=== PATIENT | male | born 1940 | race Caucasian/White ===

== ENCOUNTER 2017-12-07 17:43 | Emergency (ER) | payer MEDICARE, OTHER ==
[2017-12-07 19:16] LABS: Basophils # (Auto) 0.1 K/mm3 (0.0-0.1); Basophils % (Auto) 1.1 % (0.0-1.8); Eosinophils # (Auto) 0.6 K/mm3 (0.0-0.4); Eosinophils % (Auto) 10.5 % (0.0-4.3); Lymphocytes # (Auto) 1.6 K/mm3 (1.2-5.4); Lymphocytes % (Auto) 30.7 % (13.4-35.0); Mean Corpuscular HGB Conc 37 % (32-34); Mean Corpuscular Hemoglobin 34 pg (28-32); Mean Corpuscular Volume 91 fl (84-94); Monocytes # (Auto) 0.4 K/mm3 (0.0-0.8); Monocytes % (Auto) 7.2 % (0.0-7.3); Platelet Count 321 K/mm3 (140-440); Red Blood Count 4.31 M/mm3 (3.65-5.03)
[2017-12-07 19:17] LABS: Hematocrit 39.4 % (35.5-45.6); Hemoglobin 14.4 gm/dl (11.8-15.2)
[2017-12-07 19:41] LABS: Alanine Aminotransferase 30 units/L (7-56); Albumin 4.2 g/dL (3.9-5); BUN/Creatinine Ratio 17; Blood Urea Nitrogen 17 mg/dL (9-20); Calcium 9.9 mg/dL (8.4-10.2); Hemolysis Index 40
[2017-12-07] MEDS ORDERED: NACL 0.9% 1000 ML 1,000 ML IV ONE (23:38)
[2017-12-07] MEDS ORDERED: HumuLIN R IV ONE (23:38)
[2017-12-07] MEDS ORDERED: NACL 0.9% 500 ML 500 ML IV ONE (23:38)
[2017-12-07 23:56] VITALS: BP 136/73
--- NOTE | 2017-12-08 01:13 | Emergency Department Report ---
ED General Adult HPI - General Chief complaint: Hyperglycemia Stated complaint: hyperglycemia Time Seen by Provider: 12/07/17 23:38 Source: patient, family, EMS, utility teller Mode of arrival: Wheelchair Limitations: Language Barrier - History of Present Illness Initial comments: Pt sent in by PCP. He was there for a routine check up and his blood sugar was 500. So, his pcp sent into the ER for recheck. Pt says that he has been taking his meds as prescribed. ~1 week ago, pt feel out of a hammock onto his right hip. Has had pain ever since. Still able to walk. Not on ATC. Didn't hit his head. History obtained through translation by family members. Severity scale (0 -10): 0 - Related Data Allergies Allergy/AdvReac Type Severity Reaction Status Date / Time No Known Allergies Allergy Verified 12/07/17 18:36 ED Review of Systems ROS: Stated complaint: HYPERTENSION Other details as noted in HPI Comment: All other systems reviewed and negative Musculoskeletal: arthralgia, myalgia ED Past Medical Hx - Past Medical History Previous Medical History?: Yes Hx Diabetes: Yes - Surgical History Past Surgical History?: Yes Additional Surgical History: hernia repair - Social History Smoking Status: Never Smoker Substance Use Type: None ED Physical Exam - General Limitations: Language Barrier General appearance: alert, in no apparent distress - Head Head exam: Present: atraumatic, normocephalic - Eye Eye exam: Present: normal appearance - ENT ENT exam: Present: mucous membranes moist - Neck Neck exam: Present: normal inspection - Respiratory Respiratory exam: Present: normal lung sounds bilaterally. Absent: respiratory distress - Cardiovascular Cardiovascular Exam: Present: regular rate, normal rhythm. Absent: systolic murmur, diastolic murmur, rubs, gallop - GI/Abdominal GI/Abdominal exam: Present: soft, normal bowel sounds. Absent: distended, tenderness, guarding, rebound - Rectal Rectal exam: Present: deferred - Extremities Exam Extremities exam: Present: normal inspection - Expanded Lower Extremity Exam Right Hip exam: Present: full ROM, tenderness (lateral hip tenderness. RLE with NROM. Rt foot is neurovasc intact). Absent: swelling, abrasion, laceration - Back Exam Back exam: Present: normal inspection - Neurological Exam Neurological exam: Present: alert, oriented X3 - Psychiatric Psychiatric exam: Present: normal affect, normal mood - Skin Skin exam: Present: warm, dry, intact, normal color. Absent: rash ED Course Vital Signs 12/07/17 12/07/17 12/07/17 18:38 23:18 23:26 Temperature 97.3 F L 98.0 F 98 F Pulse Rate 60 58 L 57 L Respiratory 20 12 16 Rate Blood Pressure 155/73 154/69 Blood Pressure 154/69 [Left] O2 Sat by Pulse 99 99 100 Oximetry 12/07/17 12/07/17 23:31 23:45 Temperature Pulse Rate 59 L 53 L Respiratory 12 20 Rate Blood Pressure 136/73 136/73 Blood Pressure [Left] O2 Sat by Pulse 100 99 Oximetry ED Medical Decision Making - Lab Data Result diagrams: 12/07/17 19:01 12/07/17 19:01 - Medical Decision Making 77 yo male with past medical history diabetes on Lantus that presents to the ER with hyperglycemia. Vital signs are stable. Patient's well-appearing. Lab work shows elevated glucose of 480. No evidence of anion gap. Venous blood gas is unremarkable. Patient has been given IV fluids and 10 units IV insulin. This lowered his glucose. I obtained a CT of his right hip secondary to patient's complaint of pain and recent fall. I suspect likely patient has a right hip contusion. Imaging is read as unremarkable, patient should be discharged to follow-up with his family doctor for his right hip pain and his glucose. Pt has been signed out to Dr. Mahoney - Differential Diagnosis dka, hyperglycemia, dehydration, electrolyte abnormality Critical care attestation.: If time is entered above; I have spent that time in minutes in the direct care of this critically ill patient, excluding procedure time. ED Disposition Clinical Impression: Contusion of right hip, Hyperglycemia Is pt being admited?: No Does the pt Need Aspirin: No Condition: Stable Instructions: Contusion in Adults (ED), Diabetic Hyperglycemia (ED) Additional Instructions: You can take 975 mg Tylenol every 6 hours as needed for pain relief. Follow-up with your family doctor in 2-3 days for recheck of your right hip pain and blood sugar. Referrals: PRIMARY CARE, [Primary Care Provider] - 3-5 Days
--- NOTE | 2017-12-08 02:36 | Cat Scan Report ---
FINAL REPORT EXAM: CT LOWER EXTREMITY RT WO CON HISTORY: right hip pain, h/o fall x 3 months ago TECHNIQUE: Spiral CT scanning of the right hip. No IV contrast administered. Multiplanar reformations. PRIORS: None. FINDINGS: Generalized osteopenia and degenerative change. No acute fracture, dislocation or obvious osseous destruction. Postsurgical changes of probable hernia repair in the right inguinal region. Remainder of surrounding soft tissues grossly unremarkable. IMPRESSION: 1. No acute osseous abnormality. 2. Postsurgical and degenerative change.
== END 2017-12-08 03:44 ==
LOC: ED 17:43
DX: S70.01XA Contusion of right hip, initial encounter (principal); E11.65 Type 2 diabetes mellitus with hyperglycemia; X58.XXXA Exposure to other specified factors, initial encounter; Y93.89 Activity, other specified; Y92.89 Other specified places as the place of occurrence of the external cause; Y99.8 Other external cause status
CPT/HCPCS: 36415; 73700; 80053; 82805; 82962; 85025; 93005; 93010; 96361; 96374; 99285; J7030; J1815

== ENCOUNTER 2018-06-29 10:08 | Emergency (ER) | payer MEDICARE, OTHER, SELFPAY ==
[2018-06-29 10:40] LABS: Basophils % (Auto) 0.7 % (0.0-1.8); Eosinophils # (Auto) 0.6 K/mm3 (0.0-0.4); Eosinophils % (Auto) 9.1 % (0.0-4.3); Hematocrit 40.3 % (35.5-45.6); Lymphocytes # (Auto) 1.6 K/mm3 (1.2-5.4); Lymphocytes % (Auto) 26.4 % (13.4-35.0); Mean Corpuscular HGB Conc 35 % (32-34); Mean Corpuscular Volume 89 fl (84-94); Monocytes # (Auto) 0.4 K/mm3 (0.0-0.8); Monocytes % (Auto) 7.2 % (0.0-7.3); Platelet Count 316 K/mm3 (140-440); Red Blood Count 4.53 M/mm3 (3.65-5.03); Red Cell Distribution Width 13.1 % (13.2-15.2)
[2018-06-29] MEDS ORDERED: QUELICIN ONE (10:47)
[2018-06-29] MEDS ORDERED: SUBLIMAZE ONE (10:47)
[2018-06-29] MEDS ORDERED: DIPRIVAN 10 MG/ML IV ONE (10:48)
[2018-06-29] MEDS ORDERED: NACL 0.9% 1000 ML 1,000 ML IV ONE (11:05)
[2018-06-29] MEDS ORDERED: HumuLIN R IV ONE (11:06)
--- NOTE | 2018-06-29 11:08 | Emergency Department Report ---
ED General Adult HPI - General Chief complaint: Hyperglycemia Stated complaint: HIGH GLUCOSE Time Seen by Provider: 06/29/18 11:02 Source: patient Mode of arrival: Ambulatory Limitations: No Limitations - History of Present Illness Initial comments: Mr. Jones is an 78-year-old Malay speaking gentleman who presents with elevated blood sugar and abdominal pain. He ran out of metformin medication. He now has generalized abdominal pain and vomiting. Moderate severe pain in the abdomen began 2 days ago. Denies fever. Has mild headache. Positive lightheadedness. No diarrhea. PCP Dr. Otis Fountain Further history obtained by daughter at the bedside including Malay interpretation -: Gradual, days(s) (2) Location: head, abdomen Radiation: non-radiation Quality: aching Consistency: intermittent Improves with: none Worsens with: none Associated Symptoms: malaise, nausea/vomiting - Related Data Previous Rx's Medication Instructions Recorded Last Taken Type Docusate Sodium [Colace] 100 mg PO BID 7 Days #14 capsule 06/29/18 Unknown Rx metFORMIN [Glucophage] 500 mg PO BID 30 Days #60 tablet 06/29/18 Unknown Rx Allergies Allergy/AdvReac Type Severity Reaction Status Date / Time No Known Allergies Allergy Verified 06/29/18 10:14 ED Review of Systems ROS: Stated complaint: HIGH GLUCOSE Other details as noted in HPI Comment: All other systems reviewed and negative Constitutional: denies: fever Respiratory: denies: cough Cardiovascular: denies: chest pain ED Past Medical Hx - Past Medical History Previous Medical History?: Yes Hx Diabetes: Yes - Surgical History Additional Surgical History: hernia repair - Social History Smoking Status: Never Smoker Substance Use Type: None - Medications Home Medications: Home Medications Medication Instructions Recorded Confirmed Last Taken Type Docusate Sodium [Colace] 100 mg PO BID 7 Days #14 capsule 06/29/18 Unknown Rx metFORMIN [Glucophage] 500 mg PO BID 30 Days #60 tablet 06/29/18 Unknown Rx ED Physical Exam - General Limitations: No Limitations General appearance: alert, in no apparent distress, other (appears well, appears well hydrated) - Head Head exam: Present: atraumatic, normocephalic - Eye Eye exam: Present: normal appearance - ENT ENT exam: Present: mucous membranes moist - Neck Neck exam: Present: normal inspection, full ROM. Absent: tenderness, meningismus - Respiratory Respiratory exam: Present: normal lung sounds bilaterally. Absent: respiratory distress, wheezes, rales, rhonchi - Cardiovascular Cardiovascular Exam: Present: regular rate, normal rhythm, normal heart sounds. Absent: systolic murmur, diastolic murmur, rubs, gallop - GI/Abdominal GI/Abdominal exam: Present: soft, normal bowel sounds. Absent: distended, tenderness, guarding, rebound - Rectal Rectal exam: Present: deferred - Extremities Exam Extremities exam: Present: normal inspection - Back Exam Back exam: Present: normal inspection - Neurological Exam Neurological exam: Present: alert, oriented X3 - Psychiatric Psychiatric exam: Present: normal affect, normal mood - Skin Skin exam: Present: warm, dry, intact, normal color. Absent: rash ED Course Vital Signs 06/29/18 06/29/18 06/29/18 10:14 11:15 14:15 Temperature 97.5 F L 98 F Pulse Rate 78 69 61 Respiratory 16 17 18 Rate Blood Pressure 134/80 Blood Pressure 132/72 137/72 [Right] O2 Sat by Pulse 99 98 99 Oximetry 06/29/18 15:59 Temperature 98.3 F Pulse Rate 64 Respiratory 20 Rate Blood Pressure Blood Pressure 128/66 [Right] O2 Sat by Pulse 99 Oximetry ED Medical Decision Making - Lab Data Result diagrams: 06/29/18 10:24 06/29/18 10:24 - Radiology Data Radiology results: report reviewed No acute process on CT scan, constipation present - Medical Decision Making Mr. Jones presents with hyperglycemia and abdominal pain. Blood glucose improved after IV fluid and IV regular insulin. CT abdomen and pelvis revealed constipation likely due to rebound from lack of metformin medication. I have prescribed metformin and Colace. Discharged home in stable condition. Critical care attestation.: If time is entered above; I have spent that time in minutes in the direct care of this critically ill patient, excluding procedure time. ED Disposition Clinical Impression: Hyperglycemia, Constipation, Abdominal pain Disposition: DC-01 TO HOME OR SELFCARE Is pt being admited?: No Does the pt Need Aspirin: No Condition: Stable Instructions: Constipation (ED), Diabetic Hyperglycemia (ED) Prescriptions: Docusate Sodium [Colace] 100 mg PO BID 7 Days #14 capsule metFORMIN [Glucophage] 500 mg PO BID 30 Days #60 tablet Referrals: OTIS FOUNTAIN MD [Staff Physician] - 3-5 Days
[2018-06-29 12:36] LABS: Calcium 10.2 mg/dL (8.4-10.2)
[2018-06-29 16:00] VITALS: BP 128/66
--- NOTE | 2018-06-29 17:43 | Cat Scan Report ---
FINAL REPORT EXAM: CT ABDOMEN PELVIS W CON HISTORY: abdominal pain COMPARISON: None. TECHNIQUE: Multiple contiguous axial images were obtained from the lung bases to the pubic symphysis after administration of IV contrast. Reformatted sagittal and coronal images were available for revi ew. FINDINGS: Lung bases: Normal. Visualized heart and mediastinum: Normal heart size. Moderate to severe coronary artery calcification s. Liver: Normal. Spleen: Normal. Pancreas: Mild fatty atrophy. Gallbladder and Biliary Tree: No calcified gallstones. No biliary ductal dilatation. Adrenal glands: Normal. Kidneys: Symmetric enhancement to both kidneys. No hydronephrosis. Bladder: Normal. Pelvic organs: Normal prostate gland and seminal vesicles. Bowel: No focal wall thickening. No evidence of obstruction. The appendix is not clearly identified, but there are no pericecal inflammatory changes. Large amount of stool throughout the colon. Peritoneum: No significant mesenteric adenopathy. No free air or free fluid. Vasculature: Abdominal aorta is normal in caliber without evidence of aneurysm. Scattered atheroscler otic calcifications. Normal appearance of the portal venous system and the inferior vena cava. Bones and soft tissues: No suspicious osseous lesions. No acute fracture or dislocation. Grade 1 ante rolisthesis of L4 on L5. Multilevel degenerative changes of the lumbar spine. Postsurgical changes fr om ventral hernia repair with mesh placement. IMPRESSION: No acute intra-abdominal pathology. Large amount of stool throughout the entire colon concerning for constipation.
== END 2018-06-29 17:21 | disposition home or self-care (01) ==
LOC: ED 10:08
DX: E11.65 Type 2 diabetes mellitus with hyperglycemia (principal); R10.84 Generalized abdominal pain; R11.2 Nausea with vomiting, unspecified; Z79.4 Long term (current) use of insulin
CPT/HCPCS: 36415; 74177; 80048; 82805; 82947; 82962; 85025; 96361; 96374; 99284; J0330; J2704; J3010; J7030; Q9967; J1815

== ENCOUNTER 2018-11-19 08:28 | Inpatient (IN) | payer MEDICARE ==
[2018-11-19] MEDS ORDERED: NACL 0.9% 1000 ML IV ONE (08:47)
--- NOTE | 2018-11-19 08:50 | Emergency Department Report ---
ED General Adult HPI - General Chief complaint: Weakness Stated complaint: HYPERGLYCEMIA Time Seen by Provider: 11/19/18 08:30 Source: patient, family, EMS (ems notes not available at time of chart dictation), RN notes reviewed, old records reviewed Mode of arrival: Stretcher Limitations: Language Barrier, Altered Mental Status, Physical Limitation - History of Present Illness Initial comments: This is an 78-year-old gentleman. The patient is altered and nonverbal currently, and not provide any history. History is entirely obtained from his granddaughter, Miss Theo Jones; [phone] Patient has a history of diabetes, the family does not know the name of his primary care doctor. Family brings the patient into the ER today for weakness and lethargy. Last known well time is sometime yesterday. Family not exactly sure 1. He apparently fell, we are not sure if this is witnessed. Apparently, after he fell, he was brought back to bed by family. The patient has high blood sugar, and the family does not know what medications he takes, if his medications haven't changed or adjusted. Typically, patient able to complete most activities of daily living, with some assistance. However, the patient is now moaning in bed listlessly, moving 4 extremities, and not at his baseline, as per the granddaughter. There is no documented fever, syncope, nausea, vomiting, or urinary frequency. Patient himself is altered, and therefore, not able to describe qualitative nature of his symptoms, exacerbating or relieving factors, or radiation. Family is trying to get a list of medications. -: unknown Radiation: other Quality: other Consistency: other Improves with: other Worsens with: other Associated Symptoms: weakness - Related Data Previous Rx's Medication Instructions Recorded Last Taken Type Docusate Sodium [Colace] 100 mg PO BID 7 Days #14 capsule 06/29/18 Unknown Rx metFORMIN [Glucophage] 500 mg PO BID 30 Days #60 tablet 06/29/18 Unknown Rx Allergies Allergy/AdvReac Type Severity Reaction Status Date / Time No Known Allergies Allergy Verified 06/29/18 10:14 ED Review of Systems ROS: Stated complaint: HYPERGLYCEMIA Other details as noted in HPI Comment: Unobtainable due to pts medical conditions (review of systems as per family) Constitutional: malaise Respiratory: denies: cough Cardiovascular: denies: syncope Genitourinary: denies: frequency Neurological: weakness ED Past Medical Hx - Past Medical History Previous Medical History?: Yes Hx Diabetes: Yes - Surgical History Past Surgical History?: Yes Additional Surgical History: hernia repair - Social History Smoking Status: Never Smoker Substance Use Type: None - Medications Home Medications: Home Medications Medication Instructions Recorded Confirmed Last Taken Type Docusate Sodium [Colace] 100 mg PO BID 7 Days #14 capsule 06/29/18 Unknown Rx metFORMIN [Glucophage] 500 mg PO BID 30 Days #60 tablet 06/29/18 Unknown Rx ED Physical Exam - General Limitations: Language Barrier General appearance: lethargic, cachectic - Head Head exam: Present: atraumatic, normocephalic - Eye Eye exam: Present: normal appearance - ENT ENT exam: Present: mucous membranes dry, normal external ear exam - Neck Neck exam: Present: normal inspection, full ROM. Absent: tenderness - Respiratory Respiratory exam: Present: normal lung sounds bilaterally. Absent: respiratory distress - Cardiovascular Cardiovascular Exam: Present: normal rhythm, tachycardia, normal heart sounds. Absent: systolic murmur, diastolic murmur, rubs, gallop - GI/Abdominal GI/Abdominal exam: Present: soft, other (scaphoid abdomen. Patient appears cachectic and wasted.). Absent: distended, tenderness, guarding, rebound, rigid, pulsatile mass - Rectal Rectal exam: Present: normal inspection, other (chaperoned by nurse Ariel House) - Extremities Exam Extremities exam: Present: normal inspection, other (2+ pulses noted in the bilateral upper, lower extremities. Compartments soft. No long bony tenderness. The pelvis is stable.). Absent: pedal edema, calf tenderness - Back Exam Back exam: Present: normal inspection. Absent: tenderness, CVA tenderness (R), CVA tenderness (L), paraspinal tenderness, vertebral tenderness - Neurological Exam Neurological exam: Present: altered, other (the patient moves 4 extremities spontaneously. Opens eyes spontaneously. Not speaking sensibly. a detailed neurologic examination is not possible secondary to the patient's inability to participate. Withdraws 4 extremities to pinch.) - Psychiatric Psychiatric exam: Present: other (patient is nonverbal) - Skin Skin exam: Present: warm, dry, intact, normal color. Absent: rash ED Course Vital Signs 11/19/18 11/19/18 11/19/18 08:37 08:42 08:45 Temperature 96.2 F L Pulse Rate 106 H 105 H 105 H Respiratory 20 20 24 Rate Blood Pressure 120/49 120/49 O2 Sat by Pulse 99 99 98 Oximetry 11/19/18 11/19/18 11/19/18 08:50 08:52 09:00 Temperature Pulse Rate 109 H 105 H Respiratory 22 20 Rate Blood Pressure 117/59 O2 Sat by Pulse 99 Oximetry 11/19/18 11/19/18 11/19/18 09:15 09:30 10:01 Temperature Pulse Rate 108 H 101 H 101 H Respiratory 19 22 Rate Blood Pressure 123/67 123/67 123/67 O2 Sat by Pulse 98 100 79 L Oximetry 11/19/18 11/19/18 10:30 11:36 Temperature Pulse Rate 102 H 85 Respiratory 25 H 15 Rate Blood Pressure 111/58 O2 Sat by Pulse 97 97 Oximetry - Reevaluation(s) Reevaluation #1: 11/19/18 09:28 Differential diagnosis, including not limited to: Toxic encephalopathy, metabolic encephalopathy, pneumonia, urinary tract infection, dehydration, electrolyte derangements Assessment and plan: 78-year-old gentleman with weakness, tachycardia, Accu-Chek greater than 500, suspect diabetic ketoacidosis versus hyperosmolar state. He is afebrile. He is protecting his airway at this time. Appropriate laboratory studies ordered, x-ray of the chest ordered, CT scan of the brain, cervical spine ordered given history of possible fall, patient to be admitted to the medical service once initial diagnostics have resulted. Chief medical diagnosis is most likely metabolic encephalopathy, likely secondary to hyperglycemia. Reevaluation #2: 11/19/18 11:23 Laboratory studies demonstrate diabetic ketoacidosis, acute renal insufficiency, additional IV fluids ordered. DKA medications and protocol ordered. While in the ER, Patient developed SVT. He is treated according to the algorithm, received adenosine 6 mg, then 12 mg, and then 12 mg. Each time, he slowed down, and subsequently sped back up to SVT. He was given a dose of diltiazem, 10 mg, slowed down, and then sped back up. At this point time, the patient's blood p ressure was in the 70s/80s. He is still awake, and mentating protecting his airway. He is placed on a lifepak device and shocked at 100 j, slowed down, sped back up again, shocked at 150 J, slowed down, sped back up again, and centrally shocked at 200 J, where he was successfully converted into a sinus rhythm. Each time, he is premedicated with fentanyl, please see nursing medication records. Given unstable narrow complex tachyarrhythmia, and need for emergent cardioversion, the patient is emergently and administratively consented by myself in these procedures. At this point in time, blood pressure is in the mid 90s, patient awake, Hospital physician is paged to arrange admission, critical care physician is paged to arrange admission to the intensive care unit, discussed with cardiology on-call, Dr. Guillaume, who agreed to follow in consultation. 11/19/18 11:25 Reevaluation #3: 11/19/18 11:36 Dr Garcia agrees with placement into the intensive care unit. The Hospital physician was paged to arrange admission. Reevaluation #4: 11/19/18 11:54 Dr Rodriguez to admit Reevaluation #5: 11/19/18 12:11 CT scan of the brain and cervical spine negative for acute traumatic findings. Incidental nonemergent findings noted. These may be followed up on the inpatient side of things, or electively as an outpatient. ED Medical Decision Making - Lab Data Result diagrams: 11/19/18 10:07 11/19/18 11:29 Vital Signs 11/19/18 11/19/18 11/19/18 08:37 08:42 08:45 Temperature 96.2 F L Pulse Rate 106 H 105 H 105 H Respiratory 20 20 24 Rate Blood Pressure 120/49 120/49 O2 Sat by Pulse 99 99 98 Oximetry 11/19/18 11/19/18 11/19/18 08:50 08:52 09:00 Temperature Pulse Rate 109 H 105 H Respiratory 22 20 Rate Blood Pressure 117/59 O2 Sat by Pulse 99 Oximetry 11/19/18 09:15 Temperature Pulse Rate 108 H Respiratory Rate Blood Pressure 123/67 O2 Sat by Pulse 98 Oximetry - EKG Data -: EKG Interpreted by [place] EKG shows normal: sinus rhythm Rate: tachycardia - EKG Data 11/19/18 09:30 EKG is limited by motion artifact. This is a sinus rhythm, tachycardic, 106 bpm, normal axis, QTC prolonged, poor R progression, atrial enlargement, there is a nonspecific repolarization abnormality, there is no endorsement of chest pain, the EKG is abnormal, it is not consistent with ST elevation myocardial infarction. - Radiology Data Radiology results: pending Critical Care Time: Yes Critical care time in (mins) excluding proc time.: 120 Critical care attestation.: If time is entered above; I have spent that time in minutes in the direct care of this critically ill patient, excluding procedure time. ED Disposition Clinical Impression: DKA (diabetic ketoacidoses), MEETA (acute kidney injury), SVT (supraventricular tachycardia) Disposition: 09 OP ADMIT IP TO THIS HOSP Is pt being admited?: Yes Condition: Critical
[2018-11-19 09:41] LABS: Bilirubin,Urine NEG (Negative); Blood,Urine NEG (Negative); Color,Urine Yellow (Yellow); Mucus,Urine FEW /HPF; Protein,Urine <15 mg/dL mg/dL (Negative); Urobilinogen,Urine < 2.0 mg/dL (<2.0); WBC,Urine < 1.0 /HPF (0.0-6.0)
--- NOTE | 2018-11-19 09:42 | XRay Report ---
CHEST 1 VIEW INDICATION / CLINICAL INFORMATION: dka sepsis. COMPARISON: None available. FINDINGS: SUPPORT DEVICES: None. HEART / MEDIASTINUM: No significant abnormality. LUNGS / PLEURA: No significant pulmonary or pleural abnormality. No pneumothorax. ADDITIONAL FINDINGS: No significant additional findings. IMPRESSION: 1. No acute findings. Signer Name: Colby Wilson MD Signed: 11/19/2018 9:38 AM Workstation Name: [id number]
[2018-11-19 10:44] LABS: Partial Thromboplastin Time 26.3 Sec. (24.2-36.6)
[2018-11-19 10:49] LABS: Basophils % (Auto) 0.1 % (0.0-1.8); Eosinophils % (Auto) 0.5 % (0.0-4.3); Hematocrit 55.2 % (35.5-45.6); Hemoglobin 17.7 gm/dl (11.8-15.2); Lymphocytes # (Auto) 0.3 K/mm3 (1.2-5.4); Lymphocytes % (Auto) 4.2 % (13.4-35.0); Mean Corpuscular HGB Conc 32 % (32-34); Mean Corpuscular Volume 98 fl (84-94); Monocytes # (Auto) 0.5 K/mm3 (0.0-0.8); Monocytes % (Auto) 5.9 % (0.0-7.3); Platelet Count 193 K/mm3 (140-440); Red Blood Count 5.66 M/mm3 (3.65-5.03); Red Cell Distribution Width 15.3 % (13.2-15.2)
[2018-11-19 10:50] LABS: Albumin 3.6 g/dL (3.9-5); Calcium 9.9 mg/dL (8.4-10.2)
[2018-11-19] MEDS ORDERED: NACL 0.9% 1000 ML 2,000 ML IV ONE (10:55)
[2018-11-19] MEDS ORDERED: SODIUM BICARBONATE PEDIATRIC ONE (10:56)
[2018-11-19] MEDS ORDERED: SUBLIMAZE ONE ×3 (10:56→11:15)
[2018-11-19] MEDS ORDERED: NACL 0.9% 1000 ML 2,000 ML ONE (10:59)
[2018-11-19] MEDS ORDERED: CARDIZEM ONE (11:01)
[2018-11-19] MEDS ORDERED: D50W (25GM) Syringe IV PRN ×2 (11:21→17:29)
[2018-11-19] MEDS ORDERED: HumuLIN R IV ONE (11:23)
--- NOTE | 2018-11-19 11:55 | Cat Scan Report ---
CT head/brain wo con INDICATION: fall weak ams, TECHNIQUE: Routine CT head without contrast. Limited CT scan. Images are obtained and therefore sagit denise image helical scan of the brain limited abilities. Sagittal and coronal reformatted images were o btained. All CT scans at this location are performed using CT dose reduction for ALARA by means of au tomated exposure control. COMPARISON: None. FINDINGS: BRAIN / INTRACRANIAL CONTENTS: I do not see intracranial sequela from the trauma. I do not see subdur al or epidural or intracerebral hematoma. I do not see CT findings to suggest posttraumatic subarachn oid hemorrhage. In these images, I do not see scalp swelling. I do not see fluid accumulation in the visualized portions of the paranasal sinuses. No acute hemorrhage, mass effect, midline shift, hydrocephalus, or acute, large territorial infarct. Moderate cortical involution and deep central involutions are seen. Moderate volume loss is seen in t he hippocampi bilaterally. Periventricular low density areas are seen due to microvascular faint nico opathy. CRANIOCERVICAL JUNCTION: No significant abnormality. ORBITS: No significant abnormality of visualized orbits. SINUSES / MASTOIDS: Mucosal thickening is seen in the right anterior ethmoid air cell and right front al sinus. Impression: I do not see sequela from the trauma in the brain: I do not see an acute parenchymal lesi on. Cortical involution Signer Name: Tamika Cruz MD Signed: 11/19/2018 11:51 AM Workstation Name: [id number]
[2018-11-19] MEDS ORDERED: SUBLIMAZE IV ONE (12:00)
[2018-11-19] MEDS ORDERED: SODIUM CHLORIDE FLUSH SYRINGE 10 ML IV SCH (12:00)
[2018-11-19] MEDS ORDERED: SODIUM BICARBONATE PEDIATRIC IV ONE (12:00)
[2018-11-19] MEDS ORDERED: CARDIZEM IV ONE (12:00)
--- NOTE | 2018-11-19 12:00 | Cat Scan Report ---
Exam: CT cervical spine History: fall; weakness; ams Technique: Contiguous thin cut axial images obtained through the cervical spine. Sagittal and muhammad l reconstructions performed by the technologist. All CT scans at this location are performed using CT dose reduction for ALARA by means of automated exposure control. Please note these images are obtain ed in the [address] scanner in this limited. Findings: No priors. There is no evidence of fracture or traumatic subluxation. At C5-C6 and C6-C7 disc levels, loss of disc height is seen. At C5-C6 disc level, large extradural le bryan is seen centering in significant bony canal stenoses. Since disc height is relatively well prese rved, one possibility is ossification of posterior longitudinal ligament. Other possibility is disc protrusion with densely calcified annulus. Both neuroforamina are narrowed. At C6-C7 disc level, sh allow disc protrusion is seen. C4-C5 disc space, bulging disc is seen. Right neuroforamen is narrowed. Intervertebral disc spaces are well-maintained. No significant degenerative change seen in the uncinate or facet joints. No significant canal stenosi s or osseous foraminal narrowing. Surrounding soft tissues are grossly normal. Impression: No signs of acute bony trauma to the cervical spine. Large extradural lesion bilaterally more to the right side at C5-C6 disc level resulting in bony viviana l stenoses and foraminal stenoses more on the right side Signer Name: Tamika Cruz MD Signed: 11/19/2018 11:56 AM Workstation Name: [id number]
[2018-11-19 12:08] LABS: Calcium 9.1 mg/dL (8.4-10.2)
[2018-11-19] MEDS ORDERED: HumuLIN R 100 UNITS in NACL 0.9% 99 ML IV SCH ×2 (13:00→18:00)
[2018-11-19 13:47] LABS: Calcium 8.8 mg/dL (8.4-10.2)
[2018-11-19] MEDS: D5W/0.45% NACL/KCL 20 MEQ 20 MEQ/1,000 ML BAG IV SCH ×2 (14:00→21:39)
[2018-11-19] MEDS ORDERED: REGLAN IV PRN (17:17)
[2018-11-19] MEDS ORDERED: TYLENOL PO PRN (17:17)
[2018-11-19] MEDS ORDERED: SODIUM CHLORIDE FLUSH SYRINGE 10 ML IV PRN (17:17)
[2018-11-19] MEDS: DILAUDID IV PRN (17:52)
[2018-11-19 17:55] LABS: Calcium 9.1 mg/dL (8.4-10.2)
[2018-11-19] MEDS: KCL 10MEQ/100ML 10 MEQ/100 ML BAG IV SCH ×6 (18:21→23:58)
--- NOTE | 2018-11-19 20:24 | History and Physical Report ---
History of Present Illness Date of examination: 11/19/18 Date of admission: 11/19/18 11:54 Chief complaint: Altered mental status for 2 days History of present illness: 78-year-old Citizen Of [place] male with past medical history significant for type 2 diabetes on metformin only comes to the emergency room for weakness and being lethargic and altered sensorium. No fever or chills. As for the family the patient has a high blood sugar. Patient is confused and nonverbal at this point. In the emergency room his blood sugar was in the 740s. As per the daughter patient has been lethargic for the last couple days. Has increased urination. Patient has been compliant with his metformin twice a day. No other medical problems. Past Medical History Previous Medical History?: Yes Diabetes on metformin only Surgical History Past Surgical History?: Yes Additional Surgical History: hernia repair Social History Smoking Status: Never Smoker Substance Use Type: None Family history Diabetes -Medications Home Medications: Home Medications Medication Instructions Recorded Confirmed Last Taken Type Docusate Sodium [Colace] 100 mg PO BID 7 Days #14 capsule 06/29/18 Unknown Rx metFORMIN [Glucophage] 500 mg PO BID 30 Days #60 tablet 06/29/18 Unknown Rx Review of Systems ROS: Stated complaint: HYPERGLYCEMIA Other details as noted in HPI Comment: Unobtainable due to pts medical conditions (review of systems as per family) Constitutional: malaise Respiratory: denies: cough Cardiovascular: denies: syncope Genitourinary: denies: frequency Neurological: weakness 14 point review of systems done with the help of daughter--- other than altered sensorium and lethargy--review of systems negative Medications and Allergies Allergies Allergy/AdvReac Type Severity Reaction Status Date / Time No Known Allergies Allergy Verified 06/29/18 10:14 Home Medications Medication Instructions Recorded Confirmed Last Taken Type Docusate Sodium [Colace] 100 mg PO BID 7 Days #14 capsule 06/29/18 11/19/18 Unknown Rx metFORMIN [Glucophage] 500 mg PO BID 30 Days #60 tablet 06/29/18 11/19/18 Unkn own Rx Active Meds: Active Medications Acetaminophen (Tylenol) 650 mg PO Q4H PRN PRN Reason: Pain MILD(1-3)/Fever >100.5/DEAN Dextrose (D50w (25gm) Syringe) 0 ml IV PRN PRN PRN Reason: Hypoglycemia Dextrose (D50w (25gm) Syringe) 0 ml IV PRN PRN PRN Reason: Hypoglycemia Famotidine (Pepcid) 20 mg IV BID [facility] Heparin Sodium (Porcine) (Heparin) 5,000 unit SUB-Q Q12HR HAMLET Hydromorphone HCl (Dilaudid) 0.5 mg IV Q3H PRN PRN Reason: Pain , Severe (7-10) Last Admin: 11/19/18 17:52 Dose: 0.5 mg Documented by: Insulin Human Regular 100 (units/ Sodium Chloride) 100 mls @ 1 mls/hr IV TITR HAMLET; Protocol Last Titration: 11/19/18 19:00 Dose: 10 units/hr, 10 mls/hr Documented by: Potassium Chloride/Dextrose/Sod Cl (D5w/0.45% Nacl/Kcl 20 Meq) 20 meq in 1,000 mls @ 125 mls/hr IV DIRECT HAMLET Last Admin: 11/19/18 14:00 Dose: 125 mls/hr Documented by: Insulin Human Regular 100 (units/ Sodium Chloride) 100 mls @ 1 mls/hr IV TITR HAMLET; Protocol Potassium Chloride (Kcl 10meq/100ml) 10 meq in 100 mls @ 100 mls/hr IV Q1H HAMLET Stop: 11/19/18 23:59 Last Admin: 11/19/18 19:43 Dose: 100 mls/hr Documented by: Metoclopramide HCl (Reglan) 10 mg IV Q6H PRN PRN Reason: Nausea And Vomiting Ondansetron HCl (Zofran) 4 mg IV Q3H PRN PRN Reason: Nausea And Vomiting Sodium Chloride (Sodium Chloride Flush Syringe 10 Ml) 10 ml IV PRN HAMLET Sodium Chloride (Sodium Chloride Flush Syringe 10 Ml) 10 ml IV BID HAMLET Sodium Chloride (Sodium Chloride Flush Syringe 10 Ml) 10 ml IV PRN PRN PRN Reason: LINE FLUSH Exam - Constitutional Vitals: Temp Pulse Resp BP Pulse Ox 98.2 F 98 H 16 126/61 96 11/19/18 19:39 11/19/18 18:00 11/19/18 12:36 11/19/18 12:36 11/19/18 18:00 General appearance: Present: no acute distress, well-nourished - EENT Eyes: Present: PERRL ENT: hearing intact, clear oral mucosa - Neck Neck: Present: supple, normal ROM - Respiratory Respiratory effort: normal Respiratory: bilateral: CTA - Cardiovascular Heart rate: 98 Rhythm: regular Heart Sounds: Present: S1 & S2. Absent: rub, click - Extremities Extremities: no ischemia, pulses intact, pulses symmetrical, No edema Peripheral Pulses: within normal limits - Abdominal General gastrointestinal: Present: soft, non-tender, non-distended, normal bowel sounds Male genitourinary: Present: normal - Rectal Rectal Exam: deferred - Integumentary Integumentary: Present: clear, warm, dry - Musculoskeletal Musculoskeletal: gait normal, strength equal bilaterally - Psychiatric Psychiatric: other (patient is lethargic, and decreased responsiveness) - Neurologic Neurologic: CNII-XII intact, moves all extremities - Allied Health Allied health notes reviewed: nursing, case management Results - Labs CBC & Chem 7: 11/19/18 10:07 11/19/18 19:14 Labs: Laboratory Last Values WBC 7.7 K/mm3 (4.5-11.0) 11/19/18 10:07 RBC 5.66 M/mm3 (3.65-5.03) H 11/19/18 10:07 Hgb 17.7 gm/dl (11.8-15.2) H 11/19/18 10:07 Hct 55.2 % (35.5-45.6) H 11/19/18 10:07 MCV 98 fl (84-94) H 11/19/18 10:07 MCH 31 pg (28-32) 11/19/18 10:07 MCHC 32 % (32-34) 11/19/18 10:07 RDW 15.3 % (13.2-15.2) H 11/19/18 10:07 Plt Count 193 K/mm3 (140-440) 11/19/18 10:07 Lymph % (Auto) 4.2 % (13.4-35.0) L 11/19/18 10:07 [place] % (Auto) 5.9 % (0.0-7.3) 11/19/18 10:07 Eos % (Auto) 0.5 % (0.0-4.3) 11/19/18 10:07 Baso % (Auto) 0.1 % (0.0-1.8) 11/19/18 10:07 Lymph # 0.3 K/mm3 (1.2-5.4) L 11/19/18 10:07 [place] # 0.5 K/mm3 (0.0-0.8) 11/19/18 10:07 Eos # 0.0 K/mm3 (0.0-0.4) 11/19/18 10:07 Baso # 0.0 K/mm3 (0.0-0.1) 11/19/18 10:07 Seg Neutrophils % 89.3 % (40.0-70.0) H 11/19/18 10:07 Seg Neutrophils # 6.9 K/mm3 (1.8-7.7) 11/19/18 10:07 PT 12.9 Sec. (12.2-14.9) 11/19/18 10:07 INR 1.00 (0.87-1.13) 11/19/18 10:07 APTT 26.3 Sec. (24.2-36.6) 11/19/18 10:07 VBG pH 7.162 (7.320-7.420) L* 11/19/18 10:07 Sodium 163 mmol/L (137-145) H* 11/19/18 17:10 Potassium 3.6 mmol/L (3.6-5.0) 11/19/18 19:14 Chloride 122.7 mmol/L (98-107) H 11/19/18 19:14 Carbon Dioxide 22 mmol/L (22-30) 11/19/18 19:14 23 mmol/L 11/19/18 19:14 BUN 43 mg/dL (9-20) H 11/19/18 19:14 1.6 mg/dL (0.8-1.5) H 11/19/18 19:14 Estimated GFR 42 ml/min 11/19/18 19:14 27 % 11/19/18 19:14 Glucose 240 mg/dL (75-100) H 11/19/18 19:14 POC Glucose 270 (70-105) H 11/19/18 18:26 16.9 % (4-6) H 11/19/18 19:14 Lactic Acid 3.30 mmol/L (0.7-2.0) H* 11/19/18 17:10 Calcium 9.0 mg/dL (8.4-10.2) 11/19/18 19:14 Phosphorus 6.90 mg/dL (2.5-4.5) H 11/19/18 11:29 Magnesium 2.40 mg/dL (1.7-2.3) H 11/19/18 19:14 0.20 mg/dL (0.1-1.2) 11/19/18 10:07 AST 26 units/L (5-40) 11/19/18 10:07 ALT 24 units/L (7-56) 11/19/18 10:07 101 units/L (35-129) 11/19/18 10:07 690 units/L (55-170) H 11/19/18 10:07 0.016 ng/mL (0.00-0.029) 11/19/18 10:07 6.4 g/dL (6.3-8.2) 11/19/18 10:07 3.6 g/dL (3.9-5) L 11/19/18 10:07 1.3 % 11/19/18 10:07 Yellow (Yellow) 11/19/18 09:17 Clear (Clear) 11/19/18 09:17 5.0 (5.0-7.0) 11/19/18 09:17 Ur Specific [place] 1.027 (1.003-1.030) 11/19/18 09:17 <15 mg/dl mg/dL (Negative) 11/19/18 09:17 >=500 mg/dL (Negative) 11/19/18 09:17 80 mg/dL (Negative) 11/19/18 09:17 Neg (Negative) 11/19/18 09:17 Neg (Negative) 11/19/18 09:17 Neg (Negative) 11/19/18 09:17 < 2.0 mg/dL (<2.0) 11/19/18 09:17 Ur Leukocyte Esterase Neg (Negative) 11/19/18 09:17 < 1.0 /HPF (0.0-6.0) 11/19/18 09:17 2.0 /HPF (0.0-6.0) 11/19/18 09:17 Few /HPF 11/19/18 09:17 Short CBC 11/19/18 Range/Units 10:07 WBC 7.7 (4.5-11.0) K/mm3 Hgb 17.7 H (11.8-15.2) gm/dl Hct 55.2 H (35.5-45.6) % Plt Count 193 (140-440) K/mm3 BMP 11/19/18 11/19/18 11/19/18 10:07 11:29 13:20 Sodium 152 H 151 H 161 H* D Potassium 4.6 4.5 4.2 Chloride 101.5 105.7 111.0 H Carbon Dioxide 7 L* 7 L* 12 L BUN 61 H 60 H 54 H Creatinine 2.1 H 1.9 H 2.0 H Glucose 878 H* 793 H* 596 H* Calcium 9.9 9.1 8.8 11/19/18 11/19/18 11/19/18 15:06 17:10 19:14 Sodium 160 H 163 H* 164 H* Potassium 3.9 3.3 L 3.6 Chloride 113.7 H 119.9 H 122.7 H Carbon Dioxide 14 L 17 L 22 BUN 52 H 49 H 43 H Creatinine 1.9 H 1.7 H 1.6 H Glucose 496 H 350 H 240 H Calcium 9.0 9.1 9.0 Cardiac Enzymes 11/19/18 Range/Units 10:07 Total Creatine Kinase 690 H (55-170) units/L Troponin T 0.016 (0.00-0.029) ng/mL Liver Function 11/19/18 Range/Units 10:07 Total Bilirubin 0.20 (0.1-1.2) mg/dL AST 26 (5-40) units/L ALT 24 (7-56) units/L Alkaline Phosphatase 101 (35-129) units/L Albumin 3.6 L (3.9-5) g/dL Urine 11/19/18 Range/Units 09:17 Urine Color Yellow (Yellow) Urine pH 5.0 (5.0-7.0) Ur Specific [place] 1.027 (1.003-1.030) Urine Protein <15 mg/dl (Negative) mg/dL Urine Glucose (UA) >=500 (Negative) mg/dL - Imaging and Cardiology EKG: report reviewed (sinus rhythm 80 for permanent no acute ST-T wave changes) Chest x-ray: report reviewed (no acute findings) Imaging and Cardiology: First EKG SVT Second EKG Sinus rhythm Head CT No acute hemorrhage, mass effect, midline shift, hydrocephalus, or acute, large territorial infarct. Moderate cortical involution and deep central involutions are seen. Moderate volume loss is seen in the hippocampi bilaterally. Periventricular low density areas are seen due to microvascular faint angiopathy. C-spine CT Impression: No signs of acute bony trauma to the cervical spine. Large extradural lesion bilaterally more to the right side at C5-C6 disc level resulting in bony canal stenoses and foraminal stenoses more on the right side Assessment and Plan Assessment and plan: Critical care statement The high probability of a clinically significant, sudden or life-threatening deterioration of the pulmonary cardiac renal systems required by full and direct attention, intervention and personal management. The aggravated critical care time was 40 minutes. This time is in addition to times when performing reported procedures but includes the following Data review and interpretation Patient assessment and monitoring of vital signs Documentation Medication orders and management Advance Directives: Yes (full code) VTE prophylaxis?: Chemical Plan of care discussed with patient/family: Yes - Patient Problems (1) DKA (diabetic ketoacidoses) Current Visit: Yes Status: Acute Qualifiers: Diabetes mellitus type: type 2 Plan to address problem: DKA protocol initiated Venous pH was 7.162 Patient on IV insulin and IV fluids Patient also started on Novolin 70/30 50 units twice a day which has to be adjusted at the time of discharge depending on his response to the insulin Patient is to be on insulin after discharge (2) SVT (supraventricular tachycardia) Current Visit: Yes Status: Acute Plan to address problem: Patient was given Adenosine 6 mg 12 mg and 12 mg with no response. Then patient was cardioverted in sequence of 100 joules, with no response then 150 J with transient response and then 200 J with complete response. Patient reverted back to sinus rhythm and remained in sinus rhythm. Patient initiated on amiodarone Cardiology consult requested (3) Acute hypernatremia Current Visit: Yes Status: Acute Plan to address problem: D5W to half normal saline for correction of sodium Serum sodium osmolality ordered (4) Metabolic acidosis Current Visit: Yes Status: Acute Plan to address problem: Severe Bicarbonate given (5) Hyperphosphatemia Current Visit: Yes Status: Acute Plan to address problem: Should correct with IV fluids and correction of blood glucose (6) MEETA (acute kidney injury) Current Visit: Yes Status: Acute Plan to address problem: Secondary to ATN IV fluids for now (7) DVT prophylaxis Current Visit: Yes Status: Acute Plan to address problem: On low heparin 5000 every 12 and GI prophylaxis
[2018-11-19] MEDS: PEPCID IV SCH (21:24)
[2018-11-19] MEDS: HEPARIN SUB-Q SCH (21:24)
[2018-11-19] MEDS: MAXIPIME/NS 1 GM/100 ML 1 GM/100 ML BAG IV SCH (21:47)
[2018-11-19] MEDS: SODIUM CHLORIDE FLUSH SYRINGE 10 ML IV SCH (21:48)
[2018-11-19] MEDS ORDERED: MAXIPIME/NS 2 GM/100 ML 2 GM/100 ML BAG IV SCH (22:00)
[2018-11-19 23:30] LABS: Calcium 8.6 mg/dL (8.4-10.2)
[2018-11-20] MEDS ORDERED: D50W (25GM) Syringe IV PRN (02:26)
[2018-11-20] MEDS ORDERED: KPHOS 30 MMOL in NACL 0.9% 500 ML 500 ML IV ONE (02:57)
[2018-11-20] MEDS ORDERED: VANCOMYCIN/NS 1 GM/250 ML 1 GM/250 ML BAG IV ONE (02:58)
[2018-11-20] MEDS ORDERED: INTROPIN DRIP 800 MG/D5W 250 ML 800 MG/250 ML BAG IV SCH (03:00)
[2018-11-20] MEDS: HumaLOG SUB-Q SCH ×4 (03:00→21:24)
[2018-11-20] MEDS ORDERED: TYLENOL PR PRN (03:04)
[2018-11-20] MEDS: D5W 1,000 ML IV SCH ×2 (03:08→11:10)
[2018-11-20] MEDS: ZOFRAN IV PRN (03:13)
--- NOTE | 2018-11-20 03:44 | Event Note ---
Date: 11/20/18 Received notification from nurse that pt is hypotensive with BP 74/38, hypernatremic with Na 165, and hypophosphatemic at 1.0. Pt also had moderate amount of emesis x1. Pt did not have a central line, so he was started on dopamine gtt 2mcg to try and maintain SBP of 90 until central line could be placed. On dopamine gtt there was no improvement in BP, SBP remained in mid to high 70's. Central line was placed and he was started on Levophed gtt and is responsive. SBP currently in 90's. Empiric Vancomycin 1gm was ordered. IV K-Phos 30mmol was ordered. NGT inserted, CPT and prn albuterol ordered as well. Changed IVF to D5W.
[2018-11-20] MEDS ORDERED: LEVOPHED DRIP 4 MG/NS 250 ML 4 MG/250 ML BAG IV SCH (04:00)
[2018-11-20 04:03] LABS: Calcium 8.5 mg/dL (8.4-10.2)
[2018-11-20] MEDS ORDERED: PROVENTIL IH PRN (04:27)
[2018-11-20] MEDS ORDERED: ROBITUSSIN PO PRN (04:28)
--- NOTE | 2018-11-20 05:09 | XRay Report ---
ABDOMEN 1 VIEW INDICATION / CLINICAL INFORMATION: NG Tube placement verification. COMPARISON: None available. FINDINGS: TUBES / LINES: An NG tube terminates over the gastric fundus. BOWEL GAS PATTERN: No significant abnormality. FREE AIR / EXTRALUMINAL GAS: None seen. ADDITIONAL FINDINGS: No significant additional findings. IMPRESSION: Satisfactory positioning of the NG tube. No acute findings. Signer Name: Jj Goncalves MD Signed: 11/20/2018 5:05 AM Workstation Name: [facility]
[2018-11-20 05:43] LABS: Hematocrit 35.2 % (35.5-45.6); Hemoglobin 12.4 gm/dl (11.8-15.2); Mean Corpuscular HGB Conc 35 % (32-34); Mean Corpuscular Volume 89 fl (84-94); Platelet Count 230 K/mm3 (140-440); Red Blood Count 3.95 M/mm3 (3.65-5.03); Red Cell Distribution Width 13.8 % (13.2-15.2)
[2018-11-20] MEDS ORDERED: HumaLOG SUB-Q SCH (07:30)
[2018-11-20 07:37] LABS: Band Neutrophils # (Manual) 0.3 K/mm3; Basophils % (Manual) 0 % (0.0-1.8); Eosinophils % (Manual) 0 % (0.0-4.3); Myelocytes # (Manual) 0.1 K/mm3; Platelet Estimate Consistent w Auto; RBC Morphology Normal; Total Cells Counted 100
[2018-11-20 07:43] LABS: Calcium 8.4 mg/dL (8.4-10.2)
--- NOTE | 2018-11-20 08:01 | Progress Note ---
Assessment and Plan Assessment and plan: Diabetic ketoacidosisKA Was on Insulin drip, now discontinued Continue Insulin subcut Diabetes mellitus type 2 Fingerstick q 4h SVT Given multiple doses Adenosine in ED, then shocked cardiology consulted Fever of 100.9 yesterday. SIRS vs Sepsis Blood cultures drawn Empiric Cefepime started Consult ID Hypernatremia Started on D5W Consult Nephrology Hypotension/shock On levophed, iv fluids MEETA due to vasomotor nephropathy Improving Cr now 1.3, was 2.1 on admission Hypophosphatemia Replace and recheck Full code status Discussed with daughter at bedside The high probability of a clinically significant, sudden or life threatening deterioration of the [4] system(s) required my full and direct attention, intervention and personal management. The aggregate critical care time was [36] minutes. This time is in addition to time spent performing reported procedures but includes the following: [x] Data Review and interpretation [x] Patient assessment and monitoring of vital signs [x] Documentation [x] Medication orders and management History Interval history: Altered mental status vomiting Hospitalist Physical - Physical exam Narrative exam: Gen: Not in acute distress, ill looking, malnourished HEENT: Normocephalic, atraumatic Neck: supple, no JVD Heart: S1 and S2 reg, no murmurs, rubs or gallop Lungs: Clear, no crackles or wheeze Abd: soft, non tender, non distended, normal BS, Ext: No edema, no clubbing, no cyanosis Neuro: Lethargic - Constitutional Vitals: Temp Pulse Resp BP Pulse Ox 99.8 F H 90 20 105/53 99 11/20/18 04:00 11/20/18 07:21 11/20/18 07:21 11/20/18 07:21 11/20/18 07:21 General appearance: Present: no acute distress, well-nourished Results - Labs CBC & Chem 7: 11/20/18 04:32 11/20/18 07:14 Labs: Laboratory Last Values WBC 1.5 K/mm3 (4.5-11.0) L* 11/20/18 04:32 RBC 3.95 M/mm3 (3.65-5.03) 11/20/18 04:32 Hgb 12.4 gm/dl (11.8-15.2) D 11/20/18 04:32 Hct 35.2 % (35.5-45.6) L D 11/20/18 04:32 MCV 89 fl (84-94) 11/20/18 04:32 MCH 32 pg (28-32) 11/20/18 04:32 MCHC 35 % (32-34) H 11/20/18 04:32 RDW 13.8 % (13.2-15.2) 11/20/18 04:32 Plt Count 230 K/mm3 (140-440) 11/20/18 04:32 Lymph % (Auto) 4.2 % (13.4-35.0) L 11/19/18 10:07 [place] % (Auto) 5.9 % (0.0-7.3) 11/19/18 10:07 Eos % (Auto) 0.5 % (0.0-4.3) 11/19/18 10:07 Baso % (Auto) 0.1 % (0.0-1.8) 11/19/18 10:07 Lymph # 0.3 K/mm3 (1.2-5.4) L 11/19/18 10:07 [place] # 0.5 K/mm3 (0.0-0.8) 11/19/18 10:07 Eos # 0.0 K/mm3 (0.0-0.4) 11/19/18 10:07 Baso # 0.0 K/mm3 (0.0-0.1) 11/19/18 10:07 Add Manual Diff Complete 11/20/18 04:32 Total Counted 100 11/20/18 04:32 Seg Neutrophils % 89.3 % (40.0-70.0) H 11/19/18 10:07 Seg Neuts % (Manual) 30.0 % (40.0-70.0) L 11/20/18 04:32 22.0 % 11/20/18 04:32 23.0 % (13.4-35.0) 11/20/18 04:32 Reactive Lymphs % (Man) 1.0 % 11/20/18 04:32 10.0 % (0.0-7.3) H 11/20/18 04:32 0 % (0.0-4.3) 11/20/18 04:32 0 % (0.0-1.8) 11/20/18 04:32 7.0 % 11/20/18 04:32 7.0 % 11/20/18 04:32 0 % 11/20/18 04:32 0 % 11/20/18 04:32 Nucleated RBC % Not Reportable 11/20/18 04:32 Seg Neutrophils # 6.9 K/mm3 (1.8-7.7) 11/19/18 10:07 Seg Neutrophils # Man 0.5 K/mm3 (1.8-7.7) L 11/20/18 04:32 Band Neutrophils # 0.3 K/mm3 11/20/18 04:32 0.3 K/mm3 (1.2-5.4) L 11/20/18 04:32 Abs React Lymphs (Man) 0.0 K/mm3 11/20/18 04:32 0.2 K/mm3 (0.0-0.8) 11/20/18 04:32 0.0 K/mm3 (0.0-0.4) 11/20/18 04:32 0.0 K/mm3 (0.0-0.1) 11/20/18 04:32 0.1 K/mm3 11/20/18 04:32 0.1 K/mm3 11/20/18 04:32 0.0 K/mm3 11/20/18 04:32 Blast Cells # 0.0 K/mm3 11/20/18 04:32 WBC Morphology Not Reportable 11/20/18 04:32 Hypersegmented Neuts Not Reportable 11/20/18 04:32 Hyposegmented Neuts Not Reportable 11/20/18 04:32 Hypogranular Neuts Not Reportable 11/20/18 04:32 Not Reportable 11/20/18 04:32 Not Reportable 11/20/18 04:32 Not Reportable 11/20/18 04:32 Not Reportable 11/20/18 04:32 Not Reportable 11/20/18 04:32 Not Reportable 11/20/18 04:32 Consistent w auto 11/20/18 04:32 Not Reportable 11/20/18 04:32 Plt Clumps, EDTA Not Reportable 11/20/18 04:32 Not Reportable 11/20/18 04:32 Not Reportable 11/20/18 04:32 Not Reportable 11/20/18 04:32 Plt Morphology Comment Not Reportable 11/20/18 04:32 RBC Morphology Normal 11/20/18 04:32 Dimorphic RBCs Not Reportable 11/20/18 04:32 Not Reportable 11/20/18 04:32 Not Reportable 11/20/18 04:32 Not Reportable 11/20/18 04:32 Not Reportable 11/20/18 04:32 Not Reportable 11/20/18 04:32 Not Reportable 11/20/18 04:32 Not Reportable 11/20/18 04:32 Not Reportable 11/20/18 04:32 Not Reportable 11/20/18 04:32 Not Reportable 11/20/18 04:32 Not Reportable 11/20/18 04:32 Not Reportable 11/20/18 04:32 Not Reportable 11/20/18 04:32 Not Reportable 11/20/18 04:32 Not Reportable 11/20/18 04:32 Not Reportable 11/20/18 04:32 Not Reportable 11/20/18 04:32 Not Reportable 11/20/18 04:32 Not Reportable 11/20/18 04:32 Acanthocytes (Spur) Not Reportable 11/20/18 04:32 Rouleaux Not Reportable 11/20/18 04:32 Not Reportable 11/20/18 04:32 Not Reportable 11/20/18 04:32 Not Reportable 11/20/18 04:32 Not Reportable 11/20/18 04:32 Hem Pathologist Commnt No 11/20/18 04:32 PT 12.9 Sec. (12.2-14.9) 11/19/18 10:07 INR 1.00 (0.87-1.13) 11/19/18 10:07 APTT 26.3 Sec. (24.2-36.6) 11/19/18 10:07 VBG pH 7.162 (7.320-7.420) L* 11/19/18 10:07 Sodium 161 mmol/L (137-145) H* 11/20/18 07:14 Potassium 4.3 mmol/L (3.6-5.0) 11/20/18 07:14 Chloride 122.7 mmol/L (98-107) H 11/20/18 07:14 Carbon Dioxide 25 mmol/L (22-30) 11/20/18 07:14 18 mmol/L 11/20/18 07:14 BUN 36 mg/dL (9-20) H 11/20/18 07:14 1.3 mg/dL (0.8-1.5) 11/20/18 07:14 Estimated GFR 53 ml/min 11/20/18 07:14 28 % 11/20/18 07:14 Glucose 252 mg/dL (75-100) H 11/20/18 07:14 POC Glucose 236 (70-105) H 11/20/18 06:41 16.9 % (4-6) H 11/19/18 19:14 Lactic Acid 2.00 mmol/L (0.7-2.0) 11/20/18 04:50 Calcium 8.4 mg/dL (8.4-10.2) 11/20/18 07:14 Phosphorus 2.30 mg/dL (2.5-4.5) L D 11/20/18 07:14 Magnesium 1.90 mg/dL (1.7-2.3) 11/20/18 07:14 0.20 mg/dL (0.1-1.2) 11/19/18 10:07 AST 26 units/L (5-40) 11/19/18 10:07 ALT 24 units/L (7-56) 11/19/18 10:07 101 units/L (35-129) 11/19/18 10:07 690 units/L (55-170) H 11/19/18 10:07 0.016 ng/mL (0.00-0.029) 11/19/18 10:07 6.4 g/dL (6.3-8.2) 11/19/18 10:07 3.6 g/dL (3.9-5) L 11/19/18 10:07 1.3 % 11/19/18 10:07 Yellow (Yellow) 11/19/18 09:17 Clear (Clear) 11/19/18 09:17 5.0 (5.0-7.0) 11/19/18 09:17 Ur Specific [place] 1.027 (1.003-1.030) 11/19/18 09:17 <15 mg/dl mg/dL (Negative) 11/19/18 09:17 >=500 mg/dL (Negative) 11/19/18 09:17 80 mg/dL (Negative) 11/19/18 09:17 Neg (Negative) 11/19/18 09:17 Neg (Negative) 11/19/18 09:17 Neg (Negative) 11/19/18 09:17 < 2.0 mg/dL (<2.0) 11/19/18 09:17 Ur Leukocyte Esterase Neg (Negative) 11/19/18 09:17 < 1.0 /HPF (0.0-6.0) 11/19/18 09:17 2.0 /HPF (0.0-6.0) 11/19/18 09:17 Few /HPF 11/19/18 09:17 Active Medications - Current Medications Current Medications: Generic Name Dose Route Start Last Admin Trade Name Freq PRN Reason Stop Dose Admin Acetaminophen 650 mg 11/20/18 03:04 11/20/18 03:17 Tylenol [place] 650 mg Q4H PRN Administration Pain, Mild (1-3), Fever> 100.4 Albuterol 2.5 mg 11/20/18 04:27 Proventil IH Q4HRT PRN Shortness Of Breath Dextrose 50 ml 11/20/18 02:26 D50w (25gm) Syringe IV PRN PRN Hypoglycemia Famotidine 20 mg 11/19/18 22:00 11/19/18 21:24 Pepcid IV 20 mg BID HAMLET Administration Guaifenesin 200 mg 11/20/18 04:28 Robitussin PO Q4H PRN Cough Heparin Sodium (Porcine) 5,000 unit 11/19/18 22:00 11/19/18 21:24 Heparin SUB-Q 5,000 unit Q12HR HAMLET Administration Hydromorphone HCl 0.5 mg 11/19/18 17:17 11/19/18 17:52 Dilaudid IV 0.5 mg Q3H PRN Administration Pain , Severe (7-10) Cefepime HCl 1 gm in 100 mls @ 200 mls/hr 11/19/18 22:00 11/19/18 22:17 Maxipime/Ns 1 Gm/100 Ml IV Infused Q12H HAMLET Infusion Protocol Dextrose 1,000 mls @ 125 mls/hr 11/20/18 03:00 11/20/18 03:08 D5w IV 125 mls/hr DIRECT HAMLET Administration Potassium Phosphate 30 mmol/ 510 mls @ 85 mls/hr 11/20/18 02:57 11/20/18 03:25 Sodium Chloride IV 11/20/18 08:56 85 mls/hr ONCE ONE Administration Norepinephrine 4 mg in 250 mls @ 7.5 mls/hr 11/20/18 04:00 11/20/18 05:00 Levophed Drip 4 Mg/Ns 250 Ml IV 6 mcg/min TITR HAMLET 22.5 mls/hr Titration Protocol 2 MCG/MIN Insulin Glargine 10 units 11/20/18 22:00 Lantus SUB-Q QHS HAMLET Insulin Human Isoph/Insulin Regular 15 unit 11/20/18 08:00 Humulin 70/30 SUB-Q BIDDIAB HAMLET Insulin Human Lispro 0 unit 11/20/18 03:00 11/20/18 03:00 Humalog SUB-Q Not Given Q6H COUNT INCLUDES THE [facility] Protocol Metoclopramide HCl 10 mg 11/19/18 17:17 Reglan IV Q6H PRN Nausea And Vomiting Ondansetron HCl 4 mg 11/19/18 17:17 11/20/18 03:13 Zofran IV 4 mg Q3H PRN Administration Nausea And Vomiting Sodium Chloride 10 ml 11/19/18 22:00 11/19/18 21:48 Sodium Chloride Flush Syringe 10 Ml IV 10 ml BID HAMLET Administration Sodium Chloride 10 ml 11/19/18 17:17 Sodium Chloride Flush Syringe 10 Ml IV PRN PRN LINE FLUSH
[2018-11-20] MEDS: HEPARIN SUB-Q SCH ×2 (09:16→21:23)
[2018-11-20] MEDS: PEPCID IV SCH ×2 (09:16→21:24)
[2018-11-20] MEDS: SODIUM CHLORIDE FLUSH SYRINGE 10 ML IV SCH ×2 (09:17→21:25)
[2018-11-20] MEDS: MAXIPIME/NS 1 GM/100 ML 1 GM/100 ML BAG IV SCH ×2 (09:22→21:23)
--- NOTE | 2018-11-20 11:45 | Consultation ---
History of Present Illness - Reason for Consult Consult date: 11/20/18 DKA Requesting physician: BRENDA GARIBAY - History of Present Illness 78 y/o Vietanamese speaking only male admitted with DKA. Started on Insulin drip an IVF's in the ED and then transitioned to ICU. Was found to be hypernatremic as well. Throughout the night, patient became hypotensive. This was right around the time his Blood sugar was 118 and 127. Patient was likely not hydrated well enough and this is what caused his hypotension as glucose was corrected and being moved back into cells. He was given empiric abx and started on pressors. After more volume, pressors have been removed and currently the insulin drip has been stopped but BS was 379. Last Anion Gap was 14. Patient has now been placed on neutropenic precautions based on WBC count this am but this was not repeated and was normal on yesterday admission CBC. Past History Past Medical History: other (unable to obtain) Past Surgical History: Other (unable to obtain) Social history: other (unable to obtain) Family history: other (unable to obtain) Medications and Allergies Allergies Allergy/AdvReac Type Severity Reaction Status Date / Time No Known Allergies Allergy Verified 06/29/18 10:14 Home Medications Medication Instructions Recorded Confirmed Last Taken Type Docusate Sodium [Colace] 100 mg PO BID 7 Days #14 capsule 06/29/18 11/19/18 Unknown Rx metFORMIN [Glucophage] 500 mg PO BID 30 Days #60 tablet 06/29/18 11/19/18 Unknown Rx Active Meds: Active Medications Acetaminophen (Tylenol) 650 mg [place] Q4H PRN PRN Reason: Pain, Mild (1-3), Fever> 100.4 Last Admin: 11/20/18 03:17 Dose: 650 mg Documented by: Albuterol (Proventil) 2.5 mg IH Q4HRT PRN PRN Reason: Shortness Of Breath Dextrose (D50w (25gm) Syringe) 50 ml IV PRN PRN PRN Reason: Hypoglycemia Famotidine (Pepcid) 20 mg IV BID [facility] Last Admin: 11/20/18 09:16 Dose: 20 mg Documented by: Guaifenesin (Robitussin) 200 mg PO Q4H PRN PRN Reason: Cough Heparin Sodium (Porcine) (Heparin) 5,000 unit SUB-Q Q12HR [facility] Last Admin: 11/20/18 09:16 Dose: 5,000 unit Documented by: Hydromorphone HCl (Dilaudid) 0.5 mg IV Q3H PRN PRN Reason: Pain , Severe (7-10) Last Admin: 11/19/18 17:52 Dose: 0.5 mg Documented by: Cefepime HCl (Maxipime/Ns 1 Gm/100 Ml) 1 gm in 100 mls @ 200 mls/hr IV Q12H [facility]; Protocol Last Infusion: 11/20/18 10:00 Dose: Infused Documented by: Dextrose (D5w) 1,000 mls @ 125 mls/hr IV DIRECT [facility] Last Admin: 11/20/18 03:08 Dose: 125 mls/hr Documented by: Norepinephrine (Levophed Drip 4 Mg/Ns 250 Ml) 4 mg in 250 mls @ 7.5 mls/hr IV TITR [facility]; Protocol Last Titration: 11/20/18 05:00 Dose: 6 mcg/min, 22.5 mls/hr Documented by: Sodium Chloride (Nacl 0.9% 1000 Ml) 1,000 mls @ 0 mls/hr IV ONCE [facility] Stop: 11/21/18 12:01 Insulin Glargine (Lantus) 10 units SUB-Q QHS [facility] Insulin Human Isoph/Insulin Regular (Humulin 70/30) 15 unit SUB-Q BIDDIAB [facility] Last Admin: 11/20/18 08:00 Dose: 15 unit Documented by: Insulin Human Lispro (Humalog) 0 unit SUB-Q Q6H [facility]; Protocol Last Admin: 11/20/18 09:00 Dose: 8 unit Documented by: Metoclopramide HCl (Reglan) 10 mg IV Q6H PRN PRN Reason: Nausea And Vomiting Ondansetron HCl (Zofran) 4 mg IV Q3H PRN PRN Reason: Nausea And Vomiting Last Admin: 11/20/18 03:13 Dose: 4 mg Documented by: Sodium Chloride (Sodium Chloride Flush Syringe 10 Ml) 10 ml IV BID [facility] Last Admin: 11/20/18 09:17 Dose: 10 ml Documented by: Sodium Chloride (Sodium Chloride Flush Syringe 10 Ml) 10 ml IV PRN PRN PRN Reason: LINE FLUSH Review of Systems All systems: negative Exam - Constitutional Vitals: Temp Pulse Resp BP Pulse Ox 97.7 F 99 H 24 108/64 95 11/20/18 08:00 11/20/18 11:11 11/20/18 11:11 11/20/18 11:11 11/20/18 11:11 General appearance: Present: no acute distress, cachectic - EENT Eyes: Present: PERRL, EOM intact ENT: hearing intact - Neck Neck: Present: supple, normal ROM - Respiratory Respiratory effort: normal Respiratory: bilateral: CTA - Cardiovascular Rhythm: regular Heart Sounds: Present: S1 & S2 - Extremities Extremities: no ischemia, pulses intact - Abdominal General gastrointestinal: Present: soft Male genitourinary: Present: deferred - Rectal Rectal Exam: deferred Results - Labs CBC & Chem 7: 11/20/18 04:32 11/20/18 07:14 Labs: Abnormal lab results 11/19/18 11/19/18 11/19/18 Range/Units 11:29 11:29 11:29 WBC (4.5-11.0) K/mm3 Hct (35.5-45.6) % MCHC (32-34) % Seg Neuts % (Manual) (40.0-70.0) % Monocytes % (Manual) (0.0-7.3) % Seg Neutrophils # Man (1.8-7.7) K/mm3 Lymphocytes # (Manual) (1.2-5.4) K/mm3 Sodium 151 H (137-145) mmol/L Potassium (3.6-5.0) mmol/L Chloride (98-107) mmol/L Carbon Dioxide 7 L* (22-30) mmol/L BUN 60 H (9-20) mg/dL Creatinine 1.9 H (0.8-1.5) mg/dL Glucose 793 H* (75-100) mg/dL POC Glucose (70-105) Hemoglobin A1c (4-6) % Lactic Acid 2.30 H* (0.7-2.0) mmol/L Phosphorus 6.90 H (2.5-4.5) mg/dL Magnesium 2.80 H (1.7-2.3) mg/dL 11/19/18 11/19/18 11/19/18 Range/Units 13:20 14:56 15:06 WBC (4.5-11.0) K/mm3 Hct (35.5-45.6) % MCHC (32-34) % Seg Neuts % (Manual) (40.0-70.0) % Monocytes % (Manual) (0.0-7.3) % Seg Neutrophils # Man (1.8-7.7) K/mm3 Lymphocytes # (Manual) (1.2-5.4) K/mm3 Sodium 161 H* D 160 H (137-145) mmol/L Potassium (3.6-5.0) mmol/L Chloride 111.0 H 113.7 H (98-107) mmol/L Carbon Dioxide 12 L 14 L (22-30) mmol/L BUN 54 H 52 H (9-20) mg/dL Creatinine 2.0 H 1.9 H (0.8-1.5) mg/dL Glucose 596 H* 496 H (75-100) mg/dL POC Glucose 442 H (70-105) Hemoglobin A1c (4-6) % Lactic Acid (0.7-2.0) mmol/L Phosphorus (2.5-4.5) mg/dL Magnesium (1.7-2.3) mg/dL 11/19/18 11/19/18 11/19/18 Range/Units 15:06 16:07 17:10 WBC (4.5-11.0) K/mm3 Hct (35.5-45.6) % MCHC (32-34) % Seg Neuts % (Manual) (40.0-70.0) % Monocytes % (Manual) (0.0-7.3) % Seg Neutrophils # Man (1.8-7.7) K/mm3 Lymphocytes # (Manual) (1.2-5.4) K/mm3 Sodium 163 H* (137-145) mmol/L Potassium 3.3 L (3.6-5.0) mmol/L Chloride 119.9 H (98-107) mmol/L Carbon Dioxide 17 L (22-30) mmol/L BUN 49 H (9-20) mg/dL Creatinine 1.7 H (0.8-1.5) mg/dL Glucose 350 H (75-100) mg/dL POC Glucose 475 H (70-105) Hemoglobin A1c (4-6) % Lactic Acid 3.30 H* (0.7-2.0) mmol/L Phosphorus (2.5-4.5) mg/dL Magnesium (1.7-2.3) mg/dL 11/19/18 11/19/18 11/19/18 Range/Units 17:10 17:27 18:26 WBC (4.5-11.0) K/mm3 Hct (35.5-45.6) % MCHC (32-34) % Seg Neuts % (Manual) (40.0-70.0) % Monocytes % (Manual) (0.0-7.3) % Seg Neutrophils # Man (1.8-7.7) K/mm3 Lymphocytes # (Manual) (1.2-5.4) K/mm3 Sodium (137-145) mmol/L Potassium (3.6-5.0) mmol/L Chloride (98-107) mmol/L Carbon Dioxide (22-30) mmol/L BUN (9-20) mg/dL Creatinine (0.8-1.5) mg/dL Glucose (75-100) mg/dL POC Glucose 368 H 270 H (70-105) Hemoglobin A1c (4-6) % Lactic Acid 3.30 H* (0.7-2.0) mmol/L Phosphorus (2.5-4.5) mg/dL Magnesium (1.7-2.3) mg/dL 11/19/18 11/19/18 11/19/18 Range/Units 19:14 19:14 19:14 WBC (4.5-11.0) K/mm3 Hct (35.5-45.6) % MCHC (32-34) % Seg Neuts % (Manual) (40.0-70.0) % Monocytes % (Manual) (0.0-7.3) % Seg Neutrophils # Man (1.8-7.7) K/mm3 Lymphocytes # (Manual) (1.2-5.4) K/mm3 Sodium 164 H* (137-145) mmol/L Potassium (3.6-5.0) mmol/L Chloride 122.7 H (98-107) mmol/L Carbon Dioxide (22-30) mmol/L BUN 43 H (9-20) mg/dL Creatinine 1.6 H (0.8-1.5) mg/dL Glucose 240 H (75-100) mg/dL POC Glucose (70-105) Hemoglobin A1c 16.9 H (4-6) % Lactic Acid (0.7-2.0) mmol/L Phosphorus 1.00 L D (2.5-4.5) mg/dL Magnesium 2.40 H (1.7-2.3) mg/dL 11/19/18 11/19/18 11/19/18 Range/Units 19:14 19:18 20:10 WBC (4.5-11.0) K/mm3 Hct (35.5-45.6) % MCHC (32-34) % Seg Neuts % (Manual) (40.0-70.0) % Monocytes % (Manual) (0.0-7.3) % Seg Neutrophils # Man (1.8-7.7) K/mm3 Lymphocytes # (Manual) (1.2-5.4) K/mm3 Sodium (137-145) mmol/L Potassium (3.6-5.0) mmol/L Chloride (98-107) mmol/L Carbon Dioxide (22-30) mmol/L BUN (9-20) mg/dL Creatinine (0.8-1.5) mg/dL Glucose (75-100) mg/dL POC Glucose 307 H 232 H (70-105) Hemoglobin A1c (4-6) % Lactic Acid 3.70 H* (0.7-2.0) mmol/L Phosphorus (2.5-4.5) mg/dL Magnesium (1.7-2.3) mg/dL 11/19/18 11/19/18 11/19/18 Range/Units 21:59 22:55 22:55 WBC (4.5-11.0) K/mm3 Hct (35.5-45.6) % MCHC (32-34) % Seg Neuts % (Manual) (40.0-70.0) % Monocytes % (Manual) (0.0-7.3) % Seg Neutrophils # Man (1.8-7.7) K/mm3 Lymphocytes # (Manual) (1.2-5.4) K/mm3 Sodium 165 H* (137-145) mmol/L Potassium (3.6-5.0) mmol/L Chloride 124.9 H (98-107) mmol/L Carbon Dioxide (22-30) mmol/L BUN 39 H (9-20) mg/dL Creatinine (0.8-1.5) mg/dL Glucose 111 H (75-100) mg/dL POC Glucose 151 H (70-105) Hemoglobin A1c (4-6) % Lactic Acid 3.20 H* (0.7-2.0) mmol/L Phosphorus (2.5-4.5) mg/dL Magnesium (1.7-2.3) mg/dL 11/20/18 11/20/18 11/20/18 Range/Units 00:55 03:34 03:34 WBC (4.5-11.0) K/mm3 Hct (35.5-45.6) % MCHC (32-34) % Seg Neuts % (Manual) (40.0-70.0) % Monocytes % (Manual) (0.0-7.3) % Seg Neutrophils # Man (1.8-7.7) K/mm3 Lymphocytes # (Manual) (1.2-5.4) K/mm3 Sodium 165 H* (137-145) mmol/L Potassium (3.6-5.0) mmol/L Chloride 126.2 H (98-107) mmol/L Carbon Dioxide (22-30) mmol/L BUN 35 H (9-20) mg/dL Creatinine (0.8-1.5) mg/dL Glucose 124 H (75-100) mg/dL POC Glucose 118 H (70-105) Hemoglobin A1c (4-6) % Lactic Acid (0.7-2.0) mmol/L Phosphorus 0.80 L* (2.5-4.5) mg/dL Magnesium (1.7-2.3) mg/dL 11/20/18 11/20/18 11/20/18 Range/Units 03:44 04:32 04:34 WBC 1.5 L* (4.5-11.0) K/mm3 Hct 35.2 L D (35.5-45.6) % MCHC 35 H (32-34) % Seg Neuts % (Manual) 30.0 L (40.0-70.0) % Monocytes % (Manual) 10.0 H (0.0-7.3) % Seg Neutrophils # Man 0.5 L (1.8-7.7) K/mm3 Lymphocytes # (Manual) 0.3 L (1.2-5.4) K/mm3 Sodium (137-145) mmol/L Potassium (3.6-5.0) mmol/L Chloride (98-107) mmol/L Carbon Dioxide (22-30) mmol/L BUN (9-20) mg/dL Creatinine (0.8-1.5) mg/dL Glucose (75-100) mg/dL POC Glucose 127 H 168 H (70-105) Hemoglobin A1c (4-6) % Lactic Acid (0.7-2.0) mmol/L Phosphorus (2.5-4.5) mg/dL Magnesium (1.7-2.3) mg/dL 11/20/18 11/20/18 11/20/18 Range/Units 06:41 07:14 08:40 WBC (4.5-11.0) K/mm3 Hct (35.5-45.6) % MCHC (32-34) % Seg Neuts % (Manual) (40.0-70.0) % Monocytes % (Manual) (0.0-7.3) % Seg Neutrophils # Man (1.8-7.7) K/mm3 Lymphocytes # (Manual) (1.2-5.4) K/mm3 Sodium 161 H* (137-145) mmol/L Potassium (3.6-5.0) mmol/L Chloride 122.7 H (98-107) mmol/L Carbon Dioxide (22-30) mmol/L BUN 36 H (9-20) mg/dL Creatinine (0.8-1.5) mg/dL Glucose 252 H (75-100) mg/dL POC Glucose 236 H 379 H (70-105) Hemoglobin A1c (4-6) % Lactic Acid (0.7-2.0) mmol/L Phosphorus 2.30 L D (2.5-4.5) mg/dL Magnesium (1.7-2.3) mg/dL - Imaging and Cardiology Chest x-ray: image reviewed (appears to be hyperinflated, consistent with air trapping and some form of obstructive lung disease) Assessment and Plan 78 y/o male with DKA, likely hypovolemic hypernatremia, and hypovolemia. 1. Will order a 2 liter bolus of normal saline now. Pt's bp dropped last night when blood sugar normalized and he was not adequately hydrated. 2. Insulin drip is now off given normalization of anion gap but concerned that his current insulin dosing may not be enough. Insulin drip numbers stop showing up in computer at 20:00 yesterday. Not sure what time drip was stopped. Suggest high dose sliding scale and continue to hold metformin. Feed patient as well. 3. Suggest repeating CBC today. Unsure why his WBC count would drop from 7 to 1.5 in such a short period of time with no real acute changes clinically with the exception of the above explained night time hypotension. 4. If off insulin drip, and tolerating PO should be transitioned out of unit. Will stop following once transferred. CCT 31 minutes.
--- NOTE | 2018-11-20 11:50 | Consultation ---
History of Present Illness - Reason for Consult Consult date: 11/20/18 hypernatremia - History of Present Illness Mr Jones is a 78 year old M with a PMH of DM2 who has been admitted to the [facility] with AMS and found to have DKA, hypernatremia and MEETA. Per daughter, patient has been lethargic since last 2 days. He is currently on levophed drip for low BP. He is making some urine. Pt's corrected Na on admission was around 162 (when corrected for glucose) ROS: Unable to obtain as patient confused Past History Past Medical History: diabetes, other (unable to obtain) Past Surgical History: hernia repair, Other (unable to obtain) Social history: other (unable to obtain) Family history: other (unable to obtain) Medications and Allergies Allergies Allergy/AdvReac Type Severity Reaction Status Date / Time No Known Allergies Allergy Verified 06/29/18 10:14 Home Medications Medication Instructions Recorded Confirmed Last Taken Type Docusate Sodium [Colace] 100 mg PO BID 7 Days #14 capsule 06/29/18 11/19/18 Unknown Rx metFORMIN [Glucophage] 500 mg PO BID 30 Days #60 tablet 06/29/18 11/19/18 Unknown Rx Active Meds: Active Medications Acetaminophen (Tylenol) 650 mg [place] Q4H PRN PRN Reason: Pain, Mild (1-3), Fever> 100.4 Last Admin: 11/20/18 03:17 Dose: 650 mg Documented by: Albuterol (Proventil) 2.5 mg IH Q4HRT PRN PRN Reason: Shortness Of Breath Dextrose (D50w (25gm) Syringe) 50 ml IV PRN PRN PRN Reason: Hypoglycemia Famotidine (Pepcid) 20 mg IV BID [facility] Last Admin: 11/20/18 09:16 Dose: 20 mg Documented by: Guaifenesin (Robitussin) 200 mg PO Q4H PRN PRN Reason: Cough Heparin Sodium (Porcine) (Heparin) 5,000 unit SUB-Q Q12HR [facility] Last Admin: 11/20/18 09:16 Dose: 5,000 unit Documented by: Hydromorphone HCl (Dilaudid) 0.5 mg IV Q3H PRN PRN Reason: Pain , Severe (7-10) Last Admin: 11/19/18 17:52 Dose: 0.5 mg Documented by: Cefepime HCl (Maxipime/Ns 1 Gm/100 Ml) 1 gm in 100 mls @ 200 mls/hr IV Q12H [facility]; Protocol Last Infusion: 11/20/18 10:00 Dose: Infused Documented by: Norepinephrine (Levophed Drip 4 Mg/Ns 250 Ml) 4 mg in 250 mls @ 7.5 mls/hr IV TITR [facility]; Protocol Last Titration: 11/20/18 05:00 Dose: 6 mcg/min, 22.5 mls/hr Documented by: Sodium Chloride (Nacl 0.9% 1000 Ml) 1,000 mls @ 0 mls/hr IV ONCE [facility] Stop: 11/21/18 12:01 Dextrose/Sodium Chloride (D5/0.45ns) 1,000 mls @ 125 mls/hr IV DIRECT [facility] Insulin Glargine (Lantus) 10 units SUB-Q QHS [facility] Insulin Human Isoph/Insulin Regular (Humulin 70/30) 15 unit SUB-Q BIDDIAB [facility] Last Admin: 11/20/18 08:00 Dose: 15 unit Documented by: Insulin Human Lispro (Humalog) 0 unit SUB-Q Q6H [facility]; Protocol Last Admin: 11/20/18 09:00 Dose: 8 unit Documented by: Metoclopramide HCl (Reglan) 10 mg IV Q6H PRN PRN Reason: Nausea And Vomiting Ondansetron HCl (Zofran) 4 mg IV Q3H PRN PRN Reason: Nausea And Vomiting Last Admin: 11/20/18 03:13 Dose: 4 mg Documented by: Sodium Chloride (Sodium Chloride Flush Syringe 10 Ml) 10 ml IV BID [facility] Last Admin: 11/20/18 09:17 Dose: 10 ml Documented by: Sodium Chloride (Sodium Chloride Flush Syringe 10 Ml) 10 ml IV PRN PRN PRN Reason: LINE FLUSH Exam - Vital Signs Vital signs: Vital Signs Temp Pulse Resp BP Pulse Ox 96.2 F L 106 H 20 120/49 99 11/19/18 08:37 11/19/18 08:37 11/19/18 08:37 11/19/18 08:37 11/19/18 08:37 - Physical Exam Narrative exam: GE: Confused HEENT:Normocephalic Neck:Supple Chest:Coarse BS BL CVS:RRR Abd:Soft/BS+ Ext:No cce UG:Condom catheter Results - Lab Results 11/20/18 04:32 11/20/18 07:14 Most recent lab results Calcium 8.4 mg/dL (8.4-10.2) 11/20/18 07:14 Phosphorus 2.30 mg/dL (2.5-4.5) L D 11/20/18 07:14 Magnesium 1.90 mg/dL (1.7-2.3) 11/20/18 07:14 Assessment and Plan Acute Kidney injury likely pre-renal/ATN from dehydration: Hypernatremia, hypertonic: Diabetic ketoacidosis: Hypophosphatemia: Neutropenia: Afib: -hydrate with D5 1/2 NS at 125 mls/hr -On admission corrected Na was around 162 when corrected for high glucose -Target Na drop <10 meq/24 hours to prevent cerebral edema since chronicity of hypernatremia is unknown -On ABx for possible Sepsis -Cards on board for afib -Cr trending down -Renally dose all meds -Avoid Nephortoxic meds -Strict I/Os Ben Ellis MD [phone]
[2018-11-20] MEDS: NACL 0.9% 1000 ML 1,000 ML IV SCH ×2 (12:07→13:10)
[2018-11-20] MEDS: D5/0.45NS 1,000 ML IV SCH ×2 (12:11→20:15)
[2018-11-20] MEDS: DILAUDID IV PRN ×2 (12:48→15:30)
--- NOTE | 2018-11-20 12:48 | Consultation ---
History of Present Illness Consult date: 11/20/18 Requesting physician: [facility] Consult reason: arrhythmia History of present illness: The history was obtained partly from a review of the medical chart and partly from the patient's daughter. He was brought to the ER due to progressive lethargy and fever. In the ER, he was noted to be hyperglycemic with DKA and MEETA . During ER evaluation, he went into rapid supraventricular arrhythmia. He was apparently given adenosine and diltiazem for presumed SVT by the ER MD. Upon development of hypotension, he was electrically cardioverted to SR. Upon reviewe of ECG today, it appears that he was in rapid AF. He is currently in SR. Compared to the initial ECG in SR, post conversion ECG showed ischemic ST and T wave abnormalities. Past History Past Medical History: diabetes Past Surgical History: No surgical history Social history: denies: smoking, alcohol abuse Family history: no significant family history Medications and Allergies Allergies Allergy/AdvReac Type Severity Reaction Status Date / Time No Known Allergies Allergy Verified 06/29/18 10:14 Home Medications Medication Instructions Recorded Confirmed Last Taken Type Docusate Sodium [Colace] 100 mg PO BID 7 Days #14 capsule 06/29/18 11/19/18 Unknown Rx metFORMIN [Glucophage] 500 mg PO BID 30 Days #60 tablet 06/29/18 11/19/18 Unknown Rx Active Meds: Active Medications Acetaminophen (Tylenol) 650 mg [place] Q4H PRN PRN Reason: Pain, Mild (1-3), Fever> 100.4 Last Admin: 11/20/18 03:17 Dose: 650 mg Documented by: Albuterol (Proventil) 2.5 mg IH Q4HRT PRN PRN Reason: Shortness Of Breath Dextrose (D50w (25gm) Syringe) 50 ml IV PRN PRN PRN Reason: Hypoglycemia Famotidine (Pepcid) 20 mg IV BID [facility] Last Admin: 11/20/18 09:16 Dose: 20 mg Documented by: Guaifenesin (Robitussin) 200 mg PO Q4H PRN PRN Reason: Cough Heparin Sodium (Porcine) (Heparin) 5,000 unit SUB-Q Q12HR [facility] Last Admin: 11/20/18 09:16 Dose: 5,000 unit Documented by: Hydromorphone HCl (Dilaudid) 0.5 mg IV Q3H PRN PRN Reason: Pain , Severe (7-10) Last Admin: 11/19/18 17:52 Dose: 0.5 mg Documented by: Cefepime HCl (Maxipime/Ns 1 Gm/100 Ml) 1 gm in 100 mls @ 200 mls/hr IV Q12H [facility]; Protocol Last Infusion: 11/20/18 10:00 Dose: Infused Documented by: Norepinephrine (Levophed Drip 4 Mg/Ns 250 Ml) 4 mg in 250 mls @ 7.5 mls/hr IV TITR [facility]; Protocol Last Titration: 11/20/18 09:30 Dose: 0 mcg/min, 0 mls/hr Documented by: Sodium Chloride (Nacl 0.9% 1000 Ml) 1,000 mls @ 999 mls/hr IV ONCE [facility] Stop: 11/21/18 13:01 Last Admin: 11/20/18 12:07 Dose: 999 mls/hr Documented by: Dextrose/Sodium Chloride (D5/0.45ns) 1,000 mls @ 125 mls/hr IV [facility] Last Admin: 11/20/18 12:11 Dose: 125 mls/hr Documented by: Insulin Glargine (Lantus) 10 units SUB-Q QHS [facility] Insulin Human Isoph/Insulin Regular (Humulin 70/30) 15 unit SUB-Q BIDDIAB [facility] Last Admin: 11/20/18 08:00 Dose: 15 unit Documented by: Insulin Human Lispro (Humalog) 0 unit SUB-Q Q6H [facility]; Protocol Last Admin: 11/20/18 09:00 Dose: 8 unit Documented by: Metoclopramide HCl (Reglan) 10 mg IV Q6H PRN PRN Reason: Nausea And Vomiting Ondansetron HCl (Zofran) 4 mg IV Q3H PRN PRN Reason: Nausea And Vomiting Last Admin: 11/20/18 03:13 Dose: 4 mg Documented by: Sodium Chloride (Sodium Chloride Flush Syringe 10 Ml) 10 ml IV BID [facility] Last Admin: 11/20/18 09:17 Dose: 10 ml Documented by: Sodium Chloride (Sodium Chloride Flush Syringe 10 Ml) 10 ml IV PRN PRN PRN Reason: LINE FLUSH Review of Systems ROS unobtainable: due to mental status Physical Examination Vital Signs Last Vital Signs Temp 97.7 F 11/20/18 08:00 Pulse 99 H 11/20/18 11:11 Resp 24 11/20/18 11:11 BP 108/64 11/20/18 11:11 Pulse Ox 95 11/20/18 11:11 General appearance: no acute distress HEENT: Positive: Normocephaly, Mucus Membranes Moist Neck: Positive: neck supple, trachea midline Cardiac: Positive: Reg Rate and Rhythm, S1/S2 Lungs: Positive: clear to auscultation Neuro: Positive: Other (Grimaces to painful stimuli) Abdomen: Positive: Soft, Active Bowel Sounds. Negative: Tender Skin: Positive: Clear. Negative: Rash Musculoskeletal: Normal Range of Motion Extremities: Present: normal. Absent: edema Results 11/20/18 04:32 11/20/18 07:14 CBC 11/20/18 Range/Units 04:32 WBC 1.5 L* (4.5-11.0) K/mm3 RBC 3.95 (3.65-5.03) M/mm3 Hgb 12.4 D (11.8-15.2) gm/dl Hct 35.2 L D (35.5-45.6) % Plt Count 230 (140-440) K/mm3 Comprehensive Metabolic Panel 11/19/18 11/19/18 11/19/18 Range/Units 13:20 15:06 17:10 Sodium 161 H* D 160 H 163 H* (137-145) mmol/L Potassium 4.2 3.9 3.3 L (3.6-5.0) mmol/L Chloride 111.0 H 113.7 H 119.9 H (98-107) mmol/L Carbon Dioxide 12 L 14 L 17 L (22-30) mmol/L BUN 54 H 52 H 49 H (9-20) mg/dL Creatinine 2.0 H 1.9 H 1.7 H (0.8-1.5) mg/dL Glucose 596 H* 496 H 350 H (75-100) mg/dL Calcium 8.8 9.0 9.1 (8.4-10.2) mg/dL 11/19/18 11/19/18 11/20/18 Range/Units 19:14 22:55 03:34 Sodium 164 H* 165 H* 165 H* (137-145) mmol/L Potassium 3.6 4.0 4.1 (3.6-5.0) mmol/L Chloride 122.7 H 124.9 H 126.2 H (98-107) mmol/L Carbon Dioxide 22 29 D 29 (22-30) mmol/L BUN 43 H 39 H 35 H (9-20) mg/dL Creatinine 1.6 H 1.4 1.3 (0.8-1.5) mg/dL Glucose 240 H 111 H 124 H (75-100) mg/dL Calcium 9.0 8.6 8.5 (8.4-10.2) mg/dL 11/20/18 Range/Units 07:14 Sodium 161 H* (137-145) mmol/L Potassium 4.3 (3.6-5.0) mmol/L Chloride 122.7 H (98-107) mmol/L Carbon Dioxide 25 (22-30) mmol/L BUN 36 H (9-20) mg/dL Creatinine 1.3 (0.8-1.5) mg/dL Glucose 252 H (75-100) mg/dL Calcium 8.4 (8.4-10.2) mg/dL - Imaging and Cardiology EKG: image reviewed EKG interpretations - Telemetry EKG Rhythm: Sinus Rhythm - EKG Sinus rhythms and dysrhythmias: sinus rhythm Repolarization changes or abnormalities: ST or T wave suggestive of ischemia Assessment and Plan Obtain Echo. Add Digoxin since low BP precludes the use of other AV blocking agents. Lexiscan stress MPI when more stable. - Patient Problems (1) Atrial fibrillation with RVR Current Visit: Yes Status: Acute (2) Abnormal ECG Current Visit: Yes Status: Acute (3) DKA (diabetic ketoacidoses) Current Visit: Yes Status: Acute Qualifiers: Diabetes mellitus type: type 2 (4) Altered mental status Current Visit: Yes Status: Acute (5) MEETA (acute kidney injury) Current Visit: Yes Status: Acute (6) Acute hypernatremia Current Visit: Yes Status: Acute (7) Leucopenia Current Visit: Yes Status: Acute
[2018-11-20] MEDS: LANOXIN IV SCH (13:33)
--- NOTE | 2018-11-20 14:26 | Consultation ---
History of Present Illness - Reason for Consult Consult date: 11/20/18 fever, hypotension Requesting physician: BRENDA SOUZA - History of Present Illness 78 y/o male with history of diabetes brought by family due to 2-day history of generalized weakness and lethargy. Per daughter, no recent cold, cough, SOB, N/V/D. Denies fever at home. Patient is unable to provide a history, he is non verbal currently. Per daughter he ahs been c/o abdominal pain. In the ED, temp 96-->100.9, HR 106, R20, BP120/49. WBC 7.7. Hg 17. Plat 193. Creat 2.1. Glucose 878. UA neg. Blood cultures 11/19/2018 no growth. Urine culture 11/19/[address] negative [address]R negative. CT head negative. In the ED he SVT received adenosine, then diltiazem, then emergent cardioversion, placed transiently on pressors. Review of Systems: unable to obtain Past History Past Medical History: diabetes, other (unable to obtain) Past Surgical History: hernia repair, Other (unable to obtain) Social history: other (unable to obtain) Family history: other (unable to obtain) Medications and Allergies Allergies Allergy/AdvReac Type Severity Reaction Status Date / Time No Known Allergies Allergy Verified 06/29/18 10:14 Home Medications Medication Instructions Recorded Confirmed Last Taken Type Docusate Sodium [Colace] 100 mg PO BID 7 Days #14 capsule 06/29/18 11/19/18 Unknown Rx metFORMIN [Glucophage] 500 mg PO BID 30 Days #60 tablet 06/29/18 11/19/18 Unknown Rx Active Meds: Active Medications Acetaminophen (Tylenol) 650 mg SD Q4H PRN PRN Reason: Pain, Mild (1-3), Fever> 100.4 Last Admin: 11/20/18 03:17 Dose: 650 mg Documented by: Albuterol (Proventil) 2.5 mg IH Q4HRT PRN PRN Reason: Shortness Of Breath Dextrose (D50w (25gm) Syringe) 50 ml IV PRN PRN PRN Reason: Hypoglycemia Digoxin (Lanoxin) 0.25 mg IV Q12H HAMLET Stop: 11/21/18 01:01 Last Admin: 11/20/18 13:33 Dose: 0.25 mg Documented by: Digoxin (Lanoxin) 0.125 mg PO Q48H HAMLET Famotidine (Pepcid) 20 mg IV BID HAMLET Last Admin: 11/20/18 09:16 Dose: 20 mg Documented by: Guaifenesin (Robitussin) 200 mg PO Q4H PRN PRN Reason: Cough Heparin Sodium (Porcine) (Heparin) 5,000 unit SUB-Q Q12HR HAMLET Last Admin: 11/20/18 09:16 Dose: 5,000 unit Documented by: Hydromorphone HCl (Dilaudid) 0.5 mg IV Q3H PRN PRN Reason: Pain , Severe (7-10) Last Admin: 11/20/18 12:48 Dose: 0.5 mg Documented by: Cefepime HCl (Maxipime/Ns 1 Gm/100 Ml) 1 gm in 100 mls @ 200 mls/hr IV Q12H HAMLET; Protocol Last Infusion: 11/20/18 10:00 Dose: Infused Documented by: Norepinephrine (Levophed Drip 4 Mg/Ns 250 Ml) 4 mg in 250 mls @ 7.5 mls/hr IV TITR [facility]; Protocol Last Titration: 11/20/18 09:30 Dose: 0 mcg/min, 0 mls/hr Documented by: Sodium Chloride (Nacl 0.9% 1000 Ml) 1,000 mls @ 999 mls/hr IV ONCE HAMLET Stop: 11/21/18 13:01 Last Admin: 11/20/18 13:10 Dose: 999 mls/hr Documented by: Dextrose/Sodium Chloride (D5/0.45ns) 1,000 mls @ 125 mls/hr IV DIRECT HAMLET Last Admin: 11/20/18 12:11 Dose: 125 mls/hr Documented by: Insulin Glargine (Lantus) 10 units SUB-Q QHS HAMLET Insulin Human Isoph/Insulin Regular (Humulin 70/30) 15 unit SUB-Q BIDDIAB [facility] Last Admin: 11/20/18 08:00 Dose: 15 unit Documented by: Insulin Human Lispro (Humalog) 0 unit SUB-Q Q6H [facility]; Protocol Last Admin: 11/20/18 09:00 Dose: 8 unit Documented by: Metoclopramide HCl (Reglan) 10 mg IV Q6H PRN PRN Reason: Nausea And Vomiting Ondansetron HCl (Zofran) 4 mg IV Q3H PRN PRN Reason: Nausea And Vomiting Last Admin: 11/20/18 03:13 Dose: 4 mg Documented by: Sodium Chloride (Sodium Chloride Flush Syringe 10 Ml) 10 ml IV BID HAMLET Last Admin: 11/20/18 09:17 Dose: 10 ml Documented by: Sodium Chloride (Sodium Chloride Flush Syringe 10 Ml) 10 ml IV PRN PRN PRN Reason: LINE FLUSH Physical Examination - Physical Exam Narrative exam: General appearance: somnolent in NAD Eyes: anicteric sclerae, moist conjunctivae; no lid-lag; PERRLA HENT: Atraumatic; oropharynx limited Neck: Trachea midline; supple, no thyromegaly or lymphadenopathy Lungs: CTA, with normal respiratory effort and no intercostal retractions CV: RRR no murmur Abdomen: Soft, tender diffusely Extremities: no edema, cyanosis Skin: Normal temperature, turgor and texture; no rash, ulcers or subcutaneous nodules Psych: no agitated Neuro: somnolent non verbal - Constitutional Vitals: Vital Signs Temp Pulse Resp BP Pulse Ox 97.1 F L 87 16 107/60 94 11/20/18 12:00 11/20/18 13:51 11/20/18 13:51 11/20/18 13:51 11/20/18 13:51 Temperature -Last 24 Hours Temperature 97.1 F Temperature 97.7 F Temperature 99.8 F Temperature 98.8 F Temperature 100.9 F Temperature 98.5 F Temperature 98.2 F Results - Labs CBC & Chem 7: 11/20/18 04:32 11/20/18 14:47 Labs: Abnormal lab results 11/19/18 11/19/18 11/19/18 Range/Units 14:56 15:06 15:06 WBC (4.5-11.0) K/mm3 Hct (35.5-45.6) % MCHC (32-34) % Seg Neuts % (Manual) (40.0-70.0) % Monocytes % (Manual) (0.0-7.3) % Seg Neutrophils # Man (1.8-7.7) K/mm3 Lymphocytes # (Manual) (1.2-5.4) K/mm3 Sodium 160 H (137-145) mmol/L Potassium (3.6-5.0) mmol/L Chloride 113.7 H (98-107) mmol/L Carbon Dioxide 14 L (22-30) mmol/L BUN 52 H (9-20) mg/dL Creatinine 1.9 H (0.8-1.5) mg/dL Glucose 496 H (75-100) mg/dL POC Glucose 442 H (70-105) Hemoglobin A1c (4-6) % Lactic Acid 3.30 H* (0.7-2.0) mmol/L Phosphorus (2.5-4.5) mg/dL Magnesium (1.7-2.3) mg/dL 11/19/18 11/19/18 11/19/18 Range/Units 16:07 17:10 17:10 WBC (4.5-11.0) K/mm3 Hct (35.5-45.6) % MCHC (32-34) % Seg Neuts % (Manual) (40.0-70.0) % Monocytes % (Manual) (0.0-7.3) % Seg Neutrophils # Man (1.8-7.7) K/mm3 Lymphocytes # (Manual) (1.2-5.4) K/mm3 Sodium 163 H* (137-145) mmol/L Potassium 3.3 L (3.6-5.0) mmol/L Chloride 119.9 H (98-107) mmol/L Carbon Dioxide 17 L (22-30) mmol/L BUN 49 H (9-20) mg/dL Creatinine 1.7 H (0.8-1.5) mg/dL Glucose 350 H (75-100) mg/dL POC Glucose 475 H (70-105) Hemoglobin A1c (4-6) % Lactic Acid 3.30 H* (0.7-2.0) mmol/L Phosphorus (2.5-4.5) mg/dL Magnesium (1.7-2.3) mg/dL 11/19/18 11/19/18 11/19/18 Range/Units 17:27 18:26 19:14 WBC (4.5-11.0) K/mm3 Hct (35.5-45.6) % MCHC (32-34) % Seg Neuts % (Manual) (40.0-70.0) % Monocytes % (Manual) (0.0-7.3) % Seg Neutrophils # Man (1.8-7.7) K/mm3 Lymphocytes # (Manual) (1.2-5.4) K/mm3 Sodium (137-145) mmol/L Potassium (3.6-5.0) mmol/L Chloride (98-107) mmol/L Carbon Dioxide (22-30) mmol/L BUN (9-20) mg/dL Creatinine (0.8-1.5) mg/dL Glucose (75-100) mg/dL POC Glucose 368 H 270 H (70-105) Hemoglobin A1c 16.9 H (4-6) % Lactic Acid (0.7-2.0) mmol/L Phosphorus (2.5-4.5) mg/dL Magnesium (1.7-2.3) mg/dL 11/19/18 11/19/18 11/19/18 Range/Units 19:14 19:14 19:14 WBC (4.5-11.0) K/mm3 Hct (35.5-45.6) % MCHC (32-34) % Seg Neuts % (Manual) (40.0-70.0) % Monocytes % (Manual) (0.0-7.3) % Seg Neutrophils # Man (1.8-7.7) K/mm3 Lymphocytes # (Manual) (1.2-5.4) K/mm3 Sodium 164 H* (137-145) mmol/L Potassium (3.6-5.0) mmol/L Chloride 122.7 H (98-107) mmol/L Carbon Dioxide (22-30) mmol/L BUN 43 H (9-20) mg/dL Creatinine 1.6 H (0.8-1.5) mg/dL Glucose 240 H (75-100) mg/dL POC Glucose (70-105) Hemoglobin A1c (4-6) % Lactic Acid 3.70 H* (0.7-2.0) mmol/L Phosphorus 1.00 L D (2.5-4.5) mg/dL Magnesium 2.40 H (1.7-2.3) mg/dL 11/19/18 11/19/18 11/19/18 Range/Units 19:18 20:10 21:59 WBC (4.5-11.0) K/mm3 Hct (35.5-45.6) % MCHC (32-34) % Seg Neuts % (Manual) (40.0-70.0) % Monocytes % (Manual) (0.0-7.3) % Seg Neutrophils # Man (1.8-7.7) K/mm3 Lymphocytes # (Manual) (1.2-5.4) K/mm3 Sodium (137-145) mmol/L Potassium (3.6-5.0) mmol/L Chloride (98-107) mmol/L Carbon Dioxide (22-30) mmol/L BUN (9-20) mg/dL Creatinine (0.8-1.5) mg/dL Glucose (75-100) mg/dL POC Glucose 307 H 232 H 151 H (70-105) Hemoglobin A1c (4-6) % Lactic Acid (0.7-2.0) mmol/L Phosphorus (2.5-4.5) mg/dL Magnesium (1.7-2.3) mg/dL 11/19/18 11/19/18 11/20/18 Range/Units 22:55 22:55 00:55 WBC (4.5-11.0) K/mm3 Hct (35.5-45.6) % MCHC (32-34) % Seg Neuts % (Manual) (40.0-70.0) % Monocytes % (Manual) (0.0-7.3) % Seg Neutrophils # Man (1.8-7.7) K/mm3 Lymphocytes # (Manual) (1.2-5.4) K/mm3 Sodium 165 H* (137-145) mmol/L Potassium (3.6-5.0) mmol/L Chloride 124.9 H (98-107) mmol/L Carbon Dioxide (22-30) mmol/L BUN 39 H (9-20) mg/dL Creatinine (0.8-1.5) mg/dL Glucose 111 H (75-100) mg/dL POC Glucose 118 H (70-105) Hemoglobin A1c (4-6) % Lactic Acid 3.20 H* (0.7-2.0) mmol/L Phosphorus (2.5-4.5) mg/dL Magnesium (1.7-2.3) mg/dL 11/20/18 11/20/18 11/20/18 Range/Units 03:34 03:34 03:44 WBC (4.5-11.0) K/mm3 Hct (35.5-45.6) % MCHC (32-34) % Seg Neuts % (Manual) (40.0-70.0) % Monocytes % (Manual) (0.0-7.3) % Seg Neutrophils # Man (1.8-7.7) K/mm3 Lymphocytes # (Manual) (1.2-5.4) K/mm3 Sodium 165 H* (137-145) mmol/L Potassium (3.6-5.0) mmol/L Chloride 126.2 H (98-107) mmol/L Carbon Dioxide (22-30) mmol/L BUN 35 H (9-20) mg/dL Creatinine (0.8-1.5) mg/dL Glucose 124 H (75-100) mg/dL POC Glucose 127 H (70-105) Hemoglobin A1c (4-6) % Lactic Acid (0.7-2.0) mmol/L Phosphorus 0.80 L* (2.5-4.5) mg/dL Magnesium (1.7-2.3) mg/dL 11/20/18 11/20/18 11/20/18 Range/Units 04:32 04:34 06:41 WBC 1.5 L* (4.5-11.0) K/mm3 Hct 35.2 L D (35.5-45.6) % MCHC 35 H (32-34) % Seg Neuts % (Manual) 30.0 L (40.0-70.0) % Monocytes % (Manual) 10.0 H (0.0-7.3) % Seg Neutrophils # Man 0.5 L (1.8-7.7) K/mm3 Lymphocytes # (Manual) 0.3 L (1.2-5.4) K/mm3 Sodium (137-145) mmol/L Potassium (3.6-5.0) mmol/L Chloride (98-107) mmol/L Carbon Dioxide (22-30) mmol/L BUN (9-20) mg/dL Creatinine (0.8-1.5) mg/dL Glucose (75-100) mg/dL POC Glucose 168 H 236 H (70-105) Hemoglobin A1c (4-6) % Lactic Acid (0.7-2.0) mmol/L Phosphorus (2.5-4.5) mg/dL Magnesium (1.7-2.3) mg/dL 11/20/18 11/20/18 Range/Units 07:14 08:40 WBC (4.5-11.0) K/mm3 Hct (35.5-45.6) % MCHC (32-34) % Seg Neuts % (Manual) (40.0-70.0) % Monocytes % (Manual) (0.0-7.3) % Seg Neutrophils # Man (1.8-7.7) K/mm3 Lymphocytes # (Manual) (1.2-5.4) K/mm3 Sodium 161 H* (137-145) mmol/L Potassium (3.6-5.0) mmol/L Chloride 122.7 H (98-107) mmol/L Carbon Dioxide (22-30) mmol/L BUN 36 H (9-20) mg/dL Creatinine (0.8-1.5) mg/dL Glucose 252 H (75-100) mg/dL POC Glucose 379 H (70-105) Hemoglobin A1c (4-6) % Lactic Acid (0.7-2.0) mmol/L Phosphorus 2.30 L D (2.5-4.5) mg/dL Magnesium (1.7-2.3) mg/dL Assessment and Plan Cultures: Blood cultures 11/19/2018 no growth. Urine culture 11/19/2018 negative Assessment: 78 y/o male with history of diabetes brought by family due to 2-day history of generalized weakness and lethargy: 1) SIRS v/s sepsis: Present on admission, manifested by fever, tachycardia. Etiology most likely DKA +/- SVT s/p CV. Transiently on pressors. ? underlying sepsis is possible but blood culture so far negative, UA negative, CXR negative. 2) Acute encephaloapthy: from DKA / electrolyte imbalance 3) SVT s/p CV 4) DM uncontrolled DKA 5) MEETA Recommendations: follow-up blood cultures, urine culture continue cefepime renally adjusted abdominal CT when stable as daughter reports he has been c/o abdominal pain repeat CXR Will follow. Lorraine Romo MD Infectious Diseases [employer] [facility] ([facility] M [phone] O [phone]
[2018-11-20 15:12] LABS: BUN/Creatinine Ratio 24; Blood Urea Nitrogen 26 mg/dL (9-20); Calcium 7.6 mg/dL (8.4-10.2); Hemolysis Index 4
[2018-11-20 18:37] LABS: BUN/Creatinine Ratio 25; Blood Urea Nitrogen 25 mg/dL (9-20); Calcium 7.8 mg/dL (8.4-10.2); Hemolysis Index 15
[2018-11-20] MEDS ORDERED: LANTUS SUB-Q SCH (22:00)
[2018-11-21 00:09] LABS: BUN/Creatinine Ratio 23; Blood Urea Nitrogen 23 mg/dL (9-20); Calcium 7.6 mg/dL (8.4-10.2); Hemolysis Index 17
[2018-11-21] MEDS: LANOXIN IV SCH (02:05)
[2018-11-21] MEDS: HumaLOG SUB-Q SCH ×4 (02:10→21:00)
[2018-11-21] MEDS: DILAUDID IV PRN ×2 (03:03→07:54)
[2018-11-21 03:09] LABS: BUN/Creatinine Ratio 21; Blood Urea Nitrogen 21 mg/dL (9-20); Calcium 7.7 mg/dL (8.4-10.2); Hemolysis Index 12
[2018-11-21] MEDS: D5/0.45NS 1,000 ML IV SCH ×3 (04:20→23:15)
[2018-11-21 05:02] LABS: Hematocrit 34.4 % (35.5-45.6); Hemoglobin 12.1 gm/dl (11.8-15.2); Mean Corpuscular HGB Conc 35 % (32-34); Mean Corpuscular Volume 91 fl (84-94); Platelet Count 192 K/mm3 (140-440); Red Cell Distribution Width 14.4 % (13.2-15.2)
--- NOTE | 2018-11-21 08:18 | Progress Note ---
Assessment and Plan Assessment and plan: 78-year-old [place] male with past medical history significant for type 2 diabetes on metformin, presented to the emergency room for weakness and being lethargic and altered mental status. As per the family the patient has a high blood sugar. Patient is confused and nonverbal at this point. In the emergency room his blood sugar was in the 740s. As per the daughter patient has been lethargic for the last couple days. Has increased urination. Patient has been compliant with his metformin twice a day. He was diagnosed with DKA, started Insulin drip. patient had SVT in Ed, given Adenosine, shocked, converted to NSR.He also has severe hypernatremia iv fluids. was also hypotensive in Ed, started on levophed, iv Antibiotics and admitted. Blood glucose improved, off Insulin drip. Diabetic ketoacidosisKA Was on Insulin drip, now discontinued Continue Insulin subcut Diabetes mellitus type 2 Fingerstick q 4h SVT Given multiple doses Adenosine in ED, then shocked cardiology following Fever of 100.9 on 11/20. SIRS vs Sepsis Blood cultures drawn Empiric Cefepime started Consulted ID, following Hypernatremia Started on ivf Improving Na 153 Nephrology following Hypotension/shock resolved Off levophed, MEETA due to vasomotor nephropathy Improving Cr now 1.3, was 2.1 on admission Hypophosphatemia Replace and recheck Full code status Discussed with daughter at bedside The high probability of a clinically significant, sudden or life threatening deterioration of the [4] system(s) required my full and direct attention, intervention and personal management. The aggregate critical care time was [32] minutes. This time is in addition to time spent performing reported procedures but includes the following: [x] Data Review and interpretation [x] Patient assessment and monitoring of vital signs [x] Documentation [x] Medication orders and management History Interval history: Altered mental status improving vomiting Pulled out NG tube last night Hospitalist Physical - Physical exam Narrative exam: Gen: Not in acute distress, ill looking, malnourished HEENT: Normocephalic, atraumatic Neck: supple, no JVD Heart: S1 and S2 reg, no murmurs, rubs or gallop Lungs: Clear, no crackles or wheeze Abd: soft, non tender, non distended, normal BS, Ext: No edema, no clubbing, no cyanosis Neuro: Lethargic, opens eyes, does not follow commands - Constitutional Vitals: Temp Pulse Resp BP Pulse Ox 98.9 F 97 H 21 103/57 96 11/21/18 03:54 11/21/18 07:11 11/21/18 07:11 11/21/18 07:11 11/21/18 07:11 General appearance: Present: no acute distress Results - Labs CBC & Chem 7: 11/21/18 04:25 11/21/18 11:01 Labs: Laboratory Last Values WBC 10.4 K/mm3 (4.5-11.0) 11/21/18 04:25 RBC 3.80 M/mm3 (3.65-5.03) 11/21/18 04:25 Hgb 12.1 gm/dl (11.8-15.2) 11/21/18 04:25 Hct 34.4 % (35.5-45.6) L 11/21/18 04:25 MCV 91 fl (84-94) 11/21/18 04:25 MCH 32 pg (28-32) 11/21/18 04:25 MCHC 35 % (32-34) H 11/21/18 04:25 RDW 14.4 % (13.2-15.2) 11/21/18 04:25 Plt Count 192 K/mm3 (140-440) 11/21/18 04:25 Lymph % (Auto) 4.2 % (13.4-35.0) L 11/19/18 10:07 [place] % (Auto) 5.9 % (0.0-7.3) 11/19/18 10:07 Eos % (Auto) 0.5 % (0.0-4.3) 11/19/18 10:07 Baso % (Auto) 0.1 % (0.0-1.8) 11/19/18 10:07 Lymph # 0.3 K/mm3 (1.2-5.4) L 11/19/18 10:07 [place] # 0.5 K/mm3 (0.0-0.8) 11/19/18 10:07 Eos # 0.0 K/mm3 (0.0-0.4) 11/19/18 10:07 Baso # 0.0 K/mm3 (0.0-0.1) 11/19/18 10:07 Add Manual Diff Complete 11/20/18 04:32 Total Counted 100 11/20/18 04:32 Seg Neutrophils % 89.3 % (40.0-70.0) H 11/19/18 10:07 Seg Neuts % (Manual) 30.0 % (40.0-70.0) L 11/20/18 04:32 22.0 % 11/20/18 04:32 23.0 % (13.4-35.0) 11/20/18 04:32 Reactive Lymphs % (Man) 1.0 % 11/20/18 04:32 10.0 % (0.0-7.3) H 11/20/18 04:32 0 % (0.0-4.3) 11/20/18 04:32 0 % (0.0-1.8) 11/20/18 04:32 7.0 % 11/20/18 04:32 7.0 % 11/20/18 04:32 0 % 11/20/18 04:32 0 % 11/20/18 04:32 Nucleated RBC % Not Reportable 11/20/18 04:32 Seg Neutrophils # 6.9 K/mm3 (1.8-7.7) 11/19/18 10:07 Seg Neutrophils # Man 0.5 K/mm3 (1.8-7.7) L 11/20/18 04:32 Band Neutrophils # 0.3 K/mm3 11/20/18 04:32 0.3 K/mm3 (1.2-5.4) L 11/20/18 04:32 Abs React Lymphs (Man) 0.0 K/mm3 11/20/18 04:32 0.2 K/mm3 (0.0-0.8) 11/20/18 04:32 0.0 K/mm3 (0.0-0.4) 11/20/18 04:32 0.0 K/mm3 (0.0-0.1) 11/20/18 04:32 0.1 K/mm3 11/20/18 04:32 0.1 K/mm3 11/20/18 04:32 0.0 K/mm3 11/20/18 04:32 Blast Cells # 0.0 K/mm3 11/20/18 04:32 WBC Morphology Not Reportable 11/20/18 04:32 Hypersegmented Neuts Not Reportable 11/20/18 04:32 Hyposegmented Neuts Not Reportable 11/20/18 04:32 Hypogranular Neuts Not Reportable 11/20/18 04:32 Not Reportable 11/20/18 04:32 Not Reportable 11/20/18 04:32 Not Reportable 11/20/18 04:32 Not Reportable 11/20/18 04:32 Not Reportable 11/20/18 04:32 Not Reportable 11/20/18 04:32 Consistent w auto 11/20/18 04:32 Not Reportable 11/20/18 04:32 Plt Clumps, EDTA Not Reportable 11/20/18 04:32 Not Reportable 11/20/18 04:32 Not Reportable 11/20/18 04:32 Not Reportable 11/20/18 04:32 Plt Morphology Comment Not Reportable 11/20/18 04:32 RBC Morphology Normal 11/20/18 04:32 Dimorphic RBCs Not Reportable 11/20/18 04:32 Not Reportable 11/20/18 04:32 Not Reportable 11/20/18 04:32 Not Reportable 11/20/18 04:32 Not Reportable 11/20/18 04:32 Not Reportable 11/20/18 04:32 Not Reportable 11/20/18 04:32 Not Reportable 11/20/18 04:32 Not Reportable 11/20/18 04:32 Not Reportable 11/20/18 04:32 Not Reportable 11/20/18 04:32 Not Reportable 11/20/18 04:32 Not Reportable 11/20/18 04:32 Not Reportable 11/20/18 04:32 Not Reportable 11/20/18 04:32 Not Reportable 11/20/18 04:32 Not Reportable 11/20/18 04:32 Not Reportable 11/20/18 04:32 Not Reportable 11/20/18 04:32 Not Reportable 11/20/18 04:32 Acanthocytes (Spur) Not Reportable 11/20/18 04:32 Rouleaux Not Reportable 11/20/18 04:32 Not Reportable 11/20/18 04:32 Not Reportable 11/20/18 04:32 Not Reportable 11/20/18 04:32 Not Reportable 11/20/18 04:32 Hem Pathologist Commnt No 11/20/18 04:32 PT 12.9 Sec. (12.2-14.9) 11/19/18 10:07 INR 1.00 (0.87-1.13) 11/19/18 10:07 APTT 26.3 Sec. (24.2-36.6) 11/19/18 10:07 VBG pH 7.162 (7.320-7.420) L* 11/19/18 10:07 Sodium 155 mmol/L (137-145) H 11/21/18 02:20 Potassium 3.5 mmol/L (3.6-5.0) L 11/21/18 02:20 Chloride 119.4 mmol/L (98-107) H 11/21/18 02:20 Carbon Dioxide 26 mmol/L (22-30) 11/21/18 02:20 13 mmol/L 11/21/18 02:20 BUN 21 mg/dL (9-20) H 11/21/18 02:20 1.0 mg/dL (0.8-1.5) 11/21/18 02:20 Estimated GFR > 60 ml/min 11/21/18 02:20 21 % 11/21/18 02:20 Glucose 105 mg/dL (75-100) H 11/21/18 02:20 POC Glucose 79 (70-105) 11/20/18 23:34 16.9 % (4-6) H 11/19/18 19:14 Lactic Acid 2.00 mmol/L (0.7-2.0) 11/20/18 04:50 Calcium 7.7 mg/dL (8.4-10.2) L 11/21/18 02:20 Phosphorus 2.30 mg/dL (2.5-4.5) L D 11/20/18 07:14 Magnesium 1.90 mg/dL (1.7-2.3) 11/20/18 07:14 0.20 mg/dL (0.1-1.2) 11/19/18 10:07 AST 26 units/L (5-40) 11/19/18 10:07 ALT 24 units/L (7-56) 11/19/18 10:07 101 units/L (35-129) 11/19/18 10:07 690 units/L (55-170) H 11/19/18 10:07 0.016 ng/mL (0.00-0.029) 11/19/18 10:07 6.4 g/dL (6.3-8.2) 11/19/18 10:07 3.6 g/dL (3.9-5) L 11/19/18 10:07 1.3 % 11/19/18 10:07 Yellow (Yellow) 11/19/18 09:17 Clear (Clear) 11/19/18 09:17 5.0 (5.0-7.0) 11/19/18 09:17 Ur Specific [place] 1.027 (1.003-1.030) 11/19/18 09:17 <15 mg/dl mg/dL (Negative) 11/19/18 09:17 >=500 mg/dL (Negative) 11/19/18 09:17 80 mg/dL (Negative) 11/19/18 09:17 Neg (Negative) 11/19/18 09:17 Neg (Negative) 11/19/18 09:17 Neg (Negative) 11/19/18 09:17 < 2.0 mg/dL (<2.0) 11/19/18 09:17 Ur Leukocyte Esterase Neg (Negative) 11/19/18 09:17 < 1.0 /HPF (0.0-6.0) 11/19/18 09:17 2.0 /HPF (0.0-6.0) 11/19/18 09:17 Few /HPF 11/19/18 09:17 Active Medications - Current Medications Current Medications: Generic Name Dose Route Start Last Admin Trade Name Freq PRN Reason Stop Dose Admin Acetaminophen 650 mg 11/20/18 03:04 11/20/18 03:17 Tylenol [place] 650 mg Q4H PRN Administration Pain, Mild (1-3), Fever> 100.4 Albuterol 2.5 mg 11/20/18 04:27 Proventil IH Q4HRT PRN Shortness Of Breath Dextrose 50 ml 11/20/18 02:26 D50w (25gm) Syringe IV PRN PRN Hypoglycemia Digoxin 0.125 mg 11/21/18 10:00 Lanoxin PO Q48H HAMLET Famotidine 20 mg 11/19/18 22:00 11/20/18 21:24 Pepcid IV 20 mg BID HAMLET Administration Guaifenesin 200 mg 11/20/18 04:28 Robitussin PO Q4H PRN Cough Heparin Sodium (Porcine) 5,000 unit 11/19/18 22:00 11/20/18 21:23 Heparin SUB-Q 5,000 unit Q12HR HAMLET Administration Hydromorphone HCl 0.5 mg 11/19/18 17:17 11/21/18 07:54 Dilaudid IV 0.5 mg Q3H PRN Administration Pain , Severe (7-10) Cefepime HCl 1 gm in 100 mls @ 200 mls/hr 11/19/18 22:00 11/20/18 21:23 Maxipime/Ns 1 Gm/100 Ml IV 200 mls/hr Q12H HAMLET Administration Protocol Norepinephrine 4 mg in 250 mls @ 7.5 mls/hr 11/20/18 04:00 11/20/18 09:30 Levophed Drip 4 Mg/Ns 250 Ml IV 0 mcg/min TITR HAMLET 0 mls/hr Titration Protocol 2 MCG/MIN Sodium Chloride 1,000 mls @ 999 mls/hr 11/20/18 12:00 11/20/18 14:11 Nacl 0.9% 1000 Ml IV 11/21/18 13:01 Infused ONCE [facility] Infusion As Directed Dextrose/Sodium Chloride 1,000 mls @ 125 mls/hr 11/20/18 12:00 11/21/18 04:20 D5/0.45ns IV 125 mls/hr DIRECT [facility] Administration Insulin Glargine 10 units 11/20/18 22:00 11/20/18 21:24 Lantus SUB-Q Not Given QHS [facility] Insulin Human Isoph/Insulin Regular 15 unit 11/20/18 08:00 11/20/18 16:23 Humulin 70/30 SUB-Q 15 unit BIDDIAB [facility] Administration Insulin Human Lispro 0 unit 11/20/18 03:00 11/21/18 02:10 Humalog SUB-Q Not Given Q6H [facility] Protocol Metoclopramide HCl 10 mg 11/19/18 17:17 Reglan IV Q6H PRN Nausea And Vomiting Ondansetron HCl 4 mg 11/19/18 17:17 11/20/18 03:13 Zofran IV 4 mg Q3H PRN Administration Nausea And Vomiting Sodium Chloride 10 ml 11/19/18 22:00 11/20/18 21:25 Sodium Chloride Flush Syringe 10 Ml IV 10 ml BID [facility] Administration Sodium Chloride 10 ml 11/19/18 17:17 Sodium Chloride Flush Syringe 10 Ml IV PRN PRN LINE FLUSH Nutrition/Malnutrition Assess - Dietary Evaluation Nutrition/Malnutrition Findings: Nutrition Notes Start: 11/20/18 08:55 Freq: Status: Active Protocol: Document 11/20/18 08:55 LP (Rec: 11/20/18 09:02 LP [id number]) Nutrition Notes Need for Assessment generated from: MD Order Initial or Follow up Assessment Current Diagnosis Acute Kidney Injury,Diabetes Other Pertinent Diagnosis DKA Current Diet NPO Labs/Tests Na 161 BUN 36 BG 252 Phos 2.3 A1c 16.9 Pertinent Medications Reviewed Height 5 ft 10 in Weight 53.8 kg [place] Body Weight (kg) 75.45 BMI 17.0 Subjective/Other Information Consult for diet education. Pt not appropriate for diet education at this time. Pt has dobhoff placed, pt continues on insulin drip. Burn Absent Trauma Absent #1 Nutrition Diagnosis Malnutrition Etiology Advanced age/DKA As Evidenced by Signs and Symptoms Pt has muscle mass and body fat loss Is patient on ventilator? No Is Patient Ambulatory and/or Out of Bed No REE-([facility]-confined to bed) 1512.132 Kcal/Kg value to use for calculation 35 Approximate Energy Requirements Using 1883 kcal/Kg Calculation Used for Recommendations [facility] Additional Notes Protein needs are 54-65g (1-1. 2g/kg) Fluid needs are 1ml/kcal Nutrition Intervention Change Diet Order: TF once consulted Nutrition Support: Glucerna 1.2 at 65ml/hr Flush with 200ml q4h for hypernatremia and 100ml q4h once resolved. Kcal 1,872 Protein (gm) 94 Fluid (mL) 1,260 Goal #1 TF consult Goal #2 Wt gain/maintenance Anticipated Discharge Needs: Unable to determine at this time Follow-Up By: 11/22/18 Additional Comments Follow for TF consult
--- NOTE | 2018-11-21 08:28 | Progress Note ---
Assessment and Plan Cultures: Blood cultures 11/19/2018 no growth. Urine culture 11/19/2018 negative Assessment: 78 y/o male with history of diabetes brought by family due to 2-day history of generalized weakness and lethargy: 1) SIRS v/s sepsis: improving. Etiology most likely DKA +/- SVT s/p CV. Transiently on pressors. ? underlying sepsis is possible but blood culture so far negative, UA negative, CXR negative. 2) Acute encephaloapthy: from DKA / electrolyte imbalance 3) SVT s/p CV 4) DM uncontrolled DKA 5) MEETA: better Recommendations: follow-up blood cultures, urine culture continue cefepime renally adjusted D3 abdominal CT today repeat CXR today Will follow. Lorraine Romo MD Infectious Diseases Strategic Debriefing Specialist [facility] M [phone] O [phone] Subjective Date of service: 11/21/18 Principal diagnosis: SIRS Interval history: Mare alert, communicating, no fever. Objective - Exam Narrative Exam: General appearance: alert in NAD Eyes: anicteric sclerae, moist conjunctivae; no lid-lag; PERRLA HENT: Atraumatic; oropharynx limited Neck: Trachea midline; supple, no thyromegaly or lymphadenopathy Lungs: CTA, with normal respiratory effort and no intercostal retractions CV: RRR Abdomen: Soft, tender diffusely Extremities: no edema, cyanosis Skin: Normal temperature, turgor and texture; no rash, ulcers or subcutaneous nodules Psych: no agitated Neuro: alert talking to daughter - Constitutional Vitals: Vital Signs Temp Pulse Resp BP Pulse Ox 98.9 F 97 H 21 103/57 96 11/21/18 03:54 11/21/18 07:11 11/21/18 07:11 11/21/18 07:11 11/21/18 07:11 Temperature -Last 24 Hours Temperature 98.9 F Temperature 99.5 F Temperature 99.7 F Temperature 97.1 F Temperature 97.1 F - Labs CBC & Chem 7: 11/21/18 04:25 11/21/18 02:20 Labs: Abnormal lab results 11/20/18 11/20/18 11/20/18 Range/Units 08:40 14:47 14:51 Hct (35.5-45.6) % MCHC (32-34) % Sodium 158 H (137-145) mmol/L Potassium (3.6-5.0) mmol/L Chloride 123.8 H (98-107) mmol/L BUN 26 H (9-20) mg/dL Glucose 127 H (75-100) mg/dL POC Glucose 379 H 151 H (70-105) Calcium 7.6 L (8.4-10.2) mg/dL 11/20/18 11/20/18 11/21/18 Range/Units 18:05 23:29 02:20 Hct (35.5-45.6) % MCHC (32-34) % Sodium 156 H 157 H 155 H (137-145) mmol/L Potassium 3.5 L (3.6-5.0) mmol/L Chloride 121.5 H 122.0 H 119.4 H (98-107) mmol/L BUN 25 H 23 H 21 H (9-20) mg/dL Glucose 69 L 74 L 105 H (75-100) mg/dL POC Glucose (70-105) Calcium 7.8 L 7.6 L 7.7 L (8.4-10.2) mg/dL 11/21/18 Range/Units 04:25 Hct 34.4 L (35.5-45.6) % MCHC 35 H (32-34) % Sodium (137-145) mmol/L Potassium (3.6-5.0) mmol/L Chloride (98-107) mmol/L BUN (9-20) mg/dL Glucose (75-100) mg/dL POC Glucose (70-105) Calcium (8.4-10.2) mg/dL
[2018-11-21 09:19] LABS: BUN/Creatinine Ratio 23; Blood Urea Nitrogen 23 mg/dL (9-20); Calcium 7.8 mg/dL (8.4-10.2); Hemolysis Index 9
[2018-11-21] MEDS: MAXIPIME/NS 1 GM/100 ML 1 GM/100 ML BAG IV SCH ×2 (09:32→22:40)
[2018-11-21] MEDS: HEPARIN SUB-Q SCH (09:32)
[2018-11-21] MEDS: PEPCID IV SCH ×2 (09:33→22:40)
--- NOTE | 2018-11-21 10:44 | Progress Note ---
Assessment and Plan Echo reviewed - EF 50-55%, mild TR, impaired relaxation. Cont Digoxin since low BP precludes the use of other AV blocking agents. Lexiscan stress MPI when more stable. Pt was noted to have a bout of AFib with RVR on admission, currently in SR. He would benefit from systemic AC in setting of elevated CHADS. Initiate Eliquis 2.5mg BID in setting of age and weight. The patient has been seen in conjunction with Dr. Clay who agrees with the assessment and plan of care. - Patient Problems (1) Atrial fibrillation with RVR Current Visit: Yes Status: Acute (2) Abnormal ECG Current Visit: Yes Status: Acute (3) DKA (diabetic ketoacidoses) Current Visit: Yes Status: Acute Qualifiers: Diabetes mellitus type: type 2 (4) Altered mental status Current Visit: Yes Status: Acute (5) MEETA (acute kidney injury) Current Visit: Yes Status: Acute (6) Acute hypernatremia Current Visit: Yes Status: Acute (7) Leucopenia Current Visit: Yes Status: Acute Subjective Date of service: 11/21/18 Principal diagnosis: DKA Interval history: pt resting in bed, confused, family member at bedside. in SR on tele. Objective Last Vital Signs Temp 97.9 F 11/21/18 08:00 Pulse 97 H 11/21/18 07:11 Resp 21 11/21/18 07:11 BP 103/57 11/21/18 07:11 Pulse Ox 96 11/21/18 07:11 - Physical Examination General: No Apparent Distress HEENT: Positive: Normocephaly, Mucus Membranes Moist Neck: Positive: neck supple, trachea midline Cardiac: Positive: Reg Rate and Rhythm, S1/S2 Lungs: Positive: Decreased Breath Sounds Neuro: Positive: Other (confused) Abdomen: Positive: Soft, Active Bowel Sounds. Negative: Tender Skin: Positive: Clear. Negative: Rash Musculoskeletal: Normal Range of Motion Extremities: Present: normal. Absent: edema - Labs and Meds CBC 11/21/18 Range/Units 04:25 WBC 10.4 (4.5-11.0) K/mm3 RBC 3.80 (3.65-5.03) M/mm3 Hgb 12.1 (11.8-15.2) gm/dl Hct 34.4 L (35.5-45.6) % Plt Count 192 (140-440) K/mm3 Comprehensive Metabolic Panel 11/20/18 11/20/18 11/20/18 Range/Units 14:47 18:05 23:29 Sodium 158 H 156 H 157 H (137-145) mmol/L Potassium 4.1 3.7 3.6 (3.6-5.0) mmol/L Chloride 123.8 H 121.5 H 122.0 H (98-107) mmol/L Carbon Dioxide 24 25 26 (22-30) mmol/L BUN 26 H 25 H 23 H (9-20) mg/dL Creatinine 1.1 1.0 1.0 (0.8-1.5) mg/dL Glucose 127 H 69 L 74 L (75-100) mg/dL Calcium 7.6 L 7.8 L 7.6 L (8.4-10.2) mg/dL 11/21/18 11/21/18 Range/Units 02:20 08:13 Sodium 155 H 153 H (137-145) mmol/L Potassium 3.5 L 3.9 (3.6-5.0) mmol/L Chloride 119.4 H 117.9 H (98-107) mmol/L Carbon Dioxide 26 22 (22-30) mmol/L BUN 21 H 23 H (9-20) mg/dL Creatinine 1.0 1.0 (0.8-1.5) mg/dL Glucose 105 H 260 H (75-100) mg/dL Calcium 7.7 L 7.8 L (8.4-10.2) mg/dL - Imaging and Cardiology EKG: image reviewed - Telemetry EKG Rhythm: Sinus Rhythm - EKG Sinus rhythms and dysrhythmias: sinus rhythm Repolarization changes or abnormalities: ST or T wave suggestive of ischemia
[2018-11-21] MEDS: SODIUM CHLORIDE FLUSH SYRINGE 10 ML IV SCH ×2 (10:45→22:40)
[2018-11-21] MEDS: LANOXIN PO SCH (10:45)
[2018-11-21 11:39] LABS: BUN/Creatinine Ratio 23; Blood Urea Nitrogen 25 mg/dL (9-20); Calcium 7.9 mg/dL (8.4-10.2); Hemolysis Index 6
--- NOTE | 2018-11-21 12:08 | XRay Report ---
CHEST 1 VIEW 11/21/2018 11:48 AM INDICATION / CLINICAL INFORMATION: eval for pneumonia. COMPARISON: Chest x-ray on 11/19/2018. FINDINGS: SUPPORT DEVICES: Feeding tube is seen extending below the diaphragm. HEART / MEDIASTINUM: No significant abnormality. LUNGS / PLEURA: Interval development of right lower lung parenchymal opacification. No pneumothorax. ADDITIONAL FINDINGS: No significant additional findings. IMPRESSION: 1. Interval development of right lower lung parenchymal opacification that could indicate aspiration and/or developing pneumonia. Signer Name: Jose Roberto Grady MD Signed: 11/21/2018 12:03 PM Workstation Name: [id number]
--- NOTE | 2018-11-21 13:35 | XRay Report ---
XR abdomen 1V ap INDICATION: Dobhoff Placement. COMPARISON: X-ray on 11/20/2018 FINDINGS: The tip of the feeding tube projects over the proximal stomach. The imaged bowel gas pattern appears unremarkable. Right lower lobe parenchymal opacity appears similar to the recent chest x-ray. Signer Name: Jose Roberto Grady MD Signed: 11/21/2018 1:31 PM Workstation Name: [id number]
--- NOTE | 2018-11-21 14:28 | Progress Note ---
Assessment and Plan Assessment: Acute Kidney injury likely prerenal/ATN from dehydration: Hypernatremia, hypertonic: Diabetic ketoacidosis: Hypophosphatemia: Neutropenia: Afib: Plan: -Labs reviewed, most recent serum sodium level was 154 today, yesterday's serum sodium level was between 157-165 -Renal function stable with SCr level of 1.1 today, peak SCr level of 2.1 on 11/19/18 -On D5 0.45% NS infusion at 125 ml/hr -On admission corrected sodium was around 162 when corrected for high glucose -Target sodium drop <10 mEq/24 hrs to minimize risk of cerebral edema since chronicity of hypernatremia is unknown -ID on board, on Abx for possible sepsis, recommended removal of femoral TLC -Will need to start free water flushes via Dobhoff tube once able to use -Cardiology on board for Afib -Renally dose all meds -Avoid Nephortoxic meds -Strict I/Os -Renal plan d/w Dr Lara Subjective Date of service: 11/21/18 Principal diagnosis: DKA Interval history: Pt seen in bed, lethargic, family member at bedside, doesn't speak Bengali. Nurse states pt pulled out dobhoff tube earlier, new dobhoff tube placed. Objective - Vital Signs Vital signs: Vital Signs - 12hr 11/21/18 11/21/18 11/21/18 02:30 02:41 02:51 Temperature Pulse Rate 90 94 H 95 H Pulse Rate [ From Monitor] Respiratory 25 H 24 19 Rate Blood Pressure 127/61 127/61 127/61 O2 Sat by Pulse 95 94 94 Oximetry 11/21/18 11/21/18 11/21/18 03:00 03:11 03:21 Temperature Pulse Rate 95 H 91 H 133 H Pulse Rate [ From Monitor] Respiratory 22 17 15 Rate Blood Pressure 142/63 142/63 142/63 O2 Sat by Pulse 93 93 92 Oximetry 11/21/18 11/21/18 11/21/18 03:30 03:41 03:51 Temperature Pulse Rate 90 89 87 Pulse Rate [ From Monitor] Respiratory 11 L 12 11 L Rate Blood Pressure 130/67 130/67 130/67 O2 Sat by Pulse 99 100 100 Oximetry 11/21/18 11/21/18 11/21/18 03:54 04:00 04:11 Temperature 98.9 F Pulse Rate 87 88 Pulse Rate [ 78 From Monitor] Respiratory 12 10 L Rate Blood Pressure 106/59 106/59 O2 Sat by Pulse 100 100 Oximetry 11/21/18 11/21/18 11/21/18 04:21 04:30 04:41 Temperature Pulse Rate 92 H 87 90 Pulse Rate [ From Monitor] Respiratory 16 12 16 Rate Blood Pressure 106/59 106/55 106/59 O2 Sat by Pulse 99 98 99 Oximetry 11/21/18 11/21/18 11/21/18 04:51 05:00 05:11 Temperature Pulse Rate 88 90 88 Pulse Rate [ From Monitor] Respiratory 12 11 L 10 L Rate Blood Pressure 106/59 105/58 106/55 O2 Sat by Pulse 100 99 98 Oximetry 11/21/18 11/21/18 11/21/18 05:21 05:31 05:41 Temperature Pulse Rate 89 91 H 90 Pulse Rate [ From Monitor] Respiratory 11 L 17 11 L Rate Blood Pressure 106/55 106/55 105/58 O2 Sat by Pulse 98 99 100 Oximetry 11/21/18 11/21/18 11/21/18 05:51 06:00 06:01 Temperature Pulse Rate 88 91 H Pulse Rate [ 78 From Monitor] Respiratory 13 18 Rate Blood Pressure 105/58 105/58 O2 Sat by Pulse 96 97 97 Oximetry 11/21/18 11/21/18 11/21/18 06:11 06:21 06:31 Temperature Pulse Rate 90 100 H 97 H Pulse Rate [ From Monitor] Respiratory 11 L 18 19 Rate Blood Pressure 105/58 105/58 105/58 O2 Sat by Pulse 99 100 97 Oximetry 11/21/18 11/21/18 11/21/18 06:41 06:51 07:00 Temperature Pulse Rate 90 90 89 Pulse Rate [ From Monitor] Respiratory 14 12 12 Rate Blood Pressure 145/64 145/64 103/57 O2 Sat by Pulse 100 98 100 Oximetry 11/21/18 11/21/18 11/21/18 07:11 07:20 07:30 Temperature Pulse Rate 97 H 93 H 92 H Pulse Rate [ From Monitor] Respiratory 21 13 11 L Rate Blood Pressure 103/57 103/57 142/68 O2 Sat by Pulse 96 89 99 Oximetry 11/21/18 11/21/18 11/21/18 07:41 07:51 08:00 Temperature 97.9 F Pulse Rate 90 96 H 87 Pulse Rate [ From Monitor] Respiratory 13 22 22 Rate Blood Pressure 103/57 103/57 123/64 O2 Sat by Pulse 100 100 96 Oximetry 11/21/18 11/21/18 11/21/18 08:11 08:21 08:30 Temperature Pulse Rate 88 94 H 90 Pulse Rate [ From Monitor] Respiratory 13 17 12 Rate Blood Pressure 142/68 142/68 116/66 O2 Sat by Pulse 96 96 93 Oximetry 11/21/18 11/21/18 11/21/18 08:41 08:50 09:00 Temperature Pulse Rate 95 H 90 91 H Pulse Rate [ From Monitor] Respiratory 15 13 12 Rate Blood Pressure 116/66 142/68 116/66 O2 Sat by Pulse 96 95 93 Oximetry 11/21/18 11/21/18 11/21/18 09:11 09:21 09:30 Temperature Pulse Rate 90 89 88 Pulse Rate [ From Monitor] Respiratory 16 12 14 Rate Blood Pressure 116/66 116/66 102/60 O2 Sat by Pulse 95 99 93 Oximetry 11/21/18 11/21/18 11/21/18 09:41 09:51 10:00 Temperature Pulse Rate 87 93 H 89 Pulse Rate [ From Monitor] Respiratory 12 15 13 Rate Blood Pressure 102/60 102/60 118/63 O2 Sat by Pulse 96 99 100 Oximetry 11/21/18 11/21/18 11/21/18 10:11 10:21 10:30 Temperature Pulse Rate 90 88 89 Pulse Rate [ From Monitor] Respiratory 11 L 10 L 10 L Rate Blood Pressure 102/60 102/60 106/58 O2 Sat by Pulse 96 98 97 Oximetry 11/21/18 11/21/18 11/21/18 10:41 10:51 11:00 Temperature Pulse Rate 86 94 H 92 H Pulse Rate [ From Monitor] Respiratory 13 21 12 Rate Blood Pressure 118/63 118/63 105/66 O2 Sat by Pulse 91 95 99 Oximetry 11/21/18 11/21/18 11/21/18 11:11 11:21 11:30 Temperature Pulse Rate 89 96 H 92 H Pulse Rate [ From Monitor] Respiratory 11 L 23 12 Rate Blood Pressure 106/58 106/58 117/67 O2 Sat by Pulse 100 91 98 Oximetry 11/21/18 11/21/18 11/21/18 12:04 12:10 12:21 Temperature Pulse Rate 102 H 93 H 92 H Pulse Rate [ From Monitor] Respiratory 25 H 13 14 Rate Blood Pressure 117/67 113/58 113/58 O2 Sat by Pulse 91 91 Oximetry 11/21/18 11/21/18 11/21/18 12:30 12:41 12:51 Temperature Pulse Rate 88 96 H 87 Pulse Rate [ From Monitor] Respiratory 15 22 11 L Rate Blood Pressure 118/57 118/57 118/57 O2 Sat by Pulse 93 92 90 Oximetry - General Appearance General appearance: frail EENT: ATNC Neck: no JVD Respiratory: Present: Decreased Breath Sounds Cardiology: S1S2 Gastrointestinal: normoactive bowel sounds (dobhoff tube in place) Integumentary: warm and dry Neurologic: other (lethargic, doesn't speak Bengali) Musculoskeletal: other (no edema to BLE) Psychiatric: other (unable to obtain) - Lab 11/21/18 04:25 11/21/18 11:01 Most recent lab results Calcium 7.9 mg/dL (8.4-10.2) L 11/21/18 11:01 Phosphorus 2.30 mg/dL (2.5-4.5) L D 11/20/18 07:14 Magnesium 1.90 mg/dL (1.7-2.3) 11/20/18 07:14 Medications & Allergies - Medications Allergies/Adverse Reactions: Allergies No Known Allergies Allergy (Verified 06/29/18 10:14) Home Medications: Home Medications Medication Instructions Recorded Confirmed Last Taken Type Docusate Sodium [Colace] 100 mg PO BID 7 Days #14 capsule 06/29/18 11/19/18 Unknown Rx metFORMIN [Glucophage] 500 mg PO BID 30 Days #60 tablet 06/29/18 11/19/18 Unknown Rx Active Medications: Generic Name Dose Route Start Last Admin Trade Name Freq PRN Reason Stop Dose Admin Acetaminophen 650 mg 11/20/18 03:04 11/20/18 03:17 Tylenol RI 650 mg Q4H PRN Administration Pain, Mild (1-3), Fever> 100.4 Albuterol 2.5 mg 11/20/18 04:27 Proventil IH Q4HRT PRN Shortness Of Breath Apixaban 2.5 mg 11/21/18 11:00 Eliquis PO Q12HR [facility] Protocol Dextrose 50 ml 11/20/18 02:26 D50w (25gm) Syringe IV PRN PRN Hypoglycemia Digoxin 0.125 mg 11/21/18 10:00 11/21/18 10:45 Lanoxin PO 0.125 mg Q48H [facility] Administration Famotidine 20 mg 11/19/18 22:00 11/21/18 09:33 Pepcid IV 20 mg BID [facility] Administration Guaifenesin 200 mg 11/20/18 04:28 Robitussin PO Q4H PRN Cough Hydromorphone HCl 0.5 mg 11/19/18 17:17 11/21/18 07:54 Dilaudid IV 0.5 mg Q3H PRN Administration Pain , Severe (7-10) Cefepime HCl 1 gm in 100 mls @ 200 mls/hr 11/19/18 22:00 11/21/18 09:32 Maxipime/Ns 1 Gm/100 Ml IV 200 mls/hr Q12H [facility] Administration Protocol Norepinephrine 4 mg in 250 mls @ 7.5 mls/hr 11/20/18 04:00 11/20/18 09:30 Levophed Drip 4 Mg/Ns 250 Ml IV 0 mcg/min TITR [facility] 0 mls/hr Titration Protocol 2 MCG/MIN Dextrose/Sodium Chloride 1,000 mls @ 125 mls/hr 11/20/18 12:00 11/21/18 04:20 D5/0.45ns IV 125 mls/hr DIRECT [facility] Administration Insulin Human Isoph/Insulin Regular 15 unit 11/20/18 08:00 11/21/18 09:20 Humulin 70/30 SUB-Q 15 unit BIDDIAB [facility] Administration Insulin Human Lispro 0 unit 11/20/18 03:00 11/21/18 09:45 Humalog SUB-Q Not Given Q6H [facility] Protocol Metoclopramide HCl 10 mg 11/19/18 17:17 Reglan IV Q6H PRN Nausea And Vomiting Ondansetron HCl 4 mg 11/19/18 17:17 11/20/18 03:13 Zofran IV 4 mg Q3H PRN Administration Nausea And Vomiting Sodium Chloride 10 ml 11/19/18 22:00 11/21/18 10:45 Sodium Chloride Flush Syringe 10 Ml IV 10 ml BID [facility] Administration Sodium Chloride 10 ml 11/19/18 17:17 Sodium Chloride Flush Syringe 10 Ml IV PRN PRN LINE FLUSH
[2018-11-21] MEDS ORDERED: PANCREAZE DR 10,500 UNIT FEEDTUBE PRN (15:26)
[2018-11-21] MEDS ORDERED: SIMPLE SYRUP FEEDTUBE PRN ×2 (15:26)
[2018-11-21] MEDS ORDERED: SODIUM BICARBONATE FEEDTUBE PRN (15:26)
--- NOTE | 2018-11-21 15:42 | Progress Note ---
Assessment and Plan 11/21 DKA resolving continue support Monitor bp, chemistries etc tube feed for now unable to safely feed Subjective Date of service: 11/21/18 Principal diagnosis: DKA Interval history: 11/21 off insulin drip blood sugars still variable still lethargic no resp issues stable vs Objective - Constitutional Vitals: Vital Signs - 12hr 11/21/18 11/21/18 11/21/18 03:41 03:51 03:54 Temperature 98.9 F Pulse Rate 89 87 Pulse Rate [ From Monitor] Respiratory 12 11 L Rate Blood Pressure 130/67 130/67 O2 Sat by Pulse 100 100 Oximetry 11/21/18 11/21/18 11/21/18 04:00 04:11 04:21 Temperature Pulse Rate 87 88 92 H Pulse Rate [ 78 From Monitor] Respiratory 12 10 L 16 Rate Blood Pressure 106/59 106/59 106/59 O2 Sat by Pulse 100 100 99 Oximetry 11/21/18 11/21/18 11/21/18 04:30 04:41 04:51 Temperature Pulse Rate 87 90 88 Pulse Rate [ From Monitor] Respiratory 12 16 12 Rate Blood Pressure 106/55 106/59 106/59 O2 Sat by Pulse 98 99 100 Oximetry 11/21/18 11/21/18 11/21/18 05:00 05:11 05:21 Temperature Pulse Rate 90 88 89 Pulse Rate [ From Monitor] Respiratory 11 L 10 L 11 L Rate Blood Pressure 105/58 106/55 106/55 O2 Sat by Pulse 99 98 98 Oximetry 11/21/18 11/21/18 11/21/18 05:31 05:41 05:51 Temperature Pulse Rate 91 H 90 88 Pulse Rate [ From Monitor] Respiratory 17 11 L 13 Rate Blood Pressure 106/55 105/58 105/58 O2 Sat by Pulse 99 100 96 Oximetry 11/21/18 11/21/18 11/21/18 06:00 06:01 06:11 Temperature Pulse Rate 91 H 90 Pulse Rate [ 78 From Monitor] Respiratory 18 11 L Rate Blood Pressure 105/58 105/58 O2 Sat by Pulse 97 97 99 Oximetry 11/21/18 11/21/18 11/21/18 06:21 06:31 06:41 Temperature Pulse Rate 100 H 97 H 90 Pulse Rate [ From Monitor] Respiratory 18 19 14 Rate Blood Pressure 105/58 105/58 145/64 O2 Sat by Pulse 100 97 100 Oximetry 11/21/18 11/21/18 11/21/18 06:51 07:00 07:11 Temperature Pulse Rate 90 89 97 H Pulse Rate [ From Monitor] Respiratory 12 12 21 Rate Blood Pressure 145/64 103/57 103/57 O2 Sat by Pulse 98 100 96 Oximetry 11/21/18 11/21/18 11/21/18 07:20 07:30 07:41 Temperature Pulse Rate 93 H 92 H 90 Pulse Rate [ From Monitor] Respiratory 13 11 L 13 Rate Blood Pressure 103/57 142/68 103/57 O2 Sat by Pulse 89 99 100 Oximetry 11/21/18 11/21/18 11/21/18 07:51 08:00 08:11 Temperature 97.9 F Pulse Rate 96 H 87 88 Pulse Rate [ From Monitor] Respiratory 22 13 Rate Blood Pressure 103/57 123/64 142/68 O2 Sat by Pulse 100 96 96 Oximetry 11/21/18 11/21/18 11/21/18 08:21 08:30 08:41 Temperature Pulse Rate 94 H 90 95 H Pulse Rate [ From Monitor] Respiratory 17 12 15 Rate Blood Pressure 142/68 116/66 116/66 O2 Sat by Pulse 96 93 96 Oximetry 11/21/18 11/21/18 11/21/18 08:50 09:00 09:11 Temperature Pulse Rate 90 91 H 90 Pulse Rate [ From Monitor] Respiratory 13 12 16 Rate Blood Pressure 142/68 116/66 116/66 O2 Sat by Pulse 95 93 95 Oximetry 11/21/18 11/21/18 11/21/18 09:21 09:30 09:41 Temperature Pulse Rate 89 88 87 Pulse Rate [ From Monitor] Respiratory 12 14 12 Rate Blood Pressure 116/66 102/60 102/60 O2 Sat by Pulse 99 93 96 Oximetry 11/21/18 11/21/18 11/21/18 09:51 10:00 10:11 Temperature Pulse Rate 93 H 89 90 Pulse Rate [ From Monitor] Respiratory 15 13 11 L Rate Blood Pressure 102/60 118/63 102/60 O2 Sat by Pulse 99 100 96 Oximetry 11/21/18 11/21/18 11/21/18 10:21 10:30 10:41 Temperature Pulse Rate 88 89 86 Pulse Rate [ From Monitor] Respiratory 10 L 10 L 13 Rate Blood Pressure 102/60 106/58 118/63 O2 Sat by Pulse 98 97 91 Oximetry 11/21/18 11/21/18 11/21/18 10:51 11:00 11:11 Temperature Pulse Rate 94 H 92 H 89 Pulse Rate [ From Monitor] Respiratory 21 12 11 L Rate Blood Pressure 118/63 105/66 106/58 O2 Sat by Pulse 95 99 100 Oximetry 11/21/18 11/21/18 11/21/18 11:21 11:30 12:04 Temperature Pulse Rate 96 H 92 H 102 H Pulse Rate [ From Monitor] Respiratory 23 12 25 H Rate Blood Pressure 106/58 117/67 117/67 O2 Sat by Pulse 91 98 Oximetry 11/21/18 11/21/18 11/21/18 12:10 12:21 12:30 Temperature Pulse Rate 93 H 92 H 88 Pulse Rate [ From Monitor] Respiratory 13 14 15 Rate Blood Pressure 113/58 113/58 118/57 O2 Sat by Pulse 91 91 93 Oximetry 11/21/18 11/21/18 12:41 12:51 Temperature Pulse Rate 96 H 87 Pulse Rate [ From Monitor] Respiratory 22 11 L Rate Blood Pressure 118/57 118/57 O2 Sat by Pulse 92 90 Oximetry General appearance: Present: no acute distress - Respiratory Respiratory: bilateral: diminished - Cardiovascular Heart rate: 100 Rhythm: regular - Gastrointestinal General gastrointestinal: Present: soft - Labs CBC & Chem 7: 11/21/18 04:25 11/21/18 11:01 Labs: Abnormal lab results 11/20/18 11/20/18 11/21/18 Range/Units 18:05 23:29 02:17 Hct (35.5-45.6) % MCHC (32-34) % Sodium 156 H 157 H (137-145) mmol/L Potassium (3.6-5.0) mmol/L Chloride 121.5 H 122.0 H (98-107) mmol/L Carbon Dioxide (22-30) mmol/L BUN 25 H 23 H (9-20) mg/dL Glucose 69 L 74 L (75-100) mg/dL POC Glucose 115 H (70-105) Calcium 7.8 L 7.6 L (8.4-10.2) mg/dL Digoxin (0.9-2.0) ng/mL 11/21/18 11/21/18 11/21/18 Range/Units 02:20 04:25 08:13 Hct 34.4 L (35.5-45.6) % MCHC 35 H (32-34) % Sodium 155 H (137-145) mmol/L Potassium 3.5 L (3.6-5.0) mmol/L Chloride 119.4 H (98-107) mmol/L Carbon Dioxide (22-30) mmol/L BUN 21 H (9-20) mg/dL Glucose 105 H (75-100) mg/dL POC Glucose (70-105) Calcium 7.7 L (8.4-10.2) mg/dL Digoxin 0.8 L (0.9-2.0) ng/mL 11/21/18 11/21/18 Range/Units 08:13 11:01 Hct (35.5-45.6) % MCHC (32-34) % Sodium 153 H 154 H (137-145) mmol/L Potassium (3.6-5.0) mmol/L Chloride 117.9 H 119.6 H (98-107) mmol/L Carbon Dioxide 20 L (22-30) mmol/L BUN 23 H 25 H (9-20) mg/dL Glucose 260 H 275 H (75-100) mg/dL POC Glucose (70-105) Calcium 7.8 L 7.9 L (8.4-10.2) mg/dL Digoxin (0.9-2.0) ng/mL Medications & Allergies - Medications Allergies/Adverse Reactions: Allergies No Known Allergies Allergy (Verified 06/29/18 10:14) Home Medications: Home Medications Medication Instructions Recorded Confirmed Last Taken Type Docusate Sodium [Colace] 100 mg PO BID 7 Days #14 capsule 06/29/18 11/19/18 Unknown Rx metFORMIN [Glucophage] 500 mg PO BID 30 Days #60 tablet 06/29/18 11/19/18 Unknown Rx Active Medications: Generic Name Dose Route Start Last Admin Trade Name Freq PRN Reason Stop Dose Admin Acetaminophen 650 mg 11/20/18 03:04 11/20/18 03:17 Tylenol HI 650 mg Q4H PRN Administration Pain, Mild (1-3), Fever> 100.4 Albuterol 2.5 mg 11/20/18 04:27 Proventil IH Q4HRT PRN Shortness Of Breath Lipase/Protease/Amylase 1 each 11/21/18 15:[address] 10,500 Unit FEEDTUBE PRN PRN For Clogged Feeding Tube Apixaban 2.5 mg 11/21/18 11:00 Eliquis PO Q12HR [facility] Protocol Dextrose 50 ml 11/20/18 02:26 D50w (25gm) Syringe IV PRN PRN Hypoglycemia Digoxin 0.125 mg 11/21/18 10:00 11/21/18 10:45 Lanoxin PO 0.125 mg Q48H [facility] Administration Famotidine 20 mg 11/19/18 22:00 11/21/18 09:33 Pepcid IV 20 mg BID [facility] Administration Guaifenesin 200 mg 11/20/18 04:28 Robitussin PO Q4H PRN Cough Hydromorphone HCl 0.5 mg 11/19/18 17:17 11/21/18 07:54 Dilaudid IV 0.5 mg Q3H PRN Administration Pain , Severe (7-10) Cefepime HCl 1 gm in 100 mls @ 200 mls/hr 11/19/18 22:00 11/21/18 09:32 Maxipime/Ns 1 Gm/100 Ml IV 200 mls/hr Q12H [facility] Administration Protocol Norepinephrine 4 mg in 250 mls @ 7.5 mls/hr 11/20/18 04:00 11/20/18 09:30 Levophed Drip 4 Mg/Ns 250 Ml IV 0 mcg/min TITR [facility] 0 mls/hr Titration Protocol 2 MCG/MIN Dextrose/Sodium Chloride 1,000 mls @ 125 mls/hr 11/20/18 12:00 11/21/18 04:20 D5/0.45ns IV 125 mls/hr DIRECT [facility] Administration Insulin Human Isoph/Insulin Regular 15 unit 11/20/18 08:00 11/21/18 09:20 Humulin 70/30 SUB-Q 15 unit BIDDIAB [facility] Administration Insulin Human Lispro 0 unit 11/20/18 03:00 11/21/18 09:45 Humalog SUB-Q Not Given Q6H [facility] Protocol Metoclopramide HCl 10 mg 11/19/18 17:17 Reglan IV Q6H PRN Nausea And Vomiting Ondansetron HCl 4 mg 11/19/18 17:17 11/20/18 03:13 Zofran IV 4 mg Q3H PRN Administration Nausea And Vomiting Simple Syrup 15 ml 11/21/18 15:26 Simple Syrup FEEDTUBE PRN PRN Hypoglycemia Simple Syrup 30 ml 11/21/18 15:26 Simple Syrup FEEDTUBE PRN PRN Hypoglycemia Sodium Bicarbonate 325 mg 11/21/18 15:26 Sodium Bicarbonate FEEDTUBE PRN PRN For Clogged Feeding Tube Sodium Chloride 10 ml 11/19/18 22:00 11/21/18 10:45 Sodium Chloride Flush Syringe 10 Ml IV 10 ml BID [facility] Administration Sodium Chloride 10 ml 11/19/18 17:17 Sodium Chloride Flush Syringe 10 Ml IV PRN PRN LINE FLUSH
[2018-11-21] MEDS: ELIQUIS PO SCH ×2 (17:19→22:40)
[2018-11-21 18:43] LABS: BUN/Creatinine Ratio 23; Blood Urea Nitrogen 23 mg/dL (9-20); Calcium 8.3 mg/dL (8.4-10.2); Hemolysis Index 17
[2018-11-22 00:34] LABS: BUN/Creatinine Ratio 17; Blood Urea Nitrogen 17 mg/dL (9-20); Calcium 8.2 mg/dL (8.4-10.2); Hemolysis Index 2
[2018-11-22] MEDS: HumaLOG SUB-Q SCH ×4 (03:15→21:13)
[2018-11-22 06:33] LABS: Hematocrit 33.7 % (35.5-45.6); Hemoglobin 11.5 gm/dl (11.8-15.2); Mean Corpuscular HGB Conc 34 % (32-34); Mean Corpuscular Volume 91 fl (84-94); Platelet Count 191 K/mm3 (140-440); Red Blood Count 3.72 M/mm3 (3.65-5.03); Red Cell Distribution Width 13.9 % (13.2-15.2)
[2018-11-22 06:49] LABS: BUN/Creatinine Ratio 20; Blood Urea Nitrogen 18 mg/dL (9-20); Calcium 8.1 mg/dL (8.4-10.2); Hemolysis Index 23
--- NOTE | 2018-11-22 09:30 | Cat Scan Report ---
CT ABDOMEN AND PELVIS WITHOUT CONTRAST INDICATION: severe sepsis, c/o abdominal pain, eval for GI source CONTRAST: Without IV COMPARISON: 06/29/[address] scans at this location are performed using CT dose reduction for ALARA by means of automated e xposure control. Note: Moderate artifact is seen in the upper abdominal region due to the patient's arm. FINDINGS: Old right rib fractures noted. Moderate thoracolumbar degenerative and arthritic changes ar e seen. Moderate left sacroiliac arthritic changes are noted. Small bilateral pleural effusions are seen. Prominent right lower lobe pneumonic type alveolar infilt rate is seen. Atelectatic changes are seen in the left lower lobe in conjunction with pleural effusio n. Small pericardial effusion is noted. A feeding tube extends into the occipital stomach. The density of the tip causes prominent artifact i n this region. Calcifications in the right adrenal gland probably are due to old hemorrhage. No adren al masses are obvious. No masses are seen. No urinary tract calculi or evidence of obstruction are no vickie. The urinary bladder is mildly distended without wall thickening. Prostate is mildly prominent. G allbladder appears within normal limits. No biliary dilatation is seen. No free fluid is noted. Abdom inal wall surgical changes are seen. No abdominal wall hernia is identified. Appendix is not identifi ed. Mild diffuse edema is seen in the abdomen and mild subcutaneous edema is noted. Aorta and branches sh ow atherosclerotic changes but no aneurysmal dilatation. I do not see evidence of bowel obstruction. Some loops of small bowel are distended with fluid with air-fluid levels but not truly dilated. There may be mild small bowel wall thickening in some areas though this is somewhat difficult to assess in this patient. No organized fluid collections are seen to suggest an abscess. The lower rectal area shows possible mild diffuse wall thickening. IMPRESSION: 1. Prominent infiltrate is seen in the right lower lobe consistent with pneumonitis. Atelectasis is s een in the left base but mild pneumonitis could also be present. Small bilateral pleural effusions ar e seen. 2. Bowel gas pattern is nonspecific without strong evidence for mechanical obstruction. However, the pattern could be consistent with enteritis. 3. Evidence of mild anasarca 4. Possible lower rectal wall thickening. Clinical correlation is suggested. Signer Name: Jacob Esqueda MD Signed: 11/22/2018 9:25 AM Workstation Name: [id number]
--- NOTE | 2018-11-22 09:55 | Progress Note ---
Assessment and Plan Cultures: Blood cultures 11/19/2018 no growth. Urine culture 11/19/2018 negative Assessment: 78 y/o male with history of diabetes brought by family due to 2-day history of generalized weakness and lethargy: 1) SIRS v/s sepsis: improving. Etiology most likely DKA +/- SVT s/p CV. Transiently on pressors. ? underlying sepsis is possible but blood culture so far negative, UA negative, CXR negative.Abdominal CT shows prominent infiltrate is seen in the right lower lobe consistent with pneumonitis. Small bilateral pleural effusions are seen. Rpt CXR shows right lower lung parenchymal opacifi cation that could indicate aspiration and/or developing pneumonia. 2) Acute encephaloapthy: from DKA / electrolyte imbalance 3) SVT s/p CV 4) DM uncontrolled DKA 5) MEETA: better Recommendations: follow-up blood cultures, urine culture continue cefepime renally adjusted D4 Add Flagyl 500 mg IV every 8 hours to cover aspiration pneumonia Swallow evaluation ordered [facility] M: [phone] O:[phone] Subjective Date of service: 11/22/18 Principal diagnosis: DKA Interval history: Patient seen and examined. Non-verbal with agitation. Does not follow simple commands. daughter at bedside. No fevers. Objective - Exam Narrative Exam: General appearance: Awake. some agitation Eyes: anicteric sclerae, moist conjunctivae; no lid-lag; PERRLA HENT: Atraumatic; oropharynx limited Neck: Trachea midline; supple, no thyromegaly or lymphadenopathy Lungs: CTA, with normal respiratory effort and no intercostal retractions CV: RRR no murmur Abdomen: Soft, tender diffusely Extremities: no edema, cyanosis Skin: Normal temperature, turgor and texture; no rash, ulcers or subcutaneous nodules Psych: some agitation Neuro: Nonverbal, no following commands - Constitutional Vitals: Vital Signs Temp Pulse Resp BP Pulse Ox 98.3 F 79 18 145/46 92 11/22/18 07:27 11/22/18 07:27 11/22/18 07:27 11/22/18 07:27 11/22/18 07:27 Temperature -Last 24 Hours Temperature 98.3 F Temperature 98.1 F Temperature 98.0 F Temperature 98.0 F Temperature 97.4 F - Labs CBC & Chem 7: 11/22/18 05:56 11/22/18 10:20 Labs: Abnormal lab results 11/21/18 11/21/18 11/21/18 Range/Units 02:17 08:13 11:01 WBC (4.5-11.0) K/mm3 Hgb (11.8-15.2) gm/dl Hct (35.5-45.6) % Sodium 154 H (137-145) mmol/L Potassium (3.6-5.0) mmol/L Chloride 119.6 H (98-107) mmol/L Carbon Dioxide 20 L (22-30) mmol/L BUN 25 H (9-20) mg/dL Glucose 275 H (75-100) mg/dL POC Glucose 115 H (70-105) Calcium 7.9 L (8.4-10.2) mg/dL Digoxin 0.8 L (0.9-2.0) ng/mL 11/21/18 11/21/18 11/21/18 Range/Units 17:38 20:55 22:33 WBC (4.5-11.0) K/mm3 Hgb (11.8-15.2) gm/dl Hct (35.5-45.6) % Sodium 155 H 155 H (137-145) mmol/L Potassium 3.3 L (3.6-5.0) mmol/L Chloride 119.7 H 117.8 H (98-107) mmol/L Carbon Dioxide (22-30) mmol/L BUN 23 H (9-20) mg/dL Glucose 202 H 57 L (75-100) mg/dL POC Glucose 134 H (70-105) Calcium 8.3 L 8.2 L (8.4-10.2) mg/dL Digoxin (0.9-2.0) ng/mL 11/22/18 11/22/18 11/22/18 Range/Units 05:56 05:56 07:34 WBC 11.1 H (4.5-11.0) K/mm3 Hgb 11.5 L (11.8-15.2) gm/dl Hct 33.7 L (35.5-45.6) % Sodium 155 H (137-145) mmol/L Potassium 3.1 L (3.6-5.0) mmol/L Chloride 120.8 H (98-107) mmol/L Carbon Dioxide (22-30) mmol/L BUN (9-20) mg/dL Glucose (75-100) mg/dL POC Glucose 145 H (70-105) Calcium 8.1 L (8.4-10.2) mg/dL Digoxin (0.9-2.0) ng/mL
[2018-11-22] MEDS: PEPCID IV SCH ×2 (09:57→21:31)
[2018-11-22] MEDS: ELIQUIS PO SCH ×2 (09:57→22:35)
[2018-11-22] MEDS: SODIUM CHLORIDE FLUSH SYRINGE 10 ML IV SCH ×2 (09:58→21:30)
[2018-11-22] MEDS: MAXIPIME/NS 1 GM/100 ML 1 GM/100 ML BAG IV SCH (10:10)
[2018-11-22 11:33] LABS: BUN/Creatinine Ratio 24; Blood Urea Nitrogen 19 mg/dL (9-20); Calcium 8.1 mg/dL (8.4-10.2); Hemolysis Index 5
--- NOTE | 2018-11-22 11:39 | Progress Note ---
Assessment and Plan Acute Kidney injury likely prerenal/ATN from dehydration: Hypernatremia, hypertonic: Diabetic ketoacidosis: Hypophosphatemia: Neutropenia: Afib: Plan: -will switch IVF to D5W 75 cc/h -Target sodium drop <10 mEq/24 hrs to minimize risk of cerebral edema since chronicity of hypernatremia is unknown -ID on board, on Abx for possible sepsis, recommended removal of femoral TLC -Will need to start free water flushes via Dobhoff tube once able to use -Cardiology on board for Afib -Renally dose all meds -Avoid Nephortoxic meds -Strict I/Os Subjective Date of service: 11/22/18 Principal diagnosis: DKA Interval history: follows simple commands, daughter at bedside, all questions answered Objective - Vital Signs Vital signs: Vital Signs - 12hr 11/22/18 11/22/18 11/22/18 00:13 01:56 04:40 Temperature 98.0 F Pulse Rate 86 Pulse Rate [ 90 From Monitor] Respiratory 18 Rate Blood Pressure 113/57 O2 Sat by Pulse 95 Oximetry 11/22/18 11/22/18 05:10 07:27 Temperature 98.1 F 98.3 F Pulse Rate 79 Pulse Rate [ From Monitor] Respiratory 18 18 Rate Blood Pressure 114/55 145/46 O2 Sat by Pulse 92 Oximetry - General Appearance General appearance: well-developed, cachectic EENT: ATNC, PERRL, mucous membranes dry Neck: no JVD, no carotid bruit Respiratory: Present: Clear to Ascultation Cardiology: regular, S1S2 Gastrointestinal: normoactive bowel sounds, no tenderness, no distended Integumentary: no rash, warm and dry Neurologic: no focal deficit, no asterixis Musculoskeletal: other (no edema in BLE) Psychiatric: cooperative - Lab 11/22/18 05:56 11/22/18 10:20 Most recent lab results Calcium 8.1 mg/dL (8.4-10.2) L 11/22/18 10:20 Phosphorus 2.30 mg/dL (2.5-4.5) L D 11/20/18 07:14 Magnesium 1.90 mg/dL (1.7-2.3) 11/20/18 07:14 Medications & Allergies - Medications Allergies/Adverse Reactions: Allergies No Known Allergies Allergy (Verified 06/29/18 10:14) Home Medications: Home Medications Medication Instructions Recorded Confirmed Last Taken Type Docusate Sodium [Colace] 100 mg PO BID 7 Days #14 capsule 06/29/18 11/19/18 Unknown Rx metFORMIN [Glucophage] 500 mg PO BID 30 Days #60 tablet 06/29/18 11/19/18 Unknown Rx Active Medications: Generic Name Dose Route Start Last Admin Trade Name Freq PRN Reason Stop Dose Admin Acetaminophen 650 mg 11/20/18 03:04 11/20/18 03:17 Tylenol DE 650 mg Q4H PRN Administration Pain, Mild (1-3), Fever> 100.4 Albuterol 2.5 mg 11/20/18 04:27 Proventil IH Q4HRT PRN Shortness Of Breath Lipase/Protease/Amylase 1 each 11/21/18 15:[address] 10,500 Unit FEEDTUBE PRN PRN For Clogged Feeding Tube Apixaban 2.5 mg 11/21/18 11:00 11/22/18 09:57 Eliquis PO 2.5 mg Q12HR HAMLET Administration Protocol Dextrose 50 ml 11/20/18 02:26 D50w (25gm) Syringe IV PRN PRN Hypoglycemia Digoxin 0.125 mg 11/21/18 10:00 11/21/18 10:45 Lanoxin PO 0.125 mg Q48H HAMLET Administration Diltiazem HCl 5 mg 11/19/18 11:02 Cardizem IV 11/19/18 11:03 ONCE ONE Famotidine 20 mg 11/19/18 22:00 11/22/18 09:57 Pepcid IV 20 mg BID HAMLET Administration Fentanyl 50 mcg 11/19/18 10:54 Sublimaze IV 11/19/18 10:55 ONCE ONE Guaifenesin 200 mg 11/20/18 04:28 Robitussin PO Q4H PRN Cough Hydromorphone HCl 0.5 mg 11/19/18 17:17 11/21/18 07:54 Dilaudid IV 0.5 mg Q3H PRN Administration Pain , Severe (7-10) Cefepime HCl 1 gm in 100 mls @ 200 mls/hr 11/19/18 22:00 11/22/18 11:16 Maxipime/Ns 1 Gm/100 Ml IV Infused Q12H HAMLET Infusion Protocol Dextrose/Sodium Chloride 1,000 mls @ 125 mls/hr 11/20/18 12:00 11/21/18 23:15 D5/0.45ns IV 125 mls/hr DIRECT HAMLET Administration Insulin Human Isoph/Insulin Regular 15 unit 11/20/18 08:00 11/22/18 10:10 Humulin 70/30 SUB-Q 15 unit BIDDIAB HAMLET Administration Insulin Human Lispro 0 unit 11/20/18 03:00 11/22/18 08:20 Humalog SUB-Q Not Given Q6H [facility] Protocol Metoclopramide HCl 10 mg 11/19/18 17:17 Reglan IV Q6H PRN Nausea And Vomiting Ondansetron HCl 4 mg 11/19/18 17:17 11/20/18 03:13 Zofran IV 4 mg Q3H PRN Administration Nausea And Vomiting Simple Syrup 15 ml 11/21/18 15:26 Simple Syrup FEEDTUBE PRN PRN Hypoglycemia Simple Syrup 30 ml 11/21/18 15:26 Simple Syrup FEEDTUBE PRN PRN Hypoglycemia Sodium Bicarbonate 325 mg 11/21/18 15:26 Sodium Bicarbonate FEEDTUBE PRN PRN For Clogged Feeding Tube Sodium Chloride 10 ml 11/19/18 22:00 11/22/18 09:58 Sodium Chloride Flush Syringe 10 Ml IV 10 ml BID HAMLET Administration Sodium Chloride 10 ml 11/19/18 17:17 Sodium Chloride Flush Syringe 10 Ml IV PRN PRN LINE FLUSH
--- NOTE | 2018-11-22 11:59 | Progress Note ---
Assessment and Plan Pt remains in SR. Cont Digoxin since low BP precludes the use of other AV blocking agents. Cont Eliquis. Lexiscan stress MPI when more stable. The patient has been seen in conjunction with Dr. Clay who agrees with the assessment and plan of care. - Patient Problems (1) Atrial fibrillation with RVR Current Visit: Yes Status: Acute (2) Abnormal ECG Current Visit: Yes Status: Acute (3) DKA (diabetic ketoacidoses) Current Visit: Yes Status: Acute Qualifiers: Diabetes mellitus type: type 2 (4) Altered mental status Current Visit: Yes Status: Acute (5) MEETA (acute kidney injury) Current Visit: Yes Status: Acute (6) Acute hypernatremia Current Visit: Yes Status: Acute (7) Leucopenia Current Visit: Yes Status: Acute Subjective Date of service: 11/22/18 Principal diagnosis: DKA Interval history: pt resting in bed, confused, family member at bedside. in SR on tele. Objective Last Vital Signs Temp 98.3 F 11/22/18 07:27 Pulse 79 11/22/18 07:27 Resp 18 11/22/18 07:27 BP 145/46 11/22/18 07:27 Pulse Ox 92 11/22/18 07:27 - Physical Examination General: No Apparent Distress HEENT: Positive: Normocephaly, Mucus Membranes Moist Neck: Positive: neck supple, trachea midline Cardiac: Positive: Reg Rate and Rhythm, S1/S2 Lungs: Positive: Decreased Breath Sounds Neuro: Positive: Other (confused) Abdomen: Positive: Soft, Active Bowel Sounds. Negative: Tender Skin: Positive: Clear. Negative: Rash Musculoskeletal: Normal Range of Motion Extremities: Present: normal. Absent: edema - Labs and Meds CBC 11/22/18 Range/Units 05:56 WBC 11.1 H (4.5-11.0) K/mm3 RBC 3.72 (3.65-5.03) M/mm3 Hgb 11.5 L (11.8-15.2) gm/dl Hct 33.7 L (35.5-45.6) % Plt Count 191 (140-440) K/mm3 Comprehensive Metabolic Panel 11/21/18 11/21/18 11/22/18 Range/Units 17:38 22:33 05:56 Sodium 155 H 155 H 155 H (137-145) mmol/L Potassium 3.8 3.3 L 3.1 L (3.6-5.0) mmol/L Chloride 119.7 H 117.8 H 120.8 H (98-107) mmol/L Carbon Dioxide 24 28 24 (22-30) mmol/L BUN 23 H 17 18 (9-20) mg/dL Creatinine 1.0 1.0 0.9 (0.8-1.5) mg/dL Glucose 202 H 57 L 85 (75-100) mg/dL Calcium 8.3 L 8.2 L 8.1 L (8.4-10.2) mg/dL 11/22/18 Range/Units 10:20 Sodium 153 H (137-145) mmol/L Potassium 3.1 L (3.6-5.0) mmol/L Chloride 117.9 H (98-107) mmol/L Carbon Dioxide 26 (22-30) mmol/L BUN 19 (9-20) mg/dL Creatinine 0.8 (0.8-1.5) mg/dL Glucose 171 H (75-100) mg/dL Calcium 8.1 L (8.4-10.2) mg/dL - Imaging and Cardiology EKG: image reviewed Echo: report reviewed (EF 50-55%, mild TR, impaired relaxation. ) - Telemetry EKG Rhythm: Sinus Rhythm - EKG Sinus rhythms and dysrhythmias: sinus rhythm Repolarization changes or abnormalities: ST or T wave suggestive of ischemia
[2018-11-22] MEDS ORDERED: D5W 1,000 ML IV SCH (12:00)
--- NOTE | 2018-11-22 13:47 | Progress Note ---
Assessment and Plan - Patient Problems (1) Hypernatremia Current Visit: Yes Status: Acute Plan to address problem: Patient appears to have euvolemic hyponatremia. At present may play some role in patient's mental status changes. Currently receiving D5w as 75. Patient also receiving free water. Has pulled NG tube out. I will place back I think is important to restart free water at this time. (2) MEETA (acute kidney injury) Current Visit: Yes Status: Acute Plan to address problem: Renal function has returned to normal. (3) Abnormal ECG Current Visit: Yes Status: Acute (4) Acute hypernatremia Current Visit: Yes Status: Acute (5) Altered mental status Current Visit: Yes Status: Acute Plan to address problem: Most likely secondary to metabolic encephalopathy. Multifactorial including #1 DKA #2 hypernatremia #3 sepsis. Continue to treat underlying etiology of the above. Blood sugar much better control. Hypernatremia improving at adequate rate 10 mEq for 24 hour period to prevent cerebral edema. And empiric antibiotic coverage with Flagyl and cefepime continue supportive care and follow electrolytes follow blood culture results. ID following. (6) Atrial fibrillation with RVR Current Visit: Yes Status: Acute Plan to address problem: Only uses digoxin at this particular time secondary to hypotension. Cardiology following with initiate AV meena blocking agents one plausible. (7) DKA (diabetic ketoacidoses) Current Visit: Yes Status: Resolved Qualifiers: Diabetes mellitus type: type 2 (8) Pneumonia Current Visit: Yes Status: Acute Plan to address problem: Chest x-ray consistent with pneumonia pneumonitis. Patient also has increased risk because of dysphagia. Patient did not pass swallowing eval. Could be aspiration. Appropriate antibiotic coverage. History Interval history: Patient today remains lethargic and encephalopathic but has improved. Patient h ospital course complicated by pulling out NG tube and IV lines. Patient was able to recognize the daughter today by name. Yesterday he was not able to do that. Hospitalist Physical - Constitutional Vitals: Temp Pulse Resp BP Pulse Ox 97.6 F 75 18 97/48 96 11/22/18 12:25 11/22/18 12:25 11/22/18 12:25 11/22/18 12:25 11/22/18 12:25 General appearance: Present: mild distress - EENT Eyes: Present: PERRL, EOM intact ENT: hearing intact, poor dentition, no oropharyngeal erythema, no thrush - Neck Neck: Present: supple, normal ROM - Respiratory Respiratory effort: normal Respiratory: bilateral: CTA - Cardiovascular Rhythm: irregularly irregular - Extremities Extremities: no ischemia, pulses intact, normal temperature, normal color, Full ROM Extremity abnormal: edema Peripheral Pulses: within normal limits - Abdominal General gastrointestinal: soft, non-tender, non-distended, hypoactive bowel sounds, other (patient is without flank pain no rebound or guarding.), no hepatomegaly, no splenomegaly, no mass, no hernia - Integumentary Integumentary: Present: clear, warm, dry - Psychiatric Psychiatric: other (H and is often agitated and lethargic and appropriate mood.) - Neurologic Neurologic: moves all extremities Results - Labs CBC & Chem 7: 11/22/18 05:56 11/22/18 10:20 Labs: Laboratory Last Values WBC 11.1 K/mm3 (4.5-11.0) H 11/22/18 05:56 RBC 3.72 M/mm3 (3.65-5.03) 11/22/18 05:56 Hgb 11.5 gm/dl (11.8-15.2) L 11/22/18 05:56 Hct 33.7 % (35.5-45.6) L 11/22/18 05:56 MCV 91 fl (84-94) 11/22/18 05:56 MCH 31 pg (28-32) 11/22/18 05:56 MCHC 34 % (32-34) 11/22/18 05:56 RDW 13.9 % (13.2-15.2) 11/22/18 05:56 Plt Count 191 K/mm3 (140-440) 11/22/18 05:56 Lymph % (Auto) 4.2 % (13.4-35.0) L 11/19/18 10:07 Peach % (Auto) 5.9 % (0.0-7.3) 11/19/18 10:07 Eos % (Auto) 0.5 % (0.0-4.3) 11/19/18 10:07 Baso % (Auto) 0.1 % (0.0-1.8) 11/19/18 10:07 Lymph # 0.3 K/mm3 (1.2-5.4) L 11/19/18 10:07 Peach # 0.5 K/mm3 (0.0-0.8) 11/19/18 10:07 Eos # 0.0 K/mm3 (0.0-0.4) 11/19/18 10:07 Baso # 0.0 K/mm3 (0.0-0.1) 11/19/18 10:07 Add Manual Diff Complete 11/20/18 04:32 Total Counted 100 11/20/18 04:32 Seg Neutrophils % 89.3 % (40.0-70.0) H 11/19/18 10:07 Seg Neuts % (Manual) 30.0 % (40.0-70.0) L 11/20/18 04:32 22.0 % 11/20/18 04:32 23.0 % (13.4-35.0) 11/20/18 04:32 Reactive Lymphs % (Man) 1.0 % 11/20/18 04:32 10.0 % (0.0-7.3) H 11/20/18 04:32 0 % (0.0-4.3) 11/20/18 04:32 0 % (0.0-1.8) 11/20/18 04:32 7.0 % 11/20/18 04:32 7.0 % 11/20/18 04:32 0 % 11/20/18 04:32 0 % 11/20/18 04:32 Nucleated RBC % Not Reportable 11/20/18 04:32 Seg Neutrophils # 6.9 K/mm3 (1.8-7.7) 11/19/18 10:07 Seg Neutrophils # Man 0.5 K/mm3 (1.8-7.7) L 11/20/18 04:32 Band Neutrophils # 0.3 K/mm3 11/20/18 04:32 0.3 K/mm3 (1.2-5.4) L 11/20/18 04:32 Abs React Lymphs (Man) 0.0 K/mm3 11/20/18 04:32 0.2 K/mm3 (0.0-0.8) 11/20/18 04:32 0.0 K/mm3 (0.0-0.4) 11/20/18 04:32 0.0 K/mm3 (0.0-0.1) 11/20/18 04:32 0.1 K/mm3 11/20/18 04:32 0.1 K/mm3 11/20/18 04:32 0.0 K/mm3 11/20/18 04:32 Blast Cells # 0.0 K/mm3 11/20/18 04:32 WBC Morphology Not Reportable 11/20/18 04:32 Hypersegmented Neuts Not Reportable 11/20/18 04:32 Hyposegmented Neuts Not Reportable 11/20/18 04:32 Hypogranular Neuts Not Reportable 11/20/18 04:32 Not Reportable 11/20/18 04:32 Not Reportable 11/20/18 04:32 Not Reportable 11/20/18 04:32 Not Reportable 11/20/18 04:32 Not Reportable 11/20/18 04:32 Not Reportable 11/20/18 04:32 Consistent w auto 11/20/18 04:32 Not Reportable 11/20/18 04:32 Plt Clumps, EDTA Not Reportable 11/20/18 04:32 Not Reportable 11/20/18 04:32 Not Reportable 11/20/18 04:32 Not Reportable 11/20/18 04:32 Plt Morphology Comment Not Reportable 11/20/18 04:32 RBC Morphology Normal 11/20/18 04:32 Dimorphic RBCs Not Reportable 11/20/18 04:32 Not Reportable 11/20/18 04:32 Not Reportable 11/20/18 04:32 Not Reportable 11/20/18 04:32 Not Reportable 11/20/18 04:32 Not Reportable 11/20/18 04:32 Not Reportable 11/20/18 04:32 Not Reportable 11/20/18 04:32 Not Reportable 11/20/18 04:32 Not Reportable 11/20/18 04:32 Not Reportable 11/20/18 04:32 Not Reportable 11/20/18 04:32 Not Reportable 11/20/18 04:32 Not Reportable 11/20/18 04:32 Not Reportable 11/20/18 04:32 Not Reportable 11/20/18 04:32 Not Reportable 11/20/18 04:32 Not Reportable 11/20/18 04:32 Not Reportable 11/20/18 04:32 Not Reportable 11/20/18 04:32 Acanthocytes (Spur) Not Reportable 11/20/18 04:32 Rouleaux Not Reportable 11/20/18 04:32 Not Reportable 11/20/18 04:32 Not Reportable 11/20/18 04:32 Not Reportable 11/20/18 04:32 Not Reportable 11/20/18 04:32 Hem Pathologist Commnt No 11/20/18 04:32 PT 12.9 Sec. (12.2-14.9) 11/19/18 10:07 INR 1.00 (0.87-1.13) 11/19/18 10:07 APTT 26.3 Sec. (24.2-36.6) 11/19/18 10:07 VBG pH 7.162 (7.320-7.420) L* 11/19/18 10:07 Sodium 153 mmol/L (137-145) H 11/22/18 10:20 Potassium 3.1 mmol/L (3.6-5.0) L 11/22/18 10:20 Chloride 117.9 mmol/L (98-107) H 11/22/18 10:20 Carbon Dioxide 26 mmol/L (22-30) 11/22/18 10:20 12 mmol/L 11/22/18 10:20 BUN 19 mg/dL (9-20) 11/22/18 10:20 0.8 mg/dL (0.8-1.5) 11/22/18 10:20 Estimated GFR > 60 ml/min 11/22/18 10:20 24 % 11/22/18 10:20 Glucose 171 mg/dL (75-100) H 11/22/18 10:20 POC Glucose 79 (70-105) 11/22/18 12:30 16.9 % (4-6) H 11/19/18 19:14 Lactic Acid 2.00 mmol/L (0.7-2.0) 11/20/18 04:50 Calcium 8.1 mg/dL (8.4-10.2) L 11/22/18 10:20 Phosphorus 2.30 mg/dL (2.5-4.5) L D 11/20/18 07:14 Magnesium 1.90 mg/dL (1.7-2.3) 11/20/18 07:14 0.20 mg/dL (0.1-1.2) 11/19/18 10:07 AST 26 units/L (5-40) 11/19/18 10:07 ALT 24 units/L (7-56) 11/19/18 10:07 101 units/L (35-129) 11/19/18 10:07 690 units/L (55-170) H 11/19/18 10:07 0.016 ng/mL (0.00-0.029) 11/19/18 10:07 6.4 g/dL (6.3-8.2) 11/19/18 10:07 3.6 g/dL (3.9-5) L 11/19/18 10:07 1.3 % 11/19/18 10:07 Yellow (Yellow) 11/19/18 09:17 Clear (Clear) 11/19/18 09:17 5.0 (5.0-7.0) 11/19/18 09:17 Ur Specific Olmitz 1.027 (1.003-1.030) 11/19/18 09:17 <15 mg/dl mg/dL (Negative) 11/19/18 09:17 >=500 mg/dL (Negative) 11/19/18 09:17 80 mg/dL (Negative) 11/19/18 09:17 Neg (Negative) 11/19/18 09:17 Neg (Negative) 11/19/18 09:17 Neg (Negative) 11/19/18 09:17 < 2.0 mg/dL (<2.0) 11/19/18 09:17 Ur Leukocyte Esterase Neg (Negative) 11/19/18 09:17 < 1.0 /HPF (0.0-6.0) 11/19/18 09:17 2.0 /HPF (0.0-6.0) 11/19/18 09:17 Few /HPF 11/19/18 09:17 Digoxin 0.8 ng/mL (0.9-2.0) L 11/21/18 08:13 - Imaging and Cardiology EKG: report reviewed, image reviewed Chest x-ray: report reviewed, image reviewed CT scan - chest: report reviewed Active Medications - Current Medications Current Medications: Generic Name Dose Route Start Last Admin Trade Name Freq PRN Reason Stop Dose Admin Acetaminophen 650 mg 11/20/18 03:04 11/20/18 03:[address] 650 mg Q4H PRN Administration Pain, Mild (1-3), Fever> 100.4 Albuterol 2.5 mg 11/20/18 04:27 Proventil IH Q4HRT PRN Shortness Of Breath Lipase/Protease/Amylase 1 each 11/21/18 15:26 Pancreaze 10,500 Unit FEEDTUBE PRN PRN For Clogged Feeding Tube Apixaban 2.5 mg 11/21/18 11:00 11/22/18 09:57 Eliquis PO 2.5 mg Q12HR [facility] Administration Protocol Dextrose 50 ml 11/20/18 02:26 D50w (25gm) Syringe IV PRN PRN Hypoglycemia Digoxin 0.125 mg 11/21/18 10:00 11/21/18 10:45 Lanoxin PO 0.125 mg Q48H [facility] Administration Famotidine 20 mg 11/19/18 22:00 11/22/18 09:57 Pepcid IV 20 mg BID [facility] Administration Guaifenesin 200 mg 11/20/18 04:28 Robitussin PO Q4H PRN Cough Hydromorphone HCl 0.5 mg 11/19/18 17:17 11/21/18 07:54 Dilaudid IV 0.5 mg Q3H PRN Administration Pain , Severe (7-10) Cefepime HCl 1 gm in 100 mls @ 200 mls/hr 11/19/18 22:00 11/22/18 11:16 Maxipime/Ns 1 Gm/100 Ml IV Infused Q12H [facility] Infusion Protocol Dextrose 1,000 mls @ 75 mls/hr 11/22/18 12:00 D5w IV DIRECT [facility] Insulin Human Isoph/Insulin Regular 15 unit 11/20/18 08:00 11/22/18 10:10 Humulin 70/30 SUB-Q 15 unit BIDDIAB [facility] Administration Insulin Human Lispro 0 unit 11/20/18 03:00 11/22/18 08:20 Humalog SUB-Q Not Given Q6H [facility] Protocol Metoclopramide HCl 10 mg 11/19/18 17:17 Reglan IV Q6H PRN Nausea And Vomiting Ondansetron HCl 4 mg 11/19/18 17:17 11/20/18 03:13 Zofran IV 4 mg Q3H PRN Administration Nausea And Vomiting Simple Syrup 15 ml 11/21/18 15:26 Simple Syrup FEEDTUBE PRN PRN Hypoglycemia Simple Syrup 30 ml 11/21/18 15:26 Simple Syrup FEEDTUBE PRN PRN Hypoglycemia Sodium Bicarbonate 325 mg 11/21/18 15:26 Sodium Bicarbonate FEEDTUBE PRN PRN For Clogged Feeding Tube Sodium Chloride 10 ml 11/19/18 22:00 11/22/18 09:58 Sodium Chloride Flush Syringe 10 Ml IV 10 ml BID [facility]LET Administration Sodium Chloride 10 ml 11/19/18 17:17 Sodium Chloride Flush Syringe 10 Ml IV PRN PRN LINE FLUSH Nutrition/Malnutrition Assess - Dietary Evaluation Nutrition/Malnutrition Findings: Nutrition Notes Start: 11/20/18 08:55 Freq: Status: Active Protocol: Document 11/21/18 15:18 RM (Rec: 11/21/18 15:25 RM [id number]) Nutrition Notes Initial or Follow up Reassessment Current Diagnosis Acute Kidney Injury,Diabetes Other Pertinent Diagnosis DKA, AMS Current Diet NPO Labs/Tests Na 154 Pertinent Medications Reviewed Height 5 ft 10 in Weight 53.8 kg Craig Body Weight (kg) 75.45 BMI 17.0 Subjective/Other Information Consulted for TF recommendation. During rounds nurse stated that pt failed swallow evaluation. Per nurse pt pulled previous dobhoff but another is planned to be placed. Burn Absent Trauma Absent #1 Nutrition Diagnosis Malnutrition Diagnosis Progress(for reassessment Continues documentation) Is patient on ventilator? No Is Patient Ambulatory and/or Out of Bed No REE-([facility]-confined to bed) 1512.132 Kcal/Kg value to use for calculation 35 Approximate Energy Requirements Using 1883 kcal/Kg Calculation Used for Recommendations [facility] Additional Notes Protein needs are 54-65g (1-1. 2g/kg) Fluid needs are 1ml/kcal Nutrition Intervention Nutrition Support: Glucerna 1.2 at 65ml/hr Flush with 200ml q4h for hypernatremia and 100ml q4h once resolved. Kcal 1,872 Protein (gm) 94 Fluid (mL) 1,260 Goal #1 TF tolerance Goal #2 Wt gain/maintenance Anticipated Discharge Needs: Unable to determine at this time Follow-Up By: 11/23/18 Additional Comments Follow for new TF
[2018-11-22] MEDS ORDERED: NACL 0.45% 500 ML IV ONE (14:28)
--- NOTE | 2018-11-22 14:36 | Event Note ---
Date: 11/22/18 78-year-old male recent history of DKA weakness encephalopathy presented with an acute episode of hypoxemia. Patient sets were in the 90 on room air. And now requiring 8 L to prevent hypoxemia. Patient also became more unresponsive than previously this morning. Patient is also hypotensive 80/40. Very difficult to benefit from fluid boluses secondary to respiratory distress. We'll transfer to ICU for observation. Patient for critical because have a recent history of intubation. Hypoxemia could be secondary to his underlying pneumonia. We'll recommend observation ICU for 24 hours.
--- NOTE | 2018-11-22 15:15 | XRay Report ---
CHEST 1 VIEW 2:46 PM INDICATION / CLINICAL INFORMATION: NG tube placement. COMPARISON: Yesterday. FINDINGS: SUPPORT DEVICES: There is a weighted enteric feeding tube with the tip overlying the proximal stomach . The tube has been advanced slightly. HEART / MEDIASTINUM: Unchanged. LUNGS / PLEURA: Pleuroparenchymal disease in the right mid to lower hemithorax is again identified, w ith minimal improvement. The left lung is clear. No pneumothorax. ADDITIONAL FINDINGS: No significant additional findings. IMPRESSION: The tip of the feeding tube overlies the proximal stomach. Signer Name: Cholo Muhammad MD Signed: 11/22/2018 3:10 PM Workstation Name: [id number]
[2018-11-22 15:27] LABS: BUN/Creatinine Ratio 23; Blood Urea Nitrogen 18 mg/dL (9-20); Calcium 8.1 mg/dL (8.4-10.2); Hemolysis Index 25
--- NOTE | 2018-11-22 16:14 | Progress Note ---
Assessment and Plan 11/21 DKA resolving continue support Monitor bp, chemistries etc tube feed for now unable to safely feed 11/22 suspect asp pneu w poor airway clearance Poorly controlled DM etc cont Abx 02 monitor tube feed npo f/up cxr in am Subjective Principal diagnosis: DKA Interval history: 11/21 off insulin drip blood sugars still variable still lethargic no resp issues stable vs 11/22 Transferred to floor late 11/21 had some incr hypoxia and low bs sent to imcu for monitoring ?aspiration/ pneu noted on 11/[address] Objective - Constitutional Vitals: Vital Signs - 12hr 11/22/18 11/22/18 11/22/18 04:40 05:10 07:27 Temperature 98.1 F 98.3 F Pulse Rate 86 79 Pulse Rate [ From Monitor] Respiratory 18 18 Rate Blood Pressure 114/55 145/46 O2 Sat by Pulse 92 Oximetry 11/22/18 11/22/18 11/22/18 08:00 10:00 12:00 Temperature Pulse Rate 74 74 Pulse Rate [ 74 From Monitor] Respiratory Rate Blood Pressure O2 Sat by Pulse 95 Oximetry 11/22/18 12:25 Temperature 97.6 F Pulse Rate 75 Pulse Rate [ From Monitor] Respiratory 18 Rate Blood Pressure 97/48 O2 Sat by Pulse 96 Oximetry General appearance: Present: other (sl lethargic ) - Respiratory Respiratory effort: other (poor effort ) Respiratory: right: rales, bilateral: diminished, negative: other (poor cough ?incr secreetions ) - Cardiovascular Heart rate: 90 Rhythm: regular Heart Sounds: Present: S1 & S2 - Musculoskeletal Musculoskeletal: generalized weakness - Neurologic Neurologic: other (non focal) - Labs CBC & Chem 7: 11/22/18 05:56 11/22/18 14:54 Labs: Abnormal lab results 11/21/18 11/21/18 11/21/18 Range/Units 16:46 17:38 20:55 WBC (4.5-11.0) K/mm3 Hgb (11.8-15.2) gm/dl Hct (35.5-45.6) % Sodium 155 H (137-145) mmol/L Potassium (3.6-5.0) mmol/L Chloride 119.7 H (98-107) mmol/L BUN 23 H (9-20) mg/dL Glucose 202 H (75-100) mg/dL POC Glucose 188 H 134 H (70-105) Calcium 8.3 L (8.4-10.2) mg/dL 11/21/18 11/22/18 11/22/18 Range/Units 22:33 05:56 05:56 WBC 11.1 H (4.5-11.0) K/mm3 Hgb 11.5 L (11.8-15.2) gm/dl Hct 33.7 L (35.5-45.6) % Sodium 155 H 155 H (137-145) mmol/L Potassium 3.3 L 3.1 L (3.6-5.0) mmol/L Chloride 117.8 H 120.8 H (98-107) mmol/L BUN (9-20) mg/dL Glucose 57 L (75-100) mg/dL POC Glucose (70-105) Calcium 8.2 L 8.1 L (8.4-10.2) mg/dL 11/22/18 11/22/18 11/22/18 Range/Units 07:34 10:20 14:35 WBC (4.5-11.0) K/mm3 Hgb (11.8-15.2) gm/dl Hct (35.5-45.6) % Sodium 153 H (137-145) mmol/L Potassium 3.1 L (3.6-5.0) mmol/L Chloride 117.9 H (98-107) mmol/L BUN (9-20) mg/dL Glucose 171 H (75-100) mg/dL POC Glucose 145 H 51 L (70-105) Calcium 8.1 L (8.4-10.2) mg/dL 11/22/18 11/22/18 Range/Units 14:54 14:58 WBC (4.5-11.0) K/mm3 Hgb (11.8-15.2) gm/dl Hct (35.5-45.6) % Sodium 151 H (137-145) mmol/L Potassium 2.9 L* (3.6-5.0) mmol/L Chloride 116.2 H (98-107) mmol/L BUN (9-20) mg/dL Glucose 320 H (75-100) mg/dL POC Glucose 159 H (70-105) Calcium 8.1 L (8.4-10.2) mg/dL - Imaging and cardiology Chest x-ray: image reviewed (RLL infilt patchy ) CT scan - abdomen: image reviewed (see report RLL infilt ) Medications & Allergies - Medications Allergies/Adverse Reactions: Allergies No Known Allergies Allergy (Verified 06/29/18 10:14) Home Medications: Home Medications Medication Instructions Recorded Confirmed Last Taken Type Docusate Sodium [Colace] 100 mg PO BID 7 Days #14 capsule 06/29/18 11/19/18 Unknown Rx metFORMIN [Glucophage] 500 mg PO BID 30 Days #60 tablet 06/29/18 11/19/18 Unknown Rx Active Medications: Generic Name Dose Route Start Last Admin Trade Name Freq PRN Reason Stop Dose Admin Acetaminophen 650 mg 11/20/18 03:04 11/20/18 03:17 Tylenol SD 650 mg Q4H PRN Administration Pain, Mild (1-3), Fever> 100.4 Albuterol 2.5 mg 11/20/18 04:27 Proventil IH Q4HRT PRN Shortness Of Breath Lipase/Protease/Amylase 1 each 11/21/18 15:[address] 10,500 Unit FEEDTUBE PRN PRN For Clogged Feeding Tube Apixaban 2.5 mg 11/21/18 11:00 11/22/18 09:57 Eliquis PO 2.5 mg Q12HR [facility] Administration Protocol Dextrose 50 ml 11/20/18 02:26 11/22/18 15:05 D50w (25gm) Syringe IV 50 ml PRN PRN Administration Hypoglycemia Digoxin 0.125 mg 11/21/18 10:00 11/21/18 10:45 Lanoxin PO 0.125 mg Q48H [facility] Administration Famotidine 20 mg 11/19/18 22:00 11/22/18 09:57 Pepcid IV 20 mg BID [facility] Administration Guaifenesin 200 mg 11/20/18 04:28 Robitussin PO Q4H PRN Cough Hydromorphone HCl 0.5 mg 11/19/18 17:17 11/21/18 07:54 Dilaudid IV 0.5 mg Q3H PRN Administration Pain , Severe (7-10) Cefepime HCl 1 gm in 100 mls @ 200 mls/hr 11/19/18 22:00 11/22/18 11:16 Maxipime/Ns 1 Gm/100 Ml IV Infused Q12H [facility] Infusion Protocol Dextrose 1,000 mls @ 75 mls/hr 11/22/18 12:00 D5w IV DIRECT [facility]LET Metronidazole 500 mg in 100 mls @ 100 mls/hr 11/22/18 22:00 Flagyl 500 Mg/100 Ml IV Q8HR [facility] Protocol Insulin Human Isoph/Insulin Regular 10 unit 11/22/18 17:00 Humulin 70/30 SUB-Q BIDDIAB [facility] Insulin Human Lispro 0 unit 11/20/18 03:00 11/22/18 08:20 Humalog SUB-Q Not Given Q6H [facility] Protocol Metoclopramide HCl 10 mg 11/19/18 17:17 Reglan IV Q6H PRN Nausea And Vomiting Ondansetron HCl 4 mg 11/19/18 17:17 11/20/18 03:13 Zofran IV 4 mg Q3H PRN Administration Nausea And Vomiting Simple Syrup 15 ml 11/21/18 15:26 Simple Syrup FEEDTUBE PRN PRN Hypoglycemia Simple Syrup 30 ml 11/21/18 15:26 Simple Syrup FEEDTUBE PRN PRN Hypoglycemia Sodium Bicarbonate 325 mg 11/21/18 15:26 Sodium Bicarbonate FEEDTUBE PRN PRN For Clogged Feeding Tube Sodium Chloride 10 ml 11/19/18 22:00 11/22/18 09:58 Sodium Chloride Flush Syringe 10 Ml IV 10 ml BID HAMLET Administration Sodium Chloride 10 ml 11/19/18 17:17 Sodium Chloride Flush Syringe 10 Ml IV PRN PRN LINE FLUSH
[2018-11-22] MEDS ORDERED: POTASSIUM CHLORIDE FEEDTUBE ONE (17:35)
[2018-11-22] MEDS: KCL 10MEQ/100ML 10 MEQ/100 ML BAG IV SCH ×2 (17:56→20:36)
--- NOTE | 2018-11-22 18:47 | XRay Report ---
CHEST 1 VIEW 11/22/2018 3:30 PM INDICATION / CLINICAL INFORMATION: shortness of breath. COMPARISON: This study at 5:51 PM was compared to earlier study at 2:46 PM same day. FINDINGS: SUPPORT DEVICES: Dobbhoff feeding tube again has tip in proximal stomach. HEART / MEDIASTINUM: No significant abnormality. LUNGS / PLEURA: Right-sided parenchymal disease, unchanged characteristic for pneumonia. Left lung re genevieve clear. No pneumothorax. ADDITIONAL FINDINGS: No significant additional findings. IMPRESSION: 1. Right-sided bronchopneumonia, unchanged. Signer Name: Ignacio Garcia MD Signed: 11/22/2018 6:43 PM Workstation Name: [id number]
[2018-11-22 21:15] LABS: BUN/Creatinine Ratio 20; Blood Urea Nitrogen 18 mg/dL (9-20); Calcium 8.5 mg/dL (8.4-10.2); Hemolysis Index 8
[2018-11-22] MEDS: FLAGYL 500 MG/100 ML 500 MG/100 ML BAG IV SCH (21:29)
[2018-11-22] MEDS ORDERED: TYLENOL ONE (23:50)
[2018-11-23] MEDS: HumaLOG SUB-Q SCH ×4 (03:14→18:39)
[2018-11-23] MEDS: MAXIPIME/NS 1 GM/100 ML 1 GM/100 ML BAG IV SCH ×3 (04:37→22:10)
[2018-11-23 06:03] LABS: BUN/Creatinine Ratio 20; Blood Urea Nitrogen 18 mg/dL (9-20); Calcium 8.2 mg/dL (8.4-10.2); Hemolysis Index 13
[2018-11-23 08:00] LABS: Hematocrit 27.7 % (35.5-45.6); Hemoglobin 9.7 gm/dl (11.8-15.2); Mean Corpuscular HGB Conc 35 % (32-34); Mean Corpuscular Volume 90 fl (84-94); Platelet Count 243 K/mm3 (140-440); Red Blood Count 3.09 M/mm3 (3.65-5.03); Red Cell Distribution Width 13.5 % (13.2-15.2)
[2018-11-23 08:24] LABS: BUN/Creatinine Ratio 21; Blood Urea Nitrogen 17 mg/dL (9-20); Calcium 8.5 mg/dL (8.4-10.2); Hemolysis Index 15
[2018-11-23 10:03] LABS: Total Cells Counted 100
[2018-11-23 10:04] LABS: Basophils % (Manual) 0 % (0.0-1.8)
[2018-11-23 10:05] LABS: Anisocytosis Few; Large Platelets Rare; Ovalocytes Rare; Platelet Estimate Consistent w Auto
--- NOTE | 2018-11-23 11:40 | Progress Note ---
Assessment and Plan Cultures: Blood cultures 11/19/2018 no growth. Urine culture 11/19/2018 negative Assessment: 78 y/o male with history of diabetes brought by family due to 2-day history of generalized weakness and lethargy: 1) SIRS v/s sepsis: Resolved. Etiology most likely DKA +/- SVT s/p CV. Transiently on pressors. ? underlying sepsis is possible but blood culture so far negative, UA negative, CXR negative.Abdominal CT shows prominent infiltrate is seen in the right lower lobe consistent with pneumonitis. Small bilateral pleural effusions are seen. Rpt CXR shows right lower lung parenchymal opacific ation that could indicate aspiration and/or developing pneumonia. 2) Acute encephaloapthy: from DKA / electrolyte imbalance 3) SVT s/p CV 4) DM uncontrolled DKA 5) MEETA: better 6) Acute Hypoxemia: improved on 4L NC Recommendations: follow-up blood cultures, urine culture continue cefepime renally adjusted D4 continue Flagyl 500 mg IV every 8 hours to cover aspiration pneumonia [facility] M: [phone] O:[phone] Subjective Date of service: 11/23/18 Principal diagnosis: DKA Interval history: Patient seen and examined. Non-verbal, calm. Does not follow simple commands. Son at bedside. No fevers. Objective - Exam Narrative Exam: General appearance: Awake. nonverbal. No acute distress observed Eyes: anicteric sclerae, moist conjunctivae; no lid-lag; PERRLA HENT: Atraumatic; oropharynx limited Neck: Trachea midline; supple, no thyromegaly or lymphadenopathy Lungs: CTA, with normal respiratory effort and no intercostal retractions CV: RRR no murmur Abdomen: Soft, tender diffusely Extremities: no edema, cyanosis Skin: Normal temperature, turgor and texture; no rash, ulcers or subcutaneous n odules Psych: calm Neuro: Nonverbal, not following commands - Constitutional Vitals: Vital Signs Temp Pulse Resp BP Pulse Ox 97.9 F 86 18 97/48 99 11/23/18 04:00 11/23/18 00:00 11/22/18 12:25 11/22/18 12:25 11/22/18 22:00 Temperature -Last 24 Hours Temperature 97.9 F Temperature 98.2 F Temperature 98.0 F Temperature 97.6 F - Labs CBC & Chem 7: 11/23/18 07:18 11/23/18 11:00 Labs: Abnormal lab results 11/21/18 11/22/18 11/22/18 Range/Units 16:46 14:35 14:54 RBC (3.65-5.03) M/mm3 Hgb (11.8-15.2) gm/dl Hct (35.5-45.6) % MCHC (32-34) % Seg Neuts % (Manual) (40.0-70.0) % Lymphocytes % (Manual) (13.4-35.0) % Monocytes % (Manual) (0.0-7.3) % Lymphocytes # (Manual) (1.2-5.4) K/mm3 Sodium 151 H (137-145) mmol/L Potassium 2.9 L* (3.6-5.0) mmol/L Chloride 116.2 H (98-107) mmol/L Glucose 320 H (75-100) mg/dL POC Glucose 188 H 51 L (70-105) Calcium 8.1 L (8.4-10.2) mg/dL 11/22/18 11/22/18 11/22/18 Range/Units 14:58 16:35 20:25 RBC (3.65-5.03) M/mm3 Hgb (11.8-15.2) gm/dl Hct (35.5-45.6) % MCHC (32-34) % Seg Neuts % (Manual) (40.0-70.0) % Lymphocytes % (Manual) (13.4-35.0) % Monocytes % (Manual) (0.0-7.3) % Lymphocytes # (Manual) (1.2-5.4) K/mm3 Sodium 153 H (137-145) mmol/L Potassium 3.4 L (3.6-5.0) mmol/L Chloride 114.5 H (98-107) mmol/L Glucose 74 L (75-100) mg/dL POC Glucose 159 H 137 H (70-105) Calcium (8.4-10.2) mg/dL 11/22/18 11/23/18 11/23/18 Range/Units 21:17 02:49 04:59 RBC (3.65-5.03) M/mm3 Hgb (11.8-15.2) gm/dl Hct (35.5-45.6) % MCHC (32-34) % Seg Neuts % (Manual) (40.0-70.0) % Lymphocytes % (Manual) (13.4-35.0) % Monocytes % (Manual) (0.0-7.3) % Lymphocytes # (Manual) (1.2-5.4) K/mm3 Sodium 149 H (137-145) mmol/L Potassium 3.2 L (3.6-5.0) mmol/L Chloride 111.5 H (98-107) mmol/L Glucose 176 H (75-100) mg/dL POC Glucose 198 H 169 H (70-105) Calcium 8.2 L (8.4-10.2) mg/dL 11/23/18 11/23/18 Range/Units 07:18 07:18 RBC 3.09 L (3.65-5.03) M/mm3 Hgb 9.7 L (11.8-15.2) gm/dl Hct 27.7 L D (35.5-45.6) % MCHC 35 H (32-34) % Seg Neuts % (Manual) 84.0 H (40.0-70.0) % Lymphocytes % (Manual) 7.0 L (13.4-35.0) % Monocytes % (Manual) 8.0 H (0.0-7.3) % Lymphocytes # (Manual) 0.6 L (1.2-5.4) K/mm3 Sodium (137-145) mmol/L Potassium 3.2 L (3.6-5.0) mmol/L Chloride 108.7 H (98-107) mmol/L Glucose 180 H (75-100) mg/dL POC Glucose (70-105) Calcium (8.4-10.2) mg/dL
--- NOTE | 2018-11-23 12:00 | Progress Note ---
Assessment and Plan Assessment: Acute Kidney injury likely prerenal/ATN from dehydration: Hypernatremia, hypertonic: Diabetic ketoacidosis: Hypophosphatemia: Neutropenia: Afib: Plan: -Serum creatinine trend down to 0.8 today from 0.9 yesterday -On D5W at 75 ml/hr -Sodium level 145 today -On *IV Cefepime and Flagyl, ID on board -Cardiology on board for Afib -Renally dose all medications -Avoid Nephortoxic meds -Strict I/Os monitoring -Continue to monitor Subjective Date of service: 11/23/18 Principal diagnosis: DKA Interval history: Patient seen lying in bed. Does not speak Korean. Objective - Vital Signs Vital signs: Vital Signs - 12hr 11/23/18 11/23/18 00:00 04:00 Temperature 98.2 F 97.9 F Pulse Rate 86 - General Appearance General appearance: well-developed, appears stated age, fatigue EENT: ATNC, PERRL Neck: no JVD, supple Respiratory: Present: Decreased Breath Sounds Cardiology: S1S2 Gastrointestinal: normoactive bowel sounds Integumentary: warm and dry Neurologic: other (Awake and alert) Musculoskeletal: other (No edema) Psychiatric: mood/affect appropriate - Lab 11/23/18 07:18 11/23/18 11:00 Most recent lab results Calcium 8.5 mg/dL (8.4-10.2) 11/23/18 07:18 Phosphorus 2.30 mg/dL (2.5-4.5) L D 11/20/18 07:14 Magnesium 1.90 mg/dL (1.7-2.3) 11/20/18 07:14 Medications & Allergies - Medications Allergies/Adverse Reactions: Allergies No Known Allergies Allergy (Verified 06/29/18 10:14) Home Medications: Home Medications Medication Instructions Recorded Confirmed Last Taken Type Docusate Sodium [Colace] 100 mg PO BID 7 Days #14 capsule 06/29/18 11/19/18 Unknown Rx metFORMIN [Glucophage] 500 mg PO BID 30 Days #60 tablet 06/29/18 11/19/18 Unknown Rx Active Medications: Generic Name Dose Route Start Last Admin Trade Name Freq PRN Reason Stop Dose Admin Acetaminophen 650 mg 11/23/18 00:13 Tylenol PO Q4H PRN Pain, Mild (1-3), fever > 101 Albuterol 2.5 mg 11/20/18 04:27 Proventil IH Q4HRT PRN Shortness Of Breath Lipase/Protease/Amylase 1 each 11/21/18 15:26 Pancresepideh [place] 10,500 Unit FEEDTUBE PRN PRN For Clogged Feeding Tube Apixaban 2.5 mg 11/21/18 11:00 11/22/18 22:35 Eliquis PO 2.5 mg Q12HR HAMLET Administration Protocol Dextrose 50 ml 11/20/18 02:26 11/22/18 15:05 D50w (25gm) Syringe IV 50 ml PRN PRN Administration Hypoglycemia Digoxin 0.125 mg 11/21/18 10:00 11/21/18 10:45 Lanoxin PO 0.125 mg Q48H HAMLET Administration Famotidine 20 mg 11/19/18 22:00 11/22/18 21:31 Pepcid IV 20 mg BID HAMLET Administration Guaifenesin 200 mg 11/20/18 04:28 Robitussin PO Q4H PRN Cough Hydromorphone HCl 0.5 mg 11/19/18 17:17 11/21/18 07:54 Dilaudid IV 0.5 mg Q3H PRN Administration Pain , Severe (7-10) Cefepime HCl 1 gm in 100 mls @ 200 mls/hr 11/19/18 22:00 11/23/18 04:37 Maxipime/Ns 1 Gm/100 Ml IV 100 mls/hr Q12H HAMLET Administration Protocol Dextrose 1,000 mls @ 75 mls/hr 11/22/18 12:00 11/22/18 17:56 D5w IV 75 mls/hr DIRECT HAMLET Administration Metronidazole 500 mg in 100 mls @ 100 mls/hr 11/22/18 22:00 11/22/18 21:29 Flagyl 500 Mg/100 Ml IV 100 mls/hr Q8HR HAMLET Administration Protocol Insulin Human Isoph/Insulin Regular 10 unit 11/22/18 17:00 11/22/18 18:26 Humulin 70/30 SUB-Q 10 unit BIDDIAB HAMLET Administration Insulin Human Lispro 0 unit 11/23/18 12:00 Humalog SUB-Q Q6HR HAMLET Protocol Metoclopramide HCl 10 mg 11/19/18 17:17 Reglan IV Q6H PRN Nausea And Vomiting Ondansetron HCl 4 mg 11/19/18 17:17 11/20/18 03:13 Zofran IV 4 mg Q3H PRN Administration Nausea And Vomiting Simple Syrup 15 ml 11/21/18 15:26 Simple Syrup FEEDTUBE PRN PRN Hypoglycemia Simple Syrup 30 ml 11/21/18 15:26 Simple Syrup FEEDTUBE PRN PRN Hypoglycemia Sodium Bicarbonate 325 mg 11/21/18 15:26 Sodium Bicarbonate FEEDTUBE PRN PRN For Clogged Feeding Tube Sodium Chloride 10 ml 11/19/18 22:00 11/22/18 21:30 Sodium Chloride Flush Syringe 10 Ml IV 10 ml BID HAMLET Administration Sodium Chloride 10 ml 11/19/18 17:17 Sodium Chloride Flush Syringe 10 Ml IV PRN PRN LINE FLUSH
[2018-11-23 12:15] LABS: BUN/Creatinine Ratio 20; Blood Urea Nitrogen 18 mg/dL (9-20); Calcium 8.7 mg/dL (8.4-10.2); Hemolysis Index 243
--- NOTE | 2018-11-23 12:20 | Progress Note ---
Assessment and Plan 11/21 DKA resolving continue support Monitor bp, chemistries etc tube feed for now unable to safely feed 11/22 suspect asp pneu w poor airway clearance Poorly controlled DM etc cont Abx 02 monitor tube feed npo f/up cxr in am 11/23 On abx for asp pneu stable pulm gastelum Hi risk aspiration Will prob need to replace feed tube and ultimately PEG Apparenly failed swallow test Suspect underlying dementia Subjective Date of service: 11/23/18 Principal diagnosis: asp pneu dka Interval history: 11/21 off insulin drip blood sugars still variable still lethargic no resp issues stable vs 11/22 Transferred to floor late 11/21 had some incr hypoxia and low bs sent to imcu for monitoring ?aspiration/ pneu noted on 11/[address] 11/23 Stable vs AF controlledd no resp distress pulled out feed tube Objective - Constitutional Vitals: Vital Signs - 12hr 11/23/18 04:00 Temperature 97.9 F General appearance: Present: no acute distress, cachectic - Neck Neck: supple - Respiratory Respiratory: bilateral: diminished, rales (scatt poor cough) - Cardiovascular Heart rate: 100 Rhythm: irregularly irregular Extremities: No edema - Neurologic Neurologic: moves all extremities - Labs CBC & Chem 7: 11/23/18 07:18 11/23/18 11:00 Labs: Abnormal lab results 11/21/18 11/22/18 11/22/18 Range/Units 16:46 14:35 14:54 RBC (3.65-5.03) M/mm3 Hgb (11.8-15.2) gm/dl Hct (35.5-45.6) % MCHC (32-34) % Seg Neuts % (Manual) (40.0-70.0) % Lymphocytes % (Manual) (13.4-35.0) % Monocytes % (Manual) (0.0-7.3) % Lymphocytes # (Manual) (1.2-5.4) K/mm3 Sodium 151 H (137-145) mmol/L Potassium 2.9 L* (3.6-5.0) mmol/L Chloride 116.2 H (98-107) mmol/L Carbon Dioxide (22-30) mmol/L Glucose 320 H (75-100) mg/dL POC Glucose 188 H 51 L (70-105) Calcium 8.1 L (8.4-10.2) mg/dL 11/22/18 11/22/18 11/22/18 Range/Units 14:58 16:35 20:25 RBC (3.65-5.03) M/mm3 Hgb (11.8-15.2) gm/dl Hct (35.5-45.6) % MCHC (32-34) % Seg Neuts % (Manual) (40.0-70.0) % Lymphocytes % (Manual) (13.4-35.0) % Monocytes % (Manual) (0.0-7.3) % Lymphocytes # (Manual) (1.2-5.4) K/mm3 Sodium 153 H (137-145) mmol/L Potassium 3.4 L (3.6-5.0) mmol/L Chloride 114.5 H (98-107) mmol/L Carbon Dioxide (22-30) mmol/L Glucose 74 L (75-100) mg/dL POC Glucose 159 H 137 H (70-105) Calcium (8.4-10.2) mg/dL 11/22/18 11/23/18 11/23/18 Range/Units 21:17 02:49 04:59 RBC (3.65-5.03) M/mm3 Hgb (11.8-15.2) gm/dl Hct (35.5-45.6) % MCHC (32-34) % Seg Neuts % (Manual) (40.0-70.0) % Lymphocytes % (Manual) (13.4-35.0) % Monocytes % (Manual) (0.0-7.3) % Lymphocytes # (Manual) (1.2-5.4) K/mm3 Sodium 149 H (137-145) mmol/L Potassium 3.2 L (3.6-5.0) mmol/L Chloride 111.5 H (98-107) mmol/L Carbon Dioxide (22-30) mmol/L Glucose 176 H (75-100) mg/dL POC Glucose 198 H 169 H (70-105) Calcium 8.2 L (8.4-10.2) mg/dL 11/23/18 11/23/18 11/23/18 Range/Units 07:18 07:18 11:00 RBC 3.09 L (3.65-5.03) M/mm3 Hgb 9.7 L (11.8-15.2) gm/dl Hct 27.7 L D (35.5-45.6) % MCHC 35 H (32-34) % Seg Neuts % (Manual) 84.0 H (40.0-70.0) % Lymphocytes % (Manual) 7.0 L (13.4-35.0) % Monocytes % (Manual) 8.0 H (0.0-7.3) % Lymphocytes # (Manual) 0.6 L (1.2-5.4) K/mm3 Sodium 146 H (137-145) mmol/L Potassium 3.2 L (3.6-5.0) mmol/L Chloride 108.7 H 109.6 H (98-107) mmol/L Carbon Dioxide 17 L (22-30) mmol/L Glucose 180 H 330 H (75-100) mg/dL POC Glucose (70-105) Calcium (8.4-10.2) mg/dL 11/23/18 Range/Units 11:56 RBC (3.65-5.03) M/mm3 Hgb (11.8-15.2) gm/dl Hct (35.5-45.6) % MCHC (32-34) % Seg Neuts % (Manual) (40.0-70.0) % Lymphocytes % (Manual) (13.4-35.0) % Monocytes % (Manual) (0.0-7.3) % Lymphocytes # (Manual) (1.2-5.4) K/mm3 Sodium (137-145) mmol/L Potassium (3.6-5.0) mmol/L Chloride (98-107) mmol/L Carbon Dioxide (22-30) mmol/L Glucose (75-100) mg/dL POC Glucose 323 H (70-105) Calcium (8.4-10.2) mg/dL - Imaging and cardiology Chest x-ray: image reviewed (R infilt 11/22) Medications & Allergies - Medications Allergies/Adverse Reactions: Allergies No Known Allergies Allergy (Verified 06/29/18 10:14) Home Medications: Home Medications Medication Instructions Recorded Confirmed Last Taken Type Docusate Sodium [Colace] 100 mg PO BID 7 Days #14 capsule 06/29/18 11/19/18 Unknown Rx metFORMIN [Glucophage] 500 mg PO BID 30 Days #60 tablet 06/29/18 11/19/18 Unknown Rx Active Medications: Generic Name Dose Route Start Last Admin Trade Name Freq PRN Reason Stop Dose Admin Acetaminophen 650 mg 11/23/18 00:13 Tylenol PO Q4H PRN Pain, Mild (1-3), fever > 101 Albuterol 2.5 mg 11/20/18 04:27 Proventil IH Q4HRT PRN Shortness Of Breath Lipase/Protease/Amylase 1 each 11/21/18 15:26 Pancreaze 10,500 Unit FEEDTUBE PRN PRN For Clogged Feeding Tube Apixaban 2.5 mg 11/21/18 11:00 11/22/18 22:35 Eliquis PO 2.5 mg Q12HR HAMLET Administration Protocol Dextrose 50 ml 11/20/18 02:26 11/22/18 15:05 D50w (25gm) Syringe IV 50 ml PRN PRN Administration Hypoglycemia Digoxin 0.125 mg 11/21/18 10:00 11/21/18 10:45 Lanoxin PO 0.125 mg Q48H HAMLET Administration Famotidine 20 mg 11/19/18 22:00 11/22/18 21:31 Pepcid IV 20 mg BID HAMLET Administration Guaifenesin 200 mg 11/20/18 04:28 Robitussin PO Q4H PRN Cough Hydromorphone HCl 0.5 mg 11/19/18 17:17 11/21/18 07:54 Dilaudid IV 0.5 mg Q3H PRN Administration Pain , Severe (7-10) Cefepime HCl 1 gm in 100 mls @ 200 mls/hr 11/19/18 22:00 11/23/18 04:37 Maxipime/Ns 1 Gm/100 Ml IV 100 mls/hr Q12H HAMLET Administration Protocol Dextrose 1,000 mls @ 75 mls/hr 11/22/18 12:00 11/22/18 17:56 D5w IV 75 mls/hr DIRECT HAMLET Administration Metronidazole 500 mg in 100 mls @ 100 mls/hr 11/22/18 22:00 11/22/18 21:29 Flagyl 500 Mg/100 Ml IV 100 mls/hr Q8HR HAMLET Administration Protocol Insulin Human Isoph/Insulin Regular 10 unit 11/22/18 17:00 11/22/18 18:26 Humulin 70/30 SUB-Q 10 unit BIDDIAB HAMLET Administration Insulin Human Lispro 0 unit 11/23/18 12:00 Humalog SUB-Q Q6HR HAMLET Protocol Metoclopramide HCl 10 mg 11/19/18 17:17 Reglan IV Q6H PRN Nausea And Vomiting Ondansetron HCl 4 mg 11/19/18 17:17 11/20/18 03:13 Zofran IV 4 mg Q3H PRN Administration Nausea And Vomiting Simple Syrup 15 ml 11/21/18 15:26 Simple Syrup FEEDTUBE PRN PRN Hypoglycemia Simple Syrup 30 ml 11/21/18 15:26 Simple Syrup FEEDTUBE PRN PRN Hypoglycemia Sodium Bicarbonate 325 mg 11/21/18 15:26 Sodium Bicarbonate FEEDTUBE PRN PRN For Clogged Feeding Tube Sodium Chloride 10 ml 11/19/18 22:00 11/22/18 21:30 Sodium Chloride Flush Syringe 10 Ml IV 10 ml BID HAMLET Administration Sodium Chloride 10 ml 11/19/18 17:17 Sodium Chloride Flush Syringe 10 Ml IV PRN PRN LINE FLUSH
[2018-11-23] MEDS: FLAGYL 500 MG/100 ML 500 MG/100 ML BAG IV SCH ×3 (12:25→22:20)
[2018-11-23] MEDS: LANOXIN PO SCH ×2 (12:25→14:23)
[2018-11-23] MEDS: PEPCID IV SCH ×2 (12:25→22:10)
[2018-11-23] MEDS: SODIUM CHLORIDE FLUSH SYRINGE 10 ML IV SCH ×2 (12:27→22:03)
--- NOTE | 2018-11-23 13:25 | Progress Note ---
Assessment and Plan pt tx back to IMCU overnight due to respiratory distress and suspected aspiration PNA. Pt remains in SR. Cont present cardiac management. The patient has been seen in conjunction with Dr. Clay who agrees with the assessment and plan of care. - Patient Problems (1) Atrial fibrillation with RVR Current Visit: Yes Status: Acute (2) Abnormal ECG Current Visit: Yes Status: Acute (3) DKA (diabetic ketoacidoses) Current Visit: Yes Status: Acute Qualifiers: Diabetes mellitus type: type 2 (4) Altered mental status Current Visit: Yes Status: Acute (5) MEETA (acute kidney injury) Current Visit: Yes Status: Acute (6) Acute hypernatremia Current Visit: Yes Status: Acute (7) Leucopenia Current Visit: Yes Status: Acute Subjective Date of service: 11/23/18 Principal diagnosis: DKA Interval history: pt resting in bed, lethargic, family member at bedside. in SR on tele. pt tx back to IMCU overnight due to respiratory distress and suspected aspiration PNA. Objective Last Vital Signs Temp 97.5 F L 11/23/18 12:00 Pulse 86 11/23/18 00:00 Resp 18 11/22/18 12:25 BP 97/48 11/22/18 12:25 Pulse Ox 99 11/22/18 22:00 - Physical Examination General: No Apparent Distress HEENT: Positive: Normocephaly, Mucus Membranes Moist Neck: Positive: neck supple, trachea midline Cardiac: Positive: Reg Rate and Rhythm, S1/S2 Lungs: Positive: Decreased Breath Sounds Neuro: Positive: Other (confused) Abdomen: Positive: Soft, Active Bowel Sounds. Negative: Tender Skin: Positive: Clear. Negative: Rash Musculoskeletal: Normal Range of Motion Extremities: Present: normal. Absent: edema - Labs and Meds CBC 11/23/18 Range/Units 07:18 WBC 9.2 (4.5-11.0) K/mm3 RBC 3.09 L (3.65-5.03) M/mm3 Hgb 9.7 L (11.8-15.2) gm/dl Hct 27.7 L D (35.5-45.6) % Plt Count 243 (140-440) K/mm3 Comprehensive Metabolic Panel 11/22/18 11/22/18 11/23/18 Range/Units 14:54 20:25 04:59 Sodium 151 H 153 H 149 H (137-145) mmol/L Potassium 2.9 L* 3.4 L 3.2 L (3.6-5.0) mmol/L Chloride 116.2 H 114.5 H 111.5 H (98-107) mmol/L Carbon Dioxide 24 27 24 (22-30) mmol/L BUN 18 18 18 (9-20) mg/dL Creatinine 0.8 0.9 0.9 (0.8-1.5) mg/dL Glucose 320 H 74 L 176 H (75-100) mg/dL Calcium 8.1 L 8.5 8.2 L (8.4-10.2) mg/dL 11/23/18 11/23/18 Range/Units 07:18 11:00 Sodium 145 146 H (137-145) mmol/L Potassium 3.2 L 5.1 H D (3.6-5.0) mmol/L Chloride 108.7 H 109.6 H (98-107) mmol/L Carbon Dioxide 23 17 L (22-30) mmol/L BUN 17 18 (9-20) mg/dL Creatinine 0.8 0.9 (0.8-1.5) mg/dL Glucose 180 H 330 H (75-100) mg/dL Calcium 8.5 8.7 (8.4-10.2) mg/dL - Imaging and Cardiology EKG: report reviewed, image reviewed Echo: report reviewed (EF 50-55%, mild TR, impaired relaxation. ) - EKG Sinus rhythms and dysrhythmias: sinus rhythm Repolarization changes or abnormalities: ST or T wave suggestive of ischemia
--- NOTE | 2018-11-23 14:06 | XRay Report ---
ABDOMEN 1 VIEW(S) INDICATION / CLINICAL INFORMATION: DHT placement. COMPARISON: 11/21/2018. FINDINGS: TUBES / LINES: The tip of the feeding tube projects over the proximal stomach. BOWEL GAS PATTERN/EXTRALUMINAL GAS: No significant abnormality. No pneumatosis or secondary signs of free air. ADDITIONAL FINDINGS: No significant additional findings. IMPRESSION: 1. Feeding tube tip projects over the proximal stomach. Signer Name: Jose Roberto Grady MD Signed: 11/23/2018 2:02 PM Workstation Name: [id number]
[2018-11-23] MEDS: ELIQUIS PO SCH (14:23)
--- NOTE | 2018-11-23 15:39 | Event Note ---
Date: 11/23/18 Physician Attestation: I have personally seen and examined patient. I personally discussed and directed assessment and management with TUBE WASHER Christiane. Lorraine Romo MD Infectious Diseases Industrial [employer] [facility] [phone]
[2018-11-23 16:57] LABS: BUN/Creatinine Ratio 21; Blood Urea Nitrogen 19 mg/dL (9-20); Calcium 8.5 mg/dL (8.4-10.2); Hemolysis Index 3
--- NOTE | 2018-11-23 18:21 | Progress Note ---
Assessment and Plan - Patient Problems (1) Hypernatremia Current Visit: Yes Status: Acute Plan to address problem: Patient appears to have euvolemic hyponatremia. At present may play some role in patient's mental status changes. Continue free water has had significant improvement. Sodium is down to 148. Follow electrolytes in a.m.. . (2) MEETA (acute kidney injury) Current Visit: Yes Status: Resolved Plan to address problem: Resolved. Most likely prerenal azotemia with initial episode of DKA. (3) Abnormal ECG Current Visit: Yes Status: Acute Plan to address problem: A. fib currently on elaquis was and digoxin (4) Acute hypernatremia Current Visit: Yes Status: Acute (5) Altered mental status Current Visit: Yes Status: Acute Plan to address problem: Most likely secondary to metabolic encephalopathy. Multifactorial including #1 DKA #2 hypernatremia #3 sepsis. Continue to treat underlying etiology of the above. Last episode of worsening encephalopathy was secondary to hypoglycemia. Now much improved.. Hypernatremia improving at adequate rate 10 mEq for 24 hour period to prevent cerebral edema. And empiric antibiotic coverage with Flagyl and cefepime continue supportive care and follow electrolytes follow blood culture results. ID following. At some point patient has ng tube feeding has failed swallow eval will need to discuss with family about alternative means of feeding. May give another trial with swallowing eval speech and may need to progress with feeding tube. Discussion with family patient did not understand much K[place] therefore we'll wait for daughter in a.m. (6) Atrial fibrillation with RVR Current Visit: Yes Status: Acute Plan to address problem: Only uses digoxin at this particular time secondary to hypotension. Cardiology following with initiate AV meena blocking agents one plausible. (7) DKA (diabetic ketoacidoses) Current Visit: Yes Status: Resolved Qualifiers: Diabetes mellitus type: type 2 Plan to address problem: EKG resolved. Patient's blood sugars have began increasing again secondary to tube feeds plus D5. Would discontinue IV fluids. Continue to cover with sliding-scale insulin. (8) Pneumonia Current Visit: Yes Status: Acute Plan to address problem: Chest x-ray consistent with pneumonia pneumonitis. Patient also has increased risk because of dysphagia. Patient did not pass swallowing eval. Could be aspiration. Appropriate antibiotic coverage. History Interval history: A de [place] cruz oxygenating much better today. Patient is calm. No further episodes of hypoglycemia. Accu-Cheks actually starting to run high again. Patient oxygen saturations are stable and has been we able to wean O2. Hospitalist Physical - Constitutional Vitals: Temp Pulse Resp BP Pulse Ox 97.4 F L 69 18 114/56 100 11/23/18 16:00 11/23/18 18:00 11/23/18 18:00 11/23/18 18:00 11/23/18 18:00 General appearance: Present: no acute distress, cachectic - EENT Eyes: Present: PERRL, EOM intact - Neck Neck: Present: supple, normal ROM - Respiratory Respiratory: bilateral: rales, rhonchi (specially at bases no improvement from yesterday.) - Cardiovascular Rhythm: irregularly irregular - Extremities Extremities: no ischemia, pulses intact, pulses symmetrical Peripheral Pulses: within normal limits - Abdominal General gastrointestinal: soft, non-tender, hypoactive bowel sounds, other (NG tube) - Integumentary Integumentary: Present: clear, warm, dry - Psychiatric Psychiatric: other (appears to have impaired cognition.) - Neurologic Neurologic: CNII-XII intact, moves all extremities Results - Labs CBC & Chem 7: 11/23/18 07:18 11/23/18 16:16 Labs: Laboratory Last Values WBC 9.2 K/mm3 (4.5-11.0) 11/23/18 07:18 RBC 3.09 M/mm3 (3.65-5.03) L 11/23/18 07:18 Hgb 9.7 gm/dl (11.8-15.2) L 11/23/18 07:18 Hct 27.7 % (35.5-45.6) L D 11/23/18 07:18 MCV 90 fl (84-94) 11/23/18 07:18 MCH 31 pg (28-32) 11/23/18 07:18 MCHC 35 % (32-34) H 11/23/18 07:18 RDW 13.5 % (13.2-15.2) 11/23/18 07:18 Plt Count 243 K/mm3 (140-440) 11/23/18 07:18 Lymph % (Auto) 4.2 % (13.4-35.0) L 11/19/18 10:07 [place] % (Auto) 5.9 % (0.0-7.3) 11/19/18 10:07 Eos % (Auto) 0.5 % (0.0-4.3) 11/19/18 10:07 Baso % (Auto) 0.1 % (0.0-1.8) 11/19/18 10:07 Lymph # 0.3 K/mm3 (1.2-5.4) L 11/19/18 10:07 [place] # 0.5 K/mm3 (0.0-0.8) 11/19/18 10:07 Eos # 0.0 K/mm3 (0.0-0.4) 11/19/18 10:07 Baso # 0.0 K/mm3 (0.0-0.1) 11/19/18 10:07 Add Manual Diff Complete 11/23/18 07:18 Total Counted 100 11/23/18 07:18 Seg Neutrophils % 89.3 % (40.0-70.0) H 11/19/18 10:07 Seg Neuts % (Manual) 84.0 % (40.0-70.0) H 11/23/18 07:18 0 % 11/23/18 07:18 7.0 % (13.4-35.0) L 11/23/18 07:18 Reactive Lymphs % (Man) 0 % 11/23/18 07:18 8.0 % (0.0-7.3) H 11/23/18 07:18 1.0 % (0.0-4.3) 11/23/18 07:18 0 % (0.0-1.8) 11/23/18 07:18 0 % 11/23/18 07:18 0 % 11/23/18 07:18 0 % 11/23/18 07:18 0 % 11/23/18 07:18 Nucleated RBC % Not Reportable 11/23/18 07:18 Seg Neutrophils # 6.9 K/mm3 (1.8-7.7) 11/19/18 10:07 Seg Neutrophils # Man 7.7 K/mm3 (1.8-7.7) 11/23/18 07:18 Band Neutrophils # 0.0 K/mm3 11/23/18 07:18 0.6 K/mm3 (1.2-5.4) L 11/23/18 07:18 Abs React Lymphs (Man) 0.0 K/mm3 11/23/18 07:18 0.7 K/mm3 (0.0-0.8) 11/23/18 07:18 0.1 K/mm3 (0.0-0.4) 11/23/18 07:18 0.0 K/mm3 (0.0-0.1) 11/23/18 07:18 0.0 K/mm3 11/23/18 07:18 0.0 K/mm3 11/23/18 07:18 0.0 K/mm3 11/23/18 07:18 Blast Cells # 0.0 K/mm3 11/23/18 07:18 WBC Morphology Not Reportable 11/23/18 07:18 Hypersegmented Neuts Not Reportable 11/23/18 07:18 Hyposegmented Neuts Not Reportable 11/23/18 07:18 Hypogranular Neuts Not Reportable 11/23/18 07:18 Not Reportable 11/23/18 07:18 Not Reportable 11/23/18 07:18 Not Reportable 11/23/18 07:18 Not Reportable 11/23/18 07:18 Not Reportable 11/23/18 07:18 Not Reportable 11/23/18 07:18 Consistent w auto 11/23/18 07:18 Not Reportable 11/23/18 07:18 Plt Clumps, EDTA Not Reportable 11/23/18 07:18 Rare 11/23/18 07:18 Not Reportable 11/23/18 07:18 Not Reportable 11/23/18 07:18 Plt Morphology Comment Not Reportable 11/23/18 07:18 RBC Morphology Not Reportable 11/23/18 07:18 Dimorphic RBCs Not Reportable 11/23/18 07:18 Not Reportable 11/23/18 07:18 Not Reportable 11/23/18 07:18 Not Reportable 11/23/18 07:18 Few 11/23/18 07:18 Not Reportable 11/23/18 07:18 Not Reportable 11/23/18 07:18 Not Reportable 11/23/18 07:18 Not Reportable 11/23/18 07:18 Not Reportable 11/23/18 07:18 Not Reportable 11/23/18 07:18 Not Reportable 11/23/18 07:18 Rare 11/23/18 07:18 Not Reportable 11/23/18 07:18 Not Reportable 11/23/18 07:18 Not Reportable 11/23/18 07:18 Not Reportable 11/23/18 07:18 Not Reportable 11/23/18 07:18 Not Reportable 11/23/18 07:18 Not Reportable 11/23/18 07:18 Acanthocytes (Spur) Not Reportable 11/23/18 07:18 Rouleaux Not Reportable 11/23/18 07:18 Not Reportable 11/23/18 07:18 Not Reportable 11/23/18 07:18 Not Reportable 11/23/18 07:18 Not Reportable 11/23/18 07:18 Hem Pathologist Commnt No 11/23/18 07:18 PT 12.9 Sec. (12.2-14.9) 11/19/18 10:07 INR 1.00 (0.87-1.13) 11/19/18 10:07 APTT 26.3 Sec. (24.2-36.6) 11/19/18 10:07 VBG pH 7.162 (7.320-7.420) L* 11/19/18 10:07 Sodium 148 mmol/L (137-145) H 11/23/18 16:16 Potassium 3.4 mmol/L (3.6-5.0) L D 11/23/18 16:16 Chloride 109.7 mmol/L (98-107) H 11/23/18 16:16 Carbon Dioxide 26 mmol/L (22-30) D 11/23/18 16:16 16 mmol/L 11/23/18 16:16 BUN 19 mg/dL (9-20) 11/23/18 16:16 0.9 mg/dL (0.8-1.5) 11/23/18 16:16 Estimated GFR > 60 ml/min 11/23/18 16:16 21 % 11/23/18 16:16 Glucose 194 mg/dL (75-100) H 11/23/18 16:16 POC Glucose 186 (70-105) H 11/23/18 18:00 16.9 % (4-6) H 11/19/18 19:14 Lactic Acid 2.00 mmol/L (0.7-2.0) 11/20/18 04:50 Calcium 8.5 mg/dL (8.4-10.2) 11/23/18 16:16 Phosphorus 2.30 mg/dL (2.5-4.5) L D 11/20/18 07:14 Magnesium 1.90 mg/dL (1.7-2.3) 11/20/18 07:14 0.20 mg/dL (0.1-1.2) 11/19/18 10:07 AST 26 units/L (5-40) 11/19/18 10:07 ALT 24 units/L (7-56) 11/19/18 10:07 101 units/L (35-129) 11/19/18 10:07 690 units/L (55-170) H 11/19/18 10:07 0.016 ng/mL (0.00-0.029) 11/19/18 10:07 6.4 g/dL (6.3-8.2) 11/19/18 10:07 3.6 g/dL (3.9-5) L 11/19/18 10:07 1.3 % 11/19/18 10:07 Yellow (Yellow) 11/19/18 09:17 Clear (Clear) 11/19/18 09:17 5.0 (5.0-7.0) 11/19/18 09:17 Ur Specific [place] 1.027 (1.003-1.030) 11/19/18 09:17 <15 mg/dl mg/dL (Negative) 11/19/18 09:17 >=500 mg/dL (Negative) 11/19/18 09:17 80 mg/dL (Negative) 11/19/18 09:17 Neg (Negative) 11/19/18 09:17 Neg (Negative) 11/19/18 09:17 Neg (Negative) 11/19/18 09:17 < 2.0 mg/dL (<2.0) 11/19/18 09:17 Ur Leukocyte Esterase Neg (Negative) 11/19/18 09:17 < 1.0 /HPF (0.0-6.0) 11/19/18 09:17 2.0 /HPF (0.0-6.0) 11/19/18 09:17 Few /HPF 11/19/18 09:17 Digoxin 0.8 ng/mL (0.9-2.0) L 11/21/18 08:13 - Imaging and Cardiology Chest x-ray: report reviewed, image reviewed Active Medications - Current Medications Current Medications: Generic Name Dose Route Start Last Admin Trade Name Freq PRN Reason Stop Dose Admin Acetaminophen 650 mg 11/23/18 00:13 Tylenol PO Q4H PRN Pain, Mild (1-3), fever > 101 Albuterol 2.5 mg 11/20/18 04:27 Proventil IH Q4HRT PRN Shortness Of Breath Lipase/Protease/Amylase 1 each 11/21/18 15:[address] 10,500 Unit FEEDTUBE PRN PRN For Clogged Feeding Tube Apixaban 2.5 mg 11/21/18 11:00 11/23/18 14:23 Eliquis PO 2.5 mg Q12HR HAMLET Administration Protocol Digoxin 0.125 mg 11/21/18 10:00 11/23/18 14:23 Lanoxin PO 0.125 mg Q48H HAMLET Administration Famotidine 20 mg 11/19/18 22:00 11/23/18 12:25 Pepcid IV 20 mg BID HAMLET Administration Guaifenesin 200 mg 11/20/18 04:28 Robitussin PO Q4H PRN Cough Hydromorphone HCl 0.5 mg 11/19/18 17:17 11/21/18 07:54 Dilaudid IV 0.5 mg Q3H PRN Administration Pain , Severe (7-10) Cefepime HCl 1 gm in 100 mls @ 200 mls/hr 11/19/18 22:00 11/23/18 14:23 Maxipime/Ns 1 Gm/100 Ml IV 100 mls/hr Q12H HAMLET Administration Protocol Metronidazole 500 mg in 100 mls @ 100 mls/hr 11/22/18 22:00 11/23/18 14:23 Flagyl 500 Mg/100 Ml IV 100 mls/hr Q8HR H[facility]LET Administration Protocol Insulin Human Isoph/Insulin Regular 10 unit 11/22/18 17:00 11/23/18 12:25 Humulin 70/30 SUB-Q 10 unit BIDDIAB [facility] Administration Insulin Human Lispro 0 unit 11/23/18 12:00 11/23/18 12:31 Humalog SUB-Q 6 unit Q6HR HAMLET Administration Protocol Metoclopramide HCl 10 mg 11/19/18 17:17 Reglan IV Q6H PRN Nausea And Vomiting Ondansetron HCl 4 mg 11/19/18 17:17 11/20/18 03:13 Zofran IV 4 mg Q3H PRN Administration Nausea And Vomiting Simple Syrup 15 ml 11/21/18 15:26 Simple Syrup FEEDTUBE PRN PRN Hypoglycemia Simple Syrup 30 ml 11/21/18 15:26 Simple Syrup FEEDTUBE PRN PRN Hypoglycemia Sodium Bicarbonate 325 mg 11/21/18 15:26 Sodium Bicarbonate FEEDTUBE PRN PRN For Clogged Feeding Tube Sodium Chloride 10 ml 11/19/18 22:00 11/23/18 12:27 Sodium Chloride Flush Syringe 10 Ml IV 10 ml BID HAMLET Administration Sodium Chloride 10 ml 11/19/18 17:17 Sodium Chloride Flush Syringe 10 Ml IV PRN PRN LINE FLUSH Nutrition/Malnutrition Assess - Dietary Evaluation Nutrition/Malnutrition Findings: Nutrition Notes Start: 11/20/18 08:55 Freq: Status: Active Protocol: Document 11/23/18 17:03 RM (Rec: 11/23/18 17:08 [email or web address]) Nutrition Notes Initial or Follow up Reassessment Current Diagnosis Acute Kidney Injury,Diabetes Other Pertinent Diagnosis DKA, AMS Current Diet Glucerna 1.2 at 65 ml/hr Labs/Tests Na 145 Pertinent Medications Reviewed Height 5 ft 10 in Weight 53.8 kg [place] Body Weight (kg) 75.45 BMI 17.0 Subjective/Other Information Per nurse pt pulled out tube prior to her shift but nurse plans to replace it d/t suspected aspiration pneu. Unsure of what rate TF was infusing. Burn Absent Trauma Absent #1 Nutrition Diagnosis Malnutrition Diagnosis Progress(for reassessment Continues documentation) Is patient on ventilator? No Is Patient Ambulatory and/or Out of Bed No REE-([facility]-confined to bed) 1512.132 Kcal/Kg value to use for calculation 35 Approximate Energy Requirements Using 1883 kcal/Kg Calculation Used for Recommendations [facility] Additional Notes Protein needs are 54-65g (1-1. 2g/kg) Fluid needs are 1ml/kcal Nutrition Intervention Nutrition Support: Glucerna 1.2 at 65ml/hr Flush with 200ml q4h for hypernatremia and 100ml q4h once resolved. Kcal 1,872 Protein (gm) 94 Fluid (mL) 1,260 Goal #1 TF tolerance Goal #2 Wt gain/maintenance Anticipated Discharge Needs: Unable to determine at this time Follow-Up By: 11/25/18 Additional Comments Follow for new TF
[2018-11-23 22:12] LABS: BUN/Creatinine Ratio 21; Blood Urea Nitrogen 19 mg/dL (9-20); Calcium 8.6 mg/dL (8.4-10.2); Hemolysis Index 8
[2018-11-23 23:25] LABS: BUN/Creatinine Ratio 22; Blood Urea Nitrogen 20 mg/dL (9-20); Calcium 8.5 mg/dL (8.4-10.2); Hemolysis Index 4
[2018-11-23] MEDS ORDERED: POTASSIUM CHLORIDE FEEDTUBE ONE (23:58)
[2018-11-24] MEDS: HumaLOG SUB-Q SCH ×3 (00:08→17:39)
[2018-11-24] MEDS ORDERED: D50W (25GM) Syringe IV ONE (00:30)
--- NOTE | 2018-11-24 00:59 | XRay Report ---
ABDOMEN 1 VIEW INDICATION / CLINICAL INFORMATION: Evaluate position of Dobbhoff tube. COMPARISON: KUB from 11/23/2018. FINDINGS: TUBES / LINES: The Dobbhoff tube has slightly retracted with the tip projecting over the gastric fund us. BOWEL GAS PATTERN: No significant abnormality. FREE AIR / EXTRALUMINAL GAS: None seen. ADDITIONAL FINDINGS: No significant additional findings. IMPRESSION: Slight retraction of the Dobbhoff tube. No acute findings. Signer Name: Jj Goncalves MD Signed: 11/24/2018 12:55 AM Workstation Name: [employer]
[2018-11-24 05:11] LABS: BUN/Creatinine Ratio 23; Blood Urea Nitrogen 18 mg/dL (9-20); Calcium 8.5 mg/dL (8.4-10.2); Hemolysis Index 41
[2018-11-24] MEDS: ELIQUIS PO SCH ×3 (05:12→21:56)
[2018-11-24 07:49] LABS: Hematocrit 34.4 % (35.5-45.6); Hemoglobin 12.2 gm/dl (11.8-15.2); Mean Corpuscular HGB Conc 35 % (32-34); Mean Corpuscular Volume 88 fl (84-94); Platelet Count 239 K/mm3 (140-440); Red Cell Distribution Width 13.7 % (13.2-15.2)
[2018-11-24 08:15] LABS: BUN/Creatinine Ratio 21; Blood Urea Nitrogen 17 mg/dL (9-20); Calcium 8.4 mg/dL (8.4-10.2); Hemolysis Index 7
--- NOTE | 2018-11-24 10:12 | Progress Note ---
Assessment and Plan 11/21 DKA resolving continue support Monitor bp, chemistries etc tube feed for now unable to safely feed 11/22 suspect asp pneu w poor airway clearance Poorly controlled DM etc cont Abx 02 monitor tube feed npo f/up cxr in am 11/23 On abx for asp pneu stable pulm gastelum Hi risk aspiration Will prob need to replace feed tube and ultimately PEG Apparenly failed swallow test Suspect underlying dementia 11/24 Stable cont tube feed and abx OK to go to floor Subjective Date of service: 11/24/18 Principal diagnosis: dka, asp pneu dementia Interval history: 11/21 off insulin drip blood sugars still variable still lethargic no resp issues stable vs 11/22 Transferred to floor late 11/21 had some incr hypoxia and low bs sent to imcu for monitoring ?aspiration/ pneu noted on 11/[address] 11/23 Stable vs AF controlledd no resp distress pulled out feed tube 11/24 Replaced feed tube more alert no resp distress stable vs Objective - Constitutional Vitals: Vital Signs - 12hr 11/24/18 11/24/18 11/24/18 00:00 03:50 08:00 Temperature 97.7 F 98.0 F 98.4 F General appearance: Present: no acute distress (alert follows commands) - Respiratory Respiratory effort: normal Respiratory: bilateral: diminished (grossly clear no wheeze ), negative: other (fair cough) - Cardiovascular Rhythm: regular - Gastrointestinal General gastrointestinal: Present: soft, hypoactive bowel sounds - Labs CBC & Chem 7: 11/24/18 07:32 11/24/18 07:32 Labs: Abnormal lab results 11/23/18 11/23/18 11/23/18 Range/Units 11:00 11:56 16:16 Hct (35.5-45.6) % MCHC (32-34) % Sodium 146 H 148 H (137-145) mmol/L Potassium 5.1 H D 3.4 L D (3.6-5.0) mmol/L Chloride 109.6 H 109.7 H (98-107) mmol/L Carbon Dioxide 17 L (22-30) mmol/L Glucose 330 H 194 H (75-100) mg/dL POC Glucose 323 H (70-105) 11/23/18 11/23/18 11/23/18 Range/Units 18:00 21:18 22:48 Hct (35.5-45.6) % MCHC (32-34) % Sodium 149 H 149 H (137-145) mmol/L Potassium 2.8 L* 2.7 L* (3.6-5.0) mmol/L Chloride 109.7 H 111.6 H (98-107) mmol/L Carbon Dioxide (22-30) mmol/L Glucose 66 L 56 L (75-100) mg/dL POC Glucose 186 H (70-105) 11/23/18 11/24/18 11/24/18 Range/Units 23:32 00:55 04:29 Hct (35.5-45.6) % MCHC (32-34) % Sodium 146 H (137-145) mmol/L Potassium (3.6-5.0) mmol/L Chloride 113.0 H (98-107) mmol/L Carbon Dioxide (22-30) mmol/L Glucose 138 H (75-100) mg/dL POC Glucose 56 L 209 H (70-105) 11/24/18 11/24/18 11/24/18 Range/Units 06:03 07:32 07:32 Hct 34.4 L D (35.5-45.6) % MCHC 35 H (32-34) % Sodium 146 H (137-145) mmol/L Potassium (3.6-5.0) mmol/L Chloride 109.5 H (98-107) mmol/L Carbon Dioxide (22-30) mmol/L Glucose 236 H (75-100) mg/dL POC Glucose 174 H (70-105) - Imaging and cardiology Abdominal x-ray: image reviewed (11/23 n/g in place R infilt unch ) Medications & Allergies - Medications Allergies/Adverse Reactions: Allergies No Known Allergies Allergy (Verified 06/29/18 10:14) Home Medications: Home Medications Medication Instructions Recorded Confirmed Last Taken Type Docusate Sodium [Colace] 100 mg PO BID 7 Days #14 capsule 06/29/18 11/19/18 Unknown Rx metFORMIN [Glucophage] 500 mg PO BID 30 Days #60 tablet 06/29/18 11/19/18 Unknown Rx Active Medications: Generic Name Dose Route Start Last Admin Trade Name Freq PRN Reason Stop Dose Admin Acetaminophen 650 mg 11/23/18 00:13 Tylenol PO Q4H PRN Pain, Mild (1-3), fever > 101 Albuterol 2.5 mg 11/20/18 04:27 Proventil IH Q4HRT PRN Shortness Of Breath Lipase/Protease/Amylase 1 each 11/21/18 15:26 Pancreaze 10,500 Unit FEEDTUBE PRN PRN For Clogged Feeding Tube Apixaban 2.5 mg 11/21/18 11:00 11/24/18 05:12 Eliquis PO 2.5 mg Q12HR HAMLET Administration Protocol Digoxin 0.125 mg 11/21/18 10:00 11/23/18 14:23 Lanoxin PO 0.125 mg Q48H HAMLET Administration Famotidine 20 mg 11/19/18 22:00 11/23/18 22:10 Pepcid IV 20 mg BID HAMLET Administration Guaifenesin 200 mg 11/20/18 04:28 Robitussin PO Q4H PRN Cough Hydromorphone HCl 0.5 mg 11/19/18 17:17 11/21/18 07:54 Dilaudid IV 0.5 mg Q3H PRN Administration Pain , Severe (7-10) Cefepime HCl 1 gm in 100 mls @ 200 mls/hr 11/19/18 22:00 11/23/18 22:10 Maxipime/Ns 1 Gm/100 Ml IV 100 mls/hr Q12H HAMLET Administration Protocol Metronidazole 500 mg in 100 mls @ 100 mls/hr 11/22/18 22:00 11/23/18 22:20 Flagyl 500 Mg/100 Ml IV 100 mls/hr Q8HR [facility] Administration Protocol Insulin Human Isoph/Insulin Regular 10 unit 11/22/18 17:00 11/24/18 08:32 Humulin 70/30 SUB-Q 10 unit BIDDIAB HAMLET Administration Insulin Human Lispro 0 unit 11/23/18 12:00 11/24/18 00:08 Humalog SUB-Q Not Given Q6HR [facility] Protocol Metoclopramide HCl 10 mg 11/19/18 17:17 Reglan IV Q6H PRN Nausea And Vomiting Ondansetron HCl 4 mg 11/19/18 17:17 11/20/18 03:13 Zofran IV 4 mg Q3H PRN Administration Nausea And Vomiting Simple Syrup 15 ml 11/21/18 15:26 Simple Syrup FEEDTUBE PRN PRN Hypoglycemia Simple Syrup 30 ml 11/21/18 15:26 Simple Syrup FEEDTUBE PRN PRN Hypoglycemia Sodium Bicarbonate 325 mg 11/21/18 15:26 Sodium Bicarbonate FEEDTUBE PRN PRN For Clogged Feeding Tube Sodium Chloride 10 ml 11/19/18 22:00 11/23/18 22:03 Sodium Chloride Flush Syringe 10 Ml IV 10 ml BID HAMLET Administration Sodium Chloride 10 ml 11/19/18 17:17 Sodium Chloride Flush Syringe 10 Ml IV PRN PRN LINE FLUSH
--- NOTE | 2018-11-24 10:19 | Progress Note ---
Assessment and Plan Pt remains in SR. Cont present cardiac management. F/u BMP, Mg and digoxin level in AM. The patient has been seen in conjunction with Dr. Clay who agrees with the assessment and plan of care. - Patient Problems (1) Atrial fibrillation with RVR Current Visit: Yes Status: Acute (2) Abnormal ECG Current Visit: Yes Status: Acute (3) DKA (diabetic ketoacidoses) Current Visit: Yes Status: Acute Qualifiers: Diabetes mellitus type: type 2 (4) Altered mental status Current Visit: Yes Status: Acute (5) MEETA (acute kidney injury) Current Visit: Yes Status: Acute (6) Acute hypernatremia Current Visit: Yes Status: Acute (7) Leucopenia Current Visit: Yes Status: Acute Subjective Date of service: 11/24/18 Principal diagnosis: dka, asp pneu dementia Interval history: pt resting in bed, lethargic, family member at bedside. in SR on tele. Objective Last Vital Signs Temp 98.4 F 11/24/18 08:00 Pulse 84 11/23/18 22:00 Resp 18 11/23/18 18:00 BP 114/56 11/23/18 18:00 Pulse Ox 99 11/23/18 22:00 - Physical Examination General: No Apparent Distress HEENT: Positive: Normocephaly, Mucus Membranes Moist Neck: Positive: neck supple, trachea midline Cardiac: Positive: Reg Rate and Rhythm, S1/S2 Lungs: Positive: Decreased Breath Sounds Neuro: Positive: Other (confused) Abdomen: Positive: Soft, Active Bowel Sounds. Negative: Tender Skin: Positive: Clear. Negative: Rash Musculoskeletal: Normal Range of Motion Extremities: Present: normal. Absent: edema - Labs and Meds CBC 11/24/18 Range/Units 07:32 WBC 6.6 (4.5-11.0) K/mm3 RBC 3.90 (3.65-5.03) M/mm3 Hgb 12.2 (11.8-15.2) gm/dl Hct 34.4 L D (35.5-45.6) % Plt Count 239 (140-440) K/mm3 Comprehensive Metabolic Panel 11/23/18 11/23/18 11/23/18 Range/Units 11:00 16:16 21:18 Sodium 146 H 148 H 149 H (137-145) mmol/L Potassium 5.1 H D 3.4 L D 2.8 L* (3.6-5.0) mmol/L Chloride 109.6 H 109.7 H 109.7 H (98-107) mmol/L Carbon Dioxide 17 L 26 D 28 (22-30) mmol/L BUN 18 19 19 (9-20) mg/dL Creatinine 0.9 0.9 0.9 (0.8-1.5) mg/dL Glucose 330 H 194 H 66 L (75-100) mg/dL Calcium 8.7 8.5 8.6 (8.4-10.2) mg/dL 11/23/18 11/24/18 11/24/18 Range/Units 22:48 04:29 07:32 Sodium 149 H 146 H 146 H (137-145) mmol/L Potassium 2.7 L* 4.1 D 3.8 (3.6-5.0) mmol/L Chloride 111.6 H 113.0 H 109.5 H (98-107) mmol/L Carbon Dioxide 27 23 22 (22-30) mmol/L BUN 20 18 17 (9-20) mg/dL Creatinine 0.9 0.8 0.8 (0.8-1.5) mg/dL Glucose 56 L 138 H 236 H (75-100) mg/dL Calcium 8.5 8.5 8.4 (8.4-10.2) mg/dL - Imaging and Cardiology EKG: report reviewed, image reviewed Echo: report reviewed (EF 50-55%, mild TR, impaired relaxation. ) - EKG Sinus rhythms and dysrhythmias: sinus rhythm Repolarization changes or abnormalities: ST or T wave suggestive of ischemia
--- NOTE | 2018-11-24 10:31 | Progress Note ---
Assessment and Plan Cultures: Blood cultures 11/19/2018 no growth. Urine culture 11/19/2018 negative Assessment: 78 y/o male with history of diabetes brought by family due to 2-day history of generalized weakness and lethargy: 1) SIRS v/s sepsis: Resolved. Etiology most likely DKA +/- SVT s/p CV. Transiently on pressors. ? underlying sepsis is possible but blood culture so far negative, UA negative, CXR negative.Abdominal CT shows prominent infiltrate is seen in the right lower lobe consistent with pneumonitis. Small bilateral pleural effusions are seen. Rpt CXR shows right lower lung parenchymal opacific ation that could indicate aspiration and/or developing pneumonia. 2) Acute encephaloapthy: from DKA / electrolyte imbalance 3) SVT s/p CV 4) DM uncontrolled DKA 5) MEETA: better 6) Acute Hypoxemia: O2 saturation stable. on RA Recommendations: continue cefepime renally adjusted D7 continue Flagyl 500 mg IV every 8 hours to cover aspiration pneumonia, D3 of D5 Candy Grande NP [facility] M: [id number] O:[phone] Subjective Date of service: 11/24/18 Principal diagnosis: dka, asp pneu dementia Interval history: Patient seen and examined. Awake. Alert. Calm. Daughter at bedside. Objective - Exam Narrative Exam: General appearance: Awake. nonverbal. No acute distress observed Eyes: anicteric sclerae, moist conjunctivae; no lid-lag; PERRLA HENT: Atraumatic; oropharynx limited Neck: Trachea midline; supple, no thyromegaly or lymphadenopathy Lungs: CTA, with normal respiratory effort and no intercostal retractions CV: RRR no murmur Abdomen: Soft, tender diffusely Extremities: no edema, cyanosis Skin: Normal temperature, turgor and texture; no rash, ulcers or subcutaneous nodules Psych: calm Neuro: Nonverbal, not following commands - Constitutional Vitals: Vital Signs Temp Pulse Resp BP Pulse Ox 98.4 F 84 18 114/56 99 11/24/18 08:00 11/23/18 22:00 11/23/18 18:00 11/23/18 18:00 11/23/18 22:00 Temperature -Last 24 Hours Temperature 98.4 F Temperature 98.0 F Temperature 97.7 F Temperature 97.8 F Temperature 97.4 F Temperature 97.5 F - Labs CBC & Chem 7: 11/24/18 07:32 11/24/18 12:36 Labs: Abnormal lab results 11/23/18 11/23/18 11/23/18 Range/Units 11:00 11:56 16:16 Hct (35.5-45.6) % MCHC (32-34) % Sodium 146 H 148 H (137-145) mmol/L Potassium 5.1 H D 3.4 L D (3.6-5.0) mmol/L Chloride 109.6 H 109.7 H (98-107) mmol/L Carbon Dioxide 17 L (22-30) mmol/L Glucose 330 H 194 H (75-100) mg/dL POC Glucose 323 H (70-105) 11/23/18 11/23/18 11/23/18 Range/Units 18:00 21:18 22:48 Hct (35.5-45.6) % MCHC (32-34) % Sodium 149 H 149 H (137-145) mmol/L Potassium 2.8 L* 2.7 L* (3.6-5.0) mmol/L Chloride 109.7 H 111.6 H (98-107) mmol/L Carbon Dioxide (22-30) mmol/L Glucose 66 L 56 L (75-100) mg/dL POC Glucose 186 H (70-105) 11/23/18 11/24/18 11/24/18 Range/Units 23:32 00:55 04:29 Hct (35.5-45.6) % MCHC (32-34) % Sodium 146 H (137-145) mmol/L Potassium (3.6-5.0) mmol/L Chloride 113.0 H (98-107) mmol/L Carbon Dioxide (22-30) mmol/L Glucose 138 H (75-100) mg/dL POC Glucose 56 L 209 H (70-105) 11/24/18 11/24/18 11/24/18 Range/Units 06:03 07:32 07:32 Hct 34.4 L D (35.5-45.6) % MCHC 35 H (32-34) % Sodium 146 H (137-145) mmol/L Potassium (3.6-5.0) mmol/L Chloride 109.5 H (98-107) mmol/L Carbon Dioxide (22-30) mmol/L Glucose 236 H (75-100) mg/dL POC Glucose 174 H (70-105)
--- NOTE | 2018-11-24 11:19 | Progress Note ---
Assessment and Plan Assessment: Acute Kidney injury likely prerenal/ATN from dehydration: Hypernatremia, hypertonic: Diabetic ketoacidosis: Hypophosphatemia: Neutropenia: Afib: Plan: -Serum creatinine stable at 0.8 today -On D5W at 75 ml/hr -Sodium level 146 today -Start free water flushes 200 ml/every 6 hours via Dobhoff tube -On IV Cefepime and Flagyl, ID on board -Cardiology on board for Afib -Renally dose all medications -Avoid Nephortoxic meds -Strict I/Os monitoring -Continue to monitor Subjective Date of service: 11/24/18 Principal diagnosis: dka, asp pneu dementia Interval history: Patient seen sitting up in chair at bedside in bed. Does not speak Faroese. Objective - Vital Signs Vital signs: Vital Signs - 12hr 11/24/18 11/24/18 11/24/18 00:00 03:50 08:00 Temperature 97.7 F 98.0 F 98.4 F - General Appearance General appearance: well-developed, fatigue, frail EENT: ATNC, PERRL Neck: no JVD, supple Respiratory: Present: Decreased Breath Sounds Cardiology: S1S2 Gastrointestinal: normoactive bowel sounds, other (Has dobhoff tube feeding) Integumentary: warm and dry Neurologic: other (Awake and alert) Musculoskeletal: other (No edema) Psychiatric: cooperative - Lab 11/24/18 07:32 11/24/18 07:32 Most recent lab results Calcium 8.4 mg/dL (8.4-10.2) 11/24/18 07:32 Phosphorus 2.30 mg/dL (2.5-4.5) L D 11/20/18 07:14 Magnesium 1.90 mg/dL (1.7-2.3) 11/20/18 07:14 Medications & Allergies - Medications Allergies/Adverse Reactions: Allergies No Known Allergies Allergy (Verified 06/29/18 10:14) Home Medications: Home Medications Medication Instructions Recorded Confirmed Last Taken Type Docusate Sodium [Colace] 100 mg PO BID 7 Days #14 capsule 06/29/18 11/19/18 Unknown Rx metFORMIN [Glucophage] 500 mg PO BID 30 Days #60 tablet 06/29/18 11/19/18 Unknown Rx Active Medications: Generic Name Dose Route Start Last Admin Trade Name Freq PRN Reason Stop Dose Admin Acetaminophen 650 mg 11/23/18 00:13 Tylenol PO Q4H PRN Pain, Mild (1-3), fever > 101 Albuterol 2.5 mg 11/20/18 04:27 Proventil IH Q4HRT PRN Shortness Of Breath Lipase/Protease/Amylase 1 each 11/21/18 15:26 Pancreaze 10,500 Unit FEEDTUBE PRN PRN For Clogged Feeding Tube Apixaban 2.5 mg 11/21/18 11:00 11/24/18 05:12 Eliquis PO 2.5 mg Q12HR HAMLET Administration Protocol Digoxin 0.125 mg 11/21/18 10:00 11/23/18 14:23 Lanoxin PO 0.125 mg Q48H HAMLET Administration Famotidine 20 mg 11/19/18 22:00 11/23/18 22:10 Pepcid IV 20 mg BID HAMLET Administration Guaifenesin 200 mg 11/20/18 04:28 Robitussin PO Q4H PRN Cough Hydromorphone HCl 0.5 mg 11/19/18 17:17 11/21/18 07:54 Dilaudid IV 0.5 mg Q3H PRN Administration Pain , Severe (7-10) Cefepime HCl 1 gm in 100 mls @ 200 mls/hr 11/19/18 22:00 11/23/18 22:10 Maxipime/Ns 1 Gm/100 Ml IV 100 mls/hr Q12H HAMLET Administration Protocol Metronidazole 500 mg in 100 mls @ 100 mls/hr 11/22/18 22:00 11/23/18 22:20 Flagyl 500 Mg/100 Ml IV 100 mls/hr Q8HR HAMLET Administration Protocol Insulin Human Isoph/Insulin Regular 10 unit 11/22/18 17:00 11/24/18 08:32 Humulin 70/30 SUB-Q 10 unit BIDDIAB HAMLET Administration Insulin Human Lispro 0 unit 11/23/18 12:00 11/24/18 00:08 Humalog SUB-Q Not Given Q6HR [facility] Protocol Metoclopramide HCl 10 mg 11/19/18 17:17 Reglan IV Q6H PRN Nausea And Vomiting Ondansetron HCl 4 mg 11/19/18 17:17 11/20/18 03:13 Zofran IV 4 mg Q3H PRN Administration Nausea And Vomiting Simple Syrup 15 ml 11/21/18 15:26 Simple Syrup FEEDTUBE PRN PRN Hypoglycemia Simple Syrup 30 ml 11/21/18 15:26 Simple Syrup FEEDTUBE PRN PRN Hypoglycemia Sodium Bicarbonate 325 mg 11/21/18 15:26 Sodium Bicarbonate FEEDTUBE PRN PRN For Clogged Feeding Tube Sodium Chloride 10 ml 11/19/18 22:00 11/23/18 22:03 Sodium Chloride Flush Syringe 10 Ml IV 10 ml BID HALMET Administration Sodium Chloride 10 ml 11/19/18 17:17 Sodium Chloride Flush Syringe 10 Ml IV PRN PRN LINE FLUSH
[2018-11-24 11:33] LABS: Band Neutrophils # (Manual) 0.1 K/mm3; Basophils % (Manual) 0 % (0.0-1.8); Platelet Estimate Consistent w Auto; RBC Morphology Normal; Total Cells Counted 100
[2018-11-24] MEDS: SODIUM CHLORIDE FLUSH SYRINGE 10 ML IV SCH ×2 (11:48→21:56)
[2018-11-24] MEDS: PEPCID IV SCH ×2 (11:48→21:56)
[2018-11-24] MEDS ORDERED: NACL 0.9% 500 ML 500 ML ONE (12:38)
[2018-11-24 13:19] LABS: BUN/Creatinine Ratio 24; Blood Urea Nitrogen 19 mg/dL (9-20); Calcium 8.8 mg/dL (8.4-10.2); Hemolysis Index 5
--- NOTE | 2018-11-24 13:45 | Progress Note ---
Assessment and Plan Assessment and plan: Sepsis. Resolved. Etiology most likely DKA +/- SVT s/p CV. Transiently on pressors. Blood culture so far negative, UA negative, CXR negative. Abdominal CT shows prominent infiltrate is seen in the right lower lobe consistent with pneumonitis. Small bilateral pleural effusions are seen. Aspiration pneumonia. Repeat CXR shows right lower lung parenchymal opacification that could indicate aspiration and/or developing pneumonia. Acute hypoxic respiratory failure. Etiology segment to above. Continue O2 to maintain sats Toxic metabolic encephaloapthy. Etiology from DKA / electrolyte imbalance / Sepsis Atrial fibrillation with RVR. F/u BMP, Mg and digoxin level in AM. Cont digoxin and eliquis DM 2, uncontrolled. Patient with labile blood sugars. We will continue to monitor continue to feedings. MEETA. Improved. History Interval history: No new issues overnight. Hospitalist Physical - Constitutional Vitals: Temp Pulse Resp BP Pulse Ox 97.7 F 84 18 114/56 91 11/24/18 12:00 11/23/18 22:00 11/23/18 18:00 11/23/18 18:00 11/24/18 11:29 General appearance: Present: no acute distress (alert follows commands) - EENT Eyes: Present: PERRL, EOM intact ENT: hearing intact, clear oral mucosa, dentition normal - Neck Neck: Present: supple, normal ROM - Respiratory Respiratory effort: normal Respiratory: bilateral: CTA - Cardiovascular Rhythm: regular Heart Sounds: Present: S1 & S2. Absent: gallop, rub - Extremities Extremities: no ischemia, No edema, Full ROM - Abdominal General gastrointestinal: soft, non-tender, non-distended, normal bowel sounds - Integumentary Integumentary: Present: clear, warm, dry - Neurologic Neurologic: CNII-XII intact, moves all extremities Results - Labs CBC & Chem 7: 11/24/18 07:32 11/24/18 12:36 Labs: Laboratory Last Values WBC 6.6 K/mm3 (4.5-11.0) 11/24/18 07:32 RBC 3.90 M/mm3 (3.65-5.03) 11/24/18 07:32 Hgb 12.2 gm/dl (11.8-15.2) 11/24/18 07:32 Hct 34.4 % (35.5-45.6) L D 11/24/18 07:32 MCV 88 fl (84-94) 11/24/18 07:32 MCH 31 pg (28-32) 11/24/18 07:32 MCHC 35 % (32-34) H 11/24/18 07:32 RDW 13.7 % (13.2-15.2) 11/24/18 07:32 Plt Count 239 K/mm3 (140-440) 11/24/18 07:32 Lymph % (Auto) 4.2 % (13.4-35.0) L 11/19/18 10:07 Bowie % (Auto) [employer] 11/24/18 07:32 Eos % (Auto) 0.5 % (0.0-4.3) 11/19/18 10:07 Baso % (Auto) 0.1 % (0.0-1.8) 11/19/18 10:07 Lymph # 0.3 K/mm3 (1.2-5.4) L 11/19/18 10:07 Bowie # 0.5 K/mm3 (0.0-0.8) 11/19/18 10:07 Eos # 0.0 K/mm3 (0.0-0.4) 11/19/18 10:07 Baso # 0.0 K/mm3 (0.0-0.1) 11/19/18 10:07 Add Manual Diff Complete 11/24/18 07:32 Total Counted 100 11/24/18 07:32 Seg Neutrophils % 89.3 % (40.0-70.0) H 11/19/18 10:07 Seg Neuts % (Manual) 70.0 % (40.0-70.0) 11/24/18 07:32 1.0 % 11/24/18 07:32 10.0 % (13.4-35.0) L 11/24/18 07:32 Reactive Lymphs % (Man) 1.0 % 11/24/18 07:32 12.0 % (0.0-7.3) H 11/24/18 07:32 6.0 % (0.0-4.3) H 11/24/18 07:32 0 % (0.0-1.8) 11/24/18 07:32 0 % 11/24/18 07:32 0 % 11/24/18 07:32 0 % 11/24/18 07:32 0 % 11/24/18 07:32 Nucleated RBC % Not Reportable 11/24/18 07:32 Seg Neutrophils # 6.9 K/mm3 (1.8-7.7) 11/19/18 10:07 Seg Neutrophils # Man 4.6 K/mm3 (1.8-7.7) 11/24/18 07:32 Band Neutrophils # 0.1 K/mm3 11/24/18 07:32 0.7 K/mm3 (1.2-5.4) L 11/24/18 07:32 Abs React Lymphs (Man) 0.1 K/mm3 11/24/18 07:32 0.8 K/mm3 (0.0-0.8) 11/24/18 07:32 0.4 K/mm3 (0.0-0.4) 11/24/18 07:32 0.0 K/mm3 (0.0-0.1) 11/24/18 07:32 0.0 K/mm3 11/24/18 07:32 0.0 K/mm3 11/24/18 07:32 0.0 K/mm3 11/24/18 07:32 Blast Cells # 0.0 K/mm3 11/24/18 07:32 WBC Morphology Not Reportable 11/24/18 07:32 Hypersegmented Neuts Not Reportable 11/24/18 07:32 Hyposegmented Neuts Not Reportable 11/24/18 07:32 Hypogranular Neuts Not Reportable 11/24/18 07:32 Not Reportable 11/24/18 07:32 Not Reportable 11/24/18 07:32 Not Reportable 11/24/18 07:32 Not Reportable 11/24/18 07:32 Not Reportable 11/24/18 07:32 Not Reportable 11/24/18 07:32 Consistent w auto 11/24/18 07:32 Not Reportable 11/24/18 07:32 Plt Clumps, EDTA Not Reportable 11/24/18 07:32 Not Reportable 11/24/18 07:32 Not Reportable 11/24/18 07:32 Not Reportable 11/24/18 07:32 Plt Morphology Comment Not Reportable 11/24/18 07:32 RBC Morphology Normal 07/25/19 07:32 Dimorphic RBCs Not Reportable 11/24/18 07:32 Not Reportable 11/24/18 07:32 Not Reportable 11/24/18 07:32 Not Reportable 11/24/18 07:32 Not Reportable 11/24/18 07:32 Not Reportable 11/24/18 07:32 Not Reportable 11/24/18 07:32 Not Reportable 11/24/18 07:32 Not Reportable 11/24/18 07:32 Not Reportable 11/24/18 07:32 Not Reportable 11/24/18 07:32 Not Reportable 11/24/18 07:32 Not Reportable 11/24/18 07:32 Not Reportable 11/24/18 07:32 Not Reportable 11/24/18 07:32 Not Reportable 11/24/18 07:32 Not Reportable 11/24/18 07:32 Not Reportable 11/24/18 07:32 Not Reportable 11/24/18 07:32 Not Reportable 11/24/18 07:32 Acanthocytes (Spur) Not Reportable 11/24/18 07:32 Rouleaux Not Reportable 11/24/18 07:32 Not Reportable 11/24/18 07:32 Not Reportable 11/24/18 07:32 Not Reportable 11/24/18 07:32 Not Reportable 11/24/18 07:32 Hem Pathologist Commnt No 11/24/18 07:32 PT 12.9 Sec. (12.2-14.9) 11/19/18 10:07 INR 1.00 (0.87-1.13) 11/19/18 10:07 APTT 26.3 Sec. (24.2-36.6) 11/19/18 10:07 VBG pH 7.162 (7.320-7.420) L* 11/19/18 10:07 Sodium 146 mmol/L (137-145) H 11/24/18 12:36 Potassium 3.5 mmol/L (3.6-5.0) L 11/24/18 12:36 Chloride 108.9 mmol/L (98-107) H 11/24/18 12:36 Carbon Dioxide 25 mmol/L (22-30) 11/24/18 12:36 16 mmol/L 11/24/18 12:36 BUN 19 mg/dL (9-20) 11/24/18 12:36 0.8 mg/dL (0.8-1.5) 11/24/18 12:36 Estimated GFR > 60 ml/min 11/24/18 12:36 24 % 11/24/18 12:36 Glucose 246 mg/dL (75-100) H 11/24/18 12:36 POC Glucose 291 (70-105) H 11/24/18 11:32 16.9 % (4-6) H 11/19/18 19:14 Lactic Acid 2.00 mmol/L (0.7-2.0) 11/20/18 04:50 Calcium 8.8 mg/dL (8.4-10.2) 11/24/18 12:36 Phosphorus 2.30 mg/dL (2.5-4.5) L D 11/20/18 07:14 Magnesium 1.90 mg/dL (1.7-2.3) 11/20/18 07:14 0.20 mg/dL (0.1-1.2) 11/19/18 10:07 AST 26 units/L (5-40) 11/19/18 10:07 ALT 24 units/L (7-56) 11/19/18 10:07 101 units/L (35-129) 11/19/18 10:07 690 units/L (55-170) H 11/19/18 10:07 0.016 ng/mL (0.00-0.029) 11/19/18 10:07 6.4 g/dL (6.3-8.2) 11/19/18 10:07 3.6 g/dL (3.9-5) L 11/19/18 10:07 1.3 % 11/19/18 10:07 Yellow (Yellow) 11/19/18 09:17 Clear (Clear) 11/19/18 09:17 5.0 (5.0-7.0) 11/19/18 09:17 Ur Specific [place] 1.027 (1.003-1.030) 11/19/18 09:17 <15 mg/dl mg/dL (Negative) 11/19/18 09:17 >=500 mg/dL (Negative) 11/19/18 09:17 80 mg/dL (Negative) 11/19/18 09:17 Neg (Negative) 11/19/18 09:17 Neg (Negative) 11/19/18 09:17 Neg (Negative) 11/19/18 09:17 < 2.0 mg/dL (<2.0) 11/19/18 09:17 Ur Leukocyte Esterase Neg (Negative) 11/19/18 09:17 < 1.0 /HPF (0.0-6.0) 11/19/18 09:17 2.0 /HPF (0.0-6.0) 11/19/18 09:17 Few /HPF 11/19/18 09:17 Digoxin 0.8 ng/mL (0.9-2.0) L 11/21/18 08:13 Active Medications - Current Medications Current Medications: Generic Name Dose Route Start Last Admin Trade Name Freq PRN Reason Stop Dose Admin Acetaminophen 650 mg 11/23/18 00:13 Tylenol PO Q4H PRN Pain, Mild (1-3), fever > 101 Albuterol 2.5 mg 11/20/18 04:27 Proventil IH Q4HRT PRN Shortness Of Breath Lipase/Protease/Amylase 1 each 11/21/18 15:[address] 10,500 Unit FEEDTUBE PRN PRN For Clogged Feeding Tube Apixaban 2.5 mg 11/21/18 11:00 11/24/18 11:47 Eliquis PO 2.5 mg Q12HR HAMLET Administration Protocol Digoxin 0.125 mg 11/21/18 10:00 11/23/18 14:23 Lanoxin PO 0.125 mg Q48H HAMLET Administration Famotidine 20 mg 11/19/18 22:00 11/24/18 11:48 Pepcid IV 20 mg BID HAMLET Administration Guaifenesin 200 mg 11/20/18 04:28 Robitussin PO Q4H PRN Cough Hydromorphone HCl 0.5 mg 11/19/18 17:17 11/21/18 07:54 Dilaudid IV 0.5 mg Q3H PRN Administration Pain , Severe (7-10) Cefepime HCl 1 gm in 100 mls @ 200 mls/hr 11/19/18 22:00 11/23/18 22:10 Maxipime/Ns 1 Gm/100 Ml IV 100 mls/hr Q12H HAMLET Administration Protocol Metronidazole 500 mg in 100 mls @ 100 mls/hr 11/22/18 22:00 11/23/18 23:20 Flagyl 500 Mg/100 Ml IV Infused Q8HR HAMLET Infusion Protocol Insulin Human Isoph/Insulin Regular 10 unit 11/22/18 17:00 11/24/18 08:32 Humulin 70/30 SUB-Q 10 unit BIDDIAB H[facility]LET Administration Insulin Human Lispro 0 unit 11/23/18 12:00 11/24/18 11:54 Humalog SUB-Q 4 unit Q6HR HAMLET Administration Protocol Metoclopramide HCl 10 mg 11/19/18 17:17 Reglan IV Q6H PRN Nausea And Vomiting Ondansetron HCl 4 mg 11/19/18 17:17 11/20/18 03:13 Zofran IV 4 mg Q3H PRN Administration Nausea And Vomiting Simple Syrup 15 ml 11/21/18 15:26 Simple Syrup FEEDTUBE PRN PRN Hypoglycemia Simple Syrup 30 ml 11/21/18 15:26 Simple Syrup FEEDTUBE PRN PRN Hypoglycemia Sodium Bicarbonate 325 mg 11/21/18 15:26 Sodium Bicarbonate FEEDTUBE PRN PRN For Clogged Feeding Tube Sodium Chloride 10 ml 11/19/18 22:00 11/24/18 11:48 Sodium Chloride Flush Syringe 10 Ml IV 10 ml BID HAMLET Administration Sodium Chloride 10 ml 11/19/18 17:17 Sodium Chloride Flush Syringe 10 Ml IV PRN PRN LINE FLUSH Nutrition/Malnutrition Assess - Dietary Evaluation Nutrition/Malnutrition Findings: Nutrition Notes Start: 11/20/18 08:55 Freq: Status: Active Protocol: Document 11/23/18 17:03 RM (Rec: 11/23/18 17:08 [id number]) Nutrition Notes Initial or Follow up Reassessment Current Diagnosis Acute Kidney Injury,Diabetes Other Pertinent Diagnosis DKA, AMS Current Diet Glucerna 1.2 at 65 ml/hr Labs/Tests Na 145 Pertinent Medications Reviewed Height 5 ft 10 in Weight 53.8 kg [place] Body Weight (kg) 75.45 BMI 17.0 Subjective/Other Information Per nurse pt pulled out tube prior to her shift but nurse plans to replace it d/t suspected aspiration pneu. Unsure of what rate TF was infusing. Burn Absent Trauma Absent #1 Nutrition Diagnosis Malnutrition Diagnosis Progress(for reassessment Continues documentation) Is patient on ventilator? No Is Patient Ambulatory and/or Out of Bed No REE-([facility]-confined to bed) 1512.132 Kcal/Kg value to use for calculation 35 Approximate Energy Requirements Using 1883 kcal/Kg Calculation Used for Recommendations [facility] Additional Notes Protein needs are 54-65g (1-1. 2g/kg) Fluid needs are 1ml/kcal Nutrition Intervention Nutrition Support: Glucerna 1.2 at 65ml/hr Flush with 200ml q4h for hypernatremia and 100ml q4h once resolved. Kcal 1,872 Protein (gm) 94 Fluid (mL) 1,260 Goal #1 TF tolerance Goal #2 Wt gain/maintenance Anticipated Discharge Needs: Unable to determine at this time Follow-Up By: 11/25/18 Additional Comments Follow for new TF
[2018-11-24] MEDS: FLAGYL 500 MG/100 ML 500 MG/100 ML BAG IV SCH ×4 (14:17→22:58)
[2018-11-24] MEDS: MAXIPIME/NS 1 GM/100 ML 1 GM/100 ML BAG IV SCH ×2 (14:25→21:54)
[2018-11-24 15:32] LABS: BUN/Creatinine Ratio 23; Blood Urea Nitrogen 18 mg/dL (9-20); Calcium 8.5 mg/dL (8.4-10.2); Hemolysis Index 57
[2018-11-24] MEDS: TYLENOL PO PRN (21:56)
[2018-11-25] MEDS: HumaLOG SUB-Q SCH ×4 (00:05→13:00)
[2018-11-25] MEDS: FLAGYL 500 MG/100 ML 500 MG/100 ML BAG IV SCH (06:31)
[2018-11-25 07:20] LABS: Mean Corpuscular HGB Conc 36 % (32-34); Mean Corpuscular Volume 87 fl (84-94); Red Blood Count 5.62 M/mm3 (3.65-5.03); Red Cell Distribution Width 13.5 % (13.2-15.2)
[2018-11-25 07:51] LABS: Hematocrit 48.8 % (35.5-45.6); Hemoglobin 17.6 gm/dl (11.8-15.2); Platelet Count 174 K/mm3 (140-440)
--- NOTE | 2018-11-25 09:15 | XRay Report ---
CHEST 1 VIEW INDICATION: f/up pneu. COMPARISON: Previous day. FINDINGS: Support devices: Feeding tube unchanged. Heart: Stable. Lungs/Pleura: Infiltrate remains at the right mid/lower zone without significant change. Negative for pleural fluid. Additional findings: None. IMPRESSION: Persistent right-sided infiltrate. Signer Name: Dany Dunn MD Signed: 11/25/2018 9:10 AM Workstation Name: [id number]
[2018-11-25 10:02] LABS: Total Cells Counted 100
--- NOTE | 2018-11-25 10:02 | Progress Note ---
Assessment and Plan Cultures: Blood cultures 11/19/2018 no growth. Urine culture 11/19/2018 negative Assessment: 78 y/o male with history of diabetes brought by family due to 2-day history of generalized weakness and lethargy: 1) SIRS v/s sepsis: Resolved. Etiology most likely DKA +/- SVT s/p CV. Transiently on pressors. ? underlying sepsis is possible but blood culture so far negative, UA negative, CXR negative.Abdominal CT shows prominent infiltrate is seen in the right lower lobe consistent with pneumonitis. Small bilateral pleural effusions are seen. Rpt CXR shows right lower lung parenchymal opacific ation that could indicate aspiration and/or developing pneumonia. 2) Acute encephaloapthy: from DKA / electrolyte imbalance 3) SVT s/p CV 4) DM uncontrolled DKA 5) MEETA: better 6) Acute Hypoxemia: O2 saturation stable. on RA Recommendations: discontinue cefepime and flagyl, completed antibiotic course monitor off antibiotics Dr. Flanagan will be rounding on Wednesday, please call for questions, . Candy Grande NP [facility] M: [id number] O:[phone] Subjective Date of service: 11/25/18 Principal diagnosis: dka, asp pneu dementia Interval history: Patient seen and examined. Asleep. unable to arouse. Daughter at bedside. Objective - Exam Narrative Exam: General appearance: Asleep. unable to arouse.. No acute distress observed Eyes: anicteric sclerae, moist conjunctivae; no lid-lag; PERRLA HENT: Atraumatic; oropharynx limited Neck: Trachea midline; supple, no thyromegaly or lymphadenopathy Lungs: CTA, with normal respiratory effort and no intercostal retractions CV: RRR no murmur Abdomen: Soft, tender diffusely Extremities: no edema, cyanosis Skin: Normal temperature, turgor and texture; no rash, ulcers or subcutaneous nodules Psych: asleep, unable to arouse. - Constitutional Vitals: Vital Signs Temp Pulse Resp BP Pulse Ox 97.5 F L 63 16 114/56 100 11/25/18 04:09 11/25/18 04:00 11/25/18 04:00 11/23/18 18:00 11/25/18 08:48 Temperature -Last 24 Hours Temperature 97.5 F Temperature 97.8 F Temperature 97.9 F Temperature 97.7 F - Labs CBC & Chem 7: 11/25/18 05:26 11/24/18 14:45 Labs: Abnormal lab results 11/24/18 11/24/18 11/24/18 Range/Units 07:32 08:37 11:32 RBC (3.65-5.03) M/mm3 Hgb (11.8-15.2) gm/dl Hct (35.5-45.6) % MCHC (32-34) % Lymphocytes % (Manual) 10.0 L (13.4-35.0) % Monocytes % (Manual) 12.0 H (0.0-7.3) % Eosinophils % (Manual) 6.0 H (0.0-4.3) % Lymphocytes # (Manual) 0.7 L (1.2-5.4) K/mm3 Sodium (137-145) mmol/L Potassium (3.6-5.0) mmol/L Chloride (98-107) mmol/L Carbon Dioxide (22-30) mmol/L Glucose (75-100) mg/dL POC Glucose 300 H 291 H (70-105) Digoxin (0.9-2.0) ng/mL 11/24/18 11/24/18 11/24/18 Range/Units 12:36 14:45 17:40 RBC (3.65-5.03) M/mm3 Hgb (11.8-15.2) gm/dl Hct (35.5-45.6) % MCHC (32-34) % Lymphocytes % (Manual) (13.4-35.0) % Monocytes % (Manual) (0.0-7.3) % Eosinophils % (Manual) (0.0-4.3) % Lymphocytes # (Manual) (1.2-5.4) K/mm3 Sodium 146 H (137-145) mmol/L Potassium 3.5 L 3.5 L (3.6-5.0) mmol/L Chloride 108.9 H 108.6 H (98-107) mmol/L Carbon Dioxide 20 L (22-30) mmol/L Glucose 246 H 189 H (75-100) mg/dL POC Glucose 231 H (70-105) Digoxin (0.9-2.0) ng/mL 07/26/19 07/26/19 07/26/19 Range/Units 00:06 05:26 05:26 RBC 5.62 H (3.65-5.03) M/mm3 Hgb 17.6 H D (11.8-15.2) gm/dl Hct 48.8 H D (35.5-45.6) % MCHC 36 H (32-34) % Lymphocytes % (Manual) (13.4-35.0) % Monocytes % (Manual) (0.0-7.3) % Eosinophils % (Manual) (0.0-4.3) % Lymphocytes # (Manual) (1.2-5.4) K/mm3 Sodium (137-145) mmol/L Potassium (3.6-5.0) mmol/L Chloride (98-107) mmol/L Carbon Dioxide (22-30) mmol/L Glucose (75-100) mg/dL POC Glucose 106 H (70-105) Digoxin 0.5 L (0.9-2.0) ng/mL 11/25/18 Range/Units 05:53 RBC (3.65-5.03) M/mm3 Hgb (11.8-15.2) gm/dl Hct (35.5-45.6) % MCHC (32-34) % Lymphocytes % (Manual) (13.4-35.0) % Monocytes % (Manual) (0.0-7.3) % Eosinophils % (Manual) (0.0-4.3) % Lymphocytes # (Manual) (1.2-5.4) K/mm3 Sodium (137-145) mmol/L Potassium (3.6-5.0) mmol/L Chloride (98-107) mmol/L Carbon Dioxide (22-30) mmol/L Glucose (75-100) mg/dL POC Glucose 254 H (70-105) Digoxin (0.9-2.0) ng/mL
[2018-11-25 10:03] LABS: Anisocytosis 1+; Poikilocytosis Few
[2018-11-25 10:04] LABS: Platelet Estimate Consistent w Auto
--- NOTE | 2018-11-25 10:39 | Progress Note ---
Assessment and Plan 78 y/o male with DKA, likely hypovolemic hypernatremia, and hypovolemia now with acute respiratory failure, thought secondary to aspiration pneumonia. 1. Wean FiO2 for sats >88% 2. If patient able to ambulate will need walk test prior to discharge 3. If not able to ambulate, can obtain room air abg to see if patient qualifies for home O2 4. Needs labs checked for today. Subjective Date of service: 11/25/18 Principal diagnosis: dka, asp pneu dementia Interval history: No acute events. Currently on 2.5 liters with a sat documented at 100%. yesterday was on room air. Not sure why he was placed on oxygen. Objective Vital Signs - 12hr 11/25/18 11/25/18 11/25/18 00:00 00:05 00:13 Temperature 97.8 F Pulse Rate 90 Pulse Rate [ 63 From Monitor] Respiratory 16 Rate O2 Sat by Pulse 96 Oximetry 11/25/18 11/25/18 11/25/18 04:00 04:09 08:48 Temperature 97.5 F L Pulse Rate 90 Pulse Rate [ 63 From Monitor] Respiratory 16 Rate O2 Sat by Pulse 96 100 Oximetry Constitutional: no acute distress Eyes: non-icteric Ascultation: Right: rales, Bilateral: diminished breath sounds CBC and BMP: 11/25/18 05:26 11/24/18 14:45 ABG, PT/INR, D-dimer: PT/INR, D-dimer PT 12.9 Sec. (12.2-14.9) 11/19/18 10:07 INR 1.00 (0.87-1.13) 11/19/18 10:07 Abnormal lab findings: Abnormal Labs 11/19/18 11/19/18 11/19/18 10:07 10:07 10:07 WBC RBC 5.66 H Hgb 17.7 H Hct 55.2 H MCV 98 H MCHC RDW 15.3 H Lymph % (Auto) 4.2 L Lymph # 0.3 L Seg Neutrophils % 89.3 H Seg Neuts % (Manual) Lymphocytes % (Manual) Monocytes % (Manual) Eosinophils % (Manual) Seg Neutrophils # Man Lymphocytes # (Manual) VBG pH 7.162 L* Sodium Potassium Chloride Carbon Dioxide BUN Creatinine Glucose POC Glucose Hemoglobin A1c Lactic Acid Calcium Phosphorus Magnesium 3.10 H Total Creatine Kinase 690 H Albumin Digoxin 11/19/18 11/19/18 11/19/18 10:07 10:07 10:10 WBC RBC Hgb Hct MCV MCHC RDW Lymph % (Auto) Lymph # Seg Neutrophils % Seg Neuts % (Manual) Lymphocytes % (Manual) Monocytes % (Manual) Eosinophils % (Manual) Seg Neutrophils # Man Lymphocytes # (Manual) VBG pH Sodium 152 H Potassium Chloride Carbon Dioxide 7 L* BUN 61 H Creatinine 2.1 H Glucose 878 H* POC Glucose > 500 H Hemoglobin A1c Lactic Acid 2.20 H* Calcium Phosphorus Magnesium Total Creatine Kinase Albumin 3.6 L Digoxin 11/19/18 11/19/18 11/19/18 11:29 11:29 11:29 WBC RBC Hgb Hct MCV MCHC RDW Lymph % (Auto) Lymph # Seg Neutrophils % Seg Neuts % (Manual) Lymphocytes % (Manual) Monocytes % (Manual) Eosinophils % (Manual) Seg Neutrophils # Man Lymphocytes # (Manual) VBG pH Sodium 151 H Potassium Chloride Carbon Dioxide 7 L* BUN 60 H Creatinine 1.9 H Glucose 793 H* POC Glucose Hemoglobin A1c Lactic Acid 2.30 H* Calcium Phosphorus 6.90 H Magnesium 2.80 H Total Creatine Kinase Albumin Digoxin 11/19/18 11/19/18 11/19/18 13:20 14:56 15:06 WBC RBC Hgb Hct MCV MCHC RDW Lymph % (Auto) Lymph # Seg Neutrophils % Seg Neuts % (Manual) Lymphocytes % (Manual) Monocytes % (Manual) Eosinophils % (Manual) Seg Neutrophils # Man Lymphocytes # (Manual) VBG pH Sodium 161 H* D 160 H Potassium Chloride 111.0 H 113.7 H Carbon Dioxide 12 L 14 L BUN 54 H 52 H Creatinine 2.0 H 1.9 H Glucose 596 H* 496 H POC Glucose 442 H Hemoglobin A1c Lactic Acid Calcium Phosphorus Magnesium Total Creatine Kinase Albumin Digoxin 11/19/18 11/19/18 11/19/18 15:06 16:07 17:10 WBC RBC Hgb Hct MCV MCHC RDW Lymph % (Auto) Lymph # Seg Neutrophils % Seg Neuts % (Manual) Lymphocytes % (Manual) Monocytes % (Manual) Eosinophils % (Manual) Seg Neutrophils # Man Lymphocytes # (Manual) VBG pH Sodium 163 H* Potassium 3.3 L Chloride 119.9 H Carbon Dioxide 17 L BUN 49 H Creatinine 1.7 H Glucose 350 H POC Glucose 475 H Hemoglobin A1c Lactic Acid 3.30 H* Calcium Phosphorus Magnesium Total Creatine Kinase Albumin Digoxin 11/19/18 11/19/18 11/19/18 17:10 17:27 18:26 WBC RBC Hgb Hct MCV MCHC RDW Lymph % (Auto) Lymph # Seg Neutrophils % Seg Neuts % (Manual) Lymphocytes % (Manual) Monocytes % (Manual) Eosinophils % (Manual) Seg Neutrophils # Man Lymphocytes # (Manual) VBG pH Sodium Potassium Chloride Carbon Dioxide BUN Creatinine Glucose POC Glucose 368 H 270 H Hemoglobin A1c Lactic Acid 3.30 H* Calcium Phosphorus Magnesium Total Creatine Kinase Albumin Digoxin 11/19/18 11/19/18 11/19/18 19:14 19:14 19:14 WBC RBC Hgb Hct MCV MCHC RDW Lymph % (Auto) Lymph # Seg Neutrophils % Seg Neuts % (Manual) Lymphocytes % (Manual) Monocytes % (Manual) Eosinophils % (Manual) Seg Neutrophils # Man Lymphocytes # (Manual) VBG pH Sodium 164 H* Potassium Chloride 122.7 H Carbon Dioxide BUN 43 H Creatinine 1.6 H Glucose 240 H POC Glucose Hemoglobin A1c 16.9 H Lactic Acid Calcium Phosphorus 1.00 L D Magnesium 2.40 H Total Creatine Kinase Albumin Digoxin 11/19/18 11/19/18 11/19/18 19:14 19:18 20:10 WBC RBC Hgb Hct MCV MCHC RDW Lymph % (Auto) Lymph # Seg Neutrophils % Seg Neuts % (Manual) Lymphocytes % (Manual) Monocytes % (Manual) Eosinophils % (Manual) Seg Neutrophils # Man Lymphocytes # (Manual) VBG pH Sodium Potassium Chloride Carbon Dioxide BUN Creatinine Glucose POC Glucose 307 H 232 H Hemoglobin A1c Lactic Acid 3.70 H* Calcium Phosphorus Magnesium Total Creatine Kinase Albumin Digoxin 11/19/18 11/19/18 11/19/18 21:59 22:55 22:55 WBC RBC Hgb Hct MCV MCHC RDW Lymph % (Auto) Lymph # Seg Neutrophils % Seg Neuts % (Manual) Lymphocytes % (Manual) Monocytes % (Manual) Eosinophils % (Manual) Seg Neutrophils # Man Lymphocytes # (Manual) VBG pH Sodium 165 H* Potassium Chloride 124.9 H Carbon Dioxide BUN 39 H Creatinine Glucose 111 H POC Glucose 151 H Hemoglobin A1c Lactic Acid 3.20 H* Calcium Phosphorus Magnesium Total Creatine Kinase Albumin Digoxin 11/20/18 11/20/18 11/20/18 00:55 03:34 03:34 WBC RBC Hgb Hct MCV MCHC RDW Lymph % (Auto) Lymph # Seg Neutrophils % Seg Neuts % (Manual) Lymphocytes % (Manual) Monocytes % (Manual) Eosinophils % (Manual) Seg Neutrophils # Man Lymphocytes # (Manual) VBG pH Sodium 165 H* Potassium Chloride 126.2 H Carbon Dioxide BUN 35 H Creatinine Glucose 124 H POC Glucose 118 H Hemoglobin A1c Lactic Acid Calcium Phosphorus 0.80 L* Magnesium Total Creatine Kinase Albumin Digoxin 11/20/18 11/20/18 11/20/18 03:44 04:32 04:34 WBC 1.5 L* RBC Hgb Hct 35.2 L D MCV MCHC 35 H RDW Lymph % (Auto) Lymph # Seg Neutrophils % Seg Neuts % (Manual) 30.0 L Lymphocytes % (Manual) Monocytes % (Manual) 10.0 H Eosinophils % (Manual) Seg Neutrophils # Man 0.5 L Lymphocytes # (Manual) 0.3 L VBG pH Sodium Potassium Chloride Carbon Dioxide BUN Creatinine Glucose POC Glucose 127 H 168 H Hemoglobin A1c Lactic Acid Calcium Phosphorus Magnesium Total Creatine Kinase Albumin Digoxin 11/20/18 11/20/18 11/20/18 06:41 07:14 08:40 WBC RBC Hgb Hct MCV MCHC RDW Lymph % (Auto) Lymph # Seg Neutrophils % Seg Neuts % (Manual) Lymphocytes % (Manual) Monocytes % (Manual) Eosinophils % (Manual) Seg Neutrophils # Man Lymphocytes # (Manual) VBG pH Sodium 161 H* Potassium Chloride 122.7 H Carbon Dioxide BUN 36 H Creatinine Glucose 252 H POC Glucose 236 H 379 H Hemoglobin A1c Lactic Acid Calcium Phosphorus 2.30 L D Magnesium Total Creatine Kinase Albumin Digoxin 11/20/18 11/20/18 11/20/18 14:47 14:51 18:05 WBC RBC Hgb Hct MCV MCHC RDW Lymph % (Auto) Lymph # Seg Neutrophils % Seg Neuts % (Manual) Lymphocytes % (Manual) Monocytes % (Manual) Eosinophils % (Manual) Seg Neutrophils # Man Lymphocytes # (Manual) VBG pH Sodium 158 H 156 H Potassium Chloride 123.8 H 121.5 H Carbon Dioxide BUN 26 H 25 H Creatinine Glucose 127 H 69 L POC Glucose 151 H Hemoglobin A1c Lactic Acid Calcium 7.6 L 7.8 L Phosphorus Magnesium Total Creatine Kinase Albumin Digoxin 11/20/18 11/21/18 11/21/18 23:29 02:17 02:20 WBC RBC Hgb Hct MCV MCHC RDW Lymph % (Auto) Lymph # Seg Neutrophils % Seg Neuts % (Manual) Lymphocytes % (Manual) Monocytes % (Manual) Eosinophils % (Manual) Seg Neutrophils # Man Lymphocytes # (Manual) VBG pH Sodium 157 H 155 H Potassium 3.5 L Chloride 122.0 H 119.4 H Carbon Dioxide BUN 23 H 21 H Creatinine Glucose 74 L 105 H POC Glucose 115 H Hemoglobin A1c Lactic Acid Calcium 7.6 L 7.7 L Phosphorus Magnesium Total Creatine Kinase Albumin Digoxin 11/21/18 11/21/18 11/21/18 04:25 08:13 08:13 WBC RBC Hgb Hct 34.4 L MCV MCHC 35 H RDW Lymph % (Auto) Lymph # Seg Neutrophils % Seg Neuts % (Manual) Lymphocytes % (Manual) Monocytes % (Manual) Eosinophils % (Manual) Seg Neutrophils # Man Lymphocytes # (Manual) VBG pH Sodium 153 H Potassium Chloride 117.9 H Carbon Dioxide BUN 23 H Creatinine Glucose 260 H POC Glucose Hemoglobin A1c Lactic Acid Calcium 7.8 L Phosphorus Magnesium Total Creatine Kinase Albumin Digoxin 0.8 L 11/21/18 11/21/18 11/21/18 11:01 16:46 17:38 WBC RBC Hgb Hct MCV MCHC RDW Lymph % (Auto) Lymph # Seg Neutrophils % Seg Neuts % (Manual) Lymphocytes % (Manual) Monocytes % (Manual) Eosinophils % (Manual) Seg Neutrophils # Man Lymphocytes # (Manual) VBG pH Sodium 154 H 155 H Potassium Chloride 119.6 H 119.7 H Carbon Dioxide 20 L BUN 25 H 23 H Creatinine Glucose 275 H 202 H POC Glucose 188 H Hemoglobin A1c Lactic Acid Calcium 7.9 L 8.3 L Phosphorus Magnesium Total Creatine Kinase Albumin Digoxin 11/21/18 11/21/18 11/22/18 20:55 22:33 05:56 WBC RBC Hgb Hct MCV MCHC RDW Lymph % (Auto) Lymph # Seg Neutrophils % Seg Neuts % (Manual) Lymphocytes % (Manual) Monocytes % (Manual) Eosinophils % (Manual) Seg Neutrophils # Man Lymphocytes # (Manual) VBG pH Sodium 155 H 155 H Potassium 3.3 L 3.1 L Chloride 117.8 H 120.8 H Carbon Dioxide BUN Creatinine Glucose 57 L POC Glucose 134 H Hemoglobin A1c Lactic Acid Calcium 8.2 L 8.1 L Phosphorus Magnesium Total Creatine Kinase Albumin Digoxin 11/22/18 11/22/18 11/22/18 05:56 07:34 10:20 WBC 11.1 H RBC Hgb 11.5 L Hct 33.7 L MCV MCHC RDW Lymph % (Auto) Lymph # Seg Neutrophils % Seg Neuts % (Manual) Lymphocytes % (Manual) Monocytes % (Manual) Eosinophils % (Manual) Seg Neutrophils # Man Lymphocytes # (Manual) VBG pH Sodium 153 H Potassium 3.1 L Chloride 117.9 H Carbon Dioxide BUN Creatinine Glucose 171 H POC Glucose 145 H Hemoglobin A1c Lactic Acid Calcium 8.1 L Phosphorus Magnesium Total Creatine Kinase Albumin Digoxin 11/22/18 11/22/18 11/22/18 14:35 14:54 14:58 WBC RBC Hgb Hct MCV MCHC RDW Lymph % (Auto) Lymph # Seg Neutrophils % Seg Neuts % (Manual) Lymphocytes % (Manual) Monocytes % (Manual) Eosinophils % (Manual) Seg Neutrophils # Man Lymphocytes # (Manual) VBG pH Sodium 151 H Potassium 2.9 L* Chloride 116.2 H Carbon Dioxide BUN Creatinine Glucose 320 H POC Glucose 51 L 159 H Hemoglobin A1c Lactic Acid Calcium 8.1 L Phosphorus Magnesium Total Creatine Kinase Albumin Digoxin 11/22/18 11/22/18 11/22/18 16:35 20:25 21:17 WBC RBC Hgb Hct MCV MCHC RDW Lymph % (Auto) Lymph # Seg Neutrophils % Seg Neuts % (Manual) Lymphocytes % (Manual) Monocytes % (Manual) Eosinophils % (Manual) Seg Neutrophils # Man Lymphocytes # (Manual) VBG pH Sodium 153 H Potassium 3.4 L Chloride 114.5 H Carbon Dioxide BUN Creatinine Glucose 74 L POC Glucose 137 H 198 H Hemoglobin A1c Lactic Acid Calcium Phosphorus Magnesium Total Creatine Kinase Albumin Digoxin 11/23/18 11/23/18 11/23/18 02:49 04:59 07:18 WBC RBC 3.09 L Hgb 9.7 L Hct 27.7 L D MCV MCHC 35 H RDW Lymph % (Auto) Lymph # Seg Neutrophils % Seg Neuts % (Manual) 84.0 H Lymphocytes % (Manual) 7.0 L Monocytes % (Manual) 8.0 H Eosinophils % (Manual) Seg Neutrophils # Man Lymphocytes # (Manual) 0.6 L VBG pH Sodium 149 H Potassium 3.2 L Chloride 111.5 H Carbon Dioxide BUN Creatinine Glucose 176 H POC Glucose 169 H Hemoglobin A1c Lactic Acid Calcium 8.2 L Phosphorus Magnesium Total Creatine Kinase Albumin Digoxin 11/23/18 11/23/18 11/23/18 07:18 11:00 11:56 WBC RBC Hgb Hct MCV MCHC RDW Lymph % (Auto) Lymph # Seg Neutrophils % Seg Neuts % (Manual) Lymphocytes % (Manual) Monocytes % (Manual) Eosinophils % (Manual) Seg Neutrophils # Man Lymphocytes # (Manual) VBG pH Sodium 146 H Potassium 3.2 L 5.1 H D Chloride 108.7 H 109.6 H Carbon Dioxide 17 L BUN Creatinine Glucose 180 H 330 H POC Glucose 323 H Hemoglobin A1c Lactic Acid Calcium Phosphorus Magnesium Total Creatine Kinase Albumin Digoxin 11/23/18 11/23/18 11/23/18 16:16 18:00 21:18 WBC RBC Hgb Hct MCV MCHC RDW Lymph % (Auto) Lymph # Seg Neutrophils % Seg Neuts % (Manual) Lymphocytes % (Manual) Monocytes % (Manual) Eosinophils % (Manual) Seg Neutrophils # Man Lymphocytes # (Manual) VBG pH Sodium 148 H 149 H Potassium 3.4 L D 2.8 L* Chloride 109.7 H 109.7 H Carbon Dioxide BUN Creatinine Glucose 194 H 66 L POC Glucose 186 H Hemoglobin A1c Lactic Acid Calcium Phosphorus Magnesium Total Creatine Kinase Albumin Digoxin 11/23/18 11/23/18 11/24/18 22:48 23:32 00:55 WBC RBC Hgb Hct MCV MCHC RDW Lymph % (Auto) Lymph # Seg Neutrophils % Seg Neuts % (Manual) Lymphocytes % (Manual) Monocytes % (Manual) Eosinophils % (Manual) Seg Neutrophils # Man Lymphocytes # (Manual) VBG pH Sodium 149 H Potassium 2.7 L* Chloride 111.6 H Carbon Dioxide BUN Creatinine Glucose 56 L POC Glucose 56 L 209 H Hemoglobin A1c Lactic Acid Calcium Phosphorus Magnesium Total Creatine Kinase Albumin Digoxin 11/24/18 11/24/18 11/24/18 04:29 06:03 07:32 WBC RBC Hgb Hct 34.4 L D MCV MCHC 35 H RDW Lymph % (Auto) Lymph # Seg Neutrophils % Seg Neuts % (Manual) Lymphocytes % (Manual) 10.0 L Monocytes % (Manual) 12.0 H Eosinophils % (Manual) 6.0 H Seg Neutrophils # Man Lymphocytes # (Manual) 0.7 L VBG pH Sodium 146 H Potassium Chloride 113.0 H Carbon Dioxide BUN Creatinine Glucose 138 H POC Glucose 174 H Hemoglobin A1c Lactic Acid Calcium Phosphorus Magnesium Total Creatine Kinase Albumin Digoxin 11/24/18 11/24/18 11/24/18 07:32 08:37 11:32 WBC RBC Hgb Hct MCV MCHC RDW Lymph % (Auto) Lymph # Seg Neutrophils % Seg Neuts % (Manual) Lymphocytes % (Manual) Monocytes % (Manual) Eosinophils % (Manual) Seg Neutrophils # Man Lymphocytes # (Manual) VBG pH Sodium 146 H Potassium Chloride 109.5 H Carbon Dioxide BUN Creatinine Glucose 236 H POC Glucose 300 H 291 H Hemoglobin A1c Lactic Acid Calcium Phosphorus Magnesium Total Creatine Kinase Albumin Digoxin 11/24/18 11/24/18 11/24/18 12:36 14:45 17:40 WBC RBC Hgb Hct MCV MCHC RDW Lymph % (Auto) Lymph # Seg Neutrophils % Seg Neuts % (Manual) Lymphocytes % (Manual) Monocytes % (Manual) Eosinophils % (Manual) Seg Neutrophils # Man Lymphocytes # (Manual) VBG pH Sodium 146 H Potassium 3.5 L 3.5 L Chloride 108.9 H 108.6 H Carbon Dioxide 20 L BUN Creatinine Glucose 246 H 189 H POC Glucose 231 H Hemoglobin A1c Lactic Acid Calcium Phosphorus Magnesium Total Creatine Kinase Albumin Digoxin 11/25/18 11/25/18 11/25/18 00:06 05:26 05:26 WBC RBC 5.62 H Hgb 17.6 H D Hct 48.8 H D MCV MCHC 36 H RDW Lymph % (Auto) Lymph # Seg Neutrophils % Seg Neuts % (Manual) 73.0 H Lymphocytes % (Manual) 8.0 L Monocytes % (Manual) 14.0 H Eosinophils % (Manual) Seg Neutrophils # Man Lymphocytes # (Manual) 0.4 L VBG pH Sodium Potassium Chloride Carbon Dioxide BUN Creatinine Glucose POC Glucose 106 H Hemoglobin A1c Lactic Acid Calcium Phosphorus Magnesium Total Creatine Kinase Albumin Digoxin 0.5 L 11/25/18 05:53 WBC RBC Hgb Hct MCV MCHC RDW Lymph % (Auto) Lymph # Seg Neutrophils % Seg Neuts % (Manual) Lymphocytes % (Manual) Monocytes % (Manual) Eosinophils % (Manual) Seg Neutrophils # Man Lymphocytes # (Manual) VBG pH Sodium Potassium Chloride Carbon Dioxide BUN Creatinine Glucose POC Glucose 254 H Hemoglobin A1c Lactic Acid Calcium Phosphorus Magnesium Total Creatine Kinase Albumin Digoxin
[2018-11-25] MEDS: LANOXIN PO SCH (11:04)
[2018-11-25] MEDS: ELIQUIS PO SCH ×2 (11:04→21:28)
[2018-11-25] MEDS: PEPCID PO SCH ×2 (11:05→21:38)
[2018-11-25] MEDS: SODIUM CHLORIDE FLUSH SYRINGE 10 ML IV SCH ×2 (11:05→21:38)
--- NOTE | 2018-11-25 11:22 | Progress Note ---
Assessment and Plan Pt remains in SR. Cont present cardiac management. Will follow peripherally over the weekend. The patient has been seen in conjunction with Dr. Clay who agrees with the assessment and plan of care. - Patient Problems (1) Atrial fibrillation with RVR Current Visit: Yes Status: Acute (2) Abnormal ECG Current Visit: Yes Status: Acute (3) DKA (diabetic ketoacidoses) Current Visit: Yes Status: Acute Qualifiers: Diabetes mellitus type: type 2 (4) Altered mental status Current Visit: Yes Status: Acute (5) MEETA (acute kidney injury) Current Visit: Yes Status: Acute (6) Acute hypernatremia Current Visit: Yes Status: Acute (7) Leucopenia Current Visit: Yes Status: Acute Subjective Date of service: 11/25/18 Principal diagnosis: dka, asp pneu dementia Interval history: pt resting in bed, lethargic, family member at bedside. in SR on tele. Objective Last Vital Signs Temp 97.5 F L 11/25/18 04:09 Pulse 63 11/25/18 04:00 Resp 16 11/25/18 04:00 BP 114/56 11/23/18 18:00 Pulse Ox 98 11/25/18 11:06 - Physical Examination General: No Apparent Distress HEENT: Positive: Normocephaly, Mucus Membranes Moist Neck: Positive: neck supple, trachea midline Cardiac: Positive: Reg Rate and Rhythm, S1/S2 Lungs: Positive: Decreased Breath Sounds Neuro: Positive: Other (confused) Abdomen: Positive: Soft, Active Bowel Sounds. Negative: Tender Skin: Positive: Clear. Negative: Rash Musculoskeletal: Normal Range of Motion Extremities: Present: normal. Absent: edema - Labs and Meds CBC 11/25/18 Range/Units 05:26 WBC 5.4 (4.5-11.0) K/mm3 RBC 5.62 H (3.65-5.03) M/mm3 Hgb 17.6 H D (11.8-15.2) gm/dl Hct 48.8 H D (35.5-45.6) % Plt Count 174 (140-440) K/mm3 Comprehensive Metabolic Panel 11/24/18 11/24/18 Range/Units 12:36 14:45 Sodium 146 H 142 (137-145) mmol/L Potassium 3.5 L 3.5 L (3.6-5.0) mmol/L Chloride 108.9 H 108.6 H (98-107) mmol/L Carbon Dioxide 25 20 L (22-30) mmol/L BUN 19 18 (9-20) mg/dL Creatinine 0.8 0.8 (0.8-1.5) mg/dL Glucose 246 H 189 H (75-100) mg/dL Calcium 8.8 8.5 (8.4-10.2) mg/dL - Imaging and Cardiology EKG: report reviewed, image reviewed Echo: report reviewed (EF 50-55%, mild TR, impaired relaxation. ) - EKG Sinus rhythms and dysrhythmias: sinus rhythm Repolarization changes or abnormalities: ST or T wave suggestive of ischemia
--- NOTE | 2018-11-25 12:32 | Progress Note ---
Assessment and Plan Assessment and plan: Sepsis. Resolved. Etiology most likely DKA +/- SVT s/p CV. Blood culture negative, UA negative, CXR negative. Abdominal CT shows prominent infiltrate is seen in the right lower lobe consistent with pneumonitis. Small bilateral pleural effusions are seen. Aspiration pneumonia. Repeat CXR shows right lower lung parenchymal opacification that could indicate aspiration and/or developing pneumonia. Acute hypoxic respiratory failure. Etiology segment to above. Continue O2 to maintain sats Toxic metabolic encephaloapthy. Etiology from DKA / electrolyte imbalance / Sepsis Atrial fibrillation with RVR. F/u BMP, Mg and digoxin level in AM. Cont digoxin and eliquis DM 2, uncontrolled. Patient with labile blood sugars. We will continue to monitor continue to feedings. MEETA. Improved. oropharyngeal dysphagia. Speech reassessed the patient's swallowing function to determine the patient's ability to safely tolerate po. Patient continues to demonstrate poor swallowing function with noted multiple swallows and an audible wet vocal quality. Overt signs of aspiration were noted with an inability to clear secretions from the pharynx. Consult GI for potential PEG placement. Discussed with family who are in agreement. History Interval history: No new issues overnight. Hospitalist Physical - Constitutional Vitals: Temp Pulse Resp BP Pulse Ox 97.7 F 65 16 111/45 95 11/25/18 08:00 11/25/18 11:04 11/25/18 04:00 11/25/18 11:04 11/25/18 11:26 General appearance: Present: no acute distress (alert follows commands) - EENT Eyes: Present: PERRL, EOM intact ENT: hearing intact, clear oral mucosa, dentition normal - Neck Neck: Present: supple, normal ROM - Respiratory Respiratory effort: normal Respiratory: bilateral: CTA - Cardiovascular Rhythm: regular Heart Sounds: Present: S1 & S2. Absent: gallop, rub - Extremities Extremities: no ischemia, No edema, Full ROM - Abdominal General gastrointestinal: soft, non-tender, non-distended, normal bowel sounds - Integumentary Integumentary: Present: clear, warm, dry - Neurologic Neurologic: CNII-XII intact, moves all extremities Results - Labs CBC & Chem 7: 11/25/18 05:26 11/24/18 14:45 Labs: Laboratory Last Values WBC 5.4 K/mm3 (4.5-11.0) 11/25/18 05:26 RBC 5.62 M/mm3 (3.65-5.03) H 11/25/18 05:26 Hgb 17.6 gm/dl (11.8-15.2) H D 11/25/18 05:26 Hct 48.8 % (35.5-45.6) H D 11/25/18 05:26 MCV 87 fl (84-94) 11/25/18 05:26 MCH 31 pg (28-32) 11/25/18 05:26 MCHC 36 % (32-34) H 11/25/18 05:26 RDW 13.5 % (13.2-15.2) 11/25/18 05:26 Plt Count 174 K/mm3 (140-440) 11/25/18 05:26 Lymph % (Auto) 4.2 % (13.4-35.0) L 11/19/18 10:07 [place] % (Auto) Card Mounter 11/24/18 07:32 Eos % (Auto) 0.5 % (0.0-4.3) 11/19/18 10:07 Baso % (Auto) 0.1 % (0.0-1.8) 11/19/18 10:07 Lymph # 0.3 K/mm3 (1.2-5.4) L 11/19/18 10:07 [place] # 0.5 K/mm3 (0.0-0.8) 11/19/18 10:07 Eos # 0.0 K/mm3 (0.0-0.4) 11/19/18 10:07 Baso # 0.0 K/mm3 (0.0-0.1) 11/19/18 10:07 Add Manual Diff Complete 11/25/18 05:26 Total Counted 100 11/25/18 05:26 Seg Neutrophils % 89.3 % (40.0-70.0) H 11/19/18 10:07 Seg Neuts % (Manual) 73.0 % (40.0-70.0) H 11/25/18 05:26 0 % 11/25/18 05:26 8.0 % (13.4-35.0) L 11/25/18 05:26 Reactive Lymphs % (Man) 0 % 11/25/18 05:26 14.0 % (0.0-7.3) H 11/25/18 05:26 4.0 % (0.0-4.3) 11/25/18 05:26 1.0 % (0.0-1.8) 11/25/18 05:26 0 % 11/25/18 05:26 0 % 11/25/18 05:26 0 % 11/25/18 05:26 0 % 11/25/18 05:26 Nucleated RBC % Not Reportable 11/25/18 05:26 Seg Neutrophils # 6.9 K/mm3 (1.8-7.7) 11/19/18 10:07 Seg Neutrophils # Man 3.9 K/mm3 (1.8-7.7) 11/25/18 05:26 Band Neutrophils # 0.0 K/mm3 11/25/18 05:26 0.4 K/mm3 (1.2-5.4) L 11/25/18 05:26 Abs React Lymphs (Man) 0.0 K/mm3 11/25/18 05:26 0.8 K/mm3 (0.0-0.8) 11/25/18 05:26 0.2 K/mm3 (0.0-0.4) 11/25/18 05:26 0.1 K/mm3 (0.0-0.1) 11/25/18 05:26 0.0 K/mm3 11/25/18 05:26 0.0 K/mm3 11/25/18 05:26 0.0 K/mm3 11/25/18 05:26 Blast Cells # 0.0 K/mm3 11/25/18 05:26 WBC Morphology Not Reportable 11/25/18 05:26 Hypersegmented Neuts Not Reportable 11/25/18 05:26 Hyposegmented Neuts Not Reportable 11/25/18 05:26 Hypogranular Neuts Not Reportable 11/25/18 05:26 Not Reportable 11/25/18 05:26 Not Reportable 11/25/18 05:26 Not Reportable 11/25/18 05:26 Not Reportable 11/25/18 05:26 Not Reportable 11/25/18 05:26 Not Reportable 11/25/18 05:26 Consistent w auto 11/25/18 05:26 Not Reportable 11/25/18 05:26 Plt Clumps, EDTA Not Reportable 11/25/18 05:26 Not Reportable 11/25/18 05:26 Not Reportable 11/25/18 05:26 Not Reportable 11/25/18 05:26 Plt Morphology Comment Not Reportable 11/25/18 05:26 RBC Morphology Not Reportable 11/25/18 05:26 Dimorphic RBCs Not Reportable 11/25/18 05:26 Not Reportable 11/25/18 05:26 Not Reportable 11/25/18 05:26 Few 11/25/18 05:26 1+ 11/25/18 05:26 Not Reportable 11/25/18 05:26 Not Reportable 11/25/18 05:26 Not Reportable 11/25/18 05:26 Not Reportable 11/25/18 05:26 Not Reportable 11/25/18 05:26 Not Reportable 11/25/18 05:26 Not Reportable 11/25/18 05:26 Not Reportable 11/25/18 05:26 Not Reportable 11/25/18 05:26 Not Reportable 11/25/18 05:26 Not Reportable 11/25/18 05:26 Not Reportable 11/25/18 05:26 Not Reportable 11/25/18 05:26 Not Reportable 11/25/18 05:26 Not Reportable 11/25/18 05:26 Acanthocytes (Spur) Not Reportable 11/25/18 05:26 Rouleaux Not Reportable 11/25/18 05:26 Not Reportable 11/25/18 05:26 Not Reportable 11/25/18 05:26 Not Reportable 11/25/18 05:26 Not Reportable 11/25/18 05:26 Hem Pathologist Commnt No 11/25/18 05:26 PT 12.9 Sec. (12.2-14.9) 11/19/18 10:07 INR 1.00 (0.87-1.13) 11/19/18 10:07 APTT 26.3 Sec. (24.2-36.6) 11/19/18 10:07 VBG pH 7.162 (7.320-7.420) L* 11/19/18 10:07 Sodium 142 mmol/L (137-145) 11/24/18 14:45 Potassium 3.5 mmol/L (3.6-5.0) L 11/24/18 14:45 Chloride 108.6 mmol/L (98-107) H 11/24/18 14:45 Carbon Dioxide 20 mmol/L (22-30) L 11/24/18 14:45 17 mmol/L 11/24/18 14:45 BUN 18 mg/dL (9-20) 11/24/18 14:45 0.8 mg/dL (0.8-1.5) 11/24/18 14:45 Estimated GFR > 60 ml/min 11/24/18 14:45 23 % 11/24/18 14:45 Glucose 189 mg/dL (75-100) H 11/24/18 14:45 POC Glucose 254 (70-105) H 11/25/18 05:53 16.9 % (4-6) H 11/19/18 19:14 Lactic Acid 2.00 mmol/L (0.7-2.0) 11/20/18 04:50 Calcium 8.5 mg/dL (8.4-10.2) 11/24/18 14:45 Phosphorus 2.30 mg/dL (2.5-4.5) L D 11/20/18 07:14 Magnesium 1.90 mg/dL (1.7-2.3) 11/25/18 05:26 0.20 mg/dL (0.1-1.2) 11/19/18 10:07 AST 26 units/L (5-40) 11/19/18 10:07 ALT 24 units/L (7-56) 11/19/18 10:07 101 units/L (35-129) 11/19/18 10:07 690 units/L (55-170) H 11/19/18 10:07 0.016 ng/mL (0.00-0.029) 11/19/18 10:07 6.4 g/dL (6.3-8.2) 11/19/18 10:07 3.6 g/dL (3.9-5) L 11/19/18 10:07 1.3 % 11/19/18 10:07 Yellow (Yellow) 11/19/18 09:17 Clear (Clear) 11/19/18 09:17 5.0 (5.0-7.0) 11/19/18 09:17 Ur Specific [place] 1.027 (1.003-1.030) 11/19/18 09:17 <15 mg/dl mg/dL (Negative) 11/19/18 09:17 >=500 mg/dL (Negative) 11/19/18 09:17 80 mg/dL (Negative) 11/19/18 09:17 Neg (Negative) 11/19/18 09:17 Neg (Negative) 11/19/18 09:17 Neg (Negative) 11/19/18 09:17 < 2.0 mg/dL (<2.0) 11/19/18 09:17 Ur Leukocyte Esterase Neg (Negative) 11/19/18 09:17 < 1.0 /HPF (0.0-6.0) 11/19/18 09:17 2.0 /HPF (0.0-6.0) 11/19/18 09:17 Few /HPF 11/19/18 09:17 Digoxin 0.5 ng/mL (0.9-2.0) L 11/25/18 05:26 Active Medications - Current Medications Current Medications: Generic Name Dose Route Start Last Admin Trade Name Freq PRN Reason Stop Dose Admin Acetaminophen 650 mg 11/23/18 00:13 11/24/18 21:56 Tylenol PO 650 mg Q4H PRN Administration Pain, Mild (1-3), fever > 101 Albuterol 2.5 mg 11/20/18 04:27 Proventil IH Q4HRT PRN Shortness Of Breath Lipase/Protease/Amylase 1 each 11/21/18 15:26 Pancreaze 10,500 Unit FEEDTUBE PRN PRN For Clogged Feeding Tube Apixaban 2.5 mg 11/21/18 11:00 11/25/18 11:04 Eliquis PO 2.5 mg Q12HR HAMLET Administration Protocol Digoxin 0.125 mg 11/21/18 10:00 11/25/18 11:04 Lanoxin PO 0.125 mg Q48H HAMLET Administration Famotidine 20 mg 11/25/18 10:00 11/25/18 11:05 Pepcid PO 20 mg BID HAMLET Administration Guaifenesin 200 mg 11/20/18 04:28 Robitussin PO Q4H PRN Cough Hydromorphone HCl 0.5 mg 11/19/18 17:17 11/21/18 07:54 Dilaudid IV 0.5 mg Q3H PRN Administration Pain , Severe (7-10) Metronidazole 500 mg in 100 mls @ 100 mls/hr 11/22/18 22:00 11/25/18 06:31 Flagyl 500 Mg/100 Ml IV 100 mls/hr Q8HR HAMLET Administration Protocol Insulin Human Isoph/Insulin Regular 10 unit 11/22/18 17:00 11/25/18 08:50 Humulin 70/30 SUB-Q 10 unit BIDDIAB HAMLET Administration Insulin Human Lispro 0 unit 11/23/18 12:00 11/25/18 06:33 Humalog SUB-Q 4 unit Q6HR HAMLET Administration Protocol Metoclopramide HCl 10 mg 11/19/18 17:17 Reglan IV Q6H PRN Nausea And Vomiting Ondansetron HCl 4 mg 11/19/18 17:17 11/20/18 03:13 Zofran IV 4 mg Q3H PRN Administration Nausea And Vomiting Simple Syrup 15 ml 11/21/18 15:26 Simple Syrup FEEDTUBE PRN PRN Hypoglycemia Simple Syrup 30 ml 11/21/18 15:26 Simple Syrup FEEDTUBE PRN PRN Hypoglycemia Sodium Bicarbonate 325 mg 11/21/18 15:26 Sodium Bicarbonate FEEDTUBE PRN PRN For Clogged Feeding Tube Sodium Chloride 10 ml 11/19/18 22:00 11/25/18 11:05 Sodium Chloride Flush Syringe 10 Ml IV 10 ml BID HAMLET Administration Sodium Chloride 10 ml 11/19/18 17:17 Sodium Chloride Flush Syringe 10 Ml IV PRN PRN LINE FLUSH Nutrition/Malnutrition Assess - Dietary Evaluation Nutrition/Malnutrition Findings: Nutrition Notes Start: 11/20/18 08:55 Freq: Status: Active Protocol: Document 11/23/18 17:03 RM (Rec: 11/23/18 17:08 RM [id number]) Nutrition Notes Initial or Follow up Reassessment Current Diagnosis Acute Kidney Injury,Diabetes Other Pertinent Diagnosis DKA, AMS Current Diet Glucerna 1.2 at 65 ml/hr Labs/Tests Na 145 Pertinent Medications Reviewed Height 5 ft 10 in Weight 53.8 kg Martin Body Weight (kg) 75.45 BMI 17.0 Subjective/Other Information Per nurse pt pulled out tube prior to her shift but nurse plans to replace it d/t suspected aspiration pneu. Unsure of what rate TF was infusing. Burn Absent Trauma Absent #1 Nutrition Diagnosis Malnutrition Diagnosis Progress(for reassessment Continues documentation) Is patient on ventilator? No Is Patient Ambulatory and/or Out of Bed No REE-([facility]-confined to bed) 1512.132 Kcal/Kg value to use for calculation 35 Approximate Energy Requirements Using 1883 kcal/Kg Calculation Used for Recommendations [facility] Additional Notes Protein needs are 54-65g (1-1. 2g/kg) Fluid needs are 1ml/kcal Nutrition Intervention Nutrition Support: Glucerna 1.2 at 65ml/hr Flush with 200ml q4h for hypernatremia and 100ml q4h once resolved. Kcal 1,872 Protein (gm) 94 Fluid (mL) 1,260 Goal #1 TF tolerance Goal #2 Wt gain/maintenance Anticipated Discharge Needs: Unable to determine at this time Follow-Up By: 11/25/18 Additional Comments Follow for new TF
[2018-11-25] MEDS ORDERED: SODIUM BICARBONATE FEEDTUBE PRN (12:42)
[2018-11-25] MEDS ORDERED: SIMPLE SYRUP FEEDTUBE PRN (12:42)
[2018-11-25] MEDS ORDERED: PANCREAZE DR 10,500 UNIT FEEDTUBE PRN (12:42)
--- NOTE | 2018-11-25 12:46 | Progress Note ---
Assessment and Plan Assessment: Acute Kidney injury likely prerenal/ATN from dehydration: Hypernatremia, hypertonic: Diabetic ketoacidosis: Hypophosphatemia: Neutropenia: Afib: Plan: -Rene resolved - Hypernetremia resolved - will d/c D5W and increase water flushes to 250 cc Q4H, can be adjusted to maintain Na level -Cardiology on board for Afib -Renally dose all medications -Avoid Nephortoxic meds -Strict I/Os monitoring -Continue to monitor Will sign off, please re-consult if needed Francois Lara MD [phone] Subjective Date of service: 11/25/18 Principal diagnosis: dka, asp pneu dementia Interval history: follows simple commands, family at bedside, all questions answered Objective - Vital Signs Vital signs: Vital Signs - 12hr 11/25/18 11/25/18 11/25/18 04:00 04:09 08:00 Temperature 97.5 F L 97.7 F Pulse Rate 90 Pulse Rate [ 63 From Monitor] Respiratory 16 Rate Blood Pressure O2 Sat by Pulse 96 Oximetry 11/25/18 11/25/18 11/25/18 08:48 11:04 11:06 Temperature Pulse Rate 65 Pulse Rate [ From Monitor] Respiratory Rate Blood Pressure 111/45 O2 Sat by Pulse 100 98 Oximetry 11/25/18 11:26 Temperature Pulse Rate Pulse Rate [ From Monitor] Respiratory Rate Blood Pressure O2 Sat by Pulse 95 Oximetry - General Appearance General appearance: cachectic EENT: ATNC, PERRL, mucous membranes dry Neck: no JVD, no carotid bruit Respiratory: Present: Clear to Ascultation. Absent: Rales, Ronchi Cardiology: regular, S1S2 Gastrointestinal: normoactive bowel sounds, no tenderness, no distended Integumentary: no rash, warm and dry Neurologic: other (follos simple commands) Musculoskeletal: other (no edema in BLE) - Lab 11/25/18 05:26 11/24/18 14:45 Most recent lab results Calcium 8.5 mg/dL (8.4-10.2) 11/24/18 14:45 Phosphorus 2.30 mg/dL (2.5-4.5) L D 11/20/18 07:14 Magnesium 1.90 mg/dL (1.7-2.3) 11/25/18 05:26 Medications & Allergies - Medications Allergies/Adverse Reactions: Allergies No Known Allergies Allergy (Verified 06/29/18 10:14) Home Medications: Home Medications Medication Instructions Recorded Confirmed Last Taken Type Docusate Sodium [Colace] 100 mg PO BID 7 Days #14 capsule 06/29/18 11/19/18 Unknown Rx metFORMIN [Glucophage] 500 mg PO BID 30 Days #60 tablet 06/29/18 11/19/18 Unknown Rx Active Medications: Generic Name Dose Route Start Last Admin Trade Name Freq PRN Reason Stop Dose Admin Acetaminophen 650 mg 11/23/18 00:13 11/24/18 21:56 Tylenol PO 650 mg Q4H PRN Administration Pain, Mild (1-3), fever > 101 Albuterol 2.5 mg 11/20/18 04:27 Proventil IH Q4HRT PRN Shortness Of Breath Lipase/Protease/Amylase 1 each 11/21/18 15:26 Adi Hidalgo 10,500 Unit FEEDTUBE PRN PRN For Clogged Feeding Tube Lipase/Protease/Amylase 1 each 11/25/18 12:42 Adi Hidalgo 10,500 Unit FEEDTUBE PRN PRN For Clogged Feeding Tube Apixaban 2.5 mg 11/21/18 11:00 11/25/18 11:04 Eliquis PO 2.5 mg Q12HR HAMLET Administration Protocol Digoxin 0.125 mg 11/21/18 10:00 11/25/18 11:04 Lanoxin PO 0.125 mg Q48H HAMLET Administration Famotidine 20 mg 11/25/18 10:00 11/25/18 11:05 Pepcid PO 20 mg BID HAMLET Administration Guaifenesin 200 mg 11/20/18 04:28 Robitussin PO Q4H PRN Cough Hydromorphone HCl 0.5 mg 11/19/18 17:17 11/21/18 07:54 Dilaudid IV 0.5 mg Q3H PRN Administration Pain , Severe (7-10) Metronidazole 500 mg in 100 mls @ 100 mls/hr 11/22/18 22:00 11/25/18 06:31 Flagyl 500 Mg/100 Ml IV 100 mls/hr Q8HR HAMLET Administration Protocol Insulin Human Isoph/Insulin Regular 10 unit 11/22/18 17:00 11/25/18 08:50 Humulin 70/30 SUB-Q 10 unit BIDDIAB HAMLET Administration Insulin Human Lispro 0 unit 11/23/18 12:00 11/25/18 06:33 Humalog SUB-Q 4 unit Q6HR HAMLET Administration Protocol Metoclopramide HCl 10 mg 11/19/18 17:17 Reglan IV Q6H PRN Nausea And Vomiting Ondansetron HCl 4 mg 11/19/18 17:17 11/20/18 03:13 Zofran IV 4 mg Q3H PRN Administration Nausea And Vomiting Simple Syrup 15 ml 11/21/18 15:26 Simple Syrup FEEDTUBE PRN PRN Hypoglycemia Simple Syrup 30 ml 11/21/18 15:26 Simple Syrup FEEDTUBE PRN PRN Hypoglycemia Simple Syrup 30 ml 11/25/18 12:42 Simple Syrup FEEDTUBE PRN PRN Hypoglycemia Sodium Bicarbonate 325 mg 11/21/18 15:26 Sodium Bicarbonate FEEDTUBE PRN PRN For Clogged Feeding Tube Sodium Bicarbonate 325 mg 11/25/18 12:42 Sodium Bicarbonate FEEDTUBE PRN PRN For Clogged Feeding Tube Sodium Chloride 10 ml 11/19/18 22:00 11/25/18 11:05 Sodium Chloride Flush Syringe 10 Ml IV 10 ml BID HAMLET Administration Sodium Chloride 10 ml 11/19/18 17:17 Sodium Chloride Flush Syringe 10 Ml IV PRN PRN LINE FLUSH
--- NOTE | 2018-11-25 14:59 | Gastroenterology Consultation ---
History of Present Illness - Reason for Consult Consult date: 11/25/18 PEG Requesting physician: AURY JOSHUA - History of Present Illness 78 yo male admitted with sepsis, SVT, AMS. Speech reassessed the patient's swallowing function. Per speech: Patient is at significant risk for aspiration per findings of several swallowing assessments. He is not a candidate for further treatment at this time and has declined in medical stability. Therefore, he will be discharged from our services. Of note, patient on Eliquis home meds updated, obtained, reconciled Past Medical History Previous Medical History?: Yes Diabetes on metformin only Surgical History Past Surgical History?: Yes Additional Surgical History: hernia repair Social History Smoking Status: Never Smoker Substance Use Type: None Family history Diabetes Past History Past Medical History: diabetes, other (unable to obtain) Past Surgical History: hernia repair, Other (unable to obtain) Social history: other (unable to obtain) Family history: other (unable to obtain) Medications and Allergies Allergies Allergy/AdvReac Type Severity Reaction Status Date / Time No Known Allergies Allergy Verified 06/29/18 10:14 Home Medications Medication Instructions Recorded Confirmed Last Taken Type Docusate Sodium [Colace] 100 mg PO BID 7 Days #14 capsule 06/29/18 11/19/18 Unknown Rx metFORMIN [Glucophage] 500 mg PO BID 30 Days #60 tablet 06/29/18 11/19/18 Unknown Rx Active Meds: Active Medications Acetaminophen (Tylenol) 650 mg PO Q4H PRN PRN Reason: Pain, Mild (1-3), fever > 101 Last Admin: 11/24/18 21:56 Dose: 650 mg Documented by: Albuterol (Proventil) 2.5 mg IH Q4HRT PRN PRN Reason: Shortness Of Breath Lipase/Protease/Amylase (Pancreaze Dr 10,500 Unit) 1 each FEEDTUBE PRN PRN PRN Reason: For Clogged Feeding Tube Apixaban (Eliquis) 2.5 mg PO Q12HR [facility]; Protocol Last Admin: 11/25/18 11:04 Dose: 2.5 mg Documented by: Digoxin (Lanoxin) 0.125 mg PO Q48H HAMLET Last Admin: 11/25/18 11:04 Dose: 0.125 mg Documented by: Famotidine (Pepcid) 20 mg PO BID [facility] Last Admin: 11/25/18 11:05 Dose: 20 mg Documented by: Guaifenesin (Robitussin) 200 mg PO Q4H PRN PRN Reason: Cough Hydromorphone HCl (Dilaudid) 0.5 mg IV Q3H PRN PRN Reason: Pain , Severe (7-10) Last Admin: 11/21/18 07:54 Dose: 0.5 mg Documented by: Metronidazole (Flagyl 500 Mg/100 Ml) 500 mg in 100 mls @ 100 mls/hr IV Q8HR [facility]; Protocol Last Admin: 11/25/18 06:31 Dose: 100 mls/hr Documented by: Insulin Human Isoph/Insulin Regular (Humulin 70/30) 10 unit SUB-Q BIDDIAB HAMLET Last Admin: 11/25/18 08:50 Dose: 10 unit Documented by: Insulin Human Lispro (Humalog) 0 unit SUB-Q Q6HR [facility]; Protocol Last Admin: 11/25/18 06:33 Dose: 4 unit Documented by: Metoclopramide HCl (Reglan) 10 mg IV Q6H PRN PRN Reason: Nausea And Vomiting Ondansetron HCl (Zofran) 4 mg IV Q3H PRN PRN Reason: Nausea And Vomiting Last Admin: 11/20/18 03:13 Dose: 4 mg Documented by: Simple Syrup (Simple Syrup) 15 ml FEEDTUBE PRN PRN PRN Reason: Hypoglycemia Simple Syrup (Simple Syrup) 30 ml FEEDTUBE PRN PRN PRN Reason: Hypoglycemia Sodium Bicarbonate (Sodium Bicarbonate) 325 mg FEEDTUBE PRN PRN PRN Reason: For Clogged Feeding Tube Sodium Chloride (Sodium Chloride Flush Syringe 10 Ml) 10 ml IV BID [facility] Last Admin: 11/25/18 11:05 Dose: 10 ml Documented by: Sodium Chloride (Sodium Chloride Flush Syringe 10 Ml) 10 ml IV PRN PRN PRN Reason: LINE FLUSH Review of Systems - Review of Systems ROS unobtainable: due to mental status Exam - Constitutional Vital Signs: Temp Pulse Resp BP Pulse Ox 97.7 F 66 17 111/45 97 11/25/18 08:00 11/25/18 12:00 11/25/18 12:00 11/25/18 11:04 11/25/18 12:00 General appearance: no acute distress - EENT Eyes: other (no icterus) - Respiratory Respiratory effort: normal - Cardiovascular Rhythm: regular - Gastrointestinal General gastrointestinal: Present: soft, other (well healed vertical midline scar mid abd) - Integumentary Integumentary: Present: dry - Labs CBC & Chem 7: 11/25/18 05:26 11/24/18 14:45 Lab Results: Laboratory Results - last 24 hr 11/24/18 11/24/18 11/24/18 08:37 14:45 17:40 WBC RBC Hgb Hct MCV MCH MCHC RDW Plt Count Add Manual Diff Total Counted Seg Neuts % (Manual) Band Neutrophils % Lymphocytes % (Manual) Reactive Lymphs % (Man) Monocytes % (Manual) Eosinophils % (Manual) Basophils % (Manual) Metamyelocytes % Myelocytes % Promyelocytes % Blast Cells % Nucleated RBC % Seg Neutrophils # Man Band Neutrophils # Lymphocytes # (Manual) Abs React Lymphs (Man) Monocytes # (Manual) Eosinophils # (Manual) Basophils # (Manual) Metamyelocytes # Myelocytes # Promyelocytes # Blast Cells # WBC Morphology Hypersegmented Neuts Hyposegmented Neuts Hypogranular Neuts Smudge Cells Toxic Granulation Toxic Vacuolation Dohle Bodies Pelger-Huet Anomaly Ken Rods Platelet Estimate Clumped Platelets Plt Clumps, EDTA Large Platelets Giant Platelets Platelet Satelliting Plt Morphology Comment RBC Morphology Dimorphic RBCs Polychromasia Hypochromasia Poikilocytosis Anisocytosis Microcytosis Macrocytosis Spherocytes Pappenheimer Bodies Sickle Cells Target Cells Tear Drop Cells Ovalocytes Helmet Cells [place] Bodies [place] Rings Siva Cells Bite Cells Crenated Cell Elliptocytes Acanthocytes (Spur) Rouleaux Hemoglobin C Crystals Schistocytes Malaria parasites Arie Bodies Hem Pathologist Commnt Sodium 142 Potassium 3.5 L Chloride 108.6 H Carbon Dioxide 20 L Anion Gap 17 BUN 18 Creatinine 0.8 Estimated GFR > 60 BUN/Creatinine Ratio 23 Glucose 189 H POC Glucose 300 H 231 H Calcium 8.5 Magnesium Digoxin 11/25/18 11/25/18 11/25/18 00:06 05:26 05:26 WBC RBC Hgb Hct MCV MCH MCHC RDW Plt Count Add Manual Diff Total Counted Seg Neuts % (Manual) Band Neutrophils % Lymphocytes % (Manual) Reactive Lymphs % (Man) Monocytes % (Manual) Eosinophils % (Manual) Basophils % (Manual) Metamyelocytes % Myelocytes % Promyelocytes % Blast Cells % Nucleated RBC % Seg Neutrophils # Man Band Neutrophils # Lymphocytes # (Manual) Abs React Lymphs (Man) Monocytes # (Manual) Eosinophils # (Manual) Basophils # (Manual) Metamyelocytes # Myelocytes # Promyelocytes # Blast Cells # WBC Morphology Hypersegmented Neuts Hyposegmented Neuts Hypogranular Neuts Smudge Cells Toxic Granulation Toxic Vacuolation Dohle Bodies Pelger-Huet Anomaly Ken Rods Platelet Estimate Clumped Platelets Plt Clumps, EDTA Large Platelets Giant Platelets Platelet Satelliting Plt Morphology Comment RBC Morphology Dimorphic RBCs Polychromasia Hypochromasia Poikilocytosis Anisocytosis Microcytosis Macrocytosis Spherocytes Pappenheimer Bodies Sickle Cells Target Cells Tear Drop Cells Ovalocytes Helmet Cells [place] Bodies [place] Rings Eek Cells Bite Cells Crenated Cell Elliptocytes Acanthocytes (Spur) Rouleaux Hemoglobin C Crystals Schistocytes Malaria parasites Arie Bodies Hem Pathologist Commnt Sodium Potassium Chloride Carbon Dioxide Anion Gap BUN Creatinine Estimated GFR BUN/Creatinine Ratio Glucose POC Glucose 106 H Calcium Magnesium 1.90 Digoxin 0.5 L 11/25/18 11/25/18 11/25/18 05:26 05:53 12:39 WBC 5.4 RBC 5.62 H Hgb 17.6 H D Hct 48.8 H D MCV 87 MCH 31 MCHC 36 H RDW 13.5 Plt Count 174 Add Manual Diff Complete Total Counted 100 Seg Neuts % (Manual) 73.0 H Band Neutrophils % 0 Lymphocytes % (Manual) 8.0 L Reactive Lymphs % (Man) 0 Monocytes % (Manual) 14.0 H Eosinophils % (Manual) 4.0 Basophils % (Manual) 1.0 Metamyelocytes % 0 Myelocytes % 0 Promyelocytes % 0 Blast Cells % 0 Nucleated RBC % Not Reportable Seg Neutrophils # Man 3.9 Band Neutrophils # 0.0 Lymphocytes # (Manual) 0.4 L Abs React Lymphs (Man) 0.0 Monocytes # (Manual) 0.8 Eosinophils # (Manual) 0.2 Basophils # (Manual) 0.1 Metamyelocytes # 0.0 Myelocytes # 0.0 Promyelocytes # 0.0 Blast Cells # 0.0 WBC Morphology Not Reportable Hypersegmented Neuts Not Reportable Hyposegmented Neuts Not Reportable Hypogranular Neuts Not Reportable Smudge Cells Not Reportable Toxic Granulation Not Reportable Toxic Vacuolation Not Reportable Dohle Bodies Not Reportable Pelger-Huet Anomaly Not Reportable Ken Rods Not Reportable Platelet Estimate Consistent w auto Clumped Platelets Not Reportable Plt Clumps, EDTA Not Reportable Large Platelets Not Reportable Giant Platelets Not Reportable Platelet Satelliting Not Reportable Plt Morphology Comment Not Reportable RBC Morphology Not Reportable Dimorphic RBCs Not Reportable Polychromasia Not Reportable Hypochromasia Not Reportable Poikilocytosis Few Anisocytosis 1+ Microcytosis Not Reportable Macrocytosis Not Reportable Spherocytes Not Reportable Pappenheimer Bodies Not Reportable Sickle Cells Not Reportable Target Cells Not Reportable Tear Drop Cells Not Reportable Ovalocytes Not Reportable Helmet Cells Not Reportable [place] Bodies Not Reportable [place] Rings Not Reportable Siva Cells Not Reportable Bite Cells Not Reportable Crenated Cell Not Reportable Elliptocytes Not Reportable Acanthocytes (Spur) Not Reportable Rouleaux Not Reportable Hemoglobin C Crystals Not Reportable Schistocytes Not Reportable Malaria parasites Not Reportable Arie Bodies Not Reportable Hem Pathologist Commnt No Sodium Potassium Chloride Carbon Dioxide Anion Gap BUN Creatinine Estimated GFR BUN/Creatinine Ratio Glucose POC Glucose 254 H 360 H Calcium Magnesium Digoxin Assessment and Plan Contacted [facility] advanced practitioner, they will provide cards clearance for the PEG and for holding the blood thinner Patient appears to have had patch for perforated gastric ulcer with no known history of gastric resection and CT does not show prior gastric surgery, therefore as long as approved by meri and Rodney held for 48 hours, ok for PEG Wednesday. D/W the patient's son and granddaughter, all questions answered
--- NOTE | 2018-11-25 16:20 | Event Note ---
Date: 11/25/18 Pt tentatively scheduled for PEG placement on Wednesday, 11/28. Currently stable cardiac status. He has maintained NSR. He is currently at low cardiovascular risk for PEG placement. There are no immediate cardiac contraindications to proceeding with PEG placement at this time. May hold Eliquis 48Hr prior to procedure. D/w Dr. Heron SANDRA. Apple GONZALEZ, GIOVANNY / DR. KIM
[2018-11-25] MEDS: DILAUDID IV PRN (21:38)
[2018-11-26] MEDS: HumaLOG SUB-Q SCH ×5 (00:18→20:35)
[2018-11-26] MEDS: PEPCID PO SCH ×2 (09:12→22:34)
[2018-11-26] MEDS: ELIQUIS PO SCH (09:12)
[2018-11-26] MEDS: SODIUM CHLORIDE FLUSH SYRINGE 10 ML IV SCH ×2 (09:13→22:34)
--- NOTE | 2018-11-26 11:00 | Progress Note ---
Assessment and Plan 1. Oropharyngeal dysphagia - will proceed with EGD/PEG attempt on 11/28. Will need to evaluate stomach to see if prior surgery will be a hindrance. Cardiology note appreciated, and Rodney stopped. - discussed with family. Also spoke with granddaughter by phone to ensure adequeate communication. Subjective Date of service: 11/26/18 Principal diagnosis: dka, asp pneu dementia Interval history: Pt lying in bed, comfortable. Dobhoff in place and getting TF. 2 of his children in room. Objective - Constitutional Vitals: Vital Signs - 12hr 11/26/18 11/26/18 11/26/18 00:11 04:00 07:43 Temperature 97.1 F L 97.7 F 98.3 F Pulse Rate 66 68 74 Respiratory 22 14 18 Rate Respiratory Rate [ Generalized] Blood Pressure 127/63 129/63 Blood Pressure 120/53 [Left] O2 Sat by Pulse 90 92 Oximetry 11/26/18 11/26/18 11/26/18 07:44 08:00 08:49 Temperature Pulse Rate 76 Respiratory Rate Respiratory 18 Rate [ Generalized] Blood Pressure Blood Pressure [Left] O2 Sat by Pulse 94 94 Oximetry General appearance: Present: no acute distress - EENT Eyes: PERRL, EOM intact ENT: hearing intact - Respiratory Respiratory effort: normal - Gastrointestinal General gastrointestinal: Present: soft, non-tender, other (well-healed vertical midline incision) - Labs CBC & Chem 7: 11/25/18 05:26 11/24/18 14:45 Labs: Abnormal lab results 11/25/18 11/26/18 11/26/18 Range/Units 12:39 00:16 05:56 POC Glucose 360 H 227 H 278 H (70-105) Medications & Allergies - Medications Allergies/Adverse Reactions: Allergies No Known Allergies Allergy (Verified 06/29/18 10:14) Home Medications: Home Medications Medication Instructions Recorded Confirmed Last Taken Type Docusate Sodium [Colace] 100 mg PO BID 7 Days #14 capsule 06/29/18 11/19/18 Unknown Rx metFORMIN [Glucophage] 500 mg PO BID 30 Days #60 tablet 06/29/18 11/19/18 Unknown Rx Active Medications: Generic Name Dose Route Start Last Admin Trade Name Freq PRN Reason Stop Dose Admin Acetaminophen 650 mg 11/23/18 00:13 11/24/18 21:56 Tylenol PO 650 mg Q4H PRN Administration Pain, Mild (1-3), fever > 101 Albuterol 2.5 mg 11/20/18 04:27 Proventil IH Q4HRT PRN Shortness Of Breath Lipase/Protease/Amylase 1 each 11/21/18 15:26 Pancreaze 10,500 Unit FEEDTUBE PRN PRN For Clogged Feeding Tube Digoxin 0.125 mg 11/21/18 10:00 11/25/18 11:04 Lanoxin PO 0.125 mg Q48H HAMLET Administration Famotidine 20 mg 11/25/18 10:00 11/26/18 09:12 Pepcid PO 20 mg BID HAMLET Administration Guaifenesin 200 mg 11/20/18 04:28 Robitussin PO Q4H PRN Cough Hydromorphone HCl 0.5 mg 11/19/18 17:17 11/25/18 21:38 Dilaudid IV 0.5 mg Q3H PRN Administration Pain , Severe (7-10) Insulin Human Isoph/Insulin Regular 10 unit 11/22/18 17:00 11/26/18 08:45 Humulin 70/30 SUB-Q 10 unit BIDDIAB HAMLET Administration Insulin Human Lispro 0 unit 11/23/18 12:00 11/26/18 06:13 Humalog SUB-Q 4 unit Q6HR HAMLET Administration Protocol Metoclopramide HCl 10 mg 11/19/18 17:17 Reglan IV Q6H PRN Nausea And Vomiting Ondansetron HCl 4 mg 11/19/18 17:17 11/20/18 03:13 Zofran IV 4 mg Q3H PRN Administration Nausea And Vomiting Simple Syrup 15 ml 11/21/18 15:26 Simple Syrup FEEDTUBE PRN PRN Hypoglycemia Simple Syrup 30 ml 11/21/18 15:26 Simple Syrup FEEDTUBE PRN PRN Hypoglycemia Sodium Bicarbonate 325 mg 11/21/18 15:26 Sodium Bicarbonate FEEDTUBE PRN PRN For Clogged Feeding Tube Sodium Chloride 10 ml 11/19/18 22:00 11/26/18 09:13 Sodium Chloride Flush Syringe 10 Ml IV 10 ml BID HAMLET Administration Sodium Chloride 10 ml 11/19/18 17:17 Sodium Chloride Flush Syringe 10 Ml IV PRN PRN LINE FLUSH
--- NOTE | 2018-11-26 11:46 | Progress Note ---
Assessment and Plan Assessment and plan: Sepsis. Resolved. Etiology most likely DKA +/- SVT s/p CV. Blood culture negative, UA negative, CXR negative. Abdominal CT shows prominent infiltrate is seen in the right lower lobe consistent with pneumonitis. Small bilateral pleural effusions are seen. Aspiration pneumonia. Repeat CXR shows right lower lung parenchymal opacification that could indicate aspiration and/or developing pneumonia. Acute hypoxic respiratory failure. Etiology segment to above. Continue O2 to maintain sats Toxic metabolic encephaloapthy. Etiology from DKA / electrolyte imbalance / Sepsis Atrial fibrillation with RVR. F/u BMP, Mg and digoxin level in AM. Cont digoxin and eliquis DM 2, uncontrolled. Patient with labile blood sugars. We will continue to monitor continue to feedings. MEETA. Improved. oropharyngeal dysphagia. will proceed with EGD/PEG attempt on 11/28. Eliquis stopped. History Interval history: No new issues overnight. Hospitalist Physical - Constitutional Vitals: Temp Pulse Resp BP Pulse Ox 98.3 F 76 18 129/63 94 11/26/18 07:43 11/26/18 07:44 11/26/18 08:00 11/26/18 07:43 11/26/18 08:49 General appearance: Present: no acute distress - EENT Eyes: Present: PERRL, EOM intact ENT: hearing intact, clear oral mucosa, dentition normal - Neck Neck: Present: supple, normal ROM - Respiratory Respiratory effort: normal Respiratory: bilateral: CTA - Cardiovascular Rhythm: regular Heart Sounds: Present: S1 & S2. Absent: gallop, rub - Extremities Extremities: no ischemia, No edema, Full ROM - Abdominal General gastrointestinal: soft, non-tender, non-distended, normal bowel sounds - Integumentary Integumentary: Present: clear, warm, dry - Neurologic Neurologic: CNII-XII intact, moves all extremities Results - Labs CBC & Chem 7: 11/25/18 05:26 11/24/18 14:45 Labs: Laboratory Last Values WBC 5.4 K/mm3 (4.5-11.0) 11/25/18 05:26 RBC 5.62 M/mm3 (3.65-5.03) H 11/25/18 05:26 Hgb 17.6 gm/dl (11.8-15.2) H D 11/25/18 05:26 Hct 48.8 % (35.5-45.6) H D 11/25/18 05:26 MCV 87 fl (84-94) 11/25/18 05:26 MCH 31 pg (28-32) 11/25/18 05:26 MCHC 36 % (32-34) H 11/25/18 05:26 RDW 13.5 % (13.2-15.2) 11/25/18 05:26 Plt Count 174 K/mm3 (140-440) 11/25/18 05:26 Lymph % (Auto) 4.2 % (13.4-35.0) L 11/19/18 10:07 [place] % (Auto) Director Of [employer] 11/24/18 07:32 Eos % (Auto) 0.5 % (0.0-4.3) 11/19/18 10:07 Baso % (Auto) 0.1 % (0.0-1.8) 11/19/18 10:07 Lymph # 0.3 K/mm3 (1.2-5.4) L 11/19/18 10:07 [place] # 0.5 K/mm3 (0.0-0.8) 11/19/18 10:07 Eos # 0.0 K/mm3 (0.0-0.4) 11/19/18 10:07 Baso # 0.0 K/mm3 (0.0-0.1) 11/19/18 10:07 Add Manual Diff Complete 11/25/18 05:26 Total Counted 100 11/25/18 05:26 Seg Neutrophils % 89.3 % (40.0-70.0) H 11/19/18 10:07 Seg Neuts % (Manual) 73.0 % (40.0-70.0) H 11/25/18 05:26 0 % 11/25/18 05:26 8.0 % (13.4-35.0) L 11/25/18 05:26 Reactive Lymphs % (Man) 0 % 11/25/18 05:26 14.0 % (0.0-7.3) H 11/25/18 05:26 4.0 % (0.0-4.3) 11/25/18 05:26 1.0 % (0.0-1.8) 11/25/18 05:26 0 % 11/25/18 05:26 0 % 11/25/18 05:26 0 % 11/25/18 05:26 0 % 11/25/18 05:26 Nucleated RBC % Not Reportable 11/25/18 05:26 Seg Neutrophils # 6.9 K/mm3 (1.8-7.7) 11/19/18 10:07 Seg Neutrophils # Man 3.9 K/mm3 (1.8-7.7) 11/25/18 05:26 Band Neutrophils # 0.0 K/mm3 11/25/18 05:26 0.4 K/mm3 (1.2-5.4) L 11/25/18 05:26 Abs React Lymphs (Man) 0.0 K/mm3 11/25/18 05:26 0.8 K/mm3 (0.0-0.8) 11/25/18 05:26 0.2 K/mm3 (0.0-0.4) 11/25/18 05:26 0.1 K/mm3 (0.0-0.1) 11/25/18 05:26 0.0 K/mm3 11/25/18 05:26 0.0 K/mm3 11/25/18 05:26 0.0 K/mm3 11/25/18 05:26 Blast Cells # 0.0 K/mm3 11/25/18 05:26 WBC Morphology Not Reportable 11/25/18 05:26 Hypersegmented Neuts Not Reportable 11/25/18 05:26 Hyposegmented Neuts Not Reportable 11/25/18 05:26 Hypogranular Neuts Not Reportable 11/25/18 05:26 Not Reportable 11/25/18 05:26 Not Reportable 11/25/18 05:26 Not Reportable 11/25/18 05:26 Not Reportable 11/25/18 05:26 Not Reportable 11/25/18 05:26 Not Reportable 11/25/18 05:26 Consistent w auto 11/25/18 05:26 Not Reportable 11/25/18 05:26 Plt Clumps, EDTA Not Reportable 11/25/18 05:26 Not Reportable 11/25/18 05:26 Not Reportable 11/25/18 05:26 Not Reportable 11/25/18 05:26 Plt Morphology Comment Not Reportable 11/25/18 05:26 RBC Morphology Not Reportable 11/25/18 05:26 Dimorphic RBCs Not Reportable 11/25/18 05:26 Not Reportable 11/25/18 05:26 Not Reportable 11/25/18 05:26 Few 11/25/18 05:26 1+ 11/25/18 05:26 Not Reportable 11/25/18 05:26 Not Reportable 11/25/18 05:26 Not Reportable 11/25/18 05:26 Not Reportable 11/25/18 05:26 Not Reportable 11/25/18 05:26 Not Reportable 11/25/18 05:26 Not Reportable 11/25/18 05:26 Not Reportable 11/25/18 05:26 Not Reportable 11/25/18 05:26 Not Reportable 11/25/18 05:26 Not Reportable 11/25/18 05:26 Not Reportable 11/25/18 05:26 Not Reportable 11/25/18 05:26 Not Reportable 11/25/18 05:26 Not Reportable 11/25/18 05:26 Acanthocytes (Spur) Not Reportable 11/25/18 05:26 Rouleaux Not Reportable 11/25/18 05:26 Not Reportable 11/25/18 05:26 Not Reportable 11/25/18 05:26 Not Reportable 11/25/18 05:26 Not Reportable 11/25/18 05:26 Hem Pathologist Commnt No 11/25/18 05:26 PT 12.9 Sec. (12.2-14.9) 11/19/18 10:07 INR 1.00 (0.87-1.13) 11/19/18 10:07 APTT 26.3 Sec. (24.2-36.6) 11/19/18 10:07 VBG pH 7.162 (7.320-7.420) L* 11/19/18 10:07 Sodium 142 mmol/L (137-145) 11/24/18 14:45 Potassium 3.5 mmol/L (3.6-5.0) L 11/24/18 14:45 Chloride 108.6 mmol/L (98-107) H 11/24/18 14:45 Carbon Dioxide 20 mmol/L (22-30) L 11/24/18 14:45 17 mmol/L 11/24/18 14:45 BUN 18 mg/dL (9-20) 11/24/18 14:45 0.8 mg/dL (0.8-1.5) 11/24/18 14:45 Estimated GFR > 60 ml/min 11/24/18 14:45 23 % 11/24/18 14:45 Glucose 189 mg/dL (75-100) H 11/24/18 14:45 POC Glucose 242 (70-105) H 11/26/18 11:21 16.9 % (4-6) H 11/19/18 19:14 Lactic Acid 2.00 mmol/L (0.7-2.0) 11/20/18 04:50 Calcium 8.5 mg/dL (8.4-10.2) 11/24/18 14:45 Phosphorus 2.30 mg/dL (2.5-4.5) L D 11/20/18 07:14 Magnesium 1.90 mg/dL (1.7-2.3) 11/25/18 05:26 0.20 mg/dL (0.1-1.2) 11/19/18 10:07 AST 26 units/L (5-40) 11/19/18 10:07 ALT 24 units/L (7-56) 11/19/18 10:07 101 units/L (35-129) 11/19/18 10:07 690 units/L (55-170) H 11/19/18 10:07 0.016 ng/mL (0.00-0.029) 11/19/18 10:07 6.4 g/dL (6.3-8.2) 11/19/18 10:07 3.6 g/dL (3.9-5) L 11/19/18 10:07 1.3 % 11/19/18 10:07 Yellow (Yellow) 11/19/18 09:17 Clear (Clear) 11/19/18 09:17 5.0 (5.0-7.0) 11/19/18 09:17 Ur Specific [place] 1.027 (1.003-1.030) 11/19/18 09:17 <15 mg/dl mg/dL (Negative) 07/20/19 09:17 >=500 mg/dL (Negative) 11/19/18 09:17 80 mg/dL (Negative) 11/19/18 09:17 Neg (Negative) 11/19/18 09:17 Neg (Negative) 11/19/18 09:17 Neg (Negative) 11/19/18 09:17 < 2.0 mg/dL (<2.0) 11/19/18 09:17 Ur Leukocyte Esterase Neg (Negative) 11/19/18 09:17 < 1.0 /HPF (0.0-6.0) 11/19/18 09:17 2.0 /HPF (0.0-6.0) 11/19/18 09:17 Few /HPF 11/19/18 09:17 Digoxin 0.5 ng/mL (0.9-2.0) L 11/25/18 05:26 Active Medications - Current Medications Current Medications: Generic Name Dose Route Start Last Admin Trade Name Freq PRN Reason Stop Dose Admin Acetaminophen 650 mg 11/23/18 00:13 11/24/18 21:56 Tylenol PO 650 mg Q4H PRN Administration Pain, Mild (1-3), fever > 101 Albuterol 2.5 mg 11/20/18 04:27 Proventil IH Q4HRT PRN Shortness Of Breath Lipase/Protease/Amylase 1 each 11/21/18 15:[address] 10,500 Unit FEEDTUBE PRN PRN For Clogged Feeding Tube Digoxin 0.125 mg 11/21/18 10:00 11/25/18 11:04 Lanoxin PO 0.125 mg Q48H HAMLET Administration Famotidine 20 mg 11/25/18 10:00 11/26/18 09:12 Pepcid PO 20 mg BID HAMLET Administration Guaifenesin 200 mg 11/20/18 04:28 Robitussin PO Q4H PRN Cough Hydromorphone HCl 0.5 mg 11/19/18 17:17 11/25/18 21:38 Dilaudid IV 0.5 mg Q3H PRN Administration Pain , Severe (7-10) Insulin Human Isoph/Insulin Regular 10 unit 11/22/18 17:00 11/26/18 08:45 Humulin 70/30 SUB-Q 10 unit BIDDIAB HAMLET Administration Insulin Human Lispro 0 unit 11/23/18 12:00 11/26/18 06:13 Humalog SUB-Q 4 unit Q6HR HAMLET Administration Protocol Metoclopramide HCl 10 mg 11/19/18 17:17 Reglan IV Q6H PRN Nausea And Vomiting Ondansetron HCl 4 mg 11/19/18 17:17 11/20/18 03:13 Zofran IV 4 mg Q3H PRN Administration Nausea And Vomiting Simple Syrup 15 ml 11/21/18 15:26 Simple Syrup FEEDTUBE PRN PRN Hypoglycemia Simple Syrup 30 ml 11/21/18 15:26 Simple Syrup FEEDTUBE PRN PRN Hypoglycemia Sodium Bicarbonate 325 mg 11/21/18 15:26 Sodium Bicarbonate FEEDTUBE PRN PRN For Clogged Feeding Tube Sodium Chloride 10 ml 11/19/18 22:00 11/26/18 09:13 Sodium Chloride Flush Syringe 10 Ml IV 10 ml BID HAMLET Administration Sodium Chloride 10 ml 11/19/18 17:17 Sodium Chloride Flush Syringe 10 Ml IV PRN PRN LINE FLUSH Nutrition/Malnutrition Assess - Dietary Evaluation Nutrition/Malnutrition Findings: Nutrition Notes Start: 11/20/18 08:55 Freq: Status: Active Protocol: Document 11/25/18 15:10 RM (Rec: 11/25/18 15:15 RM [id number]) Nutrition Notes Initial or Follow up Reassessment Current Diagnosis Acute Kidney Injury,Diabetes Other Pertinent Diagnosis DKA, AMS Current Diet Glucerna 1.2 at 65 ml/hr Labs/Tests A1c 16.9 Pertinent Medications Zofran Height 5 ft 10 in Weight 53.8 kg [place] Body Weight (kg) 75.45 BMI 17.0 Subjective/Other Information Observed Glucerna 1.2 infusing at goal rate. Per nurse pt is tolerating TF. Percent of energy/protein needs met: 99%/100% Burn Absent Trauma Absent #1 Nutrition Diagnosis Malnutrition Diagnosis Progress(for reassessment Continues documentation) Is patient on ventilator? No Is Patient Ambulatory and/or Out of Bed No REE-([facility]-confined to bed) 1512.132 Kcal/Kg value to use for calculation 35 Approximate Energy Requirements Using 1883 kcal/Kg Calculation Used for Recommendations [facility] Additional Notes Protein needs are 54-65g (1-1. 2g/kg) Fluid needs are 1ml/kcal Nutrition Intervention Nutrition Support: Glucerna 1.2 at 65ml/hr Water flush 100ml q4h Kcal 1,872 Protein (gm) 94 Fluid (mL) 1,260 Goal #1 TF tolerance Goal #2 Wt gain/maintenance Goal #3 Continue to meet at least 75% of calorie and protein needs via TF Anticipated Discharge Needs: Unable to determine at this time Follow-Up By: 12/02/18 Additional Comments Follow for TF tolerance
--- NOTE | 2018-11-26 13:33 | Progress Note ---
Assessment and Plan Impression: Aspiration pneumonia right lower lobe Status post DKA Diabetes mellitus. Recommendation: Patient is now off oxygen. Physical therapy and ambulation is recommended. Discharge planning. Subjective Date of service: 11/26/18 Principal diagnosis: dka, asp pneu dementia Interval history: Patient awake and responsive. No obvious shortness of breath. On room air. Has 2 feedings tolerating well. Objective Vital Signs - 12hr 11/26/18 11/26/18 11/26/18 04:00 07:43 07:44 Temperature 97.7 F 98.3 F Pulse Rate 68 74 76 Respiratory 14 18 Rate Respiratory Rate [ Generalized] Blood Pressure 127/63 129/63 O2 Sat by Pulse 90 92 94 Oximetry 11/26/18 11/26/18 08:00 08:49 Temperature Pulse Rate Respiratory Rate Respiratory 18 Rate [ Generalized] Blood Pressure O2 Sat by Pulse 94 Oximetry Constitutional: no acute distress Eyes: non-icteric Ascultation: Right: rales, Bilateral: diminished breath sounds CBC and BMP: 11/25/18 05:26 11/24/18 14:45 ABG, PT/INR, D-dimer: PT/INR, D-dimer PT 12.9 Sec. (12.2-14.9) 11/19/18 10:07 INR 1.00 (0.87-1.13) 11/19/18 10:07 Abnormal lab findings: Abnormal Labs 11/19/18 11/19/18 11/19/18 10:07 10:07 10:07 WBC RBC 5.66 H Hgb 17.7 H Hct 55.2 H MCV 98 H MCHC RDW 15.3 H Lymph % (Auto) 4.2 L Lymph # 0.3 L Seg Neutrophils % 89.3 H Seg Neuts % (Manual) Lymphocytes % (Manual) Monocytes % (Manual) Eosinophils % (Manual) Seg Neutrophils # Man Lymphocytes # (Manual) VBG pH 7.162 L* Sodium Potassium Chloride Carbon Dioxide BUN Creatinine Glucose POC Glucose Hemoglobin A1c Lactic Acid Calcium Phosphorus Magnesium 3.10 H Total Creatine Kinase 690 H Albumin Digoxin 11/19/18 11/19/18 11/19/18 10:07 10:07 10:10 WBC RBC Hgb Hct MCV MCHC RDW Lymph % (Auto) Lymph # Seg Neutrophils % Seg Neuts % (Manual) Lymphocytes % (Manual) Monocytes % (Manual) Eosinophils % (Manual) Seg Neutrophils # Man Lymphocytes # (Manual) VBG pH Sodium 152 H Potassium Chloride Carbon Dioxide 7 L* BUN 61 H Creatinine 2.1 H Glucose 878 H* POC Glucose > 500 H Hemoglobin A1c Lactic Acid 2.20 H* Calcium Phosphorus Magnesium Total Creatine Kinase Albumin 3.6 L Digoxin 11/19/18 11/19/18 11/19/18 11:29 11:29 11:29 WBC RBC Hgb Hct MCV MCHC RDW Lymph % (Auto) Lymph # Seg Neutrophils % Seg Neuts % (Manual) Lymphocytes % (Manual) Monocytes % (Manual) Eosinophils % (Manual) Seg Neutrophils # Man Lymphocytes # (Manual) VBG pH Sodium 151 H Potassium Chloride Carbon Dioxide 7 L* BUN 60 H Creatinine 1.9 H Glucose 793 H* POC Glucose Hemoglobin A1c Lactic Acid 2.30 H* Calcium Phosphorus 6.90 H Magnesium 2.80 H Total Creatine Kinase Albumin Digoxin 11/19/18 11/19/18 11/19/18 13:20 14:56 15:06 WBC RBC Hgb Hct MCV MCHC RDW Lymph % (Auto) Lymph # Seg Neutrophils % Seg Neuts % (Manual) Lymphocytes % (Manual) Monocytes % (Manual) Eosinophils % (Manual) Seg Neutrophils # Man Lymphocytes # (Manual) VBG pH Sodium 161 H* D 160 H Potassium Chloride 111.0 H 113.7 H Carbon Dioxide 12 L 14 L BUN 54 H 52 H Creatinine 2.0 H 1.9 H Glucose 596 H* 496 H POC Glucose 442 H Hemoglobin A1c Lactic Acid Calcium Phosphorus Magnesium Total Creatine Kinase Albumin Digoxin 11/19/18 11/19/18 11/19/18 15:06 16:07 17:10 WBC RBC Hgb Hct MCV MCHC RDW Lymph % (Auto) Lymph # Seg Neutrophils % Seg Neuts % (Manual) Lymphocytes % (Manual) Monocytes % (Manual) Eosinophils % (Manual) Seg Neutrophils # Man Lymphocytes # (Manual) VBG pH Sodium 163 H* Potassium 3.3 L Chloride 119.9 H Carbon Dioxide 17 L BUN 49 H Creatinine 1.7 H Glucose 350 H POC Glucose 475 H Hemoglobin A1c Lactic Acid 3.30 H* Calcium Phosphorus Magnesium Total Creatine Kinase Albumin Digoxin 11/19/18 11/19/18 11/19/18 17:10 17:27 18:26 WBC RBC Hgb Hct MCV MCHC RDW Lymph % (Auto) Lymph # Seg Neutrophils % Seg Neuts % (Manual) Lymphocytes % (Manual) Monocytes % (Manual) Eosinophils % (Manual) Seg Neutrophils # Man Lymphocytes # (Manual) VBG pH Sodium Potassium Chloride Carbon Dioxide BUN Creatinine Glucose POC Glucose 368 H 270 H Hemoglobin A1c Lactic Acid 3.30 H* Calcium Phosphorus Magnesium Total Creatine Kinase Albumin Digoxin 11/19/18 11/19/18 11/19/18 19:14 19:14 19:14 WBC RBC Hgb Hct MCV MCHC RDW Lymph % (Auto) Lymph # Seg Neutrophils % Seg Neuts % (Manual) Lymphocytes % (Manual) Monocytes % (Manual) Eosinophils % (Manual) Seg Neutrophils # Man Lymphocytes # (Manual) VBG pH Sodium 164 H* Potassium Chloride 122.7 H Carbon Dioxide BUN 43 H Creatinine 1.6 H Glucose 240 H POC Glucose Hemoglobin A1c 16.9 H Lactic Acid Calcium Phosphorus 1.00 L D Magnesium 2.40 H Total Creatine Kinase Albumin Digoxin 11/19/18 11/19/18 11/19/18 19:14 19:18 20:10 WBC RBC Hgb Hct MCV MCHC RDW Lymph % (Auto) Lymph # Seg Neutrophils % Seg Neuts % (Manual) Lymphocytes % (Manual) Monocytes % (Manual) Eosinophils % (Manual) Seg Neutrophils # Man Lymphocytes # (Manual) VBG pH Sodium Potassium Chloride Carbon Dioxide BUN Creatinine Glucose POC Glucose 307 H 232 H Hemoglobin A1c Lactic Acid 3.70 H* Calcium Phosphorus Magnesium Total Creatine Kinase Albumin Digoxin 11/19/18 11/19/18 11/19/18 21:59 22:55 22:55 WBC RBC Hgb Hct MCV MCHC RDW Lymph % (Auto) Lymph # Seg Neutrophils % Seg Neuts % (Manual) Lymphocytes % (Manual) Monocytes % (Manual) Eosinophils % (Manual) Seg Neutrophils # Man Lymphocytes # (Manual) VBG pH Sodium 165 H* Potassium Chloride 124.9 H Carbon Dioxide BUN 39 H Creatinine Glucose 111 H POC Glucose 151 H Hemoglobin A1c Lactic Acid 3.20 H* Calcium Phosphorus Magnesium Total Creatine Kinase Albumin Digoxin 11/20/18 11/20/18 11/20/18 00:55 03:34 03:34 WBC RBC Hgb Hct MCV MCHC RDW Lymph % (Auto) Lymph # Seg Neutrophils % Seg Neuts % (Manual) Lymphocytes % (Manual) Monocytes % (Manual) Eosinophils % (Manual) Seg Neutrophils # Man Lymphocytes # (Manual) VBG pH Sodium 165 H* Potassium Chloride 126.2 H Carbon Dioxide BUN 35 H Creatinine Glucose 124 H POC Glucose 118 H Hemoglobin A1c Lactic Acid Calcium Phosphorus 0.80 L* Magnesium Total Creatine Kinase Albumin Digoxin 11/20/18 11/20/18 11/20/18 03:44 04:32 04:34 WBC 1.5 L* RBC Hgb Hct 35.2 L D MCV MCHC 35 H RDW Lymph % (Auto) Lymph # Seg Neutrophils % Seg Neuts % (Manual) 30.0 L Lymphocytes % (Manual) Monocytes % (Manual) 10.0 H Eosinophils % (Manual) Seg Neutrophils # Man 0.5 L Lymphocytes # (Manual) 0.3 L VBG pH Sodium Potassium Chloride Carbon Dioxide BUN Creatinine Glucose POC Glucose 127 H 168 H Hemoglobin A1c Lactic Acid Calcium Phosphorus Magnesium Total Creatine Kinase Albumin Digoxin 11/20/18 11/20/18 11/20/18 06:41 07:14 08:40 WBC RBC Hgb Hct MCV MCHC RDW Lymph % (Auto) Lymph # Seg Neutrophils % Seg Neuts % (Manual) Lymphocytes % (Manual) Monocytes % (Manual) Eosinophils % (Manual) Seg Neutrophils # Man Lymphocytes # (Manual) VBG pH Sodium 161 H* Potassium Chloride 122.7 H Carbon Dioxide BUN 36 H Creatinine Glucose 252 H POC Glucose 236 H 379 H Hemoglobin A1c Lactic Acid Calcium Phosphorus 2.30 L D Magnesium Total Creatine Kinase Albumin Digoxin 11/20/18 11/20/18 11/20/18 14:47 14:51 18:05 WBC RBC Hgb Hct MCV MCHC RDW Lymph % (Auto) Lymph # Seg Neutrophils % Seg Neuts % (Manual) Lymphocytes % (Manual) Monocytes % (Manual) Eosinophils % (Manual) Seg Neutrophils # Man Lymphocytes # (Manual) VBG pH Sodium 158 H 156 H Potassium Chloride 123.8 H 121.5 H Carbon Dioxide BUN 26 H 25 H Creatinine Glucose 127 H 69 L POC Glucose 151 H Hemoglobin A1c Lactic Acid Calcium 7.6 L 7.8 L Phosphorus Magnesium Total Creatine Kinase Albumin Digoxin 11/20/18 11/21/18 11/21/18 23:29 02:17 02:20 WBC RBC Hgb Hct MCV MCHC RDW Lymph % (Auto) Lymph # Seg Neutrophils % Seg Neuts % (Manual) Lymphocytes % (Manual) Monocytes % (Manual) Eosinophils % (Manual) Seg Neutrophils # Man Lymphocytes # (Manual) VBG pH Sodium 157 H 155 H Potassium 3.5 L Chloride 122.0 H 119.4 H Carbon Dioxide BUN 23 H 21 H Creatinine Glucose 74 L 105 H POC Glucose 115 H Hemoglobin A1c Lactic Acid Calcium 7.6 L 7.7 L Phosphorus Magnesium Total Creatine Kinase Albumin Digoxin 11/21/18 11/21/18 11/21/18 04:25 08:13 08:13 WBC RBC Hgb Hct 34.4 L MCV MCHC 35 H RDW Lymph % (Auto) Lymph # Seg Neutrophils % Seg Neuts % (Manual) Lymphocytes % (Manual) Monocytes % (Manual) Eosinophils % (Manual) Seg Neutrophils # Man Lymphocytes # (Manual) VBG pH Sodium 153 H Potassium Chloride 117.9 H Carbon Dioxide BUN 23 H Creatinine Glucose 260 H POC Glucose Hemoglobin A1c Lactic Acid Calcium 7.8 L Phosphorus Magnesium Total Creatine Kinase Albumin Digoxin 0.8 L 11/21/18 11/21/18 11/21/18 11:01 16:46 17:38 WBC RBC Hgb Hct MCV MCHC RDW Lymph % (Auto) Lymph # Seg Neutrophils % Seg Neuts % (Manual) Lymphocytes % (Manual) Monocytes % (Manual) Eosinophils % (Manual) Seg Neutrophils # Man Lymphocytes # (Manual) VBG pH Sodium 154 H 155 H Potassium Chloride 119.6 H 119.7 H Carbon Dioxide 20 L BUN 25 H 23 H Creatinine Glucose 275 H 202 H POC Glucose 188 H Hemoglobin A1c Lactic Acid Calcium 7.9 L 8.3 L Phosphorus Magnesium Total Creatine Kinase Albumin Digoxin 11/21/18 11/21/18 11/22/18 20:55 22:33 05:56 WBC RBC Hgb Hct MCV MCHC RDW Lymph % (Auto) Lymph # Seg Neutrophils % Seg Neuts % (Manual) Lymphocytes % (Manual) Monocytes % (Manual) Eosinophils % (Manual) Seg Neutrophils # Man Lymphocytes # (Manual) VBG pH Sodium 155 H 155 H Potassium 3.3 L 3.1 L Chloride 117.8 H 120.8 H Carbon Dioxide BUN Creatinine Glucose 57 L POC Glucose 134 H Hemoglobin A1c Lactic Acid Calcium 8.2 L 8.1 L Phosphorus Magnesium Total Creatine Kinase Albumin Digoxin 11/22/18 11/22/18 11/22/18 05:56 07:34 10:20 WBC 11.1 H RBC Hgb 11.5 L Hct 33.7 L MCV MCHC RDW Lymph % (Auto) Lymph # Seg Neutrophils % Seg Neuts % (Manual) Lymphocytes % (Manual) Monocytes % (Manual) Eosinophils % (Manual) Seg Neutrophils # Man Lymphocytes # (Manual) VBG pH Sodium 153 H Potassium 3.1 L Chloride 117.9 H Carbon Dioxide BUN Creatinine Glucose 171 H POC Glucose 145 H Hemoglobin A1c Lactic Acid Calcium 8.1 L Phosphorus Magnesium Total Creatine Kinase Albumin Digoxin 11/22/18 11/22/18 11/22/18 14:35 14:54 14:58 WBC RBC Hgb Hct MCV MCHC RDW Lymph % (Auto) Lymph # Seg Neutrophils % Seg Neuts % (Manual) Lymphocytes % (Manual) Monocytes % (Manual) Eosinophils % (Manual) Seg Neutrophils # Man Lymphocytes # (Manual) VBG pH Sodium 151 H Potassium 2.9 L* Chloride 116.2 H Carbon Dioxide BUN Creatinine Glucose 320 H POC Glucose 51 L 159 H Hemoglobin A1c Lactic Acid Calcium 8.1 L Phosphorus Magnesium Total Creatine Kinase Albumin Digoxin 11/22/18 11/22/18 11/22/18 16:35 20:25 21:17 WBC RBC Hgb Hct MCV MCHC RDW Lymph % (Auto) Lymph # Seg Neutrophils % Seg Neuts % (Manual) Lymphocytes % (Manual) Monocytes % (Manual) Eosinophils % (Manual) Seg Neutrophils # Man Lymphocytes # (Manual) VBG pH Sodium 153 H Potassium 3.4 L Chloride 114.5 H Carbon Dioxide BUN Creatinine Glucose 74 L POC Glucose 137 H 198 H Hemoglobin A1c Lactic Acid Calcium Phosphorus Magnesium Total Creatine Kinase Albumin Digoxin 11/23/18 11/23/18 11/23/18 02:49 04:59 07:18 WBC RBC 3.09 L Hgb 9.7 L Hct 27.7 L D MCV MCHC 35 H RDW Lymph % (Auto) Lymph # Seg Neutrophils % Seg Neuts % (Manual) 84.0 H Lymphocytes % (Manual) 7.0 L Monocytes % (Manual) 8.0 H Eosinophils % (Manual) Seg Neutrophils # Man Lymphocytes # (Manual) 0.6 L VBG pH Sodium 149 H Potassium 3.2 L Chloride 111.5 H Carbon Dioxide BUN Creatinine Glucose 176 H POC Glucose 169 H Hemoglobin A1c Lactic Acid Calcium 8.2 L Phosphorus Magnesium Total Creatine Kinase Albumin Digoxin 11/23/18 11/23/18 11/23/18 07:18 11:00 11:56 WBC RBC Hgb Hct MCV MCHC RDW Lymph % (Auto) Lymph # Seg Neutrophils % Seg Neuts % (Manual) Lymphocytes % (Manual) Monocytes % (Manual) Eosinophils % (Manual) Seg Neutrophils # Man Lymphocytes # (Manual) VBG pH Sodium 146 H Potassium 3.2 L 5.1 H D Chloride 108.7 H 109.6 H Carbon Dioxide 17 L BUN Creatinine Glucose 180 H 330 H POC Glucose 323 H Hemoglobin A1c Lactic Acid Calcium Phosphorus Magnesium Total Creatine Kinase Albumin Digoxin 11/23/18 11/23/18 11/23/18 16:16 18:00 21:18 WBC RBC Hgb Hct MCV MCHC RDW Lymph % (Auto) Lymph # Seg Neutrophils % Seg Neuts % (Manual) Lymphocytes % (Manual) Monocytes % (Manual) Eosinophils % (Manual) Seg Neutrophils # Man Lymphocytes # (Manual) VBG pH Sodium 148 H 149 H Potassium 3.4 L D 2.8 L* Chloride 109.7 H 109.7 H Carbon Dioxide BUN Creatinine Glucose 194 H 66 L POC Glucose 186 H Hemoglobin A1c Lactic Acid Calcium Phosphorus Magnesium Total Creatine Kinase Albumin Digoxin 11/23/18 11/23/18 11/24/18 22:48 23:32 00:55 WBC RBC Hgb Hct MCV MCHC RDW Lymph % (Auto) Lymph # Seg Neutrophils % Seg Neuts % (Manual) Lymphocytes % (Manual) Monocytes % (Manual) Eosinophils % (Manual) Seg Neutrophils # Man Lymphocytes # (Manual) VBG pH Sodium 149 H Potassium 2.7 L* Chloride 111.6 H Carbon Dioxide BUN Creatinine Glucose 56 L POC Glucose 56 L 209 H Hemoglobin A1c Lactic Acid Calcium Phosphorus Magnesium Total Creatine Kinase Albumin Digoxin 11/24/18 11/24/18 11/24/18 04:29 06:03 07:32 WBC RBC Hgb Hct 34.4 L D MCV MCHC 35 H RDW Lymph % (Auto) Lymph # Seg Neutrophils % Seg Neuts % (Manual) Lymphocytes % (Manual) 10.0 L Monocytes % (Manual) 12.0 H Eosinophils % (Manual) 6.0 H Seg Neutrophils # Man Lymphocytes # (Manual) 0.7 L VBG pH Sodium 146 H Potassium Chloride 113.0 H Carbon Dioxide BUN Creatinine Glucose 138 H POC Glucose 174 H Hemoglobin A1c Lactic Acid Calcium Phosphorus Magnesium Total Creatine Kinase Albumin Digoxin 11/24/18 11/24/18 11/24/18 07:32 08:37 11:32 WBC RBC Hgb Hct MCV MCHC RDW Lymph % (Auto) Lymph # Seg Neutrophils % Seg Neuts % (Manual) Lymphocytes % (Manual) Monocytes % (Manual) Eosinophils % (Manual) Seg Neutrophils # Man Lymphocytes # (Manual) VBG pH Sodium 146 H Potassium Chloride 109.5 H Carbon Dioxide BUN Creatinine Glucose 236 H POC Glucose 300 H 291 H Hemoglobin A1c Lactic Acid Calcium Phosphorus Magnesium Total Creatine Kinase Albumin Digoxin 11/24/18 11/24/18 11/24/18 12:36 14:45 17:40 WBC RBC Hgb Hct MCV MCHC RDW Lymph % (Auto) Lymph # Seg Neutrophils % Seg Neuts % (Manual) Lymphocytes % (Manual) Monocytes % (Manual) Eosinophils % (Manual) Seg Neutrophils # Man Lymphocytes # (Manual) VBG pH Sodium 146 H Potassium 3.5 L 3.5 L Chloride 108.9 H 108.6 H Carbon Dioxide 20 L BUN Creatinine Glucose 246 H 189 H POC Glucose 231 H Hemoglobin A1c Lactic Acid Calcium Phosphorus Magnesium Total Creatine Kinase Albumin Digoxin 11/25/18 11/25/18 11/25/18 00:06 05:26 05:26 WBC RBC 5.62 H Hgb 17.6 H D Hct 48.8 H D MCV MCHC 36 H RDW Lymph % (Auto) Lymph # Seg Neutrophils % Seg Neuts % (Manual) 73.0 H Lymphocytes % (Manual) 8.0 L Monocytes % (Manual) 14.0 H Eosinophils % (Manual) Seg Neutrophils # Man Lymphocytes # (Manual) 0.4 L VBG pH Sodium Potassium Chloride Carbon Dioxide BUN Creatinine Glucose POC Glucose 106 H Hemoglobin A1c Lactic Acid Calcium Phosphorus Magnesium Total Creatine Kinase Albumin Digoxin 0.5 L 11/25/18 11/25/18 11/26/18 05:53 12:39 00:16 WBC RBC Hgb Hct MCV MCHC RDW Lymph % (Auto) Lymph # Seg Neutrophils % Seg Neuts % (Manual) Lymphocytes % (Manual) Monocytes % (Manual) Eosinophils % (Manual) Seg Neutrophils # Man Lymphocytes # (Manual) VBG pH Sodium Potassium Chloride Carbon Dioxide BUN Creatinine Glucose POC Glucose 254 H 360 H 227 H Hemoglobin A1c Lactic Acid Calcium Phosphorus Magnesium Total Creatine Kinase Albumin Digoxin 11/26/18 11/26/18 05:56 11:21 WBC RBC Hgb Hct MCV MCHC RDW Lymph % (Auto) Lymph # Seg Neutrophils % Seg Neuts % (Manual) Lymphocytes % (Manual) Monocytes % (Manual) Eosinophils % (Manual) Seg Neutrophils # Man Lymphocytes # (Manual) VBG pH Sodium Potassium Chloride Carbon Dioxide BUN Creatinine Glucose POC Glucose 278 H 242 H Hemoglobin A1c Lactic Acid Calcium Phosphorus Magnesium Total Creatine Kinase Albumin Digoxin
[2018-11-26] MEDS: DILAUDID IV PRN (22:33)
[2018-11-26] MEDS: ZOFRAN IV PRN (22:34)
[2018-11-27] MEDS: HumaLOG SUB-Q SCH ×4 (00:26→17:56)
[2018-11-27] MEDS: TYLENOL PO PRN (06:09)
--- NOTE | 2018-11-27 08:45 | Progress Note ---
Assessment and Plan Assessment and plan: Sepsis. Resolved. Etiology most likely DKA +/- SVT s/p CV. Blood culture negative, UA negative, CXR negative. Abdominal CT shows prominent infiltrate is seen in the right lower lobe consistent with pneumonitis. Small bilateral pleural effusions are seen. Aspiration pneumonia. Repeat CXR shows right lower lung parenchymal opacification that could indicate aspiration and/or developing pneumonia. Acute hypoxic respiratory failure. Etiology segment to above. Continue O2 to maintain sats Toxic metabolic encephaloapthy. Etiology from DKA / electrolyte imbalance / Sepsis Atrial fibrillation with RVR. F/u BMP, Mg and digoxin level in AM. Cont digoxin and eliquis DM 2, uncontrolled. Patient with labile blood sugars. We will continue to monitor continue to feedings. MEETA. Improved. oropharyngeal dysphagia. We will proceed with EGD/PEG attempt on 11/28. Eliquis on hold for procedure. History Interval history: No new issues overnight. Hospitalist Physical - Constitutional Vitals: Temp Pulse Resp BP Pulse Ox 97.8 F 70 16 124/55 90 11/27/18 04:55 11/27/18 04:55 11/27/18 04:55 11/27/18 04:55 11/27/18 04:55 General appearance: Present: no acute distress - EENT Eyes: Present: PERRL, EOM intact ENT: hearing intact, clear oral mucosa, dentition normal - Neck Neck: Present: supple, normal ROM - Respiratory Respiratory effort: normal Respiratory: bilateral: CTA - Cardiovascular Rhythm: regular Heart Sounds: Present: S1 & S2. Absent: gallop, rub - Extremities Extremities: no ischemia, No edema, Full ROM - Abdominal General gastrointestinal: soft, non-tender, non-distended, normal bowel sounds - Integumentary Integumentary: Present: clear, warm, dry - Neurologic Neurologic: CNII-XII intact, moves all extremities Results - Labs CBC & Chem 7: 11/25/18 05:26 11/24/18 14:45 Labs: Laboratory Last Values WBC 5.4 K/mm3 (4.5-11.0) 11/25/18 05:26 RBC 5.62 M/mm3 (3.65-5.03) H 11/25/18 05:26 Hgb 17.6 gm/dl (11.8-15.2) H D 11/25/18 05:26 Hct 48.8 % (35.5-45.6) H D 11/25/18 05:26 MCV 87 fl (84-94) 11/25/18 05:26 MCH 31 pg (28-32) 11/25/18 05:26 MCHC 36 % (32-34) H 11/25/18 05:26 RDW 13.5 % (13.2-15.2) 11/25/18 05:26 Plt Count 174 K/mm3 (140-440) 11/25/18 05:26 Lymph % (Auto) 4.2 % (13.4-35.0) L 11/19/18 10:07 [place] % (Auto) Natural Resource Manager 11/24/18 07:32 Eos % (Auto) 0.5 % (0.0-4.3) 11/19/18 10:07 Baso % (Auto) 0.1 % (0.0-1.8) 11/19/18 10:07 Lymph # 0.3 K/mm3 (1.2-5.4) L 11/19/18 10:07 [place] # 0.5 K/mm3 (0.0-0.8) 11/19/18 10:07 Eos # 0.0 K/mm3 (0.0-0.4) 11/19/18 10:07 Baso # 0.0 K/mm3 (0.0-0.1) 11/19/18 10:07 Add Manual Diff Complete 11/25/18 05:26 Total Counted 100 11/25/18 05:26 Seg Neutrophils % 89.3 % (40.0-70.0) H 11/19/18 10:07 Seg Neuts % (Manual) 73.0 % (40.0-70.0) H 11/25/18 05:26 0 % 11/25/18 05:26 8.0 % (13.4-35.0) L 11/25/18 05:26 Reactive Lymphs % (Man) 0 % 11/25/18 05:26 14.0 % (0.0-7.3) H 11/25/18 05:26 4.0 % (0.0-4.3) 11/25/18 05:26 1.0 % (0.0-1.8) 11/25/18 05:26 0 % 11/25/18 05:26 0 % 11/25/18 05:26 0 % 11/25/18 05:26 0 % 11/25/18 05:26 Nucleated RBC % Not Reportable 11/25/18 05:26 Seg Neutrophils # 6.9 K/mm3 (1.8-7.7) 11/19/18 10:07 Seg Neutrophils # Man 3.9 K/mm3 (1.8-7.7) 11/25/18 05:26 Band Neutrophils # 0.0 K/mm3 11/25/18 05:26 0.4 K/mm3 (1.2-5.4) L 11/25/18 05:26 Abs React Lymphs (Man) 0.0 K/mm3 11/25/18 05:26 0.8 K/mm3 (0.0-0.8) 11/25/18 05:26 0.2 K/mm3 (0.0-0.4) 11/25/18 05:26 0.1 K/mm3 (0.0-0.1) 11/25/18 05:26 0.0 K/mm3 11/25/18 05:26 0.0 K/mm3 11/25/18 05:26 0.0 K/mm3 11/25/18 05:26 Blast Cells # 0.0 K/mm3 11/25/18 05:26 WBC Morphology Not Reportable 11/25/18 05:26 Hypersegmented Neuts Not Reportable 11/25/18 05:26 Hyposegmented Neuts Not Reportable 11/25/18 05:26 Hypogranular Neuts Not Reportable 11/25/18 05:26 Not Reportable 11/25/18 05:26 Not Reportable 11/25/18 05:26 Not Reportable 11/25/18 05:26 Not Reportable 11/25/18 05:26 Not Reportable 11/25/18 05:26 Not Reportable 11/25/18 05:26 Consistent w auto 11/25/18 05:26 Not Reportable 11/25/18 05:26 Plt Clumps, EDTA Not Reportable 11/25/18 05:26 Not Reportable 11/25/18 05:26 Not Reportable 11/25/18 05:26 Not Reportable 11/25/18 05:26 Plt Morphology Comment Not Reportable 11/25/18 05:26 RBC Morphology Not Reportable 11/25/18 05:26 Dimorphic RBCs Not Reportable 11/25/18 05:26 Not Reportable 11/25/18 05:26 Not Reportable 11/25/18 05:26 Few 11/25/18 05:26 1+ 11/25/18 05:26 Not Reportable 11/25/18 05:26 Not Reportable 11/25/18 05:26 Not Reportable 11/25/18 05:26 Not Reportable 11/25/18 05:26 Not Reportable 11/25/18 05:26 Not Reportable 11/25/18 05:26 Not Reportable 11/25/18 05:26 Not Reportable 11/25/18 05:26 Not Reportable 11/25/18 05:26 Not Reportable 11/25/18 05:26 Not Reportable 11/25/18 05:26 Not Reportable 11/25/18 05:26 Not Reportable 11/25/18 05:26 Not Reportable 11/25/18 05:26 Not Reportable 11/25/18 05:26 Acanthocytes (Spur) Not Reportable 11/25/18 05:26 Rouleaux Not Reportable 11/25/18 05:26 Not Reportable 11/25/18 05:26 Not Reportable 11/25/18 05:26 Not Reportable 11/25/18 05:26 Not Reportable 11/25/18 05:26 Hem Pathologist Commnt No 11/25/18 05:26 PT 12.9 Sec. (12.2-14.9) 11/19/18 10:07 INR 1.00 (0.87-1.13) 11/19/18 10:07 APTT 26.3 Sec. (24.2-36.6) 11/19/18 10:07 VBG pH 7.162 (7.320-7.420) L* 11/19/18 10:07 Sodium 142 mmol/L (137-145) 11/24/18 14:45 Potassium 3.5 mmol/L (3.6-5.0) L 11/24/18 14:45 Chloride 108.6 mmol/L (98-107) H 11/24/18 14:45 Carbon Dioxide 20 mmol/L (22-30) L 11/24/18 14:45 17 mmol/L 11/24/18 14:45 BUN 18 mg/dL (9-20) 11/24/18 14:45 0.8 mg/dL (0.8-1.5) 11/24/18 14:45 Estimated GFR > 60 ml/min 11/24/18 14:45 23 % 11/24/18 14:45 Glucose 189 mg/dL (75-100) H 11/24/18 14:45 POC Glucose 342 (70-105) H 11/27/18 08:01 16.9 % (4-6) H 11/19/18 19:14 Lactic Acid 2.00 mmol/L (0.7-2.0) 11/20/18 04:50 Calcium 8.5 mg/dL (8.4-10.2) 11/24/18 14:45 Phosphorus 2.30 mg/dL (2.5-4.5) L D 11/20/18 07:14 Magnesium 1.90 mg/dL (1.7-2.3) 11/25/18 05:26 0.20 mg/dL (0.1-1.2) 11/19/18 10:07 AST 26 units/L (5-40) 11/19/18 10:07 ALT 24 units/L (7-56) 11/19/18 10:07 101 units/L (35-129) 11/19/18 10:07 690 units/L (55-170) H 11/19/18 10:07 0.016 ng/mL (0.00-0.029) 11/19/18 10:07 6.4 g/dL (6.3-8.2) 11/19/18 10:07 3.6 g/dL (3.9-5) L 11/19/18 10:07 1.3 % 11/19/18 10:07 Yellow (Yellow) 11/19/18 09:17 Clear (Clear) 11/19/18 09:17 5.0 (5.0-7.0) 11/19/18 09:17 Ur Specific [place] 1.027 (1.003-1.030) 11/19/18 09:17 <15 mg/dl mg/dL (Negative) 11/19/18 09:17 >=500 mg/dL (Negative) 11/19/18 09:17 80 mg/dL (Negative) 11/19/18 09:17 Neg (Negative) 11/19/18 09:17 Neg (Negative) 11/19/18 09:17 Neg (Negative) 11/19/18 09:17 < 2.0 mg/dL (<2.0) 11/19/18 09:17 Ur Leukocyte Esterase Neg (Negative) 11/19/18 09:17 < 1.0 /HPF (0.0-6.0) 11/19/18 09:17 2.0 /HPF (0.0-6.0) 11/19/18 09:17 Few /HPF 11/19/18 09:17 Digoxin 0.5 ng/mL (0.9-2.0) L 11/25/18 05:26 Active Medications - Current Medications Current Medications: Generic Name Dose Route Start Last Admin Trade Name Freq PRN Reason Stop Dose Admin Acetaminophen 650 mg 11/23/18 00:13 11/27/18 06:09 Tylenol PO 650 mg Q4H PRN Administration Pain, Mild (1-3), fever > 101 Albuterol 2.5 mg 11/20/18 04:27 Proventil IH Q4HRT PRN Shortness Of Breath Lipase/Protease/Amylase 1 each 11/21/18 15:[address] 10,500 Unit FEEDTUBE PRN PRN For Clogged Feeding Tube Digoxin 0.125 mg 11/21/18 10:00 11/25/18 11:04 Lanoxin PO 0.125 mg Q48H HAMLET Administration Famotidine 20 mg 11/25/18 10:00 11/26/18 22:34 Pepcid PO 20 mg BID HAMLET Administration Guaifenesin 200 mg 11/20/18 04:28 Robitussin PO Q4H PRN Cough Hydromorphone HCl 0.5 mg 11/19/18 17:17 11/26/18 22:33 Dilaudid IV 0.5 mg Q3H PRN Administration Pain , Severe (7-10) Insulin Human Isoph/Insulin Regular 10 unit 11/22/18 17:00 11/27/18 08:00 Humulin 70/30 SUB-Q 10 unit BIDDIAB HAMLET Administration Insulin Human Lispro 0 unit 11/23/18 12:00 11/27/18 06:00 Humalog SUB-Q 6 unit Q6HR HAMLET Administration Protocol Metoclopramide HCl 10 mg 11/19/18 17:17 Reglan IV Q6H PRN Nausea And Vomiting Ondansetron HCl 4 mg 11/19/18 17:17 11/26/18 22:34 Zofran IV 4 mg Q3H PRN Administration Nausea And Vomiting Simple Syrup 15 ml 11/21/18 15:26 Simple Syrup FEEDTUBE PRN PRN Hypoglycemia Simple Syrup 30 ml 11/21/18 15:26 Simple Syrup FEEDTUBE PRN PRN Hypoglycemia Sodium Bicarbonate 325 mg 11/21/18 15:26 Sodium Bicarbonate FEEDTUBE PRN PRN For Clogged Feeding Tube Sodium Chloride 10 ml 11/19/18 22:00 11/26/18 22:34 Sodium Chloride Flush Syringe 10 Ml IV 10 ml BID HAMLET Administration Sodium Chloride 10 ml 11/19/18 17:17 Sodium Chloride Flush Syringe 10 Ml IV PRN PRN LINE FLUSH Nutrition/Malnutrition Assess - Dietary Evaluation Nutrition/Malnutrition Findings: Nutrition Notes Start: 11/20/18 08:55 Freq: Status: Active Protocol: Document 11/25/18 15:10 RM (Rec: 11/25/18 15:15 RM [id number]) Nutrition Notes Initial or Follow up Reassessment Current Diagnosis Acute Kidney Injury,Diabetes Other Pertinent Diagnosis DKA, AMS Current Diet Glucerna 1.2 at 65 ml/hr Labs/Tests A1c 16.9 Pertinent Medications Zofran Height 5 ft 10 in Weight 53.8 kg [place] Body Weight (kg) 75.45 BMI 17.0 Subjective/Other Information Observed Glucerna 1.2 infusing at goal rate. Per nurse pt is tolerating TF. Percent of energy/protein needs met: 99%/100% Burn Absent Trauma Absent #1 Nutrition Diagnosis Malnutrition Diagnosis Progress(for reassessment Continues documentation) Is patient on ventilator? No Is Patient Ambulatory and/or Out of Bed No REE-([facility]-confined to bed) 1512.132 Kcal/Kg value to use for calculation 35 Approximate Energy Requirements Using 1883 kcal/Kg Calculation Used for Recommendations [facility] Additional Notes Protein needs are 54-65g (1-1. 2g/kg) Fluid needs are 1ml/kcal Nutrition Intervention Nutrition Support: Glucerna 1.2 at 65ml/hr Water flush 100ml q4h Kcal 1,872 Protein (gm) 94 Fluid (mL) 1,260 Goal #1 TF tolerance Goal #2 Wt gain/maintenance Goal #3 Continue to meet at least 75% of calorie and protein needs via TF Anticipated Discharge Needs: Unable to determine at this time Follow-Up By: 12/02/18 Additional Comments Follow for TF tolerance
[2018-11-27] MEDS: LANOXIN PO SCH (09:07)
[2018-11-27] MEDS: PEPCID PO SCH (09:07)
[2018-11-27] MEDS: SODIUM CHLORIDE FLUSH SYRINGE 10 ML IV SCH (09:08)
--- NOTE | 2018-11-27 12:19 | Progress Note ---
Assessment and Plan Cultures: Blood cultures 11/19/2018 no growth. Urine culture 11/19/2018 negative Assessment: 78 y/o male with history of diabetes brought by family due to 2-day history of generalized weakness and lethargy: 1) SIRS v/s sepsis: Resolved. Etiology most likely DKA +/- SVT s/p CV. Transiently on pressors. ? underlying sepsis is possible but blood culture so far negative, UA negative, CXR negative.Abdominal CT shows prominent infiltrate is seen in the right lower lobe consistent with pneumonitis. Small bilateral pleural effusions are seen. Rpt CXR shows right lower lung parenchymal opacific ation that could indicate aspiration and/or developing pneumonia. 2) Acute encephaloapthy: from DKA / electrolyte imbalance 3) SVT s/p CV 4) DM uncontrolled DKA 5) MEETA: better 6) Acute Hypoxemia: O2 saturation stable. on RA Recommendations: Clinically stable, monitor off antibiotics ID is signing off, please call fro questions Candy [place] NP [facility] M: [id number] O:[phone] Subjective Date of service: 11/27/18 Principal diagnosis: dka, asp pneu dementia Interval history: Patient seen and examined. Awake. Alert. no acute distress observed. Son a bedside. Objective - Exam Narrative Exam: General appearance: Awake. Alert. No acute distress Eyes: anicteric sclerae, moist conjunctivae; no lid-lag; PERRLA HENT: Atraumatic; oropharynx limited Neck: Trachea midline; supple, no thyromegaly or lymphadenopathy Lungs: CTA, with normal respiratory effort and no intercostal retractions CV: RRR no murmur Abdomen: Soft, tender diffusely Extremities: no edema, cyanosis Skin: Normal temperature, turgor and texture; no rash, ulcers or subcutaneous nodules Psych: awake. alert. no acute distress - Constitutional Vitals: Vital Signs Temp Pulse Resp BP Pulse Ox 98.6 F 66 18 112/48 94 11/27/18 08:07 11/27/18 09:07 11/27/18 08:07 11/27/18 09:07 11/27/18 08:07 Temperature -Last 24 Hours Temperature 98.6 F Temperature 97.8 F Temperature 97.5 F Temperature 98.0 F Temperature 97.6 F - Labs CBC & Chem 7: 11/25/18 05:26 11/24/18 14:45 Labs: Abnormal lab results 11/26/18 11/27/18 11/27/18 Range/Units 17:38 00:09 05:34 POC Glucose 286 H 116 H 303 H (70-105) 11/27/18 11/27/18 Range/Units 08:01 11:07 POC Glucose 342 H 262 H (70-105)
--- NOTE | 2018-11-27 12:28 | Progress Note ---
Assessment and Plan Impression: Aspiration pneumonia right lower lobe Status post DKA Diabetes mellitus. Recommendation: Patient is now off oxygen. Physical therapy and ambulation is recommended. F/U CXR in am Discharge planning. Subjective Date of service: 11/27/18 Principal diagnosis: dka, asp pneu dementia Interval history: Patient awake and responsive. No obvious shortness of breath. On room air. Has 2 feedings tolerating well. Objective Vital Signs - 12hr 11/27/18 11/27/18 11/27/18 04:55 08:00 08:07 Temperature 97.8 F 98.6 F Pulse Rate 70 76 Pulse Rate [ 66 From Monitor] Respiratory 16 18 18 Rate Blood Pressure 124/55 107/47 O2 Sat by Pulse 90 94 94 Oximetry 11/27/18 09:07 Temperature Pulse Rate 66 Pulse Rate [ From Monitor] Respiratory Rate Blood Pressure 112/48 O2 Sat by Pulse Oximetry Constitutional: no acute distress Eyes: non-icteric Ascultation: Right: rales, Bilateral: diminished breath sounds CBC and BMP: 11/25/18 05:26 11/24/18 14:45 ABG, PT/INR, D-dimer: PT/INR, D-dimer PT 12.9 Sec. (12.2-14.9) 11/19/18 10:07 INR 1.00 (0.87-1.13) 11/19/18 10:07 Abnormal lab findings: Abnormal Labs 11/19/18 11/19/18 11/19/18 10:07 10:07 10:07 WBC RBC 5.66 H Hgb 17.7 H Hct 55.2 H MCV 98 H MCHC RDW 15.3 H Lymph % (Auto) 4.2 L Lymph # 0.3 L Seg Neutrophils % 89.3 H Seg Neuts % (Manual) Lymphocytes % (Manual) Monocytes % (Manual) Eosinophils % (Manual) Seg Neutrophils # Man Lymphocytes # (Manual) VBG pH 7.162 L* Sodium Potassium Chloride Carbon Dioxide BUN Creatinine Glucose POC Glucose Hemoglobin A1c Lactic Acid Calcium Phosphorus Magnesium 3.10 H Total Creatine Kinase 690 H Albumin Digoxin 11/19/18 11/19/18 11/19/18 10:07 10:07 10:10 WBC RBC Hgb Hct MCV MCHC RDW Lymph % (Auto) Lymph # Seg Neutrophils % Seg Neuts % (Manual) Lymphocytes % (Manual) Monocytes % (Manual) Eosinophils % (Manual) Seg Neutrophils # Man Lymphocytes # (Manual) VBG pH Sodium 152 H Potassium Chloride Carbon Dioxide 7 L* BUN 61 H Creatinine 2.1 H Glucose 878 H* POC Glucose > 500 H Hemoglobin A1c Lactic Acid 2.20 H* Calcium Phosphorus Magnesium Total Creatine Kinase Albumin 3.6 L Digoxin 11/19/18 11/19/18 11/19/18 11:29 11:29 11:29 WBC RBC Hgb Hct MCV MCHC RDW Lymph % (Auto) Lymph # Seg Neutrophils % Seg Neuts % (Manual) Lymphocytes % (Manual) Monocytes % (Manual) Eosinophils % (Manual) Seg Neutrophils # Man Lymphocytes # (Manual) VBG pH Sodium 151 H Potassium Chloride Carbon Dioxide 7 L* BUN 60 H Creatinine 1.9 H Glucose 793 H* POC Glucose Hemoglobin A1c Lactic Acid 2.30 H* Calcium Phosphorus 6.90 H Magnesium 2.80 H Total Creatine Kinase Albumin Digoxin 11/19/18 11/19/18 11/19/18 13:20 14:56 15:06 WBC RBC Hgb Hct MCV MCHC RDW Lymph % (Auto) Lymph # Seg Neutrophils % Seg Neuts % (Manual) Lymphocytes % (Manual) Monocytes % (Manual) Eosinophils % (Manual) Seg Neutrophils # Man Lymphocytes # (Manual) VBG pH Sodium 161 H* D 160 H Potassium Chloride 111.0 H 113.7 H Carbon Dioxide 12 L 14 L BUN 54 H 52 H Creatinine 2.0 H 1.9 H Glucose 596 H* 496 H POC Glucose 442 H Hemoglobin A1c Lactic Acid Calcium Phosphorus Magnesium Total Creatine Kinase Albumin Digoxin 11/19/18 11/19/18 11/19/18 15:06 16:07 17:10 WBC RBC Hgb Hct MCV MCHC RDW Lymph % (Auto) Lymph # Seg Neutrophils % Seg Neuts % (Manual) Lymphocytes % (Manual) Monocytes % (Manual) Eosinophils % (Manual) Seg Neutrophils # Man Lymphocytes # (Manual) VBG pH Sodium 163 H* Potassium 3.3 L Chloride 119.9 H Carbon Dioxide 17 L BUN 49 H Creatinine 1.7 H Glucose 350 H POC Glucose 475 H Hemoglobin A1c Lactic Acid 3.30 H* Calcium Phosphorus Magnesium Total Creatine Kinase Albumin Digoxin 11/19/18 11/19/18 11/19/18 17:10 17:27 18:26 WBC RBC Hgb Hct MCV MCHC RDW Lymph % (Auto) Lymph # Seg Neutrophils % Seg Neuts % (Manual) Lymphocytes % (Manual) Monocytes % (Manual) Eosinophils % (Manual) Seg Neutrophils # Man Lymphocytes # (Manual) VBG pH Sodium Potassium Chloride Carbon Dioxide BUN Creatinine Glucose POC Glucose 368 H 270 H Hemoglobin A1c Lactic Acid 3.30 H* Calcium Phosphorus Magnesium Total Creatine Kinase Albumin Digoxin 11/19/18 11/19/18 11/19/18 19:14 19:14 19:14 WBC RBC Hgb Hct MCV MCHC RDW Lymph % (Auto) Lymph # Seg Neutrophils % Seg Neuts % (Manual) Lymphocytes % (Manual) Monocytes % (Manual) Eosinophils % (Manual) Seg Neutrophils # Man Lymphocytes # (Manual) VBG pH Sodium 164 H* Potassium Chloride 122.7 H Carbon Dioxide BUN 43 H Creatinine 1.6 H Glucose 240 H POC Glucose Hemoglobin A1c 16.9 H Lactic Acid Calcium Phosphorus 1.00 L D Magnesium 2.40 H Total Creatine Kinase Albumin Digoxin 11/19/18 11/19/18 11/19/18 19:14 19:18 20:10 WBC RBC Hgb Hct MCV MCHC RDW Lymph % (Auto) Lymph # Seg Neutrophils % Seg Neuts % (Manual) Lymphocytes % (Manual) Monocytes % (Manual) Eosinophils % (Manual) Seg Neutrophils # Man Lymphocytes # (Manual) VBG pH Sodium Potassium Chloride Carbon Dioxide BUN Creatinine Glucose POC Glucose 307 H 232 H Hemoglobin A1c Lactic Acid 3.70 H* Calcium Phosphorus Magnesium Total Creatine Kinase Albumin Digoxin 11/19/18 11/19/18 11/19/18 21:59 22:55 22:55 WBC RBC Hgb Hct MCV MCHC RDW Lymph % (Auto) Lymph # Seg Neutrophils % Seg Neuts % (Manual) Lymphocytes % (Manual) Monocytes % (Manual) Eosinophils % (Manual) Seg Neutrophils # Man Lymphocytes # (Manual) VBG pH Sodium 165 H* Potassium Chloride 124.9 H Carbon Dioxide BUN 39 H Creatinine Glucose 111 H POC Glucose 151 H Hemoglobin A1c Lactic Acid 3.20 H* Calcium Phosphorus Magnesium Total Creatine Kinase Albumin Digoxin 11/20/18 11/20/18 11/20/18 00:55 03:34 03:34 WBC RBC Hgb Hct MCV MCHC RDW Lymph % (Auto) Lymph # Seg Neutrophils % Seg Neuts % (Manual) Lymphocytes % (Manual) Monocytes % (Manual) Eosinophils % (Manual) Seg Neutrophils # Man Lymphocytes # (Manual) VBG pH Sodium 165 H* Potassium Chloride 126.2 H Carbon Dioxide BUN 35 H Creatinine Glucose 124 H POC Glucose 118 H Hemoglobin A1c Lactic Acid Calcium Phosphorus 0.80 L* Magnesium Total Creatine Kinase Albumin Digoxin 11/20/18 11/20/18 11/20/18 03:44 04:32 04:34 WBC 1.5 L* RBC Hgb Hct 35.2 L D MCV MCHC 35 H RDW Lymph % (Auto) Lymph # Seg Neutrophils % Seg Neuts % (Manual) 30.0 L Lymphocytes % (Manual) Monocytes % (Manual) 10.0 H Eosinophils % (Manual) Seg Neutrophils # Man 0.5 L Lymphocytes # (Manual) 0.3 L VBG pH Sodium Potassium Chloride Carbon Dioxide BUN Creatinine Glucose POC Glucose 127 H 168 H Hemoglobin A1c Lactic Acid Calcium Phosphorus Magnesium Total Creatine Kinase Albumin Digoxin 11/20/18 11/20/18 11/20/18 06:41 07:14 08:40 WBC RBC Hgb Hct MCV MCHC RDW Lymph % (Auto) Lymph # Seg Neutrophils % Seg Neuts % (Manual) Lymphocytes % (Manual) Monocytes % (Manual) Eosinophils % (Manual) Seg Neutrophils # Man Lymphocytes # (Manual) VBG pH Sodium 161 H* Potassium Chloride 122.7 H Carbon Dioxide BUN 36 H Creatinine Glucose 252 H POC Glucose 236 H 379 H Hemoglobin A1c Lactic Acid Calcium Phosphorus 2.30 L D Magnesium Total Creatine Kinase Albumin Digoxin 11/20/18 11/20/18 11/20/18 14:47 14:51 18:05 WBC RBC Hgb Hct MCV MCHC RDW Lymph % (Auto) Lymph # Seg Neutrophils % Seg Neuts % (Manual) Lymphocytes % (Manual) Monocytes % (Manual) Eosinophils % (Manual) Seg Neutrophils # Man Lymphocytes # (Manual) VBG pH Sodium 158 H 156 H Potassium Chloride 123.8 H 121.5 H Carbon Dioxide BUN 26 H 25 H Creatinine Glucose 127 H 69 L POC Glucose 151 H Hemoglobin A1c Lactic Acid Calcium 7.6 L 7.8 L Phosphorus Magnesium Total Creatine Kinase Albumin Digoxin 11/20/18 11/21/18 11/21/18 23:29 02:17 02:20 WBC RBC Hgb Hct MCV MCHC RDW Lymph % (Auto) Lymph # Seg Neutrophils % Seg Neuts % (Manual) Lymphocytes % (Manual) Monocytes % (Manual) Eosinophils % (Manual) Seg Neutrophils # Man Lymphocytes # (Manual) VBG pH Sodium 157 H 155 H Potassium 3.5 L Chloride 122.0 H 119.4 H Carbon Dioxide BUN 23 H 21 H Creatinine Glucose 74 L 105 H POC Glucose 115 H Hemoglobin A1c Lactic Acid Calcium 7.6 L 7.7 L Phosphorus Magnesium Total Creatine Kinase Albumin Digoxin 11/21/18 11/21/18 11/21/18 04:25 08:13 08:13 WBC RBC Hgb Hct 34.4 L MCV MCHC 35 H RDW Lymph % (Auto) Lymph # Seg Neutrophils % Seg Neuts % (Manual) Lymphocytes % (Manual) Monocytes % (Manual) Eosinophils % (Manual) Seg Neutrophils # Man Lymphocytes # (Manual) VBG pH Sodium 153 H Potassium Chloride 117.9 H Carbon Dioxide BUN 23 H Creatinine Glucose 260 H POC Glucose Hemoglobin A1c Lactic Acid Calcium 7.8 L Phosphorus Magnesium Total Creatine Kinase Albumin Digoxin 0.8 L 11/21/18 11/21/18 11/21/18 11:01 16:46 17:38 WBC RBC Hgb Hct MCV MCHC RDW Lymph % (Auto) Lymph # Seg Neutrophils % Seg Neuts % (Manual) Lymphocytes % (Manual) Monocytes % (Manual) Eosinophils % (Manual) Seg Neutrophils # Man Lymphocytes # (Manual) VBG pH Sodium 154 H 155 H Potassium Chloride 119.6 H 119.7 H Carbon Dioxide 20 L BUN 25 H 23 H Creatinine Glucose 275 H 202 H POC Glucose 188 H Hemoglobin A1c Lactic Acid Calcium 7.9 L 8.3 L Phosphorus Magnesium Total Creatine Kinase Albumin Digoxin 11/21/18 11/21/18 11/22/18 20:55 22:33 05:56 WBC RBC Hgb Hct MCV MCHC RDW Lymph % (Auto) Lymph # Seg Neutrophils % Seg Neuts % (Manual) Lymphocytes % (Manual) Monocytes % (Manual) Eosinophils % (Manual) Seg Neutrophils # Man Lymphocytes # (Manual) VBG pH Sodium 155 H 155 H Potassium 3.3 L 3.1 L Chloride 117.8 H 120.8 H Carbon Dioxide BUN Creatinine Glucose 57 L POC Glucose 134 H Hemoglobin A1c Lactic Acid Calcium 8.2 L 8.1 L Phosphorus Magnesium Total Creatine Kinase Albumin Digoxin 11/22/18 11/22/18 11/22/18 05:56 07:34 10:20 WBC 11.1 H RBC Hgb 11.5 L Hct 33.7 L MCV MCHC RDW Lymph % (Auto) Lymph # Seg Neutrophils % Seg Neuts % (Manual) Lymphocytes % (Manual) Monocytes % (Manual) Eosinophils % (Manual) Seg Neutrophils # Man Lymphocytes # (Manual) VBG pH Sodium 153 H Potassium 3.1 L Chloride 117.9 H Carbon Dioxide BUN Creatinine Glucose 171 H POC Glucose 145 H Hemoglobin A1c Lactic Acid Calcium 8.1 L Phosphorus Magnesium Total Creatine Kinase Albumin Digoxin 11/22/18 11/22/18 11/22/18 14:35 14:54 14:58 WBC RBC Hgb Hct MCV MCHC RDW Lymph % (Auto) Lymph # Seg Neutrophils % Seg Neuts % (Manual) Lymphocytes % (Manual) Monocytes % (Manual) Eosinophils % (Manual) Seg Neutrophils # Man Lymphocytes # (Manual) VBG pH Sodium 151 H Potassium 2.9 L* Chloride 116.2 H Carbon Dioxide BUN Creatinine Glucose 320 H POC Glucose 51 L 159 H Hemoglobin A1c Lactic Acid Calcium 8.1 L Phosphorus Magnesium Total Creatine Kinase Albumin Digoxin 11/22/18 11/22/18 11/22/18 16:35 20:25 21:17 WBC RBC Hgb Hct MCV MCHC RDW Lymph % (Auto) Lymph # Seg Neutrophils % Seg Neuts % (Manual) Lymphocytes % (Manual) Monocytes % (Manual) Eosinophils % (Manual) Seg Neutrophils # Man Lymphocytes # (Manual) VBG pH Sodium 153 H Potassium 3.4 L Chloride 114.5 H Carbon Dioxide BUN Creatinine Glucose 74 L POC Glucose 137 H 198 H Hemoglobin A1c Lactic Acid Calcium Phosphorus Magnesium Total Creatine Kinase Albumin Digoxin 11/23/18 11/23/18 11/23/18 02:49 04:59 07:18 WBC RBC 3.09 L Hgb 9.7 L Hct 27.7 L D MCV MCHC 35 H RDW Lymph % (Auto) Lymph # Seg Neutrophils % Seg Neuts % (Manual) 84.0 H Lymphocytes % (Manual) 7.0 L Monocytes % (Manual) 8.0 H Eosinophils % (Manual) Seg Neutrophils # Man Lymphocytes # (Manual) 0.6 L VBG pH Sodium 149 H Potassium 3.2 L Chloride 111.5 H Carbon Dioxide BUN Creatinine Glucose 176 H POC Glucose 169 H Hemoglobin A1c Lactic Acid Calcium 8.2 L Phosphorus Magnesium Total Creatine Kinase Albumin Digoxin 11/23/18 11/23/18 11/23/18 07:18 11:00 11:56 WBC RBC Hgb Hct MCV MCHC RDW Lymph % (Auto) Lymph # Seg Neutrophils % Seg Neuts % (Manual) Lymphocytes % (Manual) Monocytes % (Manual) Eosinophils % (Manual) Seg Neutrophils # Man Lymphocytes # (Manual) VBG pH Sodium 146 H Potassium 3.2 L 5.1 H D Chloride 108.7 H 109.6 H Carbon Dioxide 17 L BUN Creatinine Glucose 180 H 330 H POC Glucose 323 H Hemoglobin A1c Lactic Acid Calcium Phosphorus Magnesium Total Creatine Kinase Albumin Digoxin 11/23/18 11/23/18 11/23/18 16:16 18:00 21:18 WBC RBC Hgb Hct MCV MCHC RDW Lymph % (Auto) Lymph # Seg Neutrophils % Seg Neuts % (Manual) Lymphocytes % (Manual) Monocytes % (Manual) Eosinophils % (Manual) Seg Neutrophils # Man Lymphocytes # (Manual) VBG pH Sodium 148 H 149 H Potassium 3.4 L D 2.8 L* Chloride 109.7 H 109.7 H Carbon Dioxide BUN Creatinine Glucose 194 H 66 L POC Glucose 186 H Hemoglobin A1c Lactic Acid Calcium Phosphorus Magnesium Total Creatine Kinase Albumin Digoxin 11/23/18 11/23/18 11/24/18 22:48 23:32 00:55 WBC RBC Hgb Hct MCV MCHC RDW Lymph % (Auto) Lymph # Seg Neutrophils % Seg Neuts % (Manual) Lymphocytes % (Manual) Monocytes % (Manual) Eosinophils % (Manual) Seg Neutrophils # Man Lymphocytes # (Manual) VBG pH Sodium 149 H Potassium 2.7 L* Chloride 111.6 H Carbon Dioxide BUN Creatinine Glucose 56 L POC Glucose 56 L 209 H Hemoglobin A1c Lactic Acid Calcium Phosphorus Magnesium Total Creatine Kinase Albumin Digoxin 11/24/18 11/24/18 11/24/18 04:29 06:03 07:32 WBC RBC Hgb Hct 34.4 L D MCV MCHC 35 H RDW Lymph % (Auto) Lymph # Seg Neutrophils % Seg Neuts % (Manual) Lymphocytes % (Manual) 10.0 L Monocytes % (Manual) 12.0 H Eosinophils % (Manual) 6.0 H Seg Neutrophils # Man Lymphocytes # (Manual) 0.7 L VBG pH Sodium 146 H Potassium Chloride 113.0 H Carbon Dioxide BUN Creatinine Glucose 138 H POC Glucose 174 H Hemoglobin A1c Lactic Acid Calcium Phosphorus Magnesium Total Creatine Kinase Albumin Digoxin 11/24/18 11/24/18 11/24/18 07:32 08:37 11:32 WBC RBC Hgb Hct MCV MCHC RDW Lymph % (Auto) Lymph # Seg Neutrophils % Seg Neuts % (Manual) Lymphocytes % (Manual) Monocytes % (Manual) Eosinophils % (Manual) Seg Neutrophils # Man Lymphocytes # (Manual) VBG pH Sodium 146 H Potassium Chloride 109.5 H Carbon Dioxide BUN Creatinine Glucose 236 H POC Glucose 300 H 291 H Hemoglobin A1c Lactic Acid Calcium Phosphorus Magnesium Total Creatine Kinase Albumin Digoxin 11/24/18 11/24/18 11/24/18 12:36 14:45 17:40 WBC RBC Hgb Hct MCV MCHC RDW Lymph % (Auto) Lymph # Seg Neutrophils % Seg Neuts % (Manual) Lymphocytes % (Manual) Monocytes % (Manual) Eosinophils % (Manual) Seg Neutrophils # Man Lymphocytes # (Manual) VBG pH Sodium 146 H Potassium 3.5 L 3.5 L Chloride 108.9 H 108.6 H Carbon Dioxide 20 L BUN Creatinine Glucose 246 H 189 H POC Glucose 231 H Hemoglobin A1c Lactic Acid Calcium Phosphorus Magnesium Total Creatine Kinase Albumin Digoxin 11/25/18 11/25/18 11/25/18 00:06 05:26 05:26 WBC RBC 5.62 H Hgb 17.6 H D Hct 48.8 H D MCV MCHC 36 H RDW Lymph % (Auto) Lymph # Seg Neutrophils % Seg Neuts % (Manual) 73.0 H Lymphocytes % (Manual) 8.0 L Monocytes % (Manual) 14.0 H Eosinophils % (Manual) Seg Neutrophils # Man Lymphocytes # (Manual) 0.4 L VBG pH Sodium Potassium Chloride Carbon Dioxide BUN Creatinine Glucose POC Glucose 106 H Hemoglobin A1c Lactic Acid Calcium Phosphorus Magnesium Total Creatine Kinase Albumin Digoxin 0.5 L 11/25/18 11/25/18 11/26/18 05:53 12:39 00:16 WBC RBC Hgb Hct MCV MCHC RDW Lymph % (Auto) Lymph # Seg Neutrophils % Seg Neuts % (Manual) Lymphocytes % (Manual) Monocytes % (Manual) Eosinophils % (Manual) Seg Neutrophils # Man Lymphocytes # (Manual) VBG pH Sodium Potassium Chloride Carbon Dioxide BUN Creatinine Glucose POC Glucose 254 H 360 H 227 H Hemoglobin A1c Lactic Acid Calcium Phosphorus Magnesium Total Creatine Kinase Albumin Digoxin 11/26/18 11/26/18 11/26/18 05:56 11:21 17:38 WBC RBC Hgb Hct MCV MCHC RDW Lymph % (Auto) Lymph # Seg Neutrophils % Seg Neuts % (Manual) Lymphocytes % (Manual) Monocytes % (Manual) Eosinophils % (Manual) Seg Neutrophils # Man Lymphocytes # (Manual) VBG pH Sodium Potassium Chloride Carbon Dioxide BUN Creatinine Glucose POC Glucose 278 H 242 H 286 H Hemoglobin A1c Lactic Acid Calcium Phosphorus Magnesium Total Creatine Kinase Albumin Digoxin 11/27/18 11/27/18 11/27/18 00:09 05:34 08:01 WBC RBC Hgb Hct MCV MCHC RDW Lymph % (Auto) Lymph # Seg Neutrophils % Seg Neuts % (Manual) Lymphocytes % (Manual) Monocytes % (Manual) Eosinophils % (Manual) Seg Neutrophils # Man Lymphocytes # (Manual) VBG pH Sodium Potassium Chloride Carbon Dioxide BUN Creatinine Glucose POC Glucose 116 H 303 H 342 H Hemoglobin A1c Lactic Acid Calcium Phosphorus Magnesium Total Creatine Kinase Albumin Digoxin 11/27/18 11:07 WBC RBC Hgb Hct MCV MCHC RDW Lymph % (Auto) Lymph # Seg Neutrophils % Seg Neuts % (Manual) Lymphocytes % (Manual) Monocytes % (Manual) Eosinophils % (Manual) Seg Neutrophils # Man Lymphocytes # (Manual) VBG pH Sodium Potassium Chloride Carbon Dioxide BUN Creatinine Glucose POC Glucose 262 H Hemoglobin A1c Lactic Acid Calcium Phosphorus Magnesium Total Creatine Kinase Albumin Digoxin
--- NOTE | 2018-11-27 13:56 | Progress Note ---
Assessment and Plan 1. Oropharyngeal dysphagia - will proceed with EGD/PEG attempt on 11/28. Will need to evaluate stomach to see if prior surgery will be a hindrance. Cardiology note appreciated, and Rodney stopped. - will check labs in AM - discussed with family. Also spoke with granddaughter by phone yesterday to ensure adequeate communication. Subjective Date of service: 11/27/18 Principal diagnosis: dka, asp pneu dementia Interval history: Pt doing well. Son in room. No complaints. Objective - Constitutional Vitals: Vital Signs - 12hr 11/27/18 11/27/18 11/27/18 04:55 07:41 08:00 Temperature 97.8 F 98.6 F Pulse Rate 70 76 Pulse Rate [ 66 From Monitor] Respiratory 16 18 18 Rate Blood Pressure 124/55 Blood Pressure 107/47 [Left] O2 Sat by Pulse 90 94 94 Oximetry 11/27/18 11/27/18 08:07 09:07 Temperature 98.6 F Pulse Rate 76 66 Pulse Rate [ From Monitor] Respiratory 18 Rate Blood Pressure 107/47 112/48 Blood Pressure [Left] O2 Sat by Pulse 94 Oximetry General appearance: Present: no acute distress - EENT Eyes: PERRL, EOM intact - Respiratory Respiratory effort: normal - Gastrointestinal General gastrointestinal: Present: soft, non-tender - Labs CBC & Chem 7: 11/25/18 05:26 11/24/18 14:45 Labs: Abnormal lab results 11/26/18 11/27/18 11/27/18 Range/Units 17:38 00:09 05:34 POC Glucose 286 H 116 H 303 H (70-105) 11/27/18 11/27/18 11/27/18 Range/Units 08:01 11:07 12:39 POC Glucose 342 H 262 H 212 H (70-105) Medications & Allergies - Medications Allergies/Adverse Reactions: Allergies No Known Allergies Allergy (Verified 06/29/18 10:14) Home Medications: Home Medications Medication Instructions Recorded Confirmed Last Taken Type Docusate Sodium [Colace] 100 mg PO BID 7 Days #14 capsule 06/29/18 11/19/18 Unknown Rx metFORMIN [Glucophage] 500 mg PO BID 30 Days #60 tablet 06/29/18 11/19/18 Unknown Rx Active Medications: Generic Name Dose Route Start Last Admin Trade Name Freq PRN Reason Stop Dose Admin Acetaminophen 650 mg 11/23/18 00:13 11/27/18 06:09 Tylenol PO 650 mg Q4H PRN Administration Pain, Mild (1-3), fever > 101 Albuterol 2.5 mg 11/20/18 04:27 Proventil IH Q4HRT PRN Shortness Of Breath Lipase/Protease/Amylase 1 each 11/21/18 15:26 Pancreaze 10,500 Unit FEEDTUBE PRN PRN For Clogged Feeding Tube Digoxin 0.125 mg 11/21/18 10:00 11/27/18 09:07 Lanoxin PO 0.125 mg Q48H HAMLET Administration Famotidine 20 mg 11/25/18 10:00 11/27/18 09:07 Pepcid PO 20 mg BID HAMLET Administration Guaifenesin 200 mg 11/20/18 04:28 Robitussin PO Q4H PRN Cough Hydromorphone HCl 0.5 mg 11/19/18 17:17 11/26/18 22:33 Dilaudid IV 0.5 mg Q3H PRN Administration Pain , Severe (7-10) Insulin Human Isoph/Insulin Regular 15 unit 11/27/18 10:00 11/27/18 11:00 Humulin 70/30 SUB-Q 15 unit BIDDIAB HAMLET Administration Insulin Human Lispro 0 unit 11/23/18 12:00 11/27/18 12:39 Humalog SUB-Q 3 unit Q6HR HAMLET Administration Protocol Metoclopramide HCl 10 mg 11/19/18 17:17 Reglan IV Q6H PRN Nausea And Vomiting Ondansetron HCl 4 mg 11/19/18 17:17 11/26/18 22:34 Zofran IV 4 mg Q3H PRN Administration Nausea And Vomiting Simple Syrup 15 ml 11/21/18 15:26 Simple Syrup FEEDTUBE PRN PRN Hypoglycemia Simple Syrup 30 ml 11/21/18 15:26 Simple Syrup FEEDTUBE PRN PRN Hypoglycemia Sodium Bicarbonate 325 mg 11/21/18 15:26 Sodium Bicarbonate FEEDTUBE PRN PRN For Clogged Feeding Tube Sodium Chloride 10 ml 11/19/18 22:00 11/27/18 09:08 Sodium Chloride Flush Syringe 10 Ml IV 10 ml BID HAMLET Administration Sodium Chloride 10 ml 11/19/18 17:17 Sodium Chloride Flush Syringe 10 Ml IV PRN PRN LINE FLUSH
[2018-11-27] MEDS ORDERED: D50W (25GM) Syringe IV ONE (18:00)
--- NOTE | 2018-11-27 21:01 | XRay Report ---
ABDOMEN 1 VIEW(S) INDICATION: dobhoff placement verification COMPARISON: None available. FINDINGS: Bowel gas pattern: Within normal limits. No dilated loops of large or small bowel. Free air: None. Calcified gallstones: None seen. Calcified urinary tract calculi: None seen. Additional Findings: Dobbhoff feeding tube has its tip in the fundus of stomach Skeletal structures: No acute abnormality. IMPRESSION: 1. No acute findings. Signer Name: Donald Reyes MD Signed: 11/27/2018 8:57 PM Workstation Name: [id number]
[2018-11-28] MEDS: PEPCID PO SCH ×3 (00:12→21:59)
[2018-11-28] MEDS: SODIUM CHLORIDE FLUSH SYRINGE 10 ML IV SCH ×3 (00:13→22:00)
[2018-11-28 00:40] LABS: Basophils % (Auto) 0.2 % (0.0-1.8); Eosinophils % (Auto) 0.4 % (0.0-4.3); Hematocrit 33.3 % (35.5-45.6); Hemoglobin 11.6 gm/dl (11.8-15.2); Lymphocytes # (Auto) 0.8 K/mm3 (1.2-5.4); Lymphocytes % (Auto) 6.6 % (13.4-35.0); Mean Corpuscular HGB Conc 35 % (32-34); Mean Corpuscular Volume 89 fl (84-94); Monocytes # (Auto) 0.6 K/mm3 (0.0-0.8); Monocytes % (Auto) 4.7 % (0.0-7.3); Platelet Count 488 K/mm3 (140-440); Red Blood Count 3.75 M/mm3 (3.65-5.03); Red Cell Distribution Width 13.2 % (13.2-15.2)
[2018-11-28 00:52] LABS: INR 0.98 (0.87-1.13)
[2018-11-28] MEDS: HumaLOG SUB-Q SCH ×4 (01:00→17:36)
[2018-11-28 01:03] LABS: Alanine Aminotransferase 26 units/L (7-56); Albumin 2.6 g/dL (3.9-5); BUN/Creatinine Ratio 21; Blood Urea Nitrogen 15 mg/dL (9-20); Calcium 8.2 mg/dL (8.4-10.2); Hemolysis Index 6
[2018-11-28] MEDS: DILAUDID IV PRN (04:09)
--- NOTE | 2018-11-28 08:49 | XRay Report ---
CHEST 1 VIEW INDICATION: pneumonia. COMPARISON: 11/25/2018 FINDINGS: Support devices: The feeding tube is unchanged terminating in the fundus of the stomach Heart: Within normal limits. Lungs/Pleura: There is persistent patchy infiltrate in the right lower lung. The left lung is clear. No pleural fluid or pneumothorax. Additional findings: None. IMPRESSION: No change. Signer Name: Junito Preciado Jr, MD Signed: 11/28/2018 8:45 AM Workstation Name: [id number]
[2018-11-28] MEDS ORDERED: DIPRIVAN 10 MG/ML IV ONE (08:50)
--- NOTE | 2018-11-28 08:58 | Anesthesia Consultation ---
Anesthesia Consult and Med Hx - Cardiac Exam Anesthetic Concerns: A. Fib - Pre-Operative Health Status ASA Pre-Surgery Classification: ASA3 Proposed Anesthetic Plan: TIVA
[2018-11-28] MEDS ORDERED: ceFAZolin 2 GM in NACL 0.9% 100 ML IV ONE (10:02)
[2018-11-28] MEDS ORDERED: ANCEF/STERILE WATER 2 GM/20 ML 2 GM/20 ML SYRINGE IV ONE (10:08)
[2018-11-28] MEDS ORDERED: XYLOCAINE 1% 20 mL ONE (10:09)
--- NOTE | 2018-11-28 10:15 | Anesthesia Consultation ---
Anesthesia Consult and Med Hx - Airway Anesthetic Teeth Evaluation: Edentulous ROM Head & Neck: Adequate Mental/Hyoid Distance: Adequate Mallampati Class: Class I Intubation Access Assessment: Good - Pulmonary Exam CTA: No (slightly congested bilaterally) - Cardiac Exam Anesthetic Concerns: Hx. of A. Fib - Pre-Operative Health Status ASA Pre-Surgery Classification: ASA4 Proposed Anesthetic Plan: MAC - Pulmonary Hx Smoking: No Hx Asthma: No Hx Respiratory Symptoms: No SOB: Yes COPD: No Home Oxygen Therapy: No Hx Pneumonia: No Hx Sleep Apnea: No - Cardiovascular System Hx Angina: No Hx Percutaneous Transluminal Coronary Angioplasty (PTCA): No Hx Cardia Arrhythmia: Yes (a. fib) Hx Pacemaker: No Hx Internal Defibrillator: No Hx Valvular Heart Disease: No Hx Heart Murmur: No Hx Peripheral Vascular Disease: No - Central Nervous System Hx Neuromuscular Disorder: No Hx Seizures: No CVA: No Hx Back Pain: No Hx Psychiatric Problems: No - Gastrointestinal Hx Gastroesophageal Reflux Disease: Yes (peg) - Endocrine Hx Renal Disease: No Hx End Stage Renal Disease: No Hx Cirrhosis: No Hx Liver Disease: No Hx Insulin Dependent Diabetes: Yes Hx Thyroid Disease: No Hx Hypothyroidism: No Hx Hyperthyroidism: No - Hematic Hx Anemia: Yes
[2018-11-28] MEDS ORDERED: ANCEF/STERILE WATER 2 GM/20 ML 2 GM/20 ML SYRINGE IV NR (10:30)
--- NOTE | 2018-11-28 10:38 | Post Operative Note ---
Pre-op diagnosis: Oropharyngeal dysphagia Post-op diagnosis: other (1. Successful G-tube placement 2. Duodenal erosions) Findings: 1. Successful PEG placement 2. Duodenal erosions 3. Otherwise normal EGD Procedure: EGD with PEG placement Anesthesia: MAC Surgeon: JT WEST Estimated blood loss: minimal Pathology: none Condition: stable Disposition: floor (May initiate TFs after 4 hours)
--- NOTE | 2018-11-28 10:47 | Progress Note ---
Assessment and Plan 78 y/o male with DKA, likely hypovolemic hypernatremia, and hypovolemia now with acute respiratory failure, thought secondary to aspiration pneumonia. 1. Now on room air. 2. If patient able to ambulate will need walk test prior to discharge 3. If not able to ambulate, can obtain room air abg to see if patient qualifies for home O2 4. Stable pulm gastelum Subjective Date of service: 11/28/18 Principal diagnosis: dka, asp pneu dementia Interval history: No acute events. Weaned to room air over the weekend. Had peg placed this am. Objective Vital Signs - 12hr 11/28/18 11/28/18 11/28/18 02:03 07:48 08:00 Temperature 98.3 F 98.0 F Pulse Rate 70 75 Pulse Rate [ 75 From Monitor] Respiratory 18 20 20 Rate Blood Pressure 127/56 135/60 O2 Sat by Pulse 96 91 91 Oximetry 11/28/18 09:59 Temperature 98.1 F Pulse Rate 73 Pulse Rate [ From Monitor] Respiratory 15 Rate Blood Pressure 105/53 O2 Sat by Pulse 93 Oximetry Constitutional: no acute distress Eyes: non-icteric Ascultation: Right: rales, Bilateral: diminished breath sounds CBC and BMP: 11/28/18 00:17 11/28/18 00:17 ABG, PT/INR, D-dimer: PT/INR, D-dimer PT 12.7 Sec. (12.2-14.9) 11/28/18 00:17 INR 0.98 (0.87-1.13) 11/28/18 00:17 Abnormal lab findings: Abnormal Labs 11/19/18 11/19/18 11/19/18 10:07 10:07 10:07 WBC RBC 5.66 H Hgb 17.7 H Hct 55.2 H MCV 98 H MCHC RDW 15.3 H Plt Count Lymph % (Auto) 4.2 L Lymph # 0.3 L Seg Neutrophils % 89.3 H Seg Neuts % (Manual) Lymphocytes % (Manual) Monocytes % (Manual) Eosinophils % (Manual) Seg Neutrophils # Seg Neutrophils # Man Lymphocytes # (Manual) VBG pH 7.162 L* Sodium Potassium Chloride Carbon Dioxide BUN Creatinine Glucose POC Glucose Hemoglobin A1c Lactic Acid Calcium Phosphorus Magnesium 3.10 H Total Creatine Kinase 690 H Total Protein Albumin Digoxin 11/19/18 11/19/18 11/19/18 10:07 10:07 10:10 WBC RBC Hgb Hct MCV MCHC RDW Plt Count Lymph % (Auto) Lymph # Seg Neutrophils % Seg Neuts % (Manual) Lymphocytes % (Manual) Monocytes % (Manual) Eosinophils % (Manual) Seg Neutrophils # Seg Neutrophils # Man Lymphocytes # (Manual) VBG pH Sodium 152 H Potassium Chloride Carbon Dioxide 7 L* BUN 61 H Creatinine 2.1 H Glucose 878 H* POC Glucose > 500 H Hemoglobin A1c Lactic Acid 2.20 H* Calcium Phosphorus Magnesium Total Creatine Kinase Total Protein Albumin 3.6 L Digoxin 11/19/18 11/19/18 11/19/18 11:29 11:29 11:29 WBC RBC Hgb Hct MCV MCHC RDW Plt Count Lymph % (Auto) Lymph # Seg Neutrophils % Seg Neuts % (Manual) Lymphocytes % (Manual) Monocytes % (Manual) Eosinophils % (Manual) Seg Neutrophils # Seg Neutrophils # Man Lymphocytes # (Manual) VBG pH Sodium 151 H Potassium Chloride Carbon Dioxide 7 L* BUN 60 H Creatinine 1.9 H Glucose 793 H* POC Glucose Hemoglobin A1c Lactic Acid 2.30 H* Calcium Phosphorus 6.90 H Magnesium 2.80 H Total Creatine Kinase Total Protein Albumin Digoxin 11/19/18 11/19/18 11/19/18 13:20 14:56 15:06 WBC RBC Hgb Hct MCV MCHC RDW Plt Count Lymph % (Auto) Lymph # Seg Neutrophils % Seg Neuts % (Manual) Lymphocytes % (Manual) Monocytes % (Manual) Eosinophils % (Manual) Seg Neutrophils # Seg Neutrophils # Man Lymphocytes # (Manual) VBG pH Sodium 161 H* D 160 H Potassium Chloride 111.0 H 113.7 H Carbon Dioxide 12 L 14 L BUN 54 H 52 H Creatinine 2.0 H 1.9 H Glucose 596 H* 496 H POC Glucose 442 H Hemoglobin A1c Lactic Acid Calcium Phosphorus Magnesium Total Creatine Kinase Total Protein Albumin Digoxin 11/19/18 11/19/18 11/19/18 15:06 16:07 17:10 WBC RBC Hgb Hct MCV MCHC RDW Plt Count Lymph % (Auto) Lymph # Seg Neutrophils % Seg Neuts % (Manual) Lymphocytes % (Manual) Monocytes % (Manual) Eosinophils % (Manual) Seg Neutrophils # Seg Neutrophils # Man Lymphocytes # (Manual) VBG pH Sodium 163 H* Potassium 3.3 L Chloride 119.9 H Carbon Dioxide 17 L BUN 49 H Creatinine 1.7 H Glucose 350 H POC Glucose 475 H Hemoglobin A1c Lactic Acid 3.30 H* Calcium Phosphorus Magnesium Total Creatine Kinase Total Protein Albumin Digoxin 11/19/18 11/19/18 11/19/18 17:10 17:27 18:26 WBC RBC Hgb Hct MCV MCHC RDW Plt Count Lymph % (Auto) Lymph # Seg Neutrophils % Seg Neuts % (Manual) Lymphocytes % (Manual) Monocytes % (Manual) Eosinophils % (Manual) Seg Neutrophils # Seg Neutrophils # Man Lymphocytes # (Manual) VBG pH Sodium Potassium Chloride Carbon Dioxide BUN Creatinine Glucose POC Glucose 368 H 270 H Hemoglobin A1c Lactic Acid 3.30 H* Calcium Phosphorus Magnesium Total Creatine Kinase Total Protein Albumin Digoxin 11/19/18 11/19/18 11/19/18 19:14 19:14 19:14 WBC RBC Hgb Hct MCV MCHC RDW Plt Count Lymph % (Auto) Lymph # Seg Neutrophils % Seg Neuts % (Manual) Lymphocytes % (Manual) Monocytes % (Manual) Eosinophils % (Manual) Seg Neutrophils # Seg Neutrophils # Man Lymphocytes # (Manual) VBG pH Sodium 164 H* Potassium Chloride 122.7 H Carbon Dioxide BUN 43 H Creatinine 1.6 H Glucose 240 H POC Glucose Hemoglobin A1c 16.9 H Lactic Acid Calcium Phosphorus 1.00 L D Magnesium 2.40 H Total Creatine Kinase Total Protein Albumin Digoxin 11/19/18 11/19/18 11/19/18 19:14 19:18 20:10 WBC RBC Hgb Hct MCV MCHC RDW Plt Count Lymph % (Auto) Lymph # Seg Neutrophils % Seg Neuts % (Manual) Lymphocytes % (Manual) Monocytes % (Manual) Eosinophils % (Manual) Seg Neutrophils # Seg Neutrophils # Man Lymphocytes # (Manual) VBG pH Sodium Potassium Chloride Carbon Dioxide BUN Creatinine Glucose POC Glucose 307 H 232 H Hemoglobin A1c Lactic Acid 3.70 H* Calcium Phosphorus Magnesium Total Creatine Kinase Total Protein Albumin Digoxin 11/19/18 11/19/18 11/19/18 21:59 22:55 22:55 WBC RBC Hgb Hct MCV MCHC RDW Plt Count Lymph % (Auto) Lymph # Seg Neutrophils % Seg Neuts % (Manual) Lymphocytes % (Manual) Monocytes % (Manual) Eosinophils % (Manual) Seg Neutrophils # Seg Neutrophils # Man Lymphocytes # (Manual) VBG pH Sodium 165 H* Potassium Chloride 124.9 H Carbon Dioxide BUN 39 H Creatinine Glucose 111 H POC Glucose 151 H Hemoglobin A1c Lactic Acid 3.20 H* Calcium Phosphorus Magnesium Total Creatine Kinase Total Protein Albumin Digoxin 11/20/18 11/20/18 11/20/18 00:55 03:34 03:34 WBC RBC Hgb Hct MCV MCHC RDW Plt Count Lymph % (Auto) Lymph # Seg Neutrophils % Seg Neuts % (Manual) Lymphocytes % (Manual) Monocytes % (Manual) Eosinophils % (Manual) Seg Neutrophils # Seg Neutrophils # Man Lymphocytes # (Manual) VBG pH Sodium 165 H* Potassium Chloride 126.2 H Carbon Dioxide BUN 35 H Creatinine Glucose 124 H POC Glucose 118 H Hemoglobin A1c Lactic Acid Calcium Phosphorus 0.80 L* Magnesium Total Creatine Kinase Total Protein Albumin Digoxin 11/20/18 11/20/18 11/20/18 03:44 04:32 04:34 WBC 1.5 L* RBC Hgb Hct 35.2 L D MCV MCHC 35 H RDW Plt Count Lymph % (Auto) Lymph # Seg Neutrophils % Seg Neuts % (Manual) 30.0 L Lymphocytes % (Manual) Monocytes % (Manual) 10.0 H Eosinophils % (Manual) Seg Neutrophils # Seg Neutrophils # Man 0.5 L Lymphocytes # (Manual) 0.3 L VBG pH Sodium Potassium Chloride Carbon Dioxide BUN Creatinine Glucose POC Glucose 127 H 168 H Hemoglobin A1c Lactic Acid Calcium Phosphorus Magnesium Total Creatine Kinase Total Protein Albumin Digoxin 11/20/18 11/20/18 11/20/18 06:41 07:14 08:40 WBC RBC Hgb Hct MCV MCHC RDW Plt Count Lymph % (Auto) Lymph # Seg Neutrophils % Seg Neuts % (Manual) Lymphocytes % (Manual) Monocytes % (Manual) Eosinophils % (Manual) Seg Neutrophils # Seg Neutrophils # Man Lymphocytes # (Manual) VBG pH Sodium 161 H* Potassium Chloride 122.7 H Carbon Dioxide BUN 36 H Creatinine Glucose 252 H POC Glucose 236 H 379 H Hemoglobin A1c Lactic Acid Calcium Phosphorus 2.30 L D Magnesium Total Creatine Kinase Total Protein Albumin Digoxin 11/20/18 11/20/18 11/20/18 14:47 14:51 18:05 WBC RBC Hgb Hct MCV MCHC RDW Plt Count Lymph % (Auto) Lymph # Seg Neutrophils % Seg Neuts % (Manual) Lymphocytes % (Manual) Monocytes % (Manual) Eosinophils % (Manual) Seg Neutrophils # Seg Neutrophils # Man Lymphocytes # (Manual) VBG pH Sodium 158 H 156 H Potassium Chloride 123.8 H 121.5 H Carbon Dioxide BUN 26 H 25 H Creatinine Glucose 127 H 69 L POC Glucose 151 H Hemoglobin A1c Lactic Acid Calcium 7.6 L 7.8 L Phosphorus Magnesium Total Creatine Kinase Total Protein Albumin Digoxin 11/20/18 11/21/18 11/21/18 23:29 02:17 02:20 WBC RBC Hgb Hct MCV MCHC RDW Plt Count Lymph % (Auto) Lymph # Seg Neutrophils % Seg Neuts % (Manual) Lymphocytes % (Manual) Monocytes % (Manual) Eosinophils % (Manual) Seg Neutrophils # Seg Neutrophils # Man Lymphocytes # (Manual) VBG pH Sodium 157 H 155 H Potassium 3.5 L Chloride 122.0 H 119.4 H Carbon Dioxide BUN 23 H 21 H Creatinine Glucose 74 L 105 H POC Glucose 115 H Hemoglobin A1c Lactic Acid Calcium 7.6 L 7.7 L Phosphorus Magnesium Total Creatine Kinase Total Protein Albumin Digoxin 11/21/18 11/21/18 11/21/18 04:25 08:13 08:13 WBC RBC Hgb Hct 34.4 L MCV MCHC 35 H RDW Plt Count Lymph % (Auto) Lymph # Seg Neutrophils % Seg Neuts % (Manual) Lymphocytes % (Manual) Monocytes % (Manual) Eosinophils % (Manual) Seg Neutrophils # Seg Neutrophils # Man Lymphocytes # (Manual) VBG pH Sodium 153 H Potassium Chloride 117.9 H Carbon Dioxide BUN 23 H Creatinine Glucose 260 H POC Glucose Hemoglobin A1c Lactic Acid Calcium 7.8 L Phosphorus Magnesium Total Creatine Kinase Total Protein Albumin Digoxin 0.8 L 11/21/18 11/21/18 11/21/18 11:01 16:46 17:38 WBC RBC Hgb Hct MCV MCHC RDW Plt Count Lymph % (Auto) Lymph # Seg Neutrophils % Seg Neuts % (Manual) Lymphocytes % (Manual) Monocytes % (Manual) Eosinophils % (Manual) Seg Neutrophils # Seg Neutrophils # Man Lymphocytes # (Manual) VBG pH Sodium 154 H 155 H Potassium Chloride 119.6 H 119.7 H Carbon Dioxide 20 L BUN 25 H 23 H Creatinine Glucose 275 H 202 H POC Glucose 188 H Hemoglobin A1c Lactic Acid Calcium 7.9 L 8.3 L Phosphorus Magnesium Total Creatine Kinase Total Protein Albumin Digoxin 11/21/18 11/21/18 11/22/18 20:55 22:33 05:56 WBC RBC Hgb Hct MCV MCHC RDW Plt Count Lymph % (Auto) Lymph # Seg Neutrophils % Seg Neuts % (Manual) Lymphocytes % (Manual) Monocytes % (Manual) Eosinophils % (Manual) Seg Neutrophils # Seg Neutrophils # Man Lymphocytes # (Manual) VBG pH Sodium 155 H 155 H Potassium 3.3 L 3.1 L Chloride 117.8 H 120.8 H Carbon Dioxide BUN Creatinine Glucose 57 L POC Glucose 134 H Hemoglobin A1c Lactic Acid Calcium 8.2 L 8.1 L Phosphorus Magnesium Total Creatine Kinase Total Protein Albumin Digoxin 11/22/18 11/22/18 11/22/18 05:56 07:34 10:20 WBC 11.1 H RBC Hgb 11.5 L Hct 33.7 L MCV MCHC RDW Plt Count Lymph % (Auto) Lymph # Seg Neutrophils % Seg Neuts % (Manual) Lymphocytes % (Manual) Monocytes % (Manual) Eosinophils % (Manual) Seg Neutrophils # Seg Neutrophils # Man Lymphocytes # (Manual) VBG pH Sodium 153 H Potassium 3.1 L Chloride 117.9 H Carbon Dioxide BUN Creatinine Glucose 171 H POC Glucose 145 H Hemoglobin A1c Lactic Acid Calcium 8.1 L Phosphorus Magnesium Total Creatine Kinase Total Protein Albumin Digoxin 11/22/18 11/22/18 11/22/18 14:35 14:54 14:58 WBC RBC Hgb Hct MCV MCHC RDW Plt Count Lymph % (Auto) Lymph # Seg Neutrophils % Seg Neuts % (Manual) Lymphocytes % (Manual) Monocytes % (Manual) Eosinophils % (Manual) Seg Neutrophils # Seg Neutrophils # Man Lymphocytes # (Manual) VBG pH Sodium 151 H Potassium 2.9 L* Chloride 116.2 H Carbon Dioxide BUN Creatinine Glucose 320 H POC Glucose 51 L 159 H Hemoglobin A1c Lactic Acid Calcium 8.1 L Phosphorus Magnesium Total Creatine Kinase Total Protein Albumin Digoxin 11/22/18 11/22/18 11/22/18 16:35 20:25 21:17 WBC RBC Hgb Hct MCV MCHC RDW Plt Count Lymph % (Auto) Lymph # Seg Neutrophils % Seg Neuts % (Manual) Lymphocytes % (Manual) Monocytes % (Manual) Eosinophils % (Manual) Seg Neutrophils # Seg Neutrophils # Man Lymphocytes # (Manual) VBG pH Sodium 153 H Potassium 3.4 L Chloride 114.5 H Carbon Dioxide BUN Creatinine Glucose 74 L POC Glucose 137 H 198 H Hemoglobin A1c Lactic Acid Calcium Phosphorus Magnesium Total Creatine Kinase Total Protein Albumin Digoxin 11/23/18 11/23/18 11/23/18 02:49 04:59 07:18 WBC RBC 3.09 L Hgb 9.7 L Hct 27.7 L D MCV MCHC 35 H RDW Plt Count Lymph % (Auto) Lymph # Seg Neutrophils % Seg Neuts % (Manual) 84.0 H Lymphocytes % (Manual) 7.0 L Monocytes % (Manual) 8.0 H Eosinophils % (Manual) Seg Neutrophils # Seg Neutrophils # Man Lymphocytes # (Manual) 0.6 L VBG pH Sodium 149 H Potassium 3.2 L Chloride 111.5 H Carbon Dioxide BUN Creatinine Glucose 176 H POC Glucose 169 H Hemoglobin A1c Lactic Acid Calcium 8.2 L Phosphorus Magnesium Total Creatine Kinase Total Protein Albumin Digoxin 11/23/18 11/23/18 11/23/18 07:18 11:00 11:56 WBC RBC Hgb Hct MCV MCHC RDW Plt Count Lymph % (Auto) Lymph # Seg Neutrophils % Seg Neuts % (Manual) Lymphocytes % (Manual) Monocytes % (Manual) Eosinophils % (Manual) Seg Neutrophils # Seg Neutrophils # Man Lymphocytes # (Manual) VBG pH Sodium 146 H Potassium 3.2 L 5.1 H D Chloride 108.7 H 109.6 H Carbon Dioxide 17 L BUN Creatinine Glucose 180 H 330 H POC Glucose 323 H Hemoglobin A1c Lactic Acid Calcium Phosphorus Magnesium Total Creatine Kinase Total Protein Albumin Digoxin 11/23/18 11/23/18 11/23/18 16:16 18:00 21:18 WBC RBC Hgb Hct MCV MCHC RDW Plt Count Lymph % (Auto) Lymph # Seg Neutrophils % Seg Neuts % (Manual) Lymphocytes % (Manual) Monocytes % (Manual) Eosinophils % (Manual) Seg Neutrophils # Seg Neutrophils # Man Lymphocytes # (Manual) VBG pH Sodium 148 H 149 H Potassium 3.4 L D 2.8 L* Chloride 109.7 H 109.7 H Carbon Dioxide BUN Creatinine Glucose 194 H 66 L POC Glucose 186 H Hemoglobin A1c Lactic Acid Calcium Phosphorus Magnesium Total Creatine Kinase Total Protein Albumin Digoxin 11/23/18 11/23/18 11/24/18 22:48 23:32 00:55 WBC RBC Hgb Hct MCV MCHC RDW Plt Count Lymph % (Auto) Lymph # Seg Neutrophils % Seg Neuts % (Manual) Lymphocytes % (Manual) Monocytes % (Manual) Eosinophils % (Manual) Seg Neutrophils # Seg Neutrophils # Man Lymphocytes # (Manual) VBG pH Sodium 149 H Potassium 2.7 L* Chloride 111.6 H Carbon Dioxide BUN Creatinine Glucose 56 L POC Glucose 56 L 209 H Hemoglobin A1c Lactic Acid Calcium Phosphorus Magnesium Total Creatine Kinase Total Protein Albumin Digoxin 11/24/18 11/24/18 11/24/18 04:29 06:03 07:32 WBC RBC Hgb Hct 34.4 L D MCV MCHC 35 H RDW Plt Count Lymph % (Auto) Lymph # Seg Neutrophils % Seg Neuts % (Manual) Lymphocytes % (Manual) 10.0 L Monocytes % (Manual) 12.0 H Eosinophils % (Manual) 6.0 H Seg Neutrophils # Seg Neutrophils # Man Lymphocytes # (Manual) 0.7 L VBG pH Sodium 146 H Potassium Chloride 113.0 H Carbon Dioxide BUN Creatinine Glucose 138 H POC Glucose 174 H Hemoglobin A1c Lactic Acid Calcium Phosphorus Magnesium Total Creatine Kinase Total Protein Albumin Digoxin 11/24/18 11/24/18 11/24/18 07:32 08:37 11:32 WBC RBC Hgb Hct MCV MCHC RDW Plt Count Lymph % (Auto) Lymph # Seg Neutrophils % Seg Neuts % (Manual) Lymphocytes % (Manual) Monocytes % (Manual) Eosinophils % (Manual) Seg Neutrophils # Seg Neutrophils # Man Lymphocytes # (Manual) VBG pH Sodium 146 H Potassium Chloride 109.5 H Carbon Dioxide BUN Creatinine Glucose 236 H POC Glucose 300 H 291 H Hemoglobin A1c Lactic Acid Calcium Phosphorus Magnesium Total Creatine Kinase Total Protein Albumin Digoxin 11/24/18 11/24/18 11/24/18 12:36 14:45 17:40 WBC RBC Hgb Hct MCV MCHC RDW Plt Count Lymph % (Auto) Lymph # Seg Neutrophils % Seg Neuts % (Manual) Lymphocytes % (Manual) Monocytes % (Manual) Eosinophils % (Manual) Seg Neutrophils # Seg Neutrophils # Man Lymphocytes # (Manual) VBG pH Sodium 146 H Potassium 3.5 L 3.5 L Chloride 108.9 H 108.6 H Carbon Dioxide 20 L BUN Creatinine Glucose 246 H 189 H POC Glucose 231 H Hemoglobin A1c Lactic Acid Calcium Phosphorus Magnesium Total Creatine Kinase Total Protein Albumin Digoxin 11/25/18 11/25/18 11/25/18 00:06 05:26 05:26 WBC RBC 5.62 H Hgb 17.6 H D Hct 48.8 H D MCV MCHC 36 H RDW Plt Count Lymph % (Auto) Lymph # Seg Neutrophils % Seg Neuts % (Manual) 73.0 H Lymphocytes % (Manual) 8.0 L Monocytes % (Manual) 14.0 H Eosinophils % (Manual) Seg Neutrophils # Seg Neutrophils # Man Lymphocytes # (Manual) 0.4 L VBG pH Sodium Potassium Chloride Carbon Dioxide BUN Creatinine Glucose POC Glucose 106 H Hemoglobin A1c Lactic Acid Calcium Phosphorus Magnesium Total Creatine Kinase Total Protein Albumin Digoxin 0.5 L 11/25/18 11/25/18 11/26/18 05:53 12:39 00:16 WBC RBC Hgb Hct MCV MCHC RDW Plt Count Lymph % (Auto) Lymph # Seg Neutrophils % Seg Neuts % (Manual) Lymphocytes % (Manual) Monocytes % (Manual) Eosinophils % (Manual) Seg Neutrophils # Seg Neutrophils # Man Lymphocytes # (Manual) VBG pH Sodium Potassium Chloride Carbon Dioxide BUN Creatinine Glucose POC Glucose 254 H 360 H 227 H Hemoglobin A1c Lactic Acid Calcium Phosphorus Magnesium Total Creatine Kinase Total Protein Albumin Digoxin 11/26/18 11/26/18 11/26/18 05:56 11:21 17:38 WBC RBC Hgb Hct MCV MCHC RDW Plt Count Lymph % (Auto) Lymph # Seg Neutrophils % Seg Neuts % (Manual) Lymphocytes % (Manual) Monocytes % (Manual) Eosinophils % (Manual) Seg Neutrophils # Seg Neutrophils # Man Lymphocytes # (Manual) VBG pH Sodium Potassium Chloride Carbon Dioxide BUN Creatinine Glucose POC Glucose 278 H 242 H 286 H Hemoglobin A1c Lactic Acid Calcium Phosphorus Magnesium Total Creatine Kinase Total Protein Albumin Digoxin 11/27/18 11/27/18 11/27/18 00:09 05:34 08:01 WBC RBC Hgb Hct MCV MCHC RDW Plt Count Lymph % (Auto) Lymph # Seg Neutrophils % Seg Neuts % (Manual) Lymphocytes % (Manual) Monocytes % (Manual) Eosinophils % (Manual) Seg Neutrophils # Seg Neutrophils # Man Lymphocytes # (Manual) VBG pH Sodium Potassium Chloride Carbon Dioxide BUN Creatinine Glucose POC Glucose 116 H 303 H 342 H Hemoglobin A1c Lactic Acid Calcium Phosphorus Magnesium Total Creatine Kinase Total Protein Albumin Digoxin 11/27/18 11/27/18 11/27/18 11:07 12:39 17:30 WBC RBC Hgb Hct MCV MCHC RDW Plt Count Lymph % (Auto) Lymph # Seg Neutrophils % Seg Neuts % (Manual) Lymphocytes % (Manual) Monocytes % (Manual) Eosinophils % (Manual) Seg Neutrophils # Seg Neutrophils # Man Lymphocytes # (Manual) VBG pH Sodium Potassium Chloride Carbon Dioxide BUN Creatinine Glucose POC Glucose 262 H 212 H 57 L Hemoglobin A1c Lactic Acid Calcium Phosphorus Magnesium Total Creatine Kinase Total Protein Albumin Digoxin 11/28/18 11/28/18 11/28/18 00:17 00:17 00:23 WBC 11.9 H RBC Hgb 11.6 L D Hct 33.3 L D MCV MCHC 35 H RDW Plt Count 488 H D Lymph % (Auto) 6.6 L Lymph # 0.8 L Seg Neutrophils % 88.1 H Seg Neuts % (Manual) Lymphocytes % (Manual) Monocytes % (Manual) Eosinophils % (Manual) Seg Neutrophils # 10.5 H Seg Neutrophils # Man Lymphocytes # (Manual) VBG pH Sodium Potassium 3.5 L Chloride Carbon Dioxide 31 H D BUN Creatinine 0.7 L Glucose 131 H POC Glucose 147 H Hemoglobin A1c Lactic Acid Calcium 8.2 L Phosphorus Magnesium Total Creatine Kinase Total Protein 5.5 L Albumin 2.6 L Digoxin 11/28/18 11/28/18 11/28/18 05:39 07:57 10:04 WBC RBC Hgb Hct MCV MCHC RDW Plt Count Lymph % (Auto) Lymph # Seg Neutrophils % Seg Neuts % (Manual) Lymphocytes % (Manual) Monocytes % (Manual) Eosinophils % (Manual) Seg Neutrophils # Seg Neutrophils # Man Lymphocytes # (Manual) VBG pH Sodium Potassium Chloride Carbon Dioxide BUN Creatinine Glucose POC Glucose 250 H 305 H 276 H Hemoglobin A1c Lactic Acid Calcium Phosphorus Magnesium Total Creatine Kinase Total Protein Albumin Digoxin
[2018-11-28] MEDS ORDERED: NACL 0.9% 1000 ML 1,000 ML IV SCH (11:00)
--- NOTE | 2018-11-28 11:13 | Progress Note ---
Subjective Date of service: 11/28/18 Principal diagnosis: dka, asp pneu dementia Interval history: A/P: Sepsis. Resolved. Etiology most likely DKA +/- SVT s/p CV. Blood culture negative, UA negative, CXR negative. Abdominal CT shows prominent infiltrate is seen in the right lower lobe consistent with pneumonitis. Small bilateral pleural effusions are seen. Aspiration pneumonia. Repeat CXR shows right lower lung parenchymal opacification that could indicate aspiration . ID note reviewed ID signed off We will monitor Off antibiotics Acute hypoxic respiratory failure. Etiology 2/2 #1 Continue O2 to maintain sats Toxic metabolic encephaloapthy. Etiology from DKA / electrolyte imbalance / Sepsis Atrial fibrillation with RVR. F/u BMP, Mg and digoxin level in AM. Cont digoxin and eliquis DM 2, uncontrolled. Patient with labile blood sugars. We will continue to monitor continue Dobhoff feedings. MEETA. Improved. oropharyngeal dysphagia. Status post EGD and PEG tube placement GI note and findings reviewed Talked on tube feedings via PEG tube later today Possible discharge tomorrow?? 12 point review of systems is negative Patient isn't [id number] Chinese male History obtained through a distresser, (niece) over the phone Patient does not have any specific complaints He denies abdominal pain nausea or vomiting Lab results reviewed Objective - Constitutional Vitals: Vital Signs - 12hr 11/28/18 11/28/18 11/28/18 02:03 07:48 08:00 Temperature 98.3 F 98.0 F Pulse Rate 70 75 Pulse Rate [ 75 From Monitor] Respiratory 18 20 20 Rate Blood Pressure 127/56 135/60 O2 Sat by Pulse 96 91 91 Oximetry 11/28/18 11/28/18 11/28/18 09:59 10:42 10:50 Temperature 98.1 F 97.7 F Pulse Rate 73 74 70 Pulse Rate [ From Monitor] Respiratory 15 13 18 Rate Blood Pressure 105/53 81/39 102/45 O2 Sat by Pulse 93 93 97 Oximetry 11/28/18 10:55 Temperature Pulse Rate 78 Pulse Rate [ From Monitor] Respiratory Rate Blood Pressure 112/49 O2 Sat by Pulse 95 Oximetry General appearance: Present: no acute distress - EENT Eyes: PERRL, EOM intact ENT: hearing intact - Neck Neck: supple, normal ROM - Respiratory Respiratory effort: normal Respiratory: bilateral: CTA - Cardiovascular Rhythm: irregularly irregular Heart Sounds: Present: S1 & S2 Extremities: No edema - Gastrointestinal General gastrointestinal: Present: soft, non-tender Rectal Exam: deferred - Genitourinary Male genitourinary: deferred - Integumentary Integumentary: clear - Labs CBC & Chem 7: 11/28/18 00:17 11/28/18 00:17 Labs: Abnormal lab results 11/27/18 11/27/18 11/28/18 Range/Units 12:39 17:30 00:17 WBC 11.9 H (4.5-11.0) K/mm3 Hgb 11.6 L D (11.8-15.2) gm/dl Hct 33.3 L D (35.5-45.6) % MCHC 35 H (32-34) % Plt Count 488 H D (140-440) K/mm3 Lymph % (Auto) 6.6 L (13.4-35.0) % Lymph # 0.8 L (1.2-5.4) K/mm3 Seg Neutrophils % 88.1 H (40.0-70.0) % Seg Neutrophils # 10.5 H (1.8-7.7) K/mm3 Potassium (3.6-5.0) mmol/L Carbon Dioxide (22-30) mmol/L Creatinine (0.8-1.5) mg/dL Glucose (75-100) mg/dL POC Glucose 212 H 57 L (70-105) Calcium (8.4-10.2) mg/dL Total Protein (6.3-8.2) g/dL Albumin (3.9-5) g/dL 11/28/18 11/28/18 11/28/18 Range/Units 00:17 00:23 05:39 WBC (4.5-11.0) K/mm3 Hgb (11.8-15.2) gm/dl Hct (35.5-45.6) % MCHC (32-34) % Plt Count (140-440) K/mm3 Lymph % (Auto) (13.4-35.0) % Lymph # (1.2-5.4) K/mm3 Seg Neutrophils % (40.0-70.0) % Seg Neutrophils # (1.8-7.7) K/mm3 Potassium 3.5 L (3.6-5.0) mmol/L Carbon Dioxide 31 H D (22-30) mmol/L Creatinine 0.7 L (0.8-1.5) mg/dL Glucose 131 H (75-100) mg/dL POC Glucose 147 H 250 H (70-105) Calcium 8.2 L (8.4-10.2) mg/dL Total Protein 5.5 L (6.3-8.2) g/dL Albumin 2.6 L (3.9-5) g/dL 11/28/18 11/28/18 Range/Units 07:57 10:04 WBC (4.5-11.0) K/mm3 Hgb (11.8-15.2) gm/dl Hct (35.5-45.6) % MCHC (32-34) % Plt Count (140-440) K/mm3 Lymph % (Auto) (13.4-35.0) % Lymph # (1.2-5.4) K/mm3 Seg Neutrophils % (40.0-70.0) % Seg Neutrophils # (1.8-7.7) K/mm3 Potassium (3.6-5.0) mmol/L Carbon Dioxide (22-30) mmol/L Creatinine (0.8-1.5) mg/dL Glucose (75-100) mg/dL POC Glucose 305 H 276 H (70-105) Calcium (8.4-10.2) mg/dL Total Protein (6.3-8.2) g/dL Albumin (3.9-5) g/dL
--- NOTE | 2018-11-28 11:22 | Operative Report ---
G-TUBE PLACEMENT REPORT PROCEDURE: Upper endoscopy with G-tube placement. PREOPERATIVE DIAGNOSIS: Oropharyngeal dysphagia. POSTOPERATIVE DIAGNOSES: Duodenal erosions and successful G-tube placement. SEDATION: MAC by Anesthesia. HISTORY: The patient is an 78-year-old man who has oropharyngeal dysphagia and failed a modified barium swallow. G-tube is placed for nutritional support. DESCRIPTION OF PROCEDURE: Indications, risks, and benefits were explained to the patient's children and grandchildren and consent was obtained. The patient was placed back on exam table and sedated. Video upper endoscope was passed through the mouth and oropharynx into the descending duodenum. Scope was then gradually withdrawn with close inspection into the gastric lumen. An appropriate location was transilluminated on the abdominal surface. This was prepped and draped in a sterile fashion. It was infiltrated with 3 mL of 1% Xylocaine using the safe track technique. Trocar was then passed percutaneously into the gastric lumen and a guidewire was placed through it. This was grasped with a snare and pulled out the mouth. A 20-M[place] G-tube was then attached to the wire at the mouth and pulled through the mouth and oropharynx into the gastric lumen and out the skin. External bumper was fixed at 2 cm. Repeat endoscopy was performed to confirm placement. FINDINGS: 1. Normal esophagus. 2. Normal appearing gastric antrum, fundus, body, and cardia. 3. Successful G-tube placement. 4. Few scattered superficial erosions noted into the descending duodenum. The patient tolerated the procedure well without immediate complication. IMPRESSION: 1. Duodenal erosions. 2. Successful G-tube placement. 3. Otherwise, normal endoscopy. PLAN: 1. May initiate tube feedings after 4 hours. 2. Chronic H2 blockers or proton pump inhibitors. JOB# [id number] HRC/NTS
[2018-11-28] MEDS ORDERED: SIMPLE SYRUP FEEDTUBE PRN ×2 (14:33)
[2018-11-28] MEDS ORDERED: PANCREAZE DR 10,500 UNIT FEEDTUBE PRN (14:33)
[2018-11-28] MEDS ORDERED: SODIUM BICARBONATE FEEDTUBE PRN (14:33)
[2018-11-28] MEDS: NORCO 5/325 PO PRN (21:59)
[2018-11-29] MEDS: HumaLOG SUB-Q SCH ×4 (01:30→18:03)
[2018-11-29] MEDS: NORCO 5/325 PO PRN ×2 (04:53→14:39)
[2018-11-29 09:29] LABS: Hemoglobin 10.9 gm/dl (11.8-15.2); Mean Corpuscular HGB Conc 35 % (32-34); Mean Corpuscular Volume 89 fl (84-94); Platelet Count 589 K/mm3 (140-440); Red Blood Count 3.47 M/mm3 (3.65-5.03); Red Cell Distribution Width 13.1 % (13.2-15.2)
[2018-11-29 09:53] LABS: BUN/Creatinine Ratio 22; Blood Urea Nitrogen 13 mg/dL (9-20); Calcium 8.4 mg/dL (8.4-10.2); Hemolysis Index 3
[2018-11-29] MEDS: TYLENOL PO PRN (09:55)
[2018-11-29] MEDS: LANOXIN PO SCH (09:56)
[2018-11-29] MEDS: PEPCID PO SCH ×2 (09:56→22:40)
[2018-11-29] MEDS: ELIQUIS PO SCH ×2 (09:57→22:40)
--- NOTE | 2018-11-29 12:48 | Progress Note ---
Assessment and Plan 78 y/o male with DKA, likely hypovolemic hypernatremia, and hypovolemia now with acute respiratory failure, thought secondary to aspiration pneumonia. 1. Stable pulm gastelum for discharge. Will sign off . Call if questions. Subjective Date of service: 11/29/18 Principal diagnosis: dka, asp pneu dementia Interval history: No acute events. Peg placed yesterday. Remains on room air. Objective Vital Signs - 12hr 11/29/18 11/29/18 08:00 09:56 Pulse Rate 82 Pulse Rate [ 82 From Monitor] Respiratory 20 Rate Blood Pressure 133/53 O2 Sat by Pulse 97 Oximetry Constitutional: no acute distress Eyes: non-icteric Ascultation: Right: rales, Bilateral: diminished breath sounds CBC and BMP: 11/29/18 08:49 11/29/18 08:49 ABG, PT/INR, D-dimer: PT/INR, D-dimer PT 12.7 Sec. (12.2-14.9) 11/28/18 00:17 INR 0.98 (0.87-1.13) 11/28/18 00:17 Abnormal lab findings: Abnormal Labs 11/19/18 11/19/18 11/19/18 10:07 10:07 10:07 WBC RBC 5.66 H Hgb 17.7 H Hct 55.2 H MCV 98 H MCHC RDW 15.3 H Plt Count Lymph % (Auto) 4.2 L Lymph # 0.3 L Seg Neutrophils % 89.3 H Seg Neuts % (Manual) Lymphocytes % (Manual) Monocytes % (Manual) Eosinophils % (Manual) Seg Neutrophils # Seg Neutrophils # Man Lymphocytes # (Manual) VBG pH 7.162 L* Sodium Potassium Chloride Carbon Dioxide BUN Creatinine Glucose POC Glucose Hemoglobin A1c Lactic Acid Calcium Phosphorus Magnesium 3.10 H Total Creatine Kinase 690 H Total Protein Albumin Digoxin 11/19/18 11/19/18 11/19/18 10:07 10:07 10:10 WBC RBC Hgb Hct MCV MCHC RDW Plt Count Lymph % (Auto) Lymph # Seg Neutrophils % Seg Neuts % (Manual) Lymphocytes % (Manual) Monocytes % (Manual) Eosinophils % (Manual) Seg Neutrophils # Seg Neutrophils # Man Lymphocytes # (Manual) VBG pH Sodium 152 H Potassium Chloride Carbon Dioxide 7 L* BUN 61 H Creatinine 2.1 H Glucose 878 H* POC Glucose > 500 H Hemoglobin A1c Lactic Acid 2.20 H* Calcium Phosphorus Magnesium Total Creatine Kinase Total Protein Albumin 3.6 L Digoxin 11/19/18 11/19/18 11/19/18 11:29 11:29 11:29 WBC RBC Hgb Hct MCV MCHC RDW Plt Count Lymph % (Auto) Lymph # Seg Neutrophils % Seg Neuts % (Manual) Lymphocytes % (Manual) Monocytes % (Manual) Eosinophils % (Manual) Seg Neutrophils # Seg Neutrophils # Man Lymphocytes # (Manual) VBG pH Sodium 151 H Potassium Chloride Carbon Dioxide 7 L* BUN 60 H Creatinine 1.9 H Glucose 793 H* POC Glucose Hemoglobin A1c Lactic Acid 2.30 H* Calcium Phosphorus 6.90 H Magnesium 2.80 H Total Creatine Kinase Total Protein Albumin Digoxin 11/19/18 11/19/18 11/19/18 13:20 14:56 15:06 WBC RBC Hgb Hct MCV MCHC RDW Plt Count Lymph % (Auto) Lymph # Seg Neutrophils % Seg Neuts % (Manual) Lymphocytes % (Manual) Monocytes % (Manual) Eosinophils % (Manual) Seg Neutrophils # Seg Neutrophils # Man Lymphocytes # (Manual) VBG pH Sodium 161 H* D 160 H Potassium Chloride 111.0 H 113.7 H Carbon Dioxide 12 L 14 L BUN 54 H 52 H Creatinine 2.0 H 1.9 H Glucose 596 H* 496 H POC Glucose 442 H Hemoglobin A1c Lactic Acid Calcium Phosphorus Magnesium Total Creatine Kinase Total Protein Albumin Digoxin 11/19/18 11/19/18 11/19/18 15:06 16:07 17:10 WBC RBC Hgb Hct MCV MCHC RDW Plt Count Lymph % (Auto) Lymph # Seg Neutrophils % Seg Neuts % (Manual) Lymphocytes % (Manual) Monocytes % (Manual) Eosinophils % (Manual) Seg Neutrophils # Seg Neutrophils # Man Lymphocytes # (Manual) VBG pH Sodium 163 H* Potassium 3.3 L Chloride 119.9 H Carbon Dioxide 17 L BUN 49 H Creatinine 1.7 H Glucose 350 H POC Glucose 475 H Hemoglobin A1c Lactic Acid 3.30 H* Calcium Phosphorus Magnesium Total Creatine Kinase Total Protein Albumin Digoxin 11/19/18 11/19/18 11/19/18 17:10 17:27 18:26 WBC RBC Hgb Hct MCV MCHC RDW Plt Count Lymph % (Auto) Lymph # Seg Neutrophils % Seg Neuts % (Manual) Lymphocytes % (Manual) Monocytes % (Manual) Eosinophils % (Manual) Seg Neutrophils # Seg Neutrophils # Man Lymphocytes # (Manual) VBG pH Sodium Potassium Chloride Carbon Dioxide BUN Creatinine Glucose POC Glucose 368 H 270 H Hemoglobin A1c Lactic Acid 3.30 H* Calcium Phosphorus Magnesium Total Creatine Kinase Total Protein Albumin Digoxin 11/19/18 11/19/18 11/19/18 19:14 19:14 19:14 WBC RBC Hgb Hct MCV MCHC RDW Plt Count Lymph % (Auto) Lymph # Seg Neutrophils % Seg Neuts % (Manual) Lymphocytes % (Manual) Monocytes % (Manual) Eosinophils % (Manual) Seg Neutrophils # Seg Neutrophils # Man Lymphocytes # (Manual) VBG pH Sodium 164 H* Potassium Chloride 122.7 H Carbon Dioxide BUN 43 H Creatinine 1.6 H Glucose 240 H POC Glucose Hemoglobin A1c 16.9 H Lactic Acid Calcium Phosphorus 1.00 L D Magnesium 2.40 H Total Creatine Kinase Total Protein Albumin Digoxin 11/19/18 11/19/18 11/19/18 19:14 19:18 20:10 WBC RBC Hgb Hct MCV MCHC RDW Plt Count Lymph % (Auto) Lymph # Seg Neutrophils % Seg Neuts % (Manual) Lymphocytes % (Manual) Monocytes % (Manual) Eosinophils % (Manual) Seg Neutrophils # Seg Neutrophils # Man Lymphocytes # (Manual) VBG pH Sodium Potassium Chloride Carbon Dioxide BUN Creatinine Glucose POC Glucose 307 H 232 H Hemoglobin A1c Lactic Acid 3.70 H* Calcium Phosphorus Magnesium Total Creatine Kinase Total Protein Albumin Digoxin 11/19/18 11/19/18 11/19/18 21:59 22:55 22:55 WBC RBC Hgb Hct MCV MCHC RDW Plt Count Lymph % (Auto) Lymph # Seg Neutrophils % Seg Neuts % (Manual) Lymphocytes % (Manual) Monocytes % (Manual) Eosinophils % (Manual) Seg Neutrophils # Seg Neutrophils # Man Lymphocytes # (Manual) VBG pH Sodium 165 H* Potassium Chloride 124.9 H Carbon Dioxide BUN 39 H Creatinine Glucose 111 H POC Glucose 151 H Hemoglobin A1c Lactic Acid 3.20 H* Calcium Phosphorus Magnesium Total Creatine Kinase Total Protein Albumin Digoxin 11/20/18 11/20/18 11/20/18 00:55 03:34 03:34 WBC RBC Hgb Hct MCV MCHC RDW Plt Count Lymph % (Auto) Lymph # Seg Neutrophils % Seg Neuts % (Manual) Lymphocytes % (Manual) Monocytes % (Manual) Eosinophils % (Manual) Seg Neutrophils # Seg Neutrophils # Man Lymphocytes # (Manual) VBG pH Sodium 165 H* Potassium Chloride 126.2 H Carbon Dioxide BUN 35 H Creatinine Glucose 124 H POC Glucose 118 H Hemoglobin A1c Lactic Acid Calcium Phosphorus 0.80 L* Magnesium Total Creatine Kinase Total Protein Albumin Digoxin 11/20/18 11/20/18 11/20/18 03:44 04:32 04:34 WBC 1.5 L* RBC Hgb Hct 35.2 L D MCV MCHC 35 H RDW Plt Count Lymph % (Auto) Lymph # Seg Neutrophils % Seg Neuts % (Manual) 30.0 L Lymphocytes % (Manual) Monocytes % (Manual) 10.0 H Eosinophils % (Manual) Seg Neutrophils # Seg Neutrophils # Man 0.5 L Lymphocytes # (Manual) 0.3 L VBG pH Sodium Potassium Chloride Carbon Dioxide BUN Creatinine Glucose POC Glucose 127 H 168 H Hemoglobin A1c Lactic Acid Calcium Phosphorus Magnesium Total Creatine Kinase Total Protein Albumin Digoxin 11/20/18 11/20/18 11/20/18 06:41 07:14 08:40 WBC RBC Hgb Hct MCV MCHC RDW Plt Count Lymph % (Auto) Lymph # Seg Neutrophils % Seg Neuts % (Manual) Lymphocytes % (Manual) Monocytes % (Manual) Eosinophils % (Manual) Seg Neutrophils # Seg Neutrophils # Man Lymphocytes # (Manual) VBG pH Sodium 161 H* Potassium Chloride 122.7 H Carbon Dioxide BUN 36 H Creatinine Glucose 252 H POC Glucose 236 H 379 H Hemoglobin A1c Lactic Acid Calcium Phosphorus 2.30 L D Magnesium Total Creatine Kinase Total Protein Albumin Digoxin 11/20/18 11/20/18 11/20/18 14:47 14:51 18:05 WBC RBC Hgb Hct MCV MCHC RDW Plt Count Lymph % (Auto) Lymph # Seg Neutrophils % Seg Neuts % (Manual) Lymphocytes % (Manual) Monocytes % (Manual) Eosinophils % (Manual) Seg Neutrophils # Seg Neutrophils # Man Lymphocytes # (Manual) VBG pH Sodium 158 H 156 H Potassium Chloride 123.8 H 121.5 H Carbon Dioxide BUN 26 H 25 H Creatinine Glucose 127 H 69 L POC Glucose 151 H Hemoglobin A1c Lactic Acid Calcium 7.6 L 7.8 L Phosphorus Magnesium Total Creatine Kinase Total Protein Albumin Digoxin 11/20/18 11/21/18 11/21/18 23:29 02:17 02:20 WBC RBC Hgb Hct MCV MCHC RDW Plt Count Lymph % (Auto) Lymph # Seg Neutrophils % Seg Neuts % (Manual) Lymphocytes % (Manual) Monocytes % (Manual) Eosinophils % (Manual) Seg Neutrophils # Seg Neutrophils # Man Lymphocytes # (Manual) VBG pH Sodium 157 H 155 H Potassium 3.5 L Chloride 122.0 H 119.4 H Carbon Dioxide BUN 23 H 21 H Creatinine Glucose 74 L 105 H POC Glucose 115 H Hemoglobin A1c Lactic Acid Calcium 7.6 L 7.7 L Phosphorus Magnesium Total Creatine Kinase Total Protein Albumin Digoxin 11/21/18 11/21/18 11/21/18 04:25 08:13 08:13 WBC RBC Hgb Hct 34.4 L MCV MCHC 35 H RDW Plt Count Lymph % (Auto) Lymph # Seg Neutrophils % Seg Neuts % (Manual) Lymphocytes % (Manual) Monocytes % (Manual) Eosinophils % (Manual) Seg Neutrophils # Seg Neutrophils # Man Lymphocytes # (Manual) VBG pH Sodium 153 H Potassium Chloride 117.9 H Carbon Dioxide BUN 23 H Creatinine Glucose 260 H POC Glucose Hemoglobin A1c Lactic Acid Calcium 7.8 L Phosphorus Magnesium Total Creatine Kinase Total Protein Albumin Digoxin 0.8 L 11/21/18 11/21/18 11/21/18 11:01 16:46 17:38 WBC RBC Hgb Hct MCV MCHC RDW Plt Count Lymph % (Auto) Lymph # Seg Neutrophils % Seg Neuts % (Manual) Lymphocytes % (Manual) Monocytes % (Manual) Eosinophils % (Manual) Seg Neutrophils # Seg Neutrophils # Man Lymphocytes # (Manual) VBG pH Sodium 154 H 155 H Potassium Chloride 119.6 H 119.7 H Carbon Dioxide 20 L BUN 25 H 23 H Creatinine Glucose 275 H 202 H POC Glucose 188 H Hemoglobin A1c Lactic Acid Calcium 7.9 L 8.3 L Phosphorus Magnesium Total Creatine Kinase Total Protein Albumin Digoxin 11/21/18 11/21/18 11/22/18 20:55 22:33 05:56 WBC RBC Hgb Hct MCV MCHC RDW Plt Count Lymph % (Auto) Lymph # Seg Neutrophils % Seg Neuts % (Manual) Lymphocytes % (Manual) Monocytes % (Manual) Eosinophils % (Manual) Seg Neutrophils # Seg Neutrophils # Man Lymphocytes # (Manual) VBG pH Sodium 155 H 155 H Potassium 3.3 L 3.1 L Chloride 117.8 H 120.8 H Carbon Dioxide BUN Creatinine Glucose 57 L POC Glucose 134 H Hemoglobin A1c Lactic Acid Calcium 8.2 L 8.1 L Phosphorus Magnesium Total Creatine Kinase Total Protein Albumin Digoxin 11/22/18 11/22/18 11/22/18 05:56 07:34 10:20 WBC 11.1 H RBC Hgb 11.5 L Hct 33.7 L MCV MCHC RDW Plt Count Lymph % (Auto) Lymph # Seg Neutrophils % Seg Neuts % (Manual) Lymphocytes % (Manual) Monocytes % (Manual) Eosinophils % (Manual) Seg Neutrophils # Seg Neutrophils # Man Lymphocytes # (Manual) VBG pH Sodium 153 H Potassium 3.1 L Chloride 117.9 H Carbon Dioxide BUN Creatinine Glucose 171 H POC Glucose 145 H Hemoglobin A1c Lactic Acid Calcium 8.1 L Phosphorus Magnesium Total Creatine Kinase Total Protein Albumin Digoxin 11/22/18 11/22/18 11/22/18 14:35 14:54 14:58 WBC RBC Hgb Hct MCV MCHC RDW Plt Count Lymph % (Auto) Lymph # Seg Neutrophils % Seg Neuts % (Manual) Lymphocytes % (Manual) Monocytes % (Manual) Eosinophils % (Manual) Seg Neutrophils # Seg Neutrophils # Man Lymphocytes # (Manual) VBG pH Sodium 151 H Potassium 2.9 L* Chloride 116.2 H Carbon Dioxide BUN Creatinine Glucose 320 H POC Glucose 51 L 159 H Hemoglobin A1c Lactic Acid Calcium 8.1 L Phosphorus Magnesium Total Creatine Kinase Total Protein Albumin Digoxin 11/22/18 11/22/18 11/22/18 16:35 20:25 21:17 WBC RBC Hgb Hct MCV MCHC RDW Plt Count Lymph % (Auto) Lymph # Seg Neutrophils % Seg Neuts % (Manual) Lymphocytes % (Manual) Monocytes % (Manual) Eosinophils % (Manual) Seg Neutrophils # Seg Neutrophils # Man Lymphocytes # (Manual) VBG pH Sodium 153 H Potassium 3.4 L Chloride 114.5 H Carbon Dioxide BUN Creatinine Glucose 74 L POC Glucose 137 H 198 H Hemoglobin A1c Lactic Acid Calcium Phosphorus Magnesium Total Creatine Kinase Total Protein Albumin Digoxin 11/23/18 11/23/18 11/23/18 02:49 04:59 07:18 WBC RBC 3.09 L Hgb 9.7 L Hct 27.7 L D MCV MCHC 35 H RDW Plt Count Lymph % (Auto) Lymph # Seg Neutrophils % Seg Neuts % (Manual) 84.0 H Lymphocytes % (Manual) 7.0 L Monocytes % (Manual) 8.0 H Eosinophils % (Manual) Seg Neutrophils # Seg Neutrophils # Man Lymphocytes # (Manual) 0.6 L VBG pH Sodium 149 H Potassium 3.2 L Chloride 111.5 H Carbon Dioxide BUN Creatinine Glucose 176 H POC Glucose 169 H Hemoglobin A1c Lactic Acid Calcium 8.2 L Phosphorus Magnesium Total Creatine Kinase Total Protein Albumin Digoxin 11/23/18 11/23/18 11/23/18 07:18 11:00 11:56 WBC RBC Hgb Hct MCV MCHC RDW Plt Count Lymph % (Auto) Lymph # Seg Neutrophils % Seg Neuts % (Manual) Lymphocytes % (Manual) Monocytes % (Manual) Eosinophils % (Manual) Seg Neutrophils # Seg Neutrophils # Man Lymphocytes # (Manual) VBG pH Sodium 146 H Potassium 3.2 L 5.1 H D Chloride 108.7 H 109.6 H Carbon Dioxide 17 L BUN Creatinine Glucose 180 H 330 H POC Glucose 323 H Hemoglobin A1c Lactic Acid Calcium Phosphorus Magnesium Total Creatine Kinase Total Protein Albumin Digoxin 11/23/18 11/23/18 11/23/18 16:16 18:00 21:18 WBC RBC Hgb Hct MCV MCHC RDW Plt Count Lymph % (Auto) Lymph # Seg Neutrophils % Seg Neuts % (Manual) Lymphocytes % (Manual) Monocytes % (Manual) Eosinophils % (Manual) Seg Neutrophils # Seg Neutrophils # Man Lymphocytes # (Manual) VBG pH Sodium 148 H 149 H Potassium 3.4 L D 2.8 L* Chloride 109.7 H 109.7 H Carbon Dioxide BUN Creatinine Glucose 194 H 66 L POC Glucose 186 H Hemoglobin A1c Lactic Acid Calcium Phosphorus Magnesium Total Creatine Kinase Total Protein Albumin Digoxin 11/23/18 11/23/18 11/24/18 22:48 23:32 00:55 WBC RBC Hgb Hct MCV MCHC RDW Plt Count Lymph % (Auto) Lymph # Seg Neutrophils % Seg Neuts % (Manual) Lymphocytes % (Manual) Monocytes % (Manual) Eosinophils % (Manual) Seg Neutrophils # Seg Neutrophils # Man Lymphocytes # (Manual) VBG pH Sodium 149 H Potassium 2.7 L* Chloride 111.6 H Carbon Dioxide BUN Creatinine Glucose 56 L POC Glucose 56 L 209 H Hemoglobin A1c Lactic Acid Calcium Phosphorus Magnesium Total Creatine Kinase Total Protein Albumin Digoxin 11/24/18 11/24/18 11/24/18 04:29 06:03 07:32 WBC RBC Hgb Hct 34.4 L D MCV MCHC 35 H RDW Plt Count Lymph % (Auto) Lymph # Seg Neutrophils % Seg Neuts % (Manual) Lymphocytes % (Manual) 10.0 L Monocytes % (Manual) 12.0 H Eosinophils % (Manual) 6.0 H Seg Neutrophils # Seg Neutrophils # Man Lymphocytes # (Manual) 0.7 L VBG pH Sodium 146 H Potassium Chloride 113.0 H Carbon Dioxide BUN Creatinine Glucose 138 H POC Glucose 174 H Hemoglobin A1c Lactic Acid Calcium Phosphorus Magnesium Total Creatine Kinase Total Protein Albumin Digoxin 11/24/18 11/24/18 11/24/18 07:32 08:37 11:32 WBC RBC Hgb Hct MCV MCHC RDW Plt Count Lymph % (Auto) Lymph # Seg Neutrophils % Seg Neuts % (Manual) Lymphocytes % (Manual) Monocytes % (Manual) Eosinophils % (Manual) Seg Neutrophils # Seg Neutrophils # Man Lymphocytes # (Manual) VBG pH Sodium 146 H Potassium Chloride 109.5 H Carbon Dioxide BUN Creatinine Glucose 236 H POC Glucose 300 H 291 H Hemoglobin A1c Lactic Acid Calcium Phosphorus Magnesium Total Creatine Kinase Total Protein Albumin Digoxin 11/24/18 11/24/18 11/24/18 12:36 14:45 17:40 WBC RBC Hgb Hct MCV MCHC RDW Plt Count Lymph % (Auto) Lymph # Seg Neutrophils % Seg Neuts % (Manual) Lymphocytes % (Manual) Monocytes % (Manual) Eosinophils % (Manual) Seg Neutrophils # Seg Neutrophils # Man Lymphocytes # (Manual) VBG pH Sodium 146 H Potassium 3.5 L 3.5 L Chloride 108.9 H 108.6 H Carbon Dioxide 20 L BUN Creatinine Glucose 246 H 189 H POC Glucose 231 H Hemoglobin A1c Lactic Acid Calcium Phosphorus Magnesium Total Creatine Kinase Total Protein Albumin Digoxin 11/25/18 11/25/18 11/25/18 00:06 05:26 05:26 WBC RBC 5.62 H Hgb 17.6 H D Hct 48.8 H D MCV MCHC 36 H RDW Plt Count Lymph % (Auto) Lymph # Seg Neutrophils % Seg Neuts % (Manual) 73.0 H Lymphocytes % (Manual) 8.0 L Monocytes % (Manual) 14.0 H Eosinophils % (Manual) Seg Neutrophils # Seg Neutrophils # Man Lymphocytes # (Manual) 0.4 L VBG pH Sodium Potassium Chloride Carbon Dioxide BUN Creatinine Glucose POC Glucose 106 H Hemoglobin A1c Lactic Acid Calcium Phosphorus Magnesium Total Creatine Kinase Total Protein Albumin Digoxin 0.5 L 11/25/18 11/25/1819 05:53 12:39 00:16 WBC RBC Hgb Hct MCV MCHC RDW Plt Count Lymph % (Auto) Lymph # Seg Neutrophils % Seg Neuts % (Manual) Lymphocytes % (Manual) Monocytes % (Manual) Eosinophils % (Manual) Seg Neutrophils # Seg Neutrophils # Man Lymphocytes # (Manual) VBG pH Sodium Potassium Chloride Carbon Dioxide BUN Creatinine Glucose POC Glucose 254 H 360 H 227 H Hemoglobin A1c Lactic Acid Calcium Phosphorus Magnesium Total Creatine Kinase Total Protein Albumin Digoxin 11/26/18 11/26/18 11/26/18 05:56 11:21 17:38 WBC RBC Hgb Hct MCV MCHC RDW Plt Count Lymph % (Auto) Lymph # Seg Neutrophils % Seg Neuts % (Manual) Lymphocytes % (Manual) Monocytes % (Manual) Eosinophils % (Manual) Seg Neutrophils # Seg Neutrophils # Man Lymphocytes # (Manual) VBG pH Sodium Potassium Chloride Carbon Dioxide BUN Creatinine Glucose POC Glucose 278 H 242 H 286 H Hemoglobin A1c Lactic Acid Calcium Phosphorus Magnesium Total Creatine Kinase Total Protein Albumin Digoxin 11/27/18 11/27/18 11/27/18 00:09 05:34 08:01 WBC RBC Hgb Hct MCV MCHC RDW Plt Count Lymph % (Auto) Lymph # Seg Neutrophils % Seg Neuts % (Manual) Lymphocytes % (Manual) Monocytes % (Manual) Eosinophils % (Manual) Seg Neutrophils # Seg Neutrophils # Man Lymphocytes # (Manual) VBG pH Sodium Potassium Chloride Carbon Dioxide BUN Creatinine Glucose POC Glucose 116 H 303 H 342 H Hemoglobin A1c Lactic Acid Calcium Phosphorus Magnesium Total Creatine Kinase Total Protein Albumin Digoxin 11/27/18 11/27/18 11/27/18 11:07 12:39 17:30 WBC RBC Hgb Hct MCV MCHC RDW Plt Count Lymph % (Auto) Lymph # Seg Neutrophils % Seg Neuts % (Manual) Lymphocytes % (Manual) Monocytes % (Manual) Eosinophils % (Manual) Seg Neutrophils # Seg Neutrophils # Man Lymphocytes # (Manual) VBG pH Sodium Potassium Chloride Carbon Dioxide BUN Creatinine Glucose POC Glucose 262 H 212 H 57 L Hemoglobin A1c Lactic Acid Calcium Phosphorus Magnesium Total Creatine Kinase Total Protein Albumin Digoxin 11/28/18 11/28/18 11/28/18 00:17 00:17 00:23 WBC 11.9 H RBC Hgb 11.6 L D Hct 33.3 L D MCV MCHC 35 H RDW Plt Count 488 H D Lymph % (Auto) 6.6 L Lymph # 0.8 L Seg Neutrophils % 88.1 H Seg Neuts % (Manual) Lymphocytes % (Manual) Monocytes % (Manual) Eosinophils % (Manual) Seg Neutrophils # 10.5 H Seg Neutrophils # Man Lymphocytes # (Manual) VBG pH Sodium Potassium 3.5 L Chloride Carbon Dioxide 31 H D BUN Creatinine 0.7 L Glucose 131 H POC Glucose 147 H Hemoglobin A1c Lactic Acid Calcium 8.2 L Phosphorus Magnesium Total Creatine Kinase Total Protein 5.5 L Albumin 2.6 L Digoxin 11/28/18 11/28/18 11/28/18 05:39 07:57 10:04 WBC RBC Hgb Hct MCV MCHC RDW Plt Count Lymph % (Auto) Lymph # Seg Neutrophils % Seg Neuts % (Manual) Lymphocytes % (Manual) Monocytes % (Manual) Eosinophils % (Manual) Seg Neutrophils # Seg Neutrophils # Man Lymphocytes # (Manual) VBG pH Sodium Potassium Chloride Carbon Dioxide BUN Creatinine Glucose POC Glucose 250 H 305 H 276 H Hemoglobin A1c Lactic Acid Calcium Phosphorus Magnesium Total Creatine Kinase Total Protein Albumin Digoxin 11/28/18 11/28/18 11/29/18 12:18 17:38 01:26 WBC RBC Hgb Hct MCV MCHC RDW Plt Count Lymph % (Auto) Lymph # Seg Neutrophils % Seg Neuts % (Manual) Lymphocytes % (Manual) Monocytes % (Manual) Eosinophils % (Manual) Seg Neutrophils # Seg Neutrophils # Man Lymphocytes # (Manual) VBG pH Sodium Potassium Chloride Carbon Dioxide BUN Creatinine Glucose POC Glucose 252 H 130 H 237 H Hemoglobin A1c Lactic Acid Calcium Phosphorus Magnesium Total Creatine Kinase Total Protein Albumin Digoxin 11/29/18 11/29/18 11/29/18 08:49 08:49 11:55 WBC 11.2 H RBC 3.47 L Hgb 10.9 L Hct 31.0 L MCV MCHC 35 H RDW 13.1 L Plt Count 589 H Lymph % (Auto) Lymph # Seg Neutrophils % Seg Neuts % (Manual) Lymphocytes % (Manual) Monocytes % (Manual) Eosinophils % (Manual) Seg Neutrophils # Seg Neutrophils # Man Lymphocytes # (Manual) VBG pH Sodium Potassium Chloride 97.6 L Carbon Dioxide BUN Creatinine 0.6 L Glucose 363 H POC Glucose 319 H Hemoglobin A1c Lactic Acid Calcium Phosphorus Magnesium Total Creatine Kinase Total Protein Albumin Digoxin
[2018-11-29] MEDS: SODIUM CHLORIDE FLUSH SYRINGE 10 ML IV SCH ×2 (13:04→22:40)
--- NOTE | 2018-11-29 14:37 | Progress Note ---
Assessment and Plan Assessment and plan: Sepsis. Resolved. Blood culture negative, UA negative, CXR negative. Abdominal CT shows prominent infiltrate is seen in the right lower lobe consistent with pneumonitis. Small bilateral pleural effusions are seen. Aspiration pneumonia. Repeat CXR shows right lower lung parenchymal opacification that could indicate aspiration . ID note reviewed ID signed off We will monitor Off antibiotics Acute hypoxic respiratory failure. Etiology 2/2 #1 Continue O2 to maintain sats Toxic metabolic encephaloapthy. Etiology from DKA / electrolyte imbalance / Sepsis Atrial fibrillation with RVR. F/u BMP, Mg and digoxin level in AM. Cont digoxin and eliquis DM 2, uncontrolled. Patient with labile blood sugars. We will continue to monitor continue Dobhoff feedings. MEETA. Improved. oropharyngeal dysphagia. Status post EGD and PEG tube placement GI note and findings reviewed For placement discussed with daughter at bedside History Interval history: had PEG tube placed yesterday still c/o generalized weakness Hospitalist Physical - Physical exam Narrative exam: Gen: Not in acute distress, ill looking, malnourished HEENT: Normocephalic, atraumatic Neck: supple, no JVD Heart: S1 and S2 reg, no murmurs, rubs or gallop Lungs: Clear, no crackles or wheeze Abd: soft, non tender, non distended, normal BS, Ext: No edema, no clubbing, no cyanosis Neuro: Lethargic, opens eyes,moves all ext - Constitutional Vitals: Temp Pulse Resp BP Pulse Ox 98.5 F 82 20 133/53 97 11/28/18 21:00 11/29/18 09:56 11/29/18 08:00 11/29/18 09:56 11/29/18 08:00 General appearance: Present: no acute distress Results - Labs CBC & Chem 7: 11/29/18 08:49 11/29/18 08:49 Labs: Laboratory Last Values WBC 11.2 K/mm3 (4.5-11.0) H 11/29/18 08:49 RBC 3.47 M/mm3 (3.65-5.03) L 11/29/18 08:49 Hgb 10.9 gm/dl (11.8-15.2) L 11/29/18 08:49 Hct 31.0 % (35.5-45.6) L 11/29/18 08:49 MCV 89 fl (84-94) 11/29/18 08:49 MCH 32 pg (28-32) 11/29/18 08:49 MCHC 35 % (32-34) H 11/29/18 08:49 RDW 13.1 % (13.2-15.2) L 11/29/18 08:49 Plt Count 589 K/mm3 (140-440) H 11/29/18 08:49 Lymph % (Auto) 6.6 % (13.4-35.0) L 11/28/18 00:17 [place] % (Auto) 4.7 % (0.0-7.3) 11/28/18 00:17 Eos % (Auto) 0.4 % (0.0-4.3) 11/28/18 00:17 Baso % (Auto) 0.2 % (0.0-1.8) 11/28/18 00:17 Lymph # 0.8 K/mm3 (1.2-5.4) L 11/28/18 00:17 [place] # 0.6 K/mm3 (0.0-0.8) 11/28/18 00:17 Eos # 0.0 K/mm3 (0.0-0.4) 11/28/18 00:17 Baso # 0.0 K/mm3 (0.0-0.1) 11/28/18 00:17 Add Manual Diff Complete 11/25/18 05:26 Total Counted 100 11/25/18 05:26 Seg Neutrophils % 88.1 % (40.0-70.0) H 11/28/18 00:17 Seg Neuts % (Manual) 73.0 % (40.0-70.0) H 11/25/18 05:26 0 % 11/25/18 05:26 8.0 % (13.4-35.0) L 11/25/18 05:26 Reactive Lymphs % (Man) 0 % 11/25/18 05:26 14.0 % (0.0-7.3) H 11/25/18 05:26 4.0 % (0.0-4.3) 11/25/18 05:26 1.0 % (0.0-1.8) 11/25/18 05:26 0 % 11/25/18 05:26 0 % 11/25/18 05:26 0 % 11/25/18 05:26 0 % 11/25/18 05:26 Nucleated RBC % Not Reportable 11/25/18 05:26 Seg Neutrophils # 10.5 K/mm3 (1.8-7.7) H 11/28/18 00:17 Seg Neutrophils # Man 3.9 K/mm3 (1.8-7.7) 11/25/18 05:26 Band Neutrophils # 0.0 K/mm3 11/25/18 05:26 0.4 K/mm3 (1.2-5.4) L 11/25/18 05:26 Abs React Lymphs (Man) 0.0 K/mm3 11/25/18 05:26 0.8 K/mm3 (0.0-0.8) 11/25/18 05:26 0.2 K/mm3 (0.0-0.4) 11/25/18 05:26 0.1 K/mm3 (0.0-0.1) 11/25/18 05:26 0.0 K/mm3 11/25/18 05:26 0.0 K/mm3 11/25/18 05:26 0.0 K/mm3 11/25/18 05:26 Blast Cells # 0.0 K/mm3 11/25/18 05:26 WBC Morphology Not Reportable 11/25/18 05:26 Hypersegmented Neuts Not Reportable 11/25/18 05:26 Hyposegmented Neuts Not Reportable 11/25/18 05:26 Hypogranular Neuts Not Reportable 11/25/18 05:26 Not Reportable 11/25/18 05:26 Not Reportable 11/25/18 05:26 Not Reportable 11/25/18 05:26 Not Reportable 11/25/18 05:26 Not Reportable 11/25/18 05:26 Not Reportable 11/25/18 05:26 Consistent w auto 11/25/18 05:26 Not Reportable 11/25/18 05:26 Plt Clumps, EDTA Not Reportable 11/25/18 05:26 Not Reportable 11/25/18 05:26 Not Reportable 11/25/18 05:26 Not Reportable 11/25/18 05:26 Plt Morphology Comment Not Reportable 11/25/18 05:26 RBC Morphology Not Reportable 11/25/18 05:26 Dimorphic RBCs Not Reportable 11/25/18 05:26 Not Reportable 11/25/18 05:26 Not Reportable 11/25/18 05:26 Few 11/25/18 05:26 1+ 11/25/18 05:26 Not Reportable 11/25/18 05:26 Not Reportable 11/25/18 05:26 Not Reportable 11/25/18 05:26 Not Reportable 11/25/18 05:26 Not Reportable 11/25/18 05:26 Not Reportable 11/25/18 05:26 Not Reportable 11/25/18 05:26 Not Reportable 11/25/18 05:26 Not Reportable 11/25/18 05:26 Not Reportable 11/25/18 05:26 Not Reportable 11/25/18 05:26 Not Reportable 11/25/18 05:26 Not Reportable 11/25/18 05:26 Not Reportable 11/25/18 05:26 Not Reportable 11/25/18 05:26 Acanthocytes (Spur) Not Reportable 11/25/18 05:26 Rouleaux Not Reportable 11/25/18 05:26 Not Reportable 11/25/18 05:26 Not Reportable 11/25/18 05:26 Not Reportable 11/25/18 05:26 Not Reportable 11/25/18 05:26 Hem Pathologist Commnt No 11/25/18 05:26 PT 12.7 Sec. (12.2-14.9) 11/28/18 00:17 INR 0.98 (0.87-1.13) 11/28/18 00:17 APTT 26.3 Sec. (24.2-36.6) 11/19/18 10:07 VBG pH 7.162 (7.320-7.420) L* 11/19/18 10:07 Sodium 138 mmol/L (137-145) 11/29/18 08:49 Potassium 4.0 mmol/L (3.6-5.0) 11/29/18 08:49 Chloride 97.6 mmol/L (98-107) L 11/29/18 08:49 Carbon Dioxide 27 mmol/L (22-30) 07/30/19 08:49 17 mmol/L 11/29/18 08:49 BUN 13 mg/dL (9-20) 11/29/18 08:49 0.6 mg/dL (0.8-1.5) L 11/29/18 08:49 Estimated GFR > 60 ml/min 11/29/18 08:49 22 % 11/29/18 08:49 Glucose 363 mg/dL (75-100) H 11/29/18 08:49 POC Glucose 319 (70-105) H 11/29/18 11:55 16.9 % (4-6) H 11/19/18 19:14 Lactic Acid 2.00 mmol/L (0.7-2.0) 11/20/18 04:50 Calcium 8.4 mg/dL (8.4-10.2) 11/29/18 08:49 Phosphorus 2.30 mg/dL (2.5-4.5) L D 11/20/18 07:14 Magnesium 1.90 mg/dL (1.7-2.3) 11/25/18 05:26 0.30 mg/dL (0.1-1.2) 11/28/18 00:17 AST 36 units/L (5-40) 11/28/18 00:17 ALT 26 units/L (7-56) 11/28/18 00:17 112 units/L (35-129) 11/28/18 00:17 690 units/L (55-170) H 11/19/18 10:07 0.016 ng/mL (0.00-0.029) 11/19/18 10:07 5.5 g/dL (6.3-8.2) L 11/28/18 00:17 2.6 g/dL (3.9-5) L 11/28/18 00:17 0.9 % 11/28/18 00:17 Yellow (Yellow) 11/19/18 09:17 Clear (Clear) 11/19/18 09:17 5.0 (5.0-7.0) 11/19/18 09:17 Ur Specific [place] 1.027 (1.003-1.030) 11/19/18 09:17 <15 mg/dl mg/dL (Negative) 11/19/18 09:17 >=500 mg/dL (Negative) 11/19/18 09:17 80 mg/dL (Negative) 11/19/18 09:17 Neg (Negative) 11/19/18 09:17 Neg (Negative) 11/19/18 09:17 Neg (Negative) 11/19/18 09:17 < 2.0 mg/dL (<2.0) 11/19/18 09:17 Ur Leukocyte Esterase Neg (Negative) 11/19/18 09:17 < 1.0 /HPF (0.0-6.0) 11/19/18 09:17 2.0 /HPF (0.0-6.0) 11/19/18 09:17 Few /HPF 11/19/18 09:17 Digoxin 0.5 ng/mL (0.9-2.0) L 11/25/18 05:26 Active Medications - Current Medications Current Medications: Generic Name Dose Route Start Last Admin Trade Name Freq PRN Reason Stop Dose Admin Acetaminophen 650 mg 11/23/18 00:13 11/29/18 09:55 Tylenol PO 650 mg Q4H PRN Administration Pain, Mild (1-3), fever > 101 Acetaminophen/Hydrocodone Bitart 1 each 11/28/18 13:51 11/29/18 04:53 [place] 5/325 PO 1 each Q6H PRN Administration Pain, Moderate (4-6) Albuterol 2.5 mg 11/20/18 04:27 Proventil IH Q4HRT PRN Shortness Of Breath Lipase/Protease/Amylase 1 each 11/28/18 14:33 Pancreaze 10,500 Unit FEEDTUBE PRN PRN For Clogged Feeding Tube Apixaban 2.5 mg 11/29/18 10:00 11/29/18 09:57 Eliquis PO 2.5 mg Q12HR HAMLET Administration Protocol Digoxin 0.125 mg 11/21/18 10:00 11/29/18 09:56 Lanoxin PO 0.125 mg Q48H HAMLET Administration Famotidine 20 mg 11/25/18 10:00 11/29/18 09:56 Pepcid PO 20 mg BID HAMLET Administration Guaifenesin 200 mg 11/20/18 04:28 Robitussin PO Q4H PRN Cough Sodium Chloride 1,000 mls @ 50 mls/hr 11/28/18 11:00 Nacl 0.9% 1000 Ml IV DIRECT HAMLET Insulin Human Isoph/Insulin Regular 15 unit 11/27/18 10:00 11/29/18 08:56 Humulin 70/30 SUB-Q 15 unit BIDDIAB HAMLET Administration Insulin Human Lispro 0 unit 11/23/18 12:00 11/29/18 13:03 Humalog SUB-Q 6 unit Q6HR HAMLET Administration Protocol Metoclopramide HCl 10 mg 11/19/18 17:17 Reglan IV Q6H PRN Nausea And Vomiting Ondansetron HCl 4 mg 11/19/18 17:17 11/26/18 22:34 Zofran IV 4 mg Q3H PRN Administration Nausea And Vomiting Simple Syrup 15 ml 11/28/18 14:33 Simple Syrup FEEDTUBE PRN PRN Hypoglycemia Simple Syrup 30 ml 11/28/18 14:33 Simple Syrup FEEDTUBE PRN PRN Hypoglycemia Sodium Bicarbonate 325 mg 11/28/18 14:33 Sodium Bicarbonate FEEDTUBE PRN PRN For Clogged Feeding Tube Sodium Chloride 10 ml 11/19/18 22:00 11/29/18 13:04 Sodium Chloride Flush Syringe 10 Ml IV 10 ml BID HAMLET Administration Sodium Chloride 10 ml 11/19/18 17:17 11/27/18 17:47 Sodium Chloride Flush Syringe 10 Ml IV 10 ml PRN PRN Administration LINE FLUSH Nutrition/Malnutrition Assess - Dietary Evaluation Nutrition/Malnutrition Findings: Nutrition Notes Start: 11/20/18 08:55 Freq: Status: Active Protocol: Document 11/28/18 10:24 JACKIE (Rec: 11/28/18 10:25 JACKIE SRW- [email or web address]) Nutrition Notes Need for Assessment generated from: MD Order,Low BMI Initial or Follow up Reassessment Current Diagnosis Diabetes Other Pertinent Diagnosis DKA, asp pneu, dementia Labs/Tests reviewed Pertinent Medications reviewed Height 5 ft 10 in Weight 53.8 kg [place] Body Weight (kg) 75.45 BMI 17.0 Subjective/Other Information RD re-consulted for TF; pt had PEG tube placed today. Pt also screened for low BMI. Burn Absent Trauma Absent #1 Nutrition Diagnosis Malnutrition Diagnosis Progress(for reassessment Continues documentation) Is patient on ventilator? No Is Patient Ambulatory and/or Out of Bed No REE-([facility]-confined to bed) 1512.132 Kcal/Kg value to use for calculation 35 Approximate Energy Requirements Using 1883 kcal/Kg Additional Notes Pro needs: 1.2-1.5g/k-81g /day Fluid needs 1ml/kcal Nutrition Intervention Nutrition Support: Decrease TF goal rate to 60ml/ hr with 100ml water flush q4h. Kcal 1,728 Protein (gm) 86 Carbohydrates (gm) 165 Fat (gm) 86 Fluid (mL) 1,159 Fiber (gm) 23 Goal #1 TF tolerance Goal #2 Wt gain/maintenance Goal #3 TF to meet 100% energy and pro needs Follow-Up By: 12/05/18 Additional Comments F/U: stable TF, wt
--- NOTE | 2018-11-29 17:09 | Progress Note ---
Assessment and Plan 1. S/p G-tube placement - doing well. Will sign off. Subjective Date of service: 11/29/18 Principal diagnosis: dka, asp pneu dementia Interval history: Doing well post G-tube placement. Girma TF. Objective - Constitutional Vitals: Vital Signs - 12hr 11/29/18 11/29/18 11/29/18 08:00 09:56 14:03 Temperature 98.1 F Pulse Rate 82 82 Pulse Rate [ 82 From Monitor] Respiratory 20 18 Rate Blood Pressure 133/53 108/48 O2 Sat by Pulse 97 96 Oximetry General appearance: Present: no acute distress - EENT Eyes: PERRL, EOM intact ENT: hearing intact - Respiratory Respiratory effort: normal - Gastrointestinal General gastrointestinal: Present: soft, non-tender, other (G-tube site clean, NT) - Labs CBC & Chem 7: 11/29/18 08:49 11/29/18 08:49 Labs: Abnormal lab results 11/28/18 11/29/18 11/29/18 Range/Units 17:38 01:26 08:49 WBC 11.2 H (4.5-11.0) K/mm3 RBC 3.47 L (3.65-5.03) M/mm3 Hgb 10.9 L (11.8-15.2) gm/dl Hct 31.0 L (35.5-45.6) % MCHC 35 H (32-34) % RDW 13.1 L (13.2-15.2) % Plt Count 589 H (140-440) K/mm3 Chloride (98-107) mmol/L Creatinine (0.8-1.5) mg/dL Glucose (75-100) mg/dL POC Glucose 130 H 237 H (70-105) 11/29/18 11/29/18 Range/Units 08:49 11:55 WBC (4.5-11.0) K/mm3 RBC (3.65-5.03) M/mm3 Hgb (11.8-15.2) gm/dl Hct (35.5-45.6) % MCHC (32-34) % RDW (13.2-15.2) % Plt Count (140-440) K/mm3 Chloride 97.6 L (98-107) mmol/L Creatinine 0.6 L (0.8-1.5) mg/dL Glucose 363 H (75-100) mg/dL POC Glucose 319 H (70-105) Medications & Allergies - Medications Allergies/Adverse Reactions: Allergies No Known Allergies Allergy (Verified 06/29/18 10:14) Home Medications: Home Medications Medication Instructions Recorded Confirmed Last Taken Type Docusate Sodium [Colace] 100 mg PO BID 7 Days #14 capsule 06/29/18 11/19/18 Unknown Rx metFORMIN [Glucophage] 500 mg PO BID 30 Days #60 tablet 06/29/18 11/19/18 Unkn own Rx Active Medications: Generic Name Dose Route Start Last Admin Trade Name Freq PRN Reason Stop Dose Admin Acetaminophen 650 mg 11/23/18 00:13 11/29/18 09:55 Tylenol PO 650 mg Q4H PRN Administration Pain, Mild (1-3), fever > 101 Acetaminophen/Hydrocodone Bitart 1 each 11/28/18 13:51 11/29/18 14:39 [place] 5/325 PO 1 each Q6H PRN Administration Pain, Moderate (4-6) Albuterol 2.5 mg 11/20/18 04:27 Proventil IH Q4HRT PRN Shortness Of Breath Lipase/Protease/Amylase 1 each 11/28/18 14:33 Pancreaze 10,500 Unit FEEDTUBE PRN PRN For Clogged Feeding Tube Apixaban 2.5 mg 11/29/18 10:00 11/29/18 09:57 Eliquis PO 2.5 mg Q12HR HAMLET Administration Protocol Digoxin 0.125 mg 11/21/18 10:00 11/29/18 09:56 Lanoxin PO 0.125 mg Q48H HAMLET Administration Famotidine 20 mg 11/25/18 10:00 11/29/18 09:56 Pepcid PO 20 mg BID HAMLET Administration Guaifenesin 200 mg 11/20/18 04:28 Robitussin PO Q4H PRN Cough Sodium Chloride 1,000 mls @ 50 mls/hr 11/28/18 11:00 Nacl 0.9% 1000 Ml IV DIRECT HAMLET Insulin Human Isoph/Insulin Regular 15 unit 11/27/18 10:00 11/29/18 08:56 Humulin 70/30 SUB-Q 15 unit BIDDIAB HAMLET Administration Insulin Human Lispro 0 unit 11/23/18 12:00 11/29/18 13:03 Humalog SUB-Q 6 unit Q6HR HAMLET Administration Protocol Metoclopramide HCl 10 mg 11/19/18 17:17 Reglan IV Q6H PRN Nausea And Vomiting Ondansetron HCl 4 mg 11/19/18 17:17 11/26/18 22:34 Zofran IV 4 mg Q3H PRN Administration Nausea And Vomiting Simple Syrup 15 ml 11/28/18 14:33 Simple Syrup FEEDTUBE PRN PRN Hypoglycemia Simple Syrup 30 ml 11/28/18 14:33 Simple Syrup FEEDTUBE PRN PRN Hypoglycemia Sodium Bicarbonate 325 mg 11/28/18 14:33 Sodium Bicarbonate FEEDTUBE PRN PRN For Clogged Feeding Tube Sodium Chloride 10 ml 11/19/18 22:00 11/29/18 13:04 Sodium Chloride Flush Syringe 10 Ml IV 10 ml BID HAMLET Administration Sodium Chloride 10 ml 11/19/18 17:17 11/27/18 17:47 Sodium Chloride Flush Syringe 10 Ml IV 10 ml PRN PRN Administration LINE FLUSH
[2018-11-30] MEDS: HumaLOG SUB-Q SCH ×4 (00:20→18:26)
--- NOTE | 2018-11-30 09:48 | Progress Note ---
Assessment and Plan Cont present cardiac management. Nothing further to add from cardiac perspective at this time. Will sign off. Recommend follow up in our office with Dr. Perdue within 1-2 weeks of hospital discharge ([phone]). The patient has been seen in conjunction with Dr. Saqib Atkinson who agrees with the assessment and plan of care. - Patient Problems (1) Atrial fibrillation with RVR Current Visit: Yes Status: Acute (2) Abnormal ECG Current Visit: Yes Status: Acute (3) DKA (diabetic ketoacidoses) Current Visit: Yes Status: Acute Qualifiers: Diabetes mellitus type: type 2 (4) Altered mental status Current Visit: Yes Status: Acute (5) MEETA (acute kidney injury) Current Visit: Yes Status: Acute (6) Acute hypernatremia Current Visit: Yes Status: Acute (7) Leucopenia Current Visit: Yes Status: Acute (8) Pneumonia Current Visit: Yes Status: Acute Subjective Date of service: 11/30/18 Principal diagnosis: dka, asp pneu dementia Interval history: pt resting in bed, lethargic, family member at bedside. Objective Last Vital Signs Temp 97.7 F 11/30/18 08:06 Pulse 77 11/30/18 08:06 Resp 18 11/30/18 08:06 BP 110/50 11/30/18 08:06 Pulse Ox 97 11/30/18 08:06 - Physical Examination General: No Apparent Distress HEENT: Positive: Normocephaly, Mucus Membranes Moist Neck: Positive: neck supple, trachea midline Cardiac: Positive: Reg Rate and Rhythm, S1/S2 Lungs: Positive: Decreased Breath Sounds Neuro: Positive: Other (confused) Abdomen: Positive: Soft, Active Bowel Sounds. Negative: Tender Skin: Positive: Clear. Negative: Rash Musculoskeletal: Normal Range of Motion Extremities: Present: normal. Absent: edema - Labs and Meds Comprehensive Metabolic Panel 11/29/18 Range/Units 08:49 Sodium 138 (137-145) mmol/L Potassium 4.0 (3.6-5.0) mmol/L Chloride 97.6 L (98-107) mmol/L Carbon Dioxide 27 (22-30) mmol/L BUN 13 (9-20) mg/dL Creatinine 0.6 L (0.8-1.5) mg/dL Glucose 363 H (75-100) mg/dL Calcium 8.4 (8.4-10.2) mg/dL - Imaging and Cardiology EKG: report reviewed, image reviewed Echo: report reviewed (EF 50-55%, mild TR, impaired relaxation. ) - EKG Sinus rhythms and dysrhythmias: sinus rhythm Repolarization changes or abnormalities: ST or T wave suggestive of ischemia
[2018-11-30] MEDS: PEPCID PO SCH ×2 (09:54→22:58)
[2018-11-30] MEDS: ELIQUIS PO SCH ×2 (09:54→22:58)
[2018-11-30] MEDS: SODIUM CHLORIDE FLUSH SYRINGE 10 ML IV SCH ×2 (09:55→22:58)
--- NOTE | 2018-11-30 17:30 | Progress Note ---
Assessment and Plan Assessment and plan: Sepsis. Resolved. Blood culture negative, UA negative, CXR negative. Abdominal CT shows prominent infiltrate is seen in the right lower lobe consistent with pneumonitis. Small bilateral pleural effusions are seen. Aspiration pneumonia. Repeat CXR shows right lower lung parenchymal opacification that could indicate aspiration . ID note reviewed ID signed off We will monitor Off antibiotics Acute hypoxic respiratory failure. Etiology 2/2 #1 Continue O2 to maintain sats Toxic metabolic encephaloapthy. Etiology from DKA / electrolyte imbalance / Sepsis Atrial fibrillation with RVR. F/u BMP, Mg and digoxin level in AM. Cont digoxin and eliquis DM 2, uncontrolled. Patient with labile blood sugars. We will continue to monitor continue Dobhoff feedings. MEETA. Improved. oropharyngeal dysphagia. Status post EGD and PEG tube placement GI note and findings reviewed Awaiting placement Medically stable for discharge discussed with daughter at bedside History Interval history: had PEG tube placed 11/28/18 still c/o generalized weakness Hospitalist Physical - Physical exam Narrative exam: Gen: Not in acute distress, ill looking, malnourished HEENT: Normocephalic, atraumatic Neck: supple, no JVD Heart: S1 and S2 reg, no murmurs, rubs or gallop Lungs: Clear, no crackles or wheeze Abd: soft, non tender, non distended, normal BS, PEG tube Ext: No edema, no clubbing, no cyanosis Neuro: Lethargic, opens eyes,moves all ext - Constitutional Vitals: Temp Pulse Resp BP Pulse Ox 97.8 F 74 18 116/53 97 11/30/18 13:32 11/30/18 13:32 11/30/18 13:32 11/30/18 13:32 11/30/18 13:32 General appearance: Present: no acute distress Results - Labs CBC & Chem 7: 11/29/18 08:49 11/29/18 08:49 Labs: Laboratory Last Values WBC 11.2 K/mm3 (4.5-11.0) H 11/29/18 08:49 RBC 3.47 M/mm3 (3.65-5.03) L 11/29/18 08:49 Hgb 10.9 gm/dl (11.8-15.2) L 11/29/18 08:49 Hct 31.0 % (35.5-45.6) L 11/29/18 08:49 MCV 89 fl (84-94) 11/29/18 08:49 MCH 32 pg (28-32) 11/29/18 08:49 MCHC 35 % (32-34) H 11/29/18 08:49 RDW 13.1 % (13.2-15.2) L 11/29/18 08:49 Plt Count 589 K/mm3 (140-440) H 11/29/18 08:49 Lymph % (Auto) 6.6 % (13.4-35.0) L 11/28/18 00:17 [place] % (Auto) 4.7 % (0.0-7.3) 11/28/18 00:17 Eos % (Auto) 0.4 % (0.0-4.3) 11/28/18 00:17 Baso % (Auto) 0.2 % (0.0-1.8) 11/28/18 00:17 Lymph # 0.8 K/mm3 (1.2-5.4) L 11/28/18 00:17 [place] # 0.6 K/mm3 (0.0-0.8) 11/28/18 00:17 Eos # 0.0 K/mm3 (0.0-0.4) 11/28/18 00:17 Baso # 0.0 K/mm3 (0.0-0.1) 11/28/18 00:17 Add Manual Diff Complete 11/25/18 05:26 Total Counted 100 11/25/18 05:26 Seg Neutrophils % 88.1 % (40.0-70.0) H 11/28/18 00:17 Seg Neuts % (Manual) 73.0 % (40.0-70.0) H 11/25/18 05:26 0 % 11/25/18 05:26 8.0 % (13.4-35.0) L 11/25/18 05:26 Reactive Lymphs % (Man) 0 % 11/25/18 05:26 14.0 % (0.0-7.3) H 11/25/18 05:26 4.0 % (0.0-4.3) 11/25/18 05:26 1.0 % (0.0-1.8) 11/25/18 05:26 0 % 07/26/19 05:26 0 % 11/25/18 05:26 0 % 11/25/18 05:26 0 % 11/25/18 05:26 Nucleated RBC % Not Reportable 11/25/18 05:26 Seg Neutrophils # 10.5 K/mm3 (1.8-7.7) H 11/28/18 00:17 Seg Neutrophils # Man 3.9 K/mm3 (1.8-7.7) 11/25/18 05:26 Band Neutrophils # 0.0 K/mm3 11/25/18 05:26 0.4 K/mm3 (1.2-5.4) L 11/25/18 05:26 Abs React Lymphs (Man) 0.0 K/mm3 11/25/18 05:26 0.8 K/mm3 (0.0-0.8) 11/25/18 05:26 0.2 K/mm3 (0.0-0.4) 11/25/18 05:26 0.1 K/mm3 (0.0-0.1) 11/25/18 05:26 0.0 K/mm3 11/25/18 05:26 0.0 K/mm3 11/25/18 05:26 0.0 K/mm3 11/25/18 05:26 Blast Cells # 0.0 K/mm3 11/25/18 05:26 WBC Morphology Not Reportable 11/25/18 05:26 Hypersegmented Neuts Not Reportable 11/25/18 05:26 Hyposegmented Neuts Not Reportable 11/25/18 05:26 Hypogranular Neuts Not Reportable 11/25/18 05:26 Not Reportable 11/25/18 05:26 Not Reportable 11/25/18 05:26 Not Reportable 11/25/18 05:26 Not Reportable 11/25/18 05:26 Not Reportable 11/25/18 05:26 Not Reportable 11/25/18 05:26 Consistent w auto 11/25/18 05:26 Not Reportable 11/25/18 05:26 Plt Clumps, EDTA Not Reportable 11/25/18 05:26 Not Reportable 11/25/18 05:26 Not Reportable 11/25/18 05:26 Not Reportable 11/25/18 05:26 Plt Morphology Comment Not Reportable 11/25/18 05:26 RBC Morphology Not Reportable 11/25/18 05:26 Dimorphic RBCs Not Reportable 11/25/18 05:26 Not Reportable 11/25/18 05:26 Not Reportable 11/25/18 05:26 Few 11/25/18 05:26 1+ 11/25/18 05:26 Not Reportable 11/25/18 05:26 Not Reportable 11/25/18 05:26 Not Reportable 11/25/18 05:26 Not Reportable 11/25/18 05:26 Not Reportable 11/25/18 05:26 Not Reportable 11/25/18 05:26 Not Reportable 11/25/18 05:26 Not Reportable 11/25/18 05:26 Not Reportable 11/25/18 05:26 Not Reportable 11/25/18 05:26 Not Reportable 11/25/18 05:26 Not Reportable 11/25/18 05:26 Not Reportable 11/25/18 05:26 Not Reportable 11/25/18 05:26 Not Reportable 11/25/18 05:26 Acanthocytes (Spur) Not Reportable 11/25/18 05:26 Rouleaux Not Reportable 11/25/18 05:26 Not Reportable 11/25/18 05:26 Not Reportable 11/25/18 05:26 Not Reportable 11/25/18 05:26 Not Reportable 11/25/18 05:26 Hem Pathologist Commnt No 11/25/18 05:26 PT 12.7 Sec. (12.2-14.9) 11/28/18 00:17 INR 0.98 (0.87-1.13) 11/28/18 00:17 APTT 26.3 Sec. (24.2-36.6) 11/19/18 10:07 VBG pH 7.162 (7.320-7.420) L* 11/19/18 10:07 Sodium 138 mmol/L (137-145) 11/29/18 08:49 Potassium 4.0 mmol/L (3.6-5.0) 11/29/18 08:49 Chloride 97.6 mmol/L (98-107) L 11/29/18 08:49 Carbon Dioxide 27 mmol/L (22-30) 11/29/18 08:49 17 mmol/L 11/29/18 08:49 BUN 13 mg/dL (9-20) 11/29/18 08:49 0.6 mg/dL (0.8-1.5) L 11/29/18 08:49 Estimated GFR > 60 ml/min 11/29/18 08:49 22 % 11/29/18 08:49 Glucose 363 mg/dL (75-100) H 11/29/18 08:49 POC Glucose 314 (70-105) H 11/30/18 07:02 16.9 % (4-6) H 11/19/18 19:14 Lactic Acid 2.00 mmol/L (0.7-2.0) 11/20/18 04:50 Calcium 8.4 mg/dL (8.4-10.2) 11/29/18 08:49 Phosphorus 2.30 mg/dL (2.5-4.5) L D 11/20/18 07:14 Magnesium 1.90 mg/dL (1.7-2.3) 11/25/18 05:26 0.30 mg/dL (0.1-1.2) 11/28/18 00:17 AST 36 units/L (5-40) 11/28/18 00:17 ALT 26 units/L (7-56) 11/28/18 00:17 112 units/L (35-129) 11/28/18 00:17 690 units/L (55-170) H 11/19/18 10:07 0.016 ng/mL (0.00-0.029) 11/19/18 10:07 5.5 g/dL (6.3-8.2) L 11/28/18 00:17 2.6 g/dL (3.9-5) L 11/28/18 00:17 0.9 % 11/28/18 00:17 Yellow (Yellow) 11/19/18 09:17 Clear (Clear) 11/19/18 09:17 5.0 (5.0-7.0) 11/19/18 09:17 Ur Specific [place] 1.027 (1.003-1.030) 11/19/18 09:17 <15 mg/dl mg/dL (Negative) 11/19/18 09:17 >=500 mg/dL (Negative) 11/19/18 09:17 80 mg/dL (Negative) 11/19/18 09:17 Neg (Negative) 11/19/18 09:17 Neg (Negative) 11/19/18 09:17 Neg (Negative) 11/19/18 09:17 < 2.0 mg/dL (<2.0) 11/19/18 09:17 Ur Leukocyte Esterase Neg (Negative) 11/19/18 09:17 < 1.0 /HPF (0.0-6.0) 11/19/18 09:17 2.0 /HPF (0.0-6.0) 11/19/18 09:17 Few /HPF 11/19/18 09:17 Digoxin 0.5 ng/mL (0.9-2.0) L 11/25/18 05:26 Active Medications - Current Medications Current Medications: Generic Name Dose Route Start Last Admin Trade Name Freq PRN Reason Stop Dose Admin Acetaminophen 650 mg 11/23/18 00:13 11/29/18 09:55 Tylenol PO 650 mg Q4H PRN Administration Pain, Mild (1-3), fever > 101 Acetaminophen/Hydrocodone Bitart 1 each 11/28/18 13:51 11/29/18 14:39 [place] 5/325 PO 1 each Q6H PRN Administration Pain, Moderate (4-6) Albuterol 2.5 mg 11/20/18 04:27 Proventil IH Q4HRT PRN Shortness Of Breath Lipase/Protease/Amylase 1 each 11/28/18 14:[address] 10,500 Unit FEEDTUBE PRN PRN For Clogged Feeding Tube Apixaban 2.5 mg 11/29/18 10:00 11/30/18 09:54 Eliquis PO 2.5 mg Q12HR HAMLET Administration Protocol Digoxin 0.125 mg 11/21/18 10:00 11/29/18 09:56 Lanoxin PO 0.125 mg Q48H HAMLET Administration Famotidine 20 mg 11/25/18 10:00 11/30/18 09:54 Pepcid PO 20 mg BID HAMLET Administration Guaifenesin 200 mg 11/20/18 04:28 Robitussin PO Q4H PRN Cough Sodium Chloride 1,000 mls @ 50 mls/hr 11/28/18 11:00 Nacl 0.9% 1000 Ml IV DIRECT HAMLET Insulin Human Isoph/Insulin Regular 15 unit 11/27/18 10:00 11/30/18 09:54 Humulin 70/30 SUB-Q 15 unit BIDDIAB HAMLET Administration Insulin Human Lispro 0 unit 11/23/18 12:00 11/30/18 14:19 Humalog SUB-Q 3 unit Q6HR HAMLET Administration Protocol Metoclopramide HCl 10 mg 11/19/18 17:17 Reglan IV Q6H PRN Nausea And Vomiting Ondansetron HCl 4 mg 11/19/18 17:17 11/26/18 22:34 Zofran IV 4 mg Q3H PRN Administration Nausea And Vomiting Simple Syrup 15 ml 11/28/18 14:33 Simple Syrup FEEDTUBE PRN PRN Hypoglycemia Simple Syrup 30 ml 11/28/18 14:33 Simple Syrup FEEDTUBE PRN PRN Hypoglycemia Sodium Bicarbonate 325 mg 11/28/18 14:33 Sodium Bicarbonate FEEDTUBE PRN PRN For Clogged Feeding Tube Sodium Chloride 10 ml 11/19/18 22:00 11/30/18 09:55 Sodium Chloride Flush Syringe 10 Ml IV 10 ml BID HAMLET Administration Sodium Chloride 10 ml 11/19/18 17:17 11/27/18 17:47 Sodium Chloride Flush Syringe 10 Ml IV 10 ml PRN PRN Administration LINE FLUSH Nutrition/Malnutrition Assess - Dietary Evaluation Nutrition/Malnutrition Findings: Nutrition Notes Start: 11/20/18 08:55 Freq: Status: Active Protocol: Document 11/28/18 10:24 JACKIE (Rec: 11/28/18 10:25 [email or web address]) Nutrition Notes Need for Assessment generated from: MD Order,Low BMI Initial or Follow up Reassessment Current Diagnosis Diabetes Other Pertinent Diagnosis DKA, asp pneu, dementia Labs/Tests reviewed Pertinent Medications reviewed Height 5 ft 10 in Weight 53.8 kg Remlap Body Weight (kg) 75.45 BMI 17.0 Subjective/Other Information RD re-consulted for TF; pt had PEG tube placed today. Pt also screened for low BMI. Burn Absent Trauma Absent #1 Nutrition Diagnosis Malnutrition Diagnosis Progress(for reassessment Continues documentation) Is patient on ventilator? No Is Patient Ambulatory and/or Out of Bed No REE-([place] Jeor-confined to bed) 1512.132 Kcal/Kg value to use for calculation 35 Approximate Energy Requirements Using 1883 kcal/Kg Additional Notes Pro needs: 1.2-1.5g/k-81g /day Fluid needs 1ml/kcal Nutrition Intervention Nutrition Support: Decrease TF goal rate to 60ml/ hr with 100ml water flush q4h. Kcal 1,728 Protein (gm) 86 Carbohydrates (gm) 165 Fat (gm) 86 Fluid (mL) 1,159 Fiber (gm) 23 Goal #1 TF tolerance Goal #2 Wt gain/maintenance Goal #3 TF to meet 100% energy and pro needs Follow-Up By: 12/05/18 Additional Comments F/U: stable TF, wt
[2018-12-01] MEDS: HumaLOG SUB-Q SCH ×3 (00:10→12:36)
[2018-12-01] MEDS: PEPCID PO SCH (09:25)
[2018-12-01] MEDS: LANOXIN PO SCH (09:25)
[2018-12-01] MEDS: SODIUM CHLORIDE FLUSH SYRINGE 10 ML IV SCH (09:27)
[2018-12-01] MEDS: NORCO 5/325 PO PRN (09:45)
[2018-12-01] MEDS: ELIQUIS PO SCH (09:49)
--- NOTE | 2018-12-01 11:56 | Discharge Summary ---
Providers - Providers Date of Admission: 11/19/18 11:54 Date of discharge: 12/01/18 Attending physician: BRENDA SOUZA 11/19/18 11:20 Consult to Physician [CONS] Urgent Comment: Dr. Garcia notified @ 11:35am- [facility] Consulting Provider: REGULO GARCIA Physician Instructions: Reason For Exam: dka 11/19/18 11:21 Consult to Physician [CONS] Urgent Comment: Dr. Killian notified @ 11:30- [facility] Consulting Provider: PATTIE KILLIAN Physician Instructions: Reason For Exam: refractory svt 11/19/18 17:29 Consult to Dietitian/Nutrition [CONS] Routine Physician Instructions: Reason For Exam: DKA Reason for Consult: Nutrition Recommendations Reason for Consult: Diet education 11/20/18 07:09 Consult to Physician [CONS] Routine Comment: Consulting Provider: MIA ARTEAGA Physician Instructions: Reason For Exam: Hypernatremia 11/20/18 12:32 Consult to Physician [CONS] Routine Comment: Consulting Provider: SANTIAGO PATE Physician Instructions: Reason For Exam: Fever,hypotension 11/21/18 08:15 Speech Therapy Evaluation and Treat [CONS] Routine Reason For Exam: swallow evaluation 11/21/18 10:43 Consult to Dietitian/Nutrition [CONS] Routine Physician Instructions: Reason For Exam: Reason for Consult: Write/Manage Tube Feeding 11/22/18 10:17 Physical Therapy Evaluation and Treat [CONS] Routine Comment: Reason For Exam: Debility 11/25/18 12:34 Consult to Physician [CONS] Routine Comment: dr. larson has seen the patient / ramona Consulting Provider: GLENN ALEXANDRA Physician Instructions: Reason For Exam: PEG placement 11/25/18 12:43 Consult to Dietitian/Nutrition [CONS] Routine Physician Instructions: Assess nutrtn needs, initiate, modify, manage TF Reason For Exam: Reason for Consult: Write/Manage Tube Feeding Reason for Consult: Write/Manage Tube Feeding 11/28/18 11:02 Consult to Dietitian/Nutrition [CONS] Routine Physician Instructions: Reason For Exam: Reason for Consult: Write/Manage Tube Feeding 11/29/18 12:52 Occupational Therapy Evaluate and Treat [CONS] Routine Comment: Reason For Exam: Debility Primary care physician: GERTRUDIS FOUNTAIN Hospitalization Condition: Fair Disposition: DC/[place]-03 SNF [facility] CERT Exam - Constitutional Vitals: Temp Pulse Resp BP Pulse Ox 99.3 F 82 20 116/56 96 12/01/18 07:39 12/01/18 09:25 12/01/18 07:39 12/01/18 07:39 12/01/18 07:39 Plan Activity: advance as tolerated Diet: other (Tube feeding) Additional Instructions: 1.Follow up with Physician at [facility] in 2-3 days. 2.Continue Novolin 70/30 at 15 Units subQ bid, dose to be adjusted by Physician at [facility]. Follow up with: PRIMARY CARE, [Referring] - 3-5 Days
[2018-12-01 17:39] VITALS: BP 90/60
== END 2018-12-01 17:55 | DRG 871 ==
LOC: ED 08:28 → CC1 11:54 → 4A 11-21 20:37 → IMCU 11-22 15:47 → 2B-ACE 11-25 16:36
PROVIDERS: ADMIT Internal Medicine; ATTEND Internal Medicine
PROC: 02HV33Z Insertion of Infusion Device into Superior Vena Cava, Percutaneous Approach (ICD-10-PCS; 2018-11-20)
PROC: 0DH63UZ Insertion of Feeding Device into Stomach, Percutaneous Approach (ICD-10-PCS; principal; 2018-11-28)
DX: A41.9 Sepsis, unspecified organism (principal); E11.10 Type 2 diabetes mellitus with ketoacidosis without coma; N17.0 Acute kidney failure with tubular necrosis; J69.0 Pneumonitis due to inhalation of food and vomit; G92 Toxic encephalopathy; J96.01 Acute respiratory failure with hypoxia; I47.1 Supraventricular tachycardia; E87.0 Hyperosmolality and hypernatremia; R64 Cachexia; Z68.1 Body mass index [BMI] 19.9 or less, adult; J90 Pleural effusion, not elsewhere classified; E83.39 Other disorders of phosphorus metabolism; I48.91 Unspecified atrial fibrillation; D70.9 Neutropenia, unspecified; F03.90 Unspecified dementia, unspecified severity, without behavioral disturbance, psychotic disturbance, mood disturbance, and anxiety; R13.12 Dysphagia, oropharyngeal phase; K21.9 Gastro-esophageal reflux disease without esophagitis; K26.9 Duodenal ulcer, unspecified as acute or chronic, without hemorrhage or perforation; Z79.84 Long term (current) use of oral hypoglycemic drugs
CPT/HCPCS: 36415; 70450; 71045; 72125; 74018; 74176; 80048; 80053; 80162; 81001; 82140; 82550; 82805; 82962; 83036; 83735; 84100; 84484; 85007; 85025; 85027; 85610; 85730; 87040; 87086; 93005; 93010; 93306; 94640; 94667; 94668; 94760; 99292; G0378; J0153; J0690; J0692; J1160; J1170; J1265; J1644; J1815; J2405; J2704; J3010; J3370; J3480; J7030; J7040; J7070

== ENCOUNTER 2018-12-19 02:50 | Emergency (ER) | payer MEDICARE ==
--- NOTE | 2018-12-19 03:44 | Emergency Department Report ---
<NOREENREGULOKARINA - Last Filed: 12/19/18 05:53> ED General Adult HPI - General Chief complaint: Fall Stated complaint: LACERATION TO (R) EAR SECONDARY TO FALL Time Seen by Provider: 12/19/18 03:43 - Related Data Previous Rx's Medication Instructions Recorded Last Taken Type ALBUTEROL NEB's [Proventil 0.083% 2.5 mg IH Q4HRT PRN nebu 12/01/18 Unknown Rx NEBS] Apixaban [Eliquis] 2.5 mg PO Q12HR tablet 12/01/18 Unknown Rx Digoxin [Lanoxin] 0.125 mg PO Q48H tablet 12/01/18 Unknown Rx Famotidine [Pepcid] 20 mg PO BID tablet 12/01/18 Unknown Rx Insulin NPH Hum/Reg Insulin Hm 15 unit SQ BID #1 vial 12/01/18 Unknown Rx [Novolin 70-30 100 Unit/ml Vial] guaiFENesin [Robitussin] 200 mg PO Q4H PRN oral.liqd 12/01/18 Unknown Rx Clindamycin [Clindamycin CAP] 300 mg PO Q6H 7 Days #28 capsule 12/19/18 Unknown Rx Allergies Allergy/AdvReac Type Severity Reaction Status Date / Time No Known Allergies Allergy Verified 06/29/18 10:14 ED Past Medical Hx - Medications Home Medications: Home Medications Medication Instructions Recorded Confirmed Last Taken Type ALBUTEROL NEB's [Proventil 0.083% 2.5 mg IH Q4HRT PRN nebu 12/01/18 Unknown Rx NEBS] Apixaban [Eliquis] 2.5 mg PO Q12HR tablet 12/01/18 Unknown Rx Digoxin [Lanoxin] 0.125 mg PO Q48H tablet 12/01/18 Unknown Rx Famotidine [Pepcid] 20 mg PO BID tablet 12/01/18 Unknown Rx Insulin NPH Hum/Reg Insulin Hm 15 unit SQ BID #1 vial 12/01/18 Unknown Rx [Novolin 70-30 100 Unit/ml Vial] guaiFENesin [Robitussin] 200 mg PO Q4H PRN oral.liqd 12/01/18 Unknown Rx Clindamycin [Clindamycin CAP] 300 mg PO Q6H 7 Days #28 capsule 12/19/18 Unknown Rx - Procedure Description Procedures done: Laceration repair no right ear. Anterior laceration repair. Laceration, 3 cm. Irregular shape. Full-thickness. On prepped and draped in sterile fashion. Anesthesia achieved with 2% lidocaine with no epinephrine modifiable valente was placed in simple interrupted fashion 3 for wound closure with no complications. Procedure tolerated well. Posterior laceration repair. Was prepped and draped in sterile fashion. Laceration was 2.5 cm linear. 3 sutures placed in simple interrupted fashion with no complications to achieve wound closure. Procedure was tolerated well. Estimated blood loss less than 3 mL. ED Medical Decision Making - Lab Data Result diagrams: 12/19/18 04:42 12/19/18 04:42 ED Disposition Clinical Impression: Hypoglycemia, Fall, Laceration of ear, Blunt head trauma Disposition: - TO HOME OR SELFCARE Condition: Fair Instructions: Laceration (ED), Diabetic Hypoglycemia (ED), Fall Prevention for Older Adults (ED) Prescriptions: Clindamycin [Clindamycin CAP] 300 mg PO Q6H 7 Days #28 capsule Referrals: AISSATOU PAULSON MD [Referring] - 3-5 Days GERTRUDIS FOUNTAIN MD [Primary Care Provider] - 3-5 Days Print Language: JAPANESE <WILLIAN NOVOA - Last Filed: 12/19/18 07:15> ED General Adult HPI - General Source: EMS Mode of arrival: Stretcher Limitations: Altered Mental Status, Physical Limitation - History of Present Illness Initial comments: 78-year-old male with a history of DVT diabetes presents after having a fall while at [facility]. Patient had an unwitnessed fall where he injured his right ear. Patient was then brought to the emergency department for evaluation and treatment. Family also concern for possible infection around his PEG tube site. Patient receives his nutrition solely through the PEG tube region. And per [facility] documentation patient is on Keflex for this. ED Review of Systems ROS: Stated complaint: LACERATION TO (R) EAR SECONDARY TO FALL Other details as noted in HPI Comment: Unobtainable due to pts medical conditions Constitutional: denies: chills, fever Eyes: denies: eye pain, eye discharge, vision change ENT: denies: ear pain, throat pain Respiratory: denies: cough, shortness of breath, wheezing Cardiovascular: denies: chest pain, palpitations Endocrine: no symptoms reported Gastrointestinal: denies: abdominal pain, nausea, diarrhea Genitourinary: denies: urgency, dysuria Musculoskeletal: denies: back pain, joint swelling, arthralgia Skin: denies: rash, lesions Neurological: headache Psychiatric: denies: anxiety, depression Hematological/Lymphatic: denies: easy bleeding, easy bruising ED Past Medical Hx - Past Medical History Hx Diabetes: Yes Hx Deep Vein Thrombosis: Yes Hx Liver Disease: No Hx Renal Disease: No Hx Seizures: No Hx Asthma: No Hx COPD: No Additional medical history: AFIB, GERD, SOB, SVT, DKA, Sepsis - Surgical History Past Surgical History?: Yes Hx Pacemaker: No Hx Internal Defibrillator: No Additional Surgical History: hernia repair and PEG placement - Social History Smoking Status: Former Smoker Substance Use Type: None ED Physical Exam - General Limitations: Altered Mental Status, Physical Limitation General appearance: other (Frail; dehydratated) - Head Head exam: Present: atraumatic, normocephalic - Eye Eye exam: Present: normal appearance - ENT ENT exam: Present: mucous membranes dry, other (3 cm vertical laceration noted on right ear) - Neck Neck exam: Present: normal inspection - Respiratory Respiratory exam: Present: normal lung sounds bilaterally. Absent: respiratory distress - Cardiovascular Cardiovascular Exam: Present: regular rate, normal rhythm. Absent: systolic murmur, diastolic murmur, rubs, gallop - GI/Abdominal GI/Abdominal exam: Present: soft, normal bowel sounds, other (PEG tube site shows presence of erythema with no active exudate) - Rectal Rectal exam: Present: deferred - Extremities Exam Extremities exam: Present: normal inspection - Back Exam Back exam: Present: normal inspection - Neurological Exam Neurological exam: Present: other (MOves extremities) - Psychiatric Psychiatric exam: Present: normal mood - Skin Skin exam: Present: warm, dry, intact, normal color. Absent: rash ED Course Vital Signs 12/19/18 03:10 Temperature 97 F L Pulse Rate 75 Respiratory 16 Rate Blood Pressure 119/71 O2 Sat by Pulse 100 Oximetry - Laceration /Wound Repair Right Ear Wound Location: face Wound Length (cm): 3 Wound's Depth, Shape: irregular Wound Explored: clean Anesthesia: 1% Lidocaine Suture Size/Type: 5:0 Number of Sutures: 7 Layer Closure?: Yes ED Medical Decision Making - Lab Data Result diagrams: 12/19/18 04:42 12/19/18 04:42 - Medical Decision Making Patient has normal white count. Patient has a CT of abdomen and pelvis is no acute pathology. Patient's CT shows no acute pathology. Patient had laceration of right ear performed while in the emergency department. Patient had not eaten prior to arrival and his blood glucose was low. Patient then received D50 and his blood sugar increased to the 200 range. Patient has no other concomitant electrolyte abnormality. Patient be discharged to follow-up with PCP. - Differential Diagnosis intracranial bleed; cervical fracture; intra-abdominal abscess; anemia abno Critical care attestation.: If time is entered above; I have spent that time in minutes in the direct care of this critically ill patient, excluding procedure time. ED Disposition Is pt being admited?: No
[2018-12-19] MEDS ORDERED: XYLOCAINE 2% INFILTRATI ONE ×2 (03:48→06:46)
--- NOTE | 2018-12-19 04:54 | Cat Scan Report ---
CT head/brain wo con INDICATION / CLINICAL INFORMATION: Blunt head trauma. Fall with right ear laceration. TECHNIQUE: All CT scans at this location are performed using CT dose reduction for ALARA by means of automated e xposure control. COMPARISON: 11/19/2018. FINDINGS: There is moderate generalized cerebral atrophy. There are also moderate small vessel ischemic changes in the periventricular white matter bilaterally. No focal lesion or mass effect is seen. There is no evidence of intracranial hemorrhage or major vessel occlusion. The calvarium is intact. The visualized paranasal sinuses and mastoid air cells are clear. I do not i dentify a fracture. IMPRESSION: No acute abnormality. Signer Name: Cholo Muhammad MD Signed: 12/19/2018 4:49 AM Workstation Name: [id number]
[2018-12-19 04:56] LABS: Hematocrit 31.8 % (35.5-45.6); Hemoglobin 11.1 gm/dl (11.8-15.2); Mean Corpuscular HGB Conc 35 % (32-34); Mean Corpuscular Volume 87 fl (84-94); Platelet Count 581 K/mm3 (140-440); Red Blood Count 3.63 M/mm3 (3.65-5.03); Red Cell Distribution Width 15.7 % (13.2-15.2)
--- NOTE | 2018-12-19 04:58 | Cat Scan Report ---
CT cervical spine wo con INDICATION / CLINICAL INFORMATION: Fall with neck pain. TECHNIQUE: All CT scans at this location are performed using CT dose reduction for ALARA by means of automated e xposure control. COMPARISON: 11/19/2018. FINDINGS: There is mild to moderate generalized spondylosis, most prominent in the lower cervical spine. There is a calcified extradural lesion at C5-6 on the right causing spinal stenosis, unchanged. There is he terotopic ossification in the ligamentum nuchae. The prevertebral soft tissues are normal. I see no e vidence of fracture or subluxation. I do not identify an acute herniated disc or epidural hematoma. T here are emphysematous changes in the lung apices. IMPRESSION: Spondylosis without acute abnormality. Signer Name: Cholo Muhammad MD Signed: 12/19/2018 4:53 AM Workstation Name: [id number]
--- NOTE | 2018-12-19 05:06 | Cat Scan Report ---
CT abdomen pelvis wo con INDICATION / CLINICAL INFORMATION: Fall. Generalized Abdominal pain.. TECHNIQUE: All CT scans at this location are performed using CT dose reduction for ALARA by means of automated e xposure control. COMPARISON: 11/22/2018. FINDINGS: ABDOMEN: Right lower lobe pneumonia has almost completely resolved. Small bilateral pleural effusions and left compressive atelectasis are no longer present. There is a gastrostomy tube in good position . The liver, spleen, gallbladder, bile ducts, pancreas, left adrenal gland and kidneys are normal. Ri ght adrenal calcification is stable. The bowel is normal. No adenopathy is seen. PELVIS: The distal ureters, urinary bladder and prostate gland are normal. No abnormal mass or fluid collection is seen. There are surgical changes involving the lower anterior abdominal wall. I do not identify a hernia. There is moderate spondylosis without acute osseous abnormality. IMPRESSION: No acute intra-abdominal disease is identified. Signer Name: Cholo Muhammad MD Signed: 12/19/2018 5:01 AM Workstation Name: [id number]
[2018-12-19 05:20] LABS: Alanine Aminotransferase 19 units/L (7-56); Albumin 3.1 g/dL (3.9-5); BUN/Creatinine Ratio 21; Blood Urea Nitrogen 19 mg/dL (9-20); Calcium 9.1 mg/dL (8.4-10.2); Hemolysis Index 1
[2018-12-19] MEDS ORDERED: D50W (25GM) Syringe IV ONE (06:20)
[2018-12-19 07:49] VITALS: BP 117/66
== END 2018-12-19 09:30 | disposition home or self-care (01) ==
LOC: ED 02:50
DX: S01.311A Laceration without foreign body of right ear, initial encounter (principal); S09.90XA Unspecified injury of head, initial encounter; E13.649 Other specified diabetes mellitus with hypoglycemia without coma; I48.91 Unspecified atrial fibrillation; K21.9 Gastro-esophageal reflux disease without esophagitis; Z87.891 Personal history of nicotine dependence; Z86.718 Personal history of other venous thrombosis and embolism; Z79.01 Long term (current) use of anticoagulants; Z98.890 Other specified postprocedural states; Z79.4 Long term (current) use of insulin; W19.XXXA Unspecified fall, initial encounter; Y93.89 Activity, other specified; Y92.129 Unspecified place in nursing home as the place of occurrence of the external cause; Y99.8 Other external cause status
CPT/HCPCS: 36415; 70450; 72125; 74176; 80053; 82962; 85027; 96374